=== PATIENT | male | born 1965 | race Caucasian/White ===

== ENCOUNTER 2016-11-12 02:02 | Inpatient (IN) | payer OTHER ==
[~2016-11-12] VITALS: Ht 177.8 cm; Wt 83.3 kg
[~2016-11-12 02:02] MED LIST: CIPR-9 PO; GABA600T PO; GLUCTES27 TOP; HYDR-3535 PO; HYDR25TA5 PO; INSU-170; LEVEMIR SQ; LISI10TA3 PO; METH40TA PO; MISC-226; NEUR400C PO; NOVOLOGP2 SQ; PRIL40CA PO
[2016-11-12 02:05] VITALS: BP 121/71; PULSE 77; RESP 20; TEMP 98.4; O2SAT 97
[2016-11-12] MEDS ORDERED: PIPERACIL-TAZO 4.5 GM PREMIX 100 ML IV STA (04:05)
[2016-11-12] MEDS ORDERED: VANCOMYCIN INJ 1,000 MG in SODIUM CHLOR 0.9% 250 ML INJ 250 ML IV STA (04:05)
[2016-11-12] MEDS ORDERED: SODIUM CHLOR 0.9% 1000 ML INJ 1,000 ML IV ONE (04:05)
[2016-11-12] MEDS ORDERED: HYDROmorphone HCL PF 1 MG/ML VIAL IV ONE (04:15)
[2016-11-12] MEDS ORDERED: ONDANSETRON HCL 4 MG/2 ML VIAL IV ONE (04:15)
[2016-11-12 04:16] LABS: AUTOMATED NEUTROPHIL # 7.4 TH/MM3 (1.8-7.7); BASOPHIL # 0.1 TH/MM3 (0-0.2); BASOPHIL % 0.8 % (0.0-2.0); EOSINOPHIL # 0.2 TH/MM3 (0-0.4); EOSINOPHIL % 1.4 % (0.0-4.0); HEMATOCRIT 36.9 % (39.0-51.0); HEMO FLAGS DIFF FINAL; MEAN CELL VOLUME 86.1 FL (80.0-100.0); MEAN CORPUSCULAR HEMOGLOBIN 29.5 PG (27.0-34.0); MEAN CORPUSCULAR HGB CONC 34.3 % (32.0-36.0); MONO % 9.9 % (0.0-8.0); NEUT % 68.9 % (16.0-70.0); PLATELET COUNT 130 TH/MM3 (150-450); RED BLOOD COUNT 4.29 MIL/MM3 (4.50-5.90); RED CELL DISTRIBUTION WIDTH 13.5 % (11.6-17.2); WHITE BLOOD COUNT 10.7 TH/MM3 (4.0-11.0)
--- NOTE | 2016-11-12 04:19 | PD ---
HPI Chief Complaint: Skin Problem Time Seen by Provider: 04:05 Travel History International Travel<30 days: No Contact w/Intl Traveler<30days: No Traveled to known affect area: No History of Present Illness HPI 51-year-old male with history of diabetes, A. fib, status post previous foot infection status post second toe amputation 2 months ago, has not been able to follow-up with podiatry secondary to insurance issues, here today because of worsening of right foot ulcer, pain, for the past 2-3 days. He denies any fevers or any other issues. Pain is currently an 8 out of 10. Modifying Factors: None Associated Signs & Symptoms: Worsening diabetic right foot ulcer Risk Factors: Previous foot ulcer, diabetic PFSH Past Medical History Arthritis: Yes Autoimmune Disease: No Anxiety: No Depression: No Heart Rhythm Problems: No Cancer: Yes (Skin cancer on nose ) Cardiovascular Problems: Yes (htn) Chemotherapy: No Chest Pain: No Congestive Heart Failure: No Cerebrovascular Accident: No Diabetes: Yes Patient Takes Glucophage: No Diminished Hearing: No Endocrine: Yes Gastrointestinal Disorders: No GERD: Yes Genitourinary: No Headaches: No Hepatitis: Yes (C) Hiatal Hernia: No Hypertension: Yes Immune Disorder: No Implanted Vascular Access Dvce: No Kidney Stones: Yes Musculoskeletal: Yes (CHRONIC BACK PAIN/DDD/HERNIATED DISC) Neurologic: No Psychiatric: No Reproductive: No Respiratory: No Immunizations Current: Yes Migraines: No Radiation Therapy: No Renal Failure: No Seizures: No Sickle Cell Disease: No Thyroid Disease: No Ulcer: No Past Surgical History Abdominal Surgery: No AICD: No Appendectomy: Yes Arteriovenous Shunt: No Cardiac Surgery: No Ear Surgery: No Endocrine Surgery: No Eye Surgery: No Genitourinary Surgery: No Gynecologic Surgery: No Insulin Pump: No Joint Replacement: No Neurologic Surgery: No Oral Surgery: No Pacemaker: No Thoracic Surgery: No Other Surgery: Yes (NOSE, SKIN GRAFT) Social History Alcohol Use: No Tobacco Use: Yes (2 CIGS PER DAY) Substance Use: No Allergies-Medications (Allergen,Severity, Reaction): Coded Allergies: Contrast Media (Verified Allergy, Severe, 11/12/16) Reported Meds & Prescriptions Reported Meds & Active Scripts Active Cipro (Ciprofloxacin HCl) 500 Mg Tab 500 Mg PO BID B-D Insulin Syringe Ultra 31G X 5/16" 1 ml 1 Mis Mis 1 Ea .ROUTE DIRECTED Prilosec (Omeprazole) 40 Mg Cap 40 Mg PO DAILY Hal Contour Next Blood (Glucose Blood) 1 Pretty Pretty 1 Strip TOP 5 TIMES A DAY Lisinopril 10 Mg Tab 10 Mg PO DAILY Neurontin (Gabapentin) 400 Mg Cap 1,200 Mg PO TID Hydrochlorothiazide 25 Mg Tab 25 Mg PO DAILY Novolog Inj (Insulin Aspart) 1,000 Unit/10 Ml Vial 14 Units SQ TIDAC Levemir Inj (Insulin Detemir) 1,000 unit/ 10 ML Vial 70 Units SQ HS Levemir Inj (Insulin Detemir) 1,000 unit/ 10 ML Vial 65 Units SQ DAILY NEB Lortab (Hydrocodone-Acetaminophen) 10-325 Mg Tab 1 Tab PO Q8HR PRN Quick-Fit Crutches (Device) 1 Mis Mis 1 Ea .ROUTE DIRECTED Reported Methadone (Methadone HCl) 40 Mg Tab 220 Mg PO DAILY Lisinopril 10 Mg Tab 10 Mg PO DAILY Hydrochlorothiazide 25 Mg Tab 25 Mg PO DAILY Gabapentin 600 Mg Tab 1,200 Mg PO TID Review of Systems Except as stated in HPI: all other systems reviewed are Neg Physical Exam Narrative GENERAL: Well-nourished, well-developed middle age white male patient in no acute distress. Awake and oriented 3. SKIN: Warm and dry. HEAD: Normocephalic. EYES: No scleral icterus. No injection or drainage. NECK: Supple, trachea midline. CARDIOVASCULAR: Regular rate and rhythm without murmurs, gallops, or rubs. RESPIRATORY: Breath sounds equal bilaterally. No accessory muscle use. GASTROINTESTINAL: Abdomen soft, non-tender, nondistended. MUSCULOSKELETAL: No cyanosis, or edema. BACK: Nontender without obvious deformity. No CVA tenderness. EXTREMITIES: No clubbing, cyanosis, or edema. No joint tenderness, effusion, or edema noted. Right foot with large lateral shelly with surrounding ecchymosis and tenderness and the bottom of the right foot with a 2 cm ulcer with surrounding ecchymosis and erythema. Tender to palpation. Data Data Last Documented VS Vital Signs Date Time Temp Pulse Resp B/P Pulse Ox O2 Delivery O2 Flow Rate FiO2 11/12/16 02:05 98.4 77 20 121/71 97 Room Air Orders Complete Blood Count With Diff (11/12/16 04:05) Comprehensive Metabolic Panel (11/12/16 04:05) Prothrombin Time / Inr (Pt) (11/12/16 04:05) Act Partial Throm Time (Ptt) (11/12/16 04:05) Lactic Acid Sepsis Protocol (11/12/16 04:05) Blood Culture (11/12/16 04:05) Blood Glucose (11/12/16 04:05) Ecg Monitoring (11/12/16 04:05) Iv Access Insert/Monitor (11/12/16 04:05) Oximetry (11/12/16 04:05) Oxygen Administration (11/12/16 04:05) Hydromorphone Pf Inj (Dilaudid Pf Inj) (11/12/16 04:15) Ondansetron Inj (Zofran Inj) (11/12/16 04:15) Piperacil-Tazo 4.5 Gm Premix (Zosyn 4.5 (11/12/16 04:05) Vancomycin Inj (Vancomycin Inj) (11/12/16 04:05) Sodium Chlor 0.9% 1000 Ml Inj (Ns 1000 M (11/12/16 04:05) Foot, Complete ([id number]) (11/12/16 04:05) Admit Order (Ed Use Only) (11/12/16 05:04) Labs Laboratory Tests Test 11/12/16 04:00 White Blood Count 10.7 TH/MM3 Red Blood Count 4.29 MIL/MM3 Hemoglobin 12.6 GM/DL Hematocrit 36.9 % Mean Corpuscular Volume 86.1 FL Mean Corpuscular Hemoglobin 29.5 PG Mean Corpuscular Hemoglobin 34.3 % Concent Red Cell Distribution Width 13.5 % Platelet Count 130 TH/MM3 Mean Platelet Volume 9.4 FL Neutrophils (%) (Auto) 68.9 % Lymphocytes (%) (Auto) 19.0 % Monocytes (%) (Auto) 9.9 % Eosinophils (%) (Auto) 1.4 % Basophils (%) (Auto) 0.8 % Neutrophils # (Auto) 7.4 TH/MM3 Lymphocytes # (Auto) 2.0 TH/MM3 Monocytes # (Auto) 1.1 TH/MM3 Eosinophils # (Auto) 0.2 TH/MM3 Basophils # (Auto) 0.1 TH/MM3 CBC Comment DIFF FINAL Differential Comment Prothrombin Time 11.0 SEC Prothromb Time International 1.0 RATIO Ratio Activated Partial 29.4 SEC Thromboplast Time Sodium Level 131 MEQ/L Potassium Level 4.1 MEQ/L Chloride Level 93 MEQ/L Carbon Dioxide Level 29.0 MEQ/L Anion Gap 9 MEQ/L Blood Urea Nitrogen 23 MG/DL Creatinine 1.06 MG/DL Estimat Glomerular Filtration 74 ML/MIN Rate Random Glucose 373 MG/DL Lactic Acid Level 1.3 mmol/L Calcium Level 8.5 MG/DL Total Bilirubin 0.4 MG/DL Aspartate Amino Transf 21 U/L (AST/SGOT) Alanine Aminotransferase 22 U/L (ALT/SGPT) Alkaline Phosphatase 145 U/L Total Protein 7.3 GM/DL Albumin 2.6 GM/DL MDM Medical Decision Making Medical Screen Exam Complete: Yes Emergency Medical Condition: Yes Medical Record Reviewed: Yes Interpretation(s) Laboratory Tests Test 11/12/16 04:00 Red Blood Count 4.29 MIL/MM3 (4.50-5.90) Hemoglobin 12.6 GM/DL (13.0-17.0) Hematocrit 36.9 % (39.0-51.0) Platelet Count 130 TH/MM3 (150-450) Monocytes (%) (Auto) 9.9 % (0.0-8.0) Monocytes # (Auto) 1.1 TH/MM3 (0-0.9) Sodium Level 131 MEQ/L (136-145) Chloride Level 93 MEQ/L (98-107) Blood Urea Nitrogen 23 MG/DL (7-18) Estimat Glomerular Filtration 74 ML/MIN (>89) Rate Random Glucose 373 MG/DL (74-106) Alkaline Phosphatase 145 U/L (45-117) Albumin 2.6 GM/DL (3.4-5.0) Last 24 hours Impressions Foot X-Ray 11/12/16 0405 Signed Impressions: Service Date/Time: Saturday, November 12, 2016 04:06 - CONCLUSION: 1. Air in the soft tissues along the lateral plantar aspect of the foot suggesting a regional cellulitis. 2. In addition, there appears to be cortical disruption along the fifth metatarsal head, concerning for regional osteomyelitis. 3. Chronic fracture dislocation of the Lisfranc joint with ongoing collapse of the same characteristic of a Charcot joint. Eleuterio Carbajal MD Differential Diagnosis Diabetic foot ulcer versus osteomyelitis versus necrotizing fasciitis versus cellulitis sepsis Narrative Course X-ray indicative of osteomyelitis. I suspect that this is a infected diabetic foot ulcer. IV is here eyes were initiated after cultures are drawn. Case is discussed with Dr. Tolentino for admission. Diagnosis Primary Impression: Diabetic foot infection Additional Impression: Acute osteomyelitis of metatarsal bone of right foot Admitting Information Admitting Physician Requests: it Zara Pratt MD Nov 12, 2016 04:19
[2016-11-12 04:24] LABS: APTT (PATIENT) 29.4 SEC (24.3-30.1)
[2016-11-12 04:31] LABS: ALT (GPT) 22 U/L (12-78); ANION GAP 9 MEQ/L (5-15); AST (GOT) 21 U/L (15-37); BLOOD UREA NITROGEN 23 MG/DL (7-18); CHLORIDE 93 MEQ/L (98-107); GLOMERULAR FILTRATION RATE 74 ML/MIN (>89); POTASSIUM 4.1 MEQ/L (3.5-5.1); SODIUM (NA) 131 MEQ/L (136-145)
[2016-11-12 04:33] LABS: ALKALINE PHOSPHATASE 145 U/L (45-117); TOTAL BILIRUBIN ADULT 0.4 MG/DL (0.2-1.0)
--- NOTE | 2016-11-12 04:44 | RADRPT ---
EXAM DATE/TIME: 11/12/2016 04:06 [facility] COMPARISON: FOOT RIGHT COMPLETE ([id number]), January 31, 2016, 16:41. INDICATIONS : Right foot ulcers, swelling, and drainage. MEDICAL HISTORY : Diabetes mellitus type II. SURGICAL HISTORY : Partial amputations, right foot. ENCOUNTER: Initial ACUITY: 1 day PAIN SCORE: 5/10 LOCATION: Right foot. FINDINGS: Three view examination of the right foot demonstrates a chronic fracture dislocation of the Lisfranc joint with ongoing collapse is seen. There is a transmetatarsal amputation of the second ray. Air is seen in the plantar tissues along the lateral aspect of the foot and the suggestion of some bony eros ion on the plantar aspect of the fifth metatarsal head. CONCLUSION: 1. Air in the soft tissues along the lateral plantar aspect of the foot suggesting a regional celluli tis. 2. In addition, there appears to be cortical disruption along the fifth metatarsal head, concerning f or regional osteomyelitis. 3. Chronic fracture dislocation of the Lisfranc joint with ongoing collapse of the same characteristi c of a Charcot joint. Eleuterio Carbajal MD on November 12, 2016 at 4:31 Board Certified Radiologist. This report was verified electronically.
[2016-11-12] MEDS ORDERED: GLUCAGON 1 MG/ML VIAL OTHER PRN (05:15)
[2016-11-12] MEDS ORDERED: DEXTROSE 50% IN WATER 50 ML VIAL(D50) IV PUSH PRN (05:15)
[2016-11-12] MEDS ORDERED: NALOXONE HCL 0.4 MG/ML AMP IV PRN (05:15)
[2016-11-12] MEDS ORDERED: Vancomycin Consult Pharmacy 1 EA OTHER SCH (05:15)
[2016-11-12] MEDS ORDERED: INSULIN ASPART SUPPLEMENTAL SCALE SQ SCH ×2 (07:00→21:00)
[2016-11-12] MEDS ORDERED: ACETAMINOPHEN/HYDROcodone 325 MG/10 MG TAB PO PRN (07:15)
[2016-11-12] MEDS ORDERED: SENNOSIDES 8.6 MG TAB PO PRN (07:15)
[2016-11-12] MEDS ORDERED: BISACODYL 10 MG SUPP PR PRN (07:15)
[2016-11-12] MEDS ORDERED: ACETAMINOPHEN 325 MG TAB PO PRN ×2 (07:15)
[2016-11-12] MEDS ORDERED: ONDANSETRON HCL 4 MG/2 ML VIAL IVP PRN (07:15)
[2016-11-12] MEDS: DOCUSATE SODIUM 100 MG CAP PO SCH ×2 (07:15→18:08)
[2016-11-12] MEDS ORDERED: ACETAMINOPHEN/HYDROcodone 325 MG/5 MG TAB PO PRN (07:15)
[2016-11-12] MEDS ORDERED: MAGNESIUM HYDROXIDE SUSP 30 ML CUP PO PRN (07:15)
[2016-11-12 07:23] VITALS: BP 109/61; PULSE 64; RESP 16; O2SAT 95
[2016-11-12] MEDS ORDERED: BUPIVACAINE LIPOSOME PF 1.3% 20 ML VIAL ONE (08:34)
[2016-11-12] MEDS: PIPERACIL-TAZO 4.5 GM PREMIX 100 ML IV SCH ×3 (09:23→21:33)
[2016-11-12] MEDS: SODIUM CHLORIDE 0.9% FLUSH 5 ML FLUSH FLUSH SCH ×2 (09:24→21:00)
[2016-11-12] MEDS: ENOXAPARIN SODIUM 40 MG/0.4 ML SYRINGE SQ SCH (09:24)
[2016-11-12] MEDS ORDERED: LANTUS2P SQ ×2 (09:37→09:38)
[2016-11-12] MEDS ORDERED: OXYC-396 PO (09:40)
[2016-11-12] MEDS ORDERED: NOVOLOGP2 SQ (09:42)
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
[2016-11-12 10:58] VITALS: BP 120/72; PULSE 56; RESP 18; TEMP 97.5; O2SAT 97
[2016-11-12] MEDS: INSULIN ASPART SUPPLEMENTAL SCALE SQ SCH ×2 (11:00→16:57)
[2016-11-12] MEDS ORDERED: GADODIAMIDE PF 287 MG/ML 20 ML VIAL (for RAD MRI) IV ONE (11:59)
[2016-11-12] MEDS: VANCOMYCIN INJ 1,750 MG in SODIUM CHLORID 0.9% 500 ML INJ 500 ML IV SCH ×2 (12:24→23:16)
[2016-11-12] MEDS: METHADONE HCL 10 MG TAB PO SCH (12:24)
[2016-11-12 13:18] LABS: HEMOGLOBIN A1a 1.1 %; HEMOGLOBIN Ao 75.6 %; HEMOGLOBIN F 1.8 %; HEMOGLOBIN LA1C 3.4 %
--- NOTE | 2016-11-12 13:35 | RADRPT ---
EXAM DATE/TIME: 11/12/2016 11:28 [facility] COMPARISON: FOOT RIGHT COMPLETE ([id number]), November 12, 2016, 4:06. INDICATIONS : Abscess. Wound bottom of right foot/mid foot. CONTRAST: 16 cc Omniscan (gadodiamide) IV MEDICAL HISTORY : Diabetes mellitus type 2. Hypertension. Hepatitis C. SURGICAL HISTORY : Amputation 2nd metatarsal rt foot. ENCOUNTER: Initial ACUITY: 4-6 days PAIN SCORE: 6/10 LOCATION: Right foot TECHNIQUE: Multiplanar, multisequence MRI examination was performed without contrast and after the intravenous a dministration of gadolinium. FINDINGS: BONE/CARTILAGE: There is some edema within the fifth metatarsal with air some periosteal thickening and enhancement c onsistent with osteomyelitis. There is also similar changes noted within the cuboid bone. There is so me edema within the anterior calcaneus. There is a horizontal nondisplaced fracture through the calca neus anteriorly. There is a Charcot neuropathy of the midfoot and Lisfranc region with dislocation of the tarsal/metatarsals. There is some edema within the tarsals and metatarsals likely reactive from arthritic changes. TENDONS: All of the visualized tendons are intact. POST-CONTRAST: There is enhancement of the soft tissues laterally and along the periosteum of the fifth metatarsal a nd adjacent soft tissues. CONCLUSION: 1. Subcutaneous emphysema laterally with osteomyelitis of the fifth metatarsal. 2. Osteomyelitis of the cuboid. 3. There is some edema within the calcaneus where there appears to be a nondisplaced fracture. 4. Charcot neuropathy of the midfoot Keyur Goldman MD on November 12, 2016 at 13:14 Board Certified Radiologist. This report was verified electronically.
[2016-11-12 16:15] VITALS: BP 106/64; PULSE 55; RESP 18; TEMP 98; O2SAT 98
[2016-11-12] MEDS ORDERED: OMEP40CA2 PO (16:30)
--- NOTE | 2016-11-12 18:35 | PD.CONS ---
History of Present Illness Service Podiatry Consult Requested By ED Reason for Consult R foot gas gangrene Primary Care Physician Courtney Terry MD Diagnoses: History of Present Illness 51-year-old male with history of DM with charcot and previous foot amputation due to infections has had increasing necrosis, drainage, and foul odor from the R foot. He has had this going on for a few months and it worsened over the past 3 days. 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 Active Ordered Medications Current Medications Medications (Trade) Dose Ordered Sig/Ashish Route Start Time Stop Time Status Last Admin (NS Flush) 2 ml UNSCH PRN FLUSH 11/12/16 05:15 (NS Flush) 2 ml BID FLUSH 11/12/16 09:00 11/12/16 09:24 (Lovenox Inj) 40 mg Q24H SQ 11/12/16 09:00 11/12/16 09:24 Naloxone HCl 0.4 mg 0.4 mg UNSCH PRN IV 11/12/16 05:15 Pharmacy Profile Note 0 ml @ 0 mls/hr UNSCH OTHER 11/12/16 05:15 (Zosyn 4.5 Gm Premix) 100 ml @ 200 mls/hr Q6H IV 11/12/16 10:00 11/12/16 16:58 (D50w (Vial) Inj) 25 ml UNSCH PRN IV PUSH 11/12/16 05:15 (Glucagon Inj) 1 mg UNSCH PRN OTHER 11/12/16 05:15 (Tylenol) 650 mg Q4H PRN PO 11/12/16 07:15 (Zofran Inj) 4 mg Q6H PRN IVP 11/12/16 07:15 (Dulcolax Supp) 10 mg DAILY PRN CO 11/12/16 07:15 (Colace) 100 mg Q12H PO 11/12/16 07:15 (Milk Of Magnesia Liq) 30 ml Q12H PRN PO 11/12/16 07:15 (Senokot) 17.2 mg Q12H PRN PO 11/12/16 07:15 (Tylenol) 650 mg Q6H PRN PO 11/12/16 07:15 Hydromorphone HCl 1 mg 1 mg Q3H PRN IV 11/12/16 07:15 (Vancomycin Inj/ NS 500 ml Inj) 517.5 ml @ 250 mls/hr Q12H IV 11/12/16 11:00 11/12/16 12:24 Miscellaneous Information SPECIFIC LAB TO BE DRAWN:VANCOMYCIN TROUGH DATE TO... ONCE ONCE XX 11/14/16 10:45 11/14/16 10:46 (Dolophine) 220 mg DAILY PO 11/12/16 10:45 11/12/16 12:24 (Roxicodone) 20 mg Q6H PRN PO 11/12/16 10:45 (Lantus Inj) 64 units HS SQ 11/12/16 21:00 UNV (Neurontin) 1,200 mg TID PO 11/13/16 09:00 UNV (Prinivil) 10 mg DAILY PO 11/13/16 09:00 UNV (Protonix) 40 mg DAILY PO 11/13/16 09:00 UNV Family History Mother with CHF Denies any significant family history of diabetes Social History Smokes tobacco, 2 cigarettes daily Denies alcohol or illicit drug use Physical Exam Vital Signs Vital Signs Date Time Temp Pulse Resp B/P Pulse Ox O2 Delivery O2 Flow Rate FiO2 11/12/16 16:15 98.0 55 18 106/64 98 11/12/16 10:58 97.5 56 18 120/72 97 11/12/16 07:23 64 16 109/61 95 Room Air 11/12/16 07:22 62 18 11/12/16 02:05 98.4 77 20 121/71 97 Room Air Physical Exam R foot with necrotic wound to lateral foot probes to bone 12cm x 5cm. previous 5th toe amputation. Purulent drainage and significant foul odor present. Plantar ulceration with necrotic tissue to plantar rearfoot, approximately 5cm diameter erythema and edema to R foot. Laboratory Laboratory Tests Test 11/12/16 04:00 White Blood Count 10.7 Red Blood Count 4.29 Hemoglobin 12.6 Hematocrit 36.9 Mean Corpuscular Volume 86.1 Mean Corpuscular Hemoglobin 29.5 Mean Corpuscular Hemoglobin 34.3 Concent Red Cell Distribution Width 13.5 Platelet Count 130 Mean Platelet Volume 9.4 Neutrophils (%) (Auto) 68.9 Lymphocytes (%) (Auto) 19.0 Monocytes (%) (Auto) 9.9 Eosinophils (%) (Auto) 1.4 Basophils (%) (Auto) 0.8 Neutrophils # (Auto) 7.4 Lymphocytes # (Auto) 2.0 Monocytes # (Auto) 1.1 Eosinophils # (Auto) 0.2 Basophils # (Auto) 0.1 CBC Comment DIFF FINAL Differential Comment Prothrombin Time 11.0 Prothromb Time International 1.0 Ratio Activated Partial 29.4 Thromboplast Time Sodium Level 131 Potassium Level 4.1 Chloride Level 93 Carbon Dioxide Level 29.0 Anion Gap 9 Blood Urea Nitrogen 23 Creatinine 1.06 Estimat Glomerular Filtration 74 Rate Random Glucose 373 Hemoglobin A1c 12.0 Lactic Acid Level 1.3 Calcium Level 8.5 Total Bilirubin 0.4 Aspartate Amino Transf 21 (AST/SGOT) Alanine Aminotransferase 22 (ALT/SGPT) Alkaline Phosphatase 145 Total Protein 7.3 Albumin 2.6 Date/Time Procedure Status Source Growth 11/12/16 04:45 Aerobic Blood Culture Received Blood Peripheral Pending 11/12/16 04:45 Anaerobic Blood Culture Received Blood Peripheral Pending Result Diagram: 11/12/16 0400 11/12/16 0400 Imaging Last Impressions Foot X-Ray 11/12/16 0405 Signed Impressions: Service Date/Time: Saturday, November 12, 2016 04:06 - CONCLUSION: 1. Air in the soft tissues along the lateral plantar aspect of the foot suggesting a regional cellulitis. 2. In addition, there appears to be cortical disruption along the fifth metatarsal head, concerning for regional osteomyelitis. 3. Chronic fracture dislocation of the Lisfranc joint with ongoing collapse of the same characteristic of a Charcot joint. Eleuterio Carbajal MD Foot MRI 11/12/16 0000 Signed Impressions: Service Date/Time: Saturday, November 12, 2016 11:28 - CONCLUSION: 1. Subcutaneous emphysema laterally with osteomyelitis of the fifth metatarsal. 2. Osteomyelitis of the cuboid. 3. There is some edema within the calcaneus where there appears to be a nondisplaced fracture. 4. Charcot neuropathy of the midfoot Keyur Goldman MD Assessment and Plan Assessment and Plan Gangrene R foot Discussed that in order to salvage limb, I strongly recommend BKA Discussed he will have to be compliant with postoperative care or he will lose more of his leg. Consult Dr Grant to discuss further workup with patient. Manjit Damon DPM Nov 12, 2016 18:35
[2016-11-12 19:40] VITALS: BP 115/65; PULSE 63; RESP 18; TEMP 97.9; O2SAT 97
--- NOTE | 2016-11-12 21:29 | PD.CAR.PN ---
CVT Progress Note Subjective/Hospital Course: Patient seen Full consult dictated We will proceed with a right below-knee amputation tomorrow Thanks J Objective: Vital Signs Date Time Temp Pulse Resp B/P Pulse Ox O2 Delivery O2 Flow Rate FiO2 11/12/16 19:40 97.9 63 18 115/65 97 11/12/16 16:15 98.0 55 18 106/64 98 11/12/16 10:58 97.5 56 18 120/72 97 11/12/16 07:23 64 16 109/61 95 Room Air 11/12/16 07:22 62 18 11/12/16 02:05 98.4 77 20 121/71 97 Room Air Result Diagram: 11/12/160 11/12/160 Velasquez Lizama MD Nov 12, 2016 21:29
[2016-11-12] MEDS: INSULIN DETEMIR 100 UNITS/ML VIAL SQ SCH (21:32)
[2016-11-12] MEDS: HYDROmorphone HCL PF 1 MG/ML VIAL IV PRN (21:32)
[2016-11-12] MEDS ORDERED: MORPHINE SULFATE 8 MG/ML INJ IV PUSH PRN (22:00)
--- NOTE | 2016-11-12 23:13 | MB ---
cc: BING GERONIMO MD DATE OF CONSULTATION: 11/12/2016 REASON FOR CONSULTATION: Gangrene of the right foot. Peripheral vascular disease. HISTORY OF PRESENT DISEASE: The patient is a 51 year-old male with diabetes mellitus, and Charcot foot, previous Lisfranc's amputation by Dr. Reaves. He was doing fine for a bit and now developed gangrene of the right lateral foot and the wound, and hence the consultation. This whole thing developed over a period of three days apparently. PAST MEDICAL HISTORY: 1. Atrial fibrillation 2. Hypertension 3. Hepatitis C 4. Diabetes mellitus. PAST SURGICAL HISTORY: Appendectomy Right second toe amputation. Lisfranc's amputation. MEDICATIONS: Can be found in the record. SOCIAL HISTORY: The patient smokes about half-pack per day and does not drink. PHYSICAL EXAMINATION: Reveals a pleasant 51 year-old gentleman in no acute distress. HEENT: Normocephalic. No trauma to the head. Pupils equal and reactive. Extraocular movements intact. NECK: Bilateral carotid pulses. No bruits. CHEST: Bilateral breath sounds. HEART: Regular rhythm. The patient was apparently in A-fib at some point. ABDOMEN: Soft. Active bowel sounds. EXTREMITIES: Patient has palpable femoral pulses and dopplerable popliteal pulses, left dopplerable dorsalis pedis, posterior tibial. No distal pulses on the right, yet there is a posterior tibial very weak little higher up on the right. Right lateral foot is gangrenous. This is wet gangrene with foul-smelling necrosis and some crepitus in the tissue. No spread upwards. IMPRESSION: The patient is a 51 year-old male with gangrene of the right foot. The only way out of this is right below-knee amputation. This should be performed on an urgent basis. The patient just ate dinner. Will go ahead with it tomorrow morning. After that, while the patient is in a healing phase, we will evaluate him with CTA with runoff and a few other studies to get a better idea about his circulatory status. At this point below-knee amputation is appropriate. Thank you for the referral. Critical care time: 45 minutes. Sloabi BARRIGA /9:28 PM /11:05 PM [facility]
[2016-11-12 23:18] VITALS: BP 129/74; PULSE 59; RESP 18; TEMP 98; O2SAT 96
[2016-11-13 02:36] LABS: AUTOMATED NEUTROPHIL # 3.8 TH/MM3 (1.8-7.7); BASOPHIL % 0.6 % (0.0-2.0); EOSINOPHIL # 0.2 TH/MM3 (0-0.4); HEMATOCRIT 37.1 % (39.0-51.0); HEMO FLAGS DIFF FINAL; LYMPH % 20.5 % (9.0-44.0); LYMPHOCYTE # 1.2 TH/MM3 (1.0-4.8); MEAN CELL VOLUME 85.2 FL (80.0-100.0); NEUT % 64.9 % (16.0-70.0); PLATELET COUNT 129 TH/MM3 (150-450); RED BLOOD COUNT 4.35 MIL/MM3 (4.50-5.90); RED CELL DISTRIBUTION WIDTH 13.8 % (11.6-17.2); WHITE BLOOD COUNT 5.9 TH/MM3 (4.0-11.0)
[2016-11-13 03:05] LABS: BICARBONATE 31.4 MEQ/L (21.0-32.0)
[2016-11-13] MEDS: PIPERACIL-TAZO 4.5 GM PREMIX 100 ML IV SCH ×4 (03:43→22:22)
[2016-11-13 05:54] VITALS: BP 125/84; PULSE 58; RESP 18; TEMP 97.7; O2SAT 95
[2016-11-13] MEDS: DOCUSATE SODIUM 100 MG CAP PO SCH (07:15)
[2016-11-13 07:52] VITALS: BP 167/97; PULSE 55; RESP 20; TEMP 98.4; O2SAT 97
--- NOTE | 2016-11-13 08:29 | HHI.PR ---
Subjective Remarks Follow up for extensive right foot osteomyelitis. The patient will be going for right BKA today. He denies fevers or chills. Pain fairly well controlled with pain medications. Discussed patient's HgbA1c 12.0, patient reports compliance with his insulin at home. Objective Vitals Vital Signs Date Time Temp Pulse Resp B/P Pulse Ox O2 Delivery O2 Flow Rate FiO2 11/13/16 07:52 98.4 55 20 167/97 97 11/13/16 05:54 97.7 58 18 125/84 95 11/12/16 23:18 98.0 59 18 129/74 96 11/12/16 22:18 16 11/12/16 21:30 14 11/12/16 19:40 97.9 63 18 115/65 97 11/12/16 16:15 98.0 55 18 106/64 98 11/12/16 10:58 97.5 56 18 120/72 97 Result Diagram: 11/13/16 0225 11/13/16 0225 Imaging Last Impressions Foot X-Ray 11/12/16 0405 Signed Impressions: Service Date/Time: Saturday, November 12, 2016 04:06 - CONCLUSION: 1. Air in the soft tissues along the lateral plantar aspect of the foot suggesting a regional cellulitis. 2. In addition, there appears to be cortical disruption along the fifth metatarsal head, concerning for regional osteomyelitis. 3. Chronic fracture dislocation of the Lisfranc joint with ongoing collapse of the same characteristic of a Charcot joint. Eleuterio Carbajal MD Foot MRI 11/12/16 0000 Signed Impressions: Service Date/Time: Saturday, November 12, 2016 11:28 - CONCLUSION: 1. Subcutaneous emphysema laterally with osteomyelitis of the fifth metatarsal. 2. Osteomyelitis of the cuboid. 3. There is some edema within the calcaneus where there appears to be a nondisplaced fracture. 4. Charcot neuropathy of the midfoot Keyur Goldman MD Objective Remarks GENERAL: Well-nourished, well-developed middle aged male patient in NAD. SKIN: Warm and dry. Right plantar and lateral foot with significant large foul- smelling deep necrotic ulceration and purulent discharge. HEENT: Normocephalic. Atraumatic. Pupils equal and round. No scleral icterus. No injection or drainage. Mucous membranes pink and moist. NECK: Supple. Trachea midline. CARDIOVASCULAR: Regular rate and rhythm. S1, S2 noted. No murmur appreciated. RESPIRATORY: No accessory muscle use. Clear to auscultation. Breath sounds equal bilaterally. GASTROINTESTINAL: Abdomen soft, non-tender, nondistended. Normoactive bowel sounds x4. MUSCULOSKELETAL: No obvious deformities. Trace b/l lower extremity pitting edema. 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 NEUROLOGICAL: Awake and alert. No obvious cranial nerve deficits. Motor grossly within normal limits. Normal speech. PSYCHIATRIC: Appropriate mood and affect; insight and judgment normal. Medications and IVs Current Medications Medications (Trade) Dose Ordered Sig/Ashish Route Start Time Stop Time Status Last Admin (NS Flush) 2 ml UNSCH PRN FLUSH 11/12/16 05:15 (NS Flush) 2 ml BID FLUSH 11/12/16 09:00 11/13/16 08:42 (Lovenox Inj) 40 mg Q24H SQ 11/12/16 09:00 11/12/16 09:24 Naloxone HCl 0.4 mg 0.4 mg UNSCH PRN IV 11/12/16 05:15 Pharmacy Profile Note 0 ml @ 0 mls/hr UNSCH OTHER 11/12/16 05:15 (Zosyn 4.5 Gm Premix) 100 ml @ 200 mls/hr Q6H IV 11/12/16 10:00 11/13/16 08:42 (D50w (Vial) Inj) 25 ml UNSCH PRN IV PUSH 11/12/16 05:15 (Glucagon Inj) 1 mg UNSCH PRN OTHER 11/12/16 05:15 (Tylenol) 650 mg Q4H PRN PO 11/12/16 07:15 (Zofran Inj) 4 mg Q6H PRN IVP 11/12/16 07:15 (Dulcolax Supp) 10 mg DAILY PRN SC 11/12/16 07:15 (Colace) 100 mg Q12H PO 11/12/16 07:15 (Milk Of Magnesia Liq) 30 ml Q12H PRN PO 11/12/16 07:15 (Senokot) 17.2 mg Q12H PRN PO 11/12/16 07:15 (Tylenol) 650 mg Q6H PRN PO 11/12/16 07:15 Hydromorphone HCl 1 mg 1 mg Q3H PRN IV 11/12/16 07:15 11/12/16 21:32 (Vancomycin Inj/ NS 500 ml Inj) 517.5 ml @ 250 mls/hr Q12H IV 11/12/16 11:00 11/12/16 23:16 Miscellaneous Information SPECIFIC LAB TO BE DRAWN:VANCOMYCIN TROUGH DATE TO... ONCE ONCE XX 11/14/16 10:45 11/14/16 10:46 (Dolophine) 220 mg DAILY PO 11/12/16 10:45 11/13/16 08:41 (Roxicodone) 20 mg Q6H PRN PO 11/12/16 10:45 11/13/16 01:46 (Levemir Inj) 64 units HS SQ 11/12/16 21:00 11/12/16 21:32 (Neurontin) 1,200 mg TID PO 11/13/16 09:00 11/13/16 08:41 (Prinivil) 10 mg DAILY PO 11/13/16 09:00 11/13/16 08:41 (Protonix) 40 mg DAILY PO 11/13/16 09:00 (Morphine Inj) 5 mg Q4H PRN IV PUSH 11/12/16 22:00 Urinary Catheter: No Vascular Central Line Catheter: No A/P Problem List: (1) Acute osteomyelitis of metatarsal bone of right foot ICD Code: M86.171 Status: Acute (2) Diabetes ICD Code: E11.9 Status: Chronic (3) Diabetic neuropathy ICD Code: E11.40 Status: Chronic (4) Methadone dependence ICD Code: F11.20 Status: Chronic Assessment and Plan 51-year-old male with history of diabetes, atrial fibrillation, chronic right foot ulcers, chronic pain on methadone/oxycodone, hepatitis C, presents with a three-day history of intractable pain at right foot ulceration. Osteomyelitis/Cellulitis/Gangrene of Right Foot: Images reviewed --Right foot x- ray shows air in soft tissues along the lateral plantar aspect of the foot suggesting regional cellulitis; in addition, appears to be cortical disruption along the fifth metatarsal head, concerning for regional osteomyelitis; chronic fracture dislocation of the Lisfranc joint with ongoing collapse characteristic of Charcot joint. Right Foot MRI shows subcutaneous emphysema laterally with osteomyelitis of the fifth metatarsal; osteomyelitis of the cuboid; some edema within the calcaneus where there appears to be nondisplaced fracture; Charcot neuropathy of the midfoot. -Afebrile, no leukocytosis -Continue on IV Vanco and Zosyn -Elevate the right leg -blood cultures collected, pending -pain control with oxycodone 20mg po q6h prn and IV dilaudid prn breakthrough pain -Consult podiatry, recommended BKA -Consulted surgery, Dr. Lizama planning for Right BKA today 11/13 Diabetes: chronic, Monitor Accu-cheks and cover with medium dose SSI. HgbA1c 12.0. Continue patient's Levemir 64 u bid, only give half of dosing today since NPO prior to OR. Chronic Back Pain: from accident 20years ago. He goes to the [facility] for his methadone 220 mg daily (confirmed by RN), and sees pain management to receive his oxycodone 20 mg q6h prn. Continue medications. All other medical conditions stable, continue home medications as appropriate. DVT Prophylaxis: teds/SCDs to the left leg, hold chemical prophylaxis for now with upcoming procedure Written by Myrna Sanford, acting as scribe for Dr. Mehta on 11/13/16 at 08:29. All or portions of this note were transcribed by scribe []. I, Dr. Kiel Mehta personally performed the history, physical exam, and medical decision making; and confirmed the accuracy of the information in the transcribed note. Authenticated by Dr. Kiel Mehta on 11/13/16 at 17:21. Myrna Sanford PA-C Nov 13, 2016 08:29 Kiel Mehta MD Nov 13, 2016 17:22
[2016-11-13] MEDS: INSULIN DETEMIR 100 UNITS/ML VIAL SQ SCH ×2 (08:39→22:22)
[2016-11-13] MEDS: LISINOPRIL 10 MG TAB PO SCH (08:41)
[2016-11-13] MEDS: GABAPENTIN 400 MG CAP PO SCH ×3 (08:41→18:30)
[2016-11-13] MEDS: METHADONE HCL 10 MG TAB PO SCH (08:41)
[2016-11-13] MEDS: SODIUM CHLORIDE 0.9% FLUSH 5 ML FLUSH FLUSH SCH ×2 (08:42→22:22)
[2016-11-13] MEDS: ENOXAPARIN SODIUM 40 MG/0.4 ML SYRINGE SQ SCH (08:49)
[2016-11-13] MEDS: PANTOPRAZOLE SOD 40 MG DELAYED RELEASE TAB PO SCH (08:49)
[2016-11-13] MEDS: INSULIN ASPART SUPPLEMENTAL SCALE SQ SCH ×3 (11:00→22:49)
[2016-11-13] MEDS: VANCOMYCIN INJ 1,750 MG in SODIUM CHLORID 0.9% 500 ML INJ 500 ML IV SCH (11:16)
[2016-11-13 11:37] VITALS: BP 107/66; PULSE 50; RESP 20; TEMP 97; O2SAT 95
[2016-11-13] MEDS ORDERED: DEXT 5%-NACL 0.45% 500 ML INJ 500 ML IV ONE (12:00)
[2016-11-13] MEDS ORDERED: PROPOFOL 200 MG/20 ML AMP IV ONE (12:00)
[2016-11-13] MEDS ORDERED: BUPIVACAINE LIPOSOME PF 1.3% 20 ML VIAL ONE (12:36)
[2016-11-13] MEDS ORDERED: BUPIVACAINE HCL PF 0.25% 30 ML VIAL NB ONE (12:36)
[2016-11-13] MEDS ORDERED: MIDAZOLAM HCL 5 MG/5 ML VIAL ONE (13:40)
[2016-11-13] MEDS ORDERED: DEXTROSE 50% IN WATER 50 ML SYRINGE ONE (13:50)
[2016-11-13] MEDS ORDERED: DO NOT ADM ANY ANTICOAGULANT DRUGS XX PRN (15:50)
[2016-11-13] MEDS: HYDROmorphone HCL PF 1 MG/ML VIAL IV PRN ×2 (15:51→22:23)
[2016-11-13] MEDS ORDERED: fentaNYL CITRATE 250 MCG/5 ML AMP ONE (15:52)
[2016-11-13] MEDS ORDERED: HYDROmorphone HCL PF 2 MG/ML VIAL ONE ×2 (15:57→18:06)
[2016-11-13] MEDS ORDERED: HYDROmorphone HCL PF 2 MG/ML VIAL IV ONE (19:00)
[2016-11-13 20:00] VITALS: BP 139/88; PULSE 61; RESP 20; TEMP 98.4; O2SAT 97
[2016-11-14] VITALS: BP 142/84; PULSE 69; RESP 20; TEMP 98; O2SAT 96
[2016-11-14] MEDS: VANCOMYCIN INJ 1,750 MG in SODIUM CHLORID 0.9% 500 ML INJ 500 ML IV SCH ×2 (00:36→11:44)
[2016-11-14] MEDS: HYDROmorphone HCL PF 1 MG/ML VIAL IV PRN ×3 (04:02→09:39)
[2016-11-14] MEDS: PIPERACIL-TAZO 4.5 GM PREMIX 100 ML IV SCH ×4 (04:08→20:40)
[2016-11-14] MEDS: INSULIN ASPART SUPPLEMENTAL SCALE SQ SCH ×4 (06:37→20:43)
[2016-11-14] MEDS: INSULIN DETEMIR 100 UNITS/ML VIAL SQ SCH ×2 (06:46→20:43)
[2016-11-14] MEDS: DOCUSATE SODIUM 100 MG CAP PO SCH ×2 (07:15→18:39)
[2016-11-14] MEDS: METHADONE HCL 10 MG TAB PO SCH (08:48)
[2016-11-14] MEDS: LISINOPRIL 10 MG TAB PO SCH (08:49)
[2016-11-14] MEDS: PANTOPRAZOLE SOD 40 MG DELAYED RELEASE TAB PO SCH (08:49)
[2016-11-14] MEDS: GABAPENTIN 400 MG CAP PO SCH ×3 (08:49→16:52)
[2016-11-14] MEDS: ENOXAPARIN SODIUM 40 MG/0.4 ML SYRINGE SQ SCH (08:52)
[2016-11-14 08:54] VITALS: BP 174/95; PULSE 64; RESP 18; TEMP 97.3; O2SAT 99
[2016-11-14] MEDS: SODIUM CHLORIDE 0.9% FLUSH 5 ML FLUSH FLUSH SCH ×2 (08:56→20:44)
[2016-11-14] MEDS ORDERED: PHARMACY ORDERED LAB XX ONE (10:45)
--- NOTE | 2016-11-14 10:51 | EKG ---
Date Performed: 11/13/2016 Time Performed: 14:01:02 PTAGE: 51 years EKG: SINUS BRADYCARDIA POSSIBLE INFERIOR MYOCARDIAL INFARCTION , PROBABLY OLD BORDERLINE ECG PREVIOUS TRACING : 06/28/2016 13.07 Compared to prior tracing no significant change DOCTOR: Aguila Curtis Interpretating Date/Time 11/14/2016 10:50:29
--- NOTE | 2016-11-14 11:05 | HHI.PR ---
Subjective Remarks Follow-up BKA. Complains of phantom pain. BP elevated likely secondary to pain. Also hyperglycemic. Seen with . Discussed with RN Objective Vitals Vital Signs Date Time Temp Pulse Resp B/P Pulse Ox O2 Delivery O2 Flow Rate FiO2 11/14/16 08:54 97.3 64 18 174/95 99 11/14/16 00:00 98.0 69 20 142/84 96 11/13/16 20:00 98.4 61 20 139/88 97 11/13/16 19:10 98.1 55 14 135/71 100 Room Air 11/13/16 18:30 68 14 140/85 100 Room Air 11/13/16 17:30 59 13 131/78 100 Room Air 11/13/16 17:00 14 11/13/16 17:00 14 11/13/16 16:30 98.0 57 14 135/75 100 Nasal Cannula 3 11/13/16 16:15 55 15 151/76 100 Nasal Cannula 3 11/13/16 16:00 64 14 141/77 100 Nasal Cannula 3 11/13/16 15:45 58 16 145/91 100 Nasal Cannula 3 11/13/16 15:32 97.8 54 17 115/68 100 Nasal Cannula 3 11/13/16 11:37 97.0 50 20 107/66 95 I/O 11/13/16 11/13/16 11/13/16 11/14/16 11/14/16 11/14/16 07:00 15:00 23:00 07:00 15:00 23:00 Intake Total 2490 ml Output Total 850 ml Balance 1640 ml Intake Oral 840 ml IV Total 100 ml Other 1550 ml Output Urine Total 600 ml Estimated Blood Loss 250 ml # Bowel Movements 0 Result Diagram: 11/13/1622411/13/165 Imaging Last Impressions Foot X-Ray 11/12/165 Signed Impressions: Service Date/Time: Saturday, November 12, 2016 04:06 - CONCLUSION: 1. Air in the soft tissues along the lateral plantar aspect of the foot suggesting a regional cellulitis. 2. In addition, there appears to be cortical disruption along the fifth metatarsal head, concerning for regional osteomyelitis. 3. Chronic fracture dislocation of the Lisfranc joint with ongoing collapse of the same characteristic of a Charcot joint. Eleuterio Carbajal MD Foot MRI 11/12/16 0000 Signed Impressions: Service Date/Time: Saturday, November 12, 2016 11:28 - CONCLUSION: 1. Subcutaneous emphysema laterally with osteomyelitis of the fifth metatarsal. 2. Osteomyelitis of the cuboid. 3. There is some edema within the calcaneus where there appears to be a nondisplaced fracture. 4. Charcot neuropathy of the midfoot Keyur Goldman MD Objective Remarks GENERAL: Well-nourished, well-developed middle aged male patient in NAD. SKIN: Warm and dry. Right BKA with dry dressing HEENT: Normocephalic. Atraumatic. Pupils equal and round. No scleral icterus. No injection or drainage. Mucous membranes pink and moist. NECK: Supple. Trachea midline. CARDIOVASCULAR: Regular rate and rhythm. S1, S2 noted. No murmur appreciated. RESPIRATORY: No accessory muscle use. Clear to auscultation. Breath sounds equal bilaterally. GASTROINTESTINAL: Abdomen soft, non-tender, nondistended. Normoactive bowel sounds x4. MUSCULOSKELETAL: No obvious deformities. Trace lower extremity pitting edema. NEUROLOGICAL: Awake and alert. No obvious cranial nerve deficits. Motor grossly within normal limits. Normal speech. PSYCHIATRIC: Appropriate mood and affect; insight and judgment normal. Procedures BKA A/P Problem List: (1) Acute osteomyelitis of metatarsal bone of right foot ICD Code: M86.171 Status: Acute (2) Diabetes ICD Code: E11.9 Status: Chronic (3) Diabetic neuropathy ICD Code: E11.40 Status: Chronic (4) Methadone dependence ICD Code: F11.20 Status: Chronic Assessment and Plan 51-year-old male with history of diabetes, atrial fibrillation, chronic right foot ulcers, chronic pain on methadone/oxycodone, hepatitis C, presents with a three-day history of intractable pain at right foot ulceration. Osteomyelitis/Cellulitis/Gangrene of Right Foot: Images reviewed --Right foot x- ray shows air in soft tissues along the lateral plantar aspect of the foot suggesting regional cellulitis; in addition, appears to be cortical disruption along the fifth metatarsal head, concerning for regional osteomyelitis; chronic fracture dislocation of the Lisfranc joint with ongoing collapse characteristic of Charcot joint. Right Foot MRI shows subcutaneous emphysema laterally with osteomyelitis of the fifth metatarsal; osteomyelitis of the cuboid; some edema within the calcaneus where there appears to be nondisplaced fracture; Charcot neuropathy of the midfoot. -Afebrile, no leukocytosis -Continue on IV Vanco and Zosyn -Elevate the right leg -blood cultures collected, pending negative to date -Adjust pain control with oxycodone 25mg po q6h prn and 2 mg IV dilaudid prn breakthrough pain. Counseled regarding narcotics -s/p BKA, postoperative care per Dr. Lizama Diabetes: Uncontrolled Monitor Accu-cheks and cover with medium dose SSI. HgbA1c 12.0. Continue patient's Levemir increase to 70 units at bedtime and continue 64 units in the morning, restart preprandial NovoLog 14 units 3 times a day. Continue Neurontin for neuropathy and phantom pain Chronic Back Pain: from accident 20years ago. He goes to the [facility] for his methadone 220 mg daily (confirmed by RN), and sees pain management to receive his oxycodone 20 mg q6h prn. Continue medications. All other medical conditions stable, continue home medications as appropriate. DVT Prophylaxis: teds/SCDs to the left leg, start chemical prophylaxis if okay with surgery Discharge Planning Discharge Friday per Kiel Mehta MD Nov 14, 2016 11:05
[2016-11-14] MEDS: INSULIN ASPART 1,000 UNITS/10 ML VIAL SQ SCH ×2 (11:45→16:57)
--- NOTE | 2016-11-14 11:56 | PD.CAR.PN ---
CVT Progress Note Subjective/Hospital Course: Patient seen Full consult dictated We will proceed with a right below-knee amputation tomorrow Thanks J 11/14/16 Status post R BKA, Dressing dry intact. patient doing well. Pain control difficult due to patient's addiction to narcotics. Will keep dressing on till Friday Able DC patient Friday Objective: Vital Signs Date Time Temp Pulse Resp B/P Pulse Ox O2 Delivery O2 Flow Rate FiO2 11/14/16 08:54 97.3 64 18 174/95 99 11/14/16 00:00 98.0 69 20 142/84 96 11/13/16 20:00 98.4 61 20 139/88 97 11/13/16 19:10 98.1 55 14 135/71 100 Room Air 11/13/16 18:30 68 14 140/85 100 Room Air 11/13/16 17:30 59 13 131/78 100 Room Air 11/13/16 17:00 14 11/13/16 17:00 14 11/13/16 16:30 98.0 57 14 135/75 100 Nasal Cannula 3 11/13/16 16:15 55 15 151/76 100 Nasal Cannula 3 11/13/16 16:00 64 14 141/77 100 Nasal Cannula 3 11/13/16 15:45 58 16 145/91 100 Nasal Cannula 3 11/13/16 15:32 97.8 54 17 115/68 100 Nasal Cannula 3 Labs: Laboratory Tests Test 11/14/16 10:45 Vancomycin Level Trough 25.7 MCG/ML (5.0-10.0) Result Diagram: 11/13/1622411/13/165 Velasquez Lizama MD Nov 14, 2016 11:56
[2016-11-14 12:41] VITALS: BP 171/96; PULSE 64; RESP 20; TEMP 98.3; O2SAT 96
[2016-11-14] MEDS ORDERED: METF500 PO (14:24)
--- NOTE | 2016-11-14 14:25 | HHI.DCPOC ---
Discharge Care Plan Diagnosis: (1) Acute osteomyelitis of metatarsal bone of right foot Your Health Problems Are: Difficulty with ADL Exercise Tolerance Goals to Promote Your Health * To prevent worsening of your condition and complications * To maintain your health at the optimal level Directions to Meet Your Goals Take your medications as prescribed Follow your dietary instruction Follow activity as directed Keep your appointments as scheduled Take your immunizations and boosters as scheduled If your symptoms worsen call your PCP, if no PCP go to Urgent Care Center or Emergency Room Smoking is Dangerous to Your Health. Avoid second hand smoke Call the 24-hour hour crisis hotline for domestic abuse at Kiel Mehta MD Nov 14, 2016 14:25
[2016-11-14 15:57] VITALS: BP 179/90; PULSE 64; RESP 20; TEMP 98.7; O2SAT 94
[2016-11-14] MEDS: HYDROmorphone HCL PF 2 MG/ML VIAL IV PRN ×3 (16:45→23:54)
[2016-11-14] MEDS: metFORMIN HCL 500 MG TAB PO SCH (16:58)
[2016-11-14 20:00] VITALS: BP 140/84; PULSE 70; RESP 20; TEMP 99.4; O2SAT 97
[2016-11-15] VITALS: BP 126/80; PULSE 68; RESP 18; TEMP 98.8; O2SAT 96
[2016-11-15] MEDS: HYDROmorphone HCL PF 2 MG/ML VIAL IV PRN ×6 (03:05→23:47)
[2016-11-15 04:36] VITALS: BP 130/76; PULSE 62; RESP 20; TEMP 98.4; O2SAT 97
[2016-11-15] MEDS: PIPERACIL-TAZO 4.5 GM PREMIX 100 ML IV SCH ×4 (04:41→22:30)
[2016-11-15] MEDS: INSULIN DETEMIR 100 UNITS/ML VIAL SQ SCH ×2 (04:42→20:26)
[2016-11-15] MEDS: INSULIN ASPART SUPPLEMENTAL SCALE SQ SCH ×4 (04:52→22:40)
[2016-11-15 05:46] LABS: HEMATOCRIT 33.8 % (39.0-51.0); MEAN CELL VOLUME 83.4 FL (80.0-100.0); MEAN CORPUSCULAR HGB CONC 34.8 % (32.0-36.0); PLATELET COUNT 156 TH/MM3 (150-450); RED BLOOD COUNT 4.05 MIL/MM3 (4.50-5.90); RED CELL DISTRIBUTION WIDTH 13.4 % (11.6-17.2); REVIEW FLAG FINAL; WHITE BLOOD COUNT 13.3 TH/MM3 (4.0-11.0)
[2016-11-15] MEDS ORDERED: VANCOMYCIN INJ 1,250 MG in SODIUM CHLOR 0.9% 250 ML INJ 250 ML IV SCH (06:00)
[2016-11-15] MEDS ORDERED: DOCUSATE SODIUM 50 MG/SENNA 8.6 MG TAB PO PRN (06:00)
[2016-11-15] MEDS: DOCUSATE SODIUM 100 MG CAP PO SCH ×2 (06:12→18:04)
[2016-11-15 08:00] VITALS: BP 191/100; PULSE 74; RESP 17; TEMP 96.8; O2SAT 98
[2016-11-15] MEDS: INSULIN ASPART 1,000 UNITS/10 ML VIAL SQ SCH ×3 (08:00→17:00)
[2016-11-15] MEDS: GABAPENTIN 400 MG CAP PO SCH ×3 (08:47→17:05)
[2016-11-15] MEDS: metFORMIN HCL 500 MG TAB PO SCH (08:47)
[2016-11-15] MEDS: LISINOPRIL 10 MG TAB PO SCH (08:47)
[2016-11-15] MEDS: SODIUM CHLORIDE 0.9% FLUSH 5 ML FLUSH FLUSH SCH ×2 (08:49→20:25)
[2016-11-15] MEDS: METHADONE HCL 10 MG TAB PO SCH (08:49)
[2016-11-15] MEDS: ENOXAPARIN SODIUM 40 MG/0.4 ML SYRINGE SQ SCH (08:53)
[2016-11-15] MEDS: POLYETHYLENE GLYCOL 17 GM PKG PO SCH (09:00)
[2016-11-15] MEDS: SENNOSIDES 8.6 MG TAB PO SCH (09:00)
[2016-11-15] MEDS: PANTOPRAZOLE SOD 40 MG DELAYED RELEASE TAB PO SCH (09:22)
[2016-11-15 12:00] VITALS: BP 188/101; PULSE 68; RESP 18; TEMP 97.9; O2SAT 99
--- NOTE | 2016-11-15 14:42 | HHI.PR ---
Subjective Remarks Follow-up for BKA and penis pain. The patient is complaining of painful, tight foreskin 3 days. He states that he had this before about 2 years ago and received some cream from his PCP which helped. He states he's been having whitish discharge from underneath his foreskin. He was hoping he can go to a nursing facility after his discharge. Objective Vitals Vital Signs Date Time Temp Pulse Resp B/P Pulse Ox O2 Delivery O2 Flow Rate FiO2 11/15/16 12:00 97.9 68 18 188/101 99 11/15/16 09:22 16 11/15/16 08:00 96.8 74 17 191/100 98 11/15/16 04:36 98.4 62 20 130/76 97 11/15/16 03:35 18 11/15/16 00:00 98.8 68 18 126/80 96 11/14/16 23:29 16 11/14/16 20:00 99.4 70 20 140/84 97 11/14/16 15:57 98.7 64 20 179/90 94 I/O 11/14/16 11/14/16 11/14/16 11/15/16 11/15/16 11/15/16 06:59 14:59 22:59 06:59 14:59 22:59 Intake Total 1600 ml 480 ml 1600 ml Output Total 2575 ml 600 ml 1050 ml Balance -975 ml -120 ml 550 ml Intake Oral 1600 ml 480 ml 900 ml IV Total 700 ml Output Urine Total 2575 ml 600 ml 1050 ml # Bowel Movements 0 0 1 Result Diagram: 11/15/16 0351 11/15/16 0351 Imaging Last Impressions Foot X-Ray 11/12/16 0405 Signed Impressions: Service Date/Time: Saturday, November 12, 2016 04:06 - CONCLUSION: 1. Air in the soft tissues along the lateral plantar aspect of the foot suggesting a regional cellulitis. 2. In addition, there appears to be cortical disruption along the fifth metatarsal head, concerning for regional osteomyelitis. 3. Chronic fracture dislocation of the Lisfranc joint with ongoing collapse of the same characteristic of a Charcot joint. Eleuterio Carbajal MD Foot MRI 11/12/16 0000 Signed Impressions: Service Date/Time: Saturday, November 12, 2016 11:28 - CONCLUSION: 1. Subcutaneous emphysema laterally with osteomyelitis of the fifth metatarsal. 2. Osteomyelitis of the cuboid. 3. There is some edema within the calcaneus where there appears to be a nondisplaced fracture. 4. Charcot neuropathy of the midfoot Keyur Goldman MD Objective Remarks GENERAL: Well-developed well-nourished. In no acute distress. SKIN: Warm and dry. Nose, RLE as below. HEENT: Normocephalic. Pupils equal and round. Mucous membranes pink and moist. Nose with previous SCC resection. CARDIOVASCULAR: Regular rate and rhythm. No murmur appreciated. RESPIRATORY: No accessory muscle use. Clear to auscultation. Breath sounds equal bilaterally. GASTROINTESTINAL: Abdomen soft, non-tender, nondistended. Bowel sounds x4. : Balanitis with difficult to retract foreskin MUSCULOSKELETAL: Right BKA with dressing CDI. No clubbing or cyanosis. No edema. NEUROLOGICAL: Awake and alert. No focal neurological deficits. Moves upper and lower extremities spontaneously. Normal speech. PSYCHIATRIC: Appropriate mood and affect; insight and judgment normal. Procedures Right lower extremity BKA 11/13 A/P Problem List: (1) Acute osteomyelitis of metatarsal bone of right foot ICD Code: M86.171 Status: Acute (2) Diabetes ICD Code: E11.9 Status: Chronic (3) Diabetic neuropathy ICD Code: E11.40 Status: Chronic (4) Methadone dependence ICD Code: F11.20 Status: Chronic Assessment and Plan 51-year-old male with history of diabetes, atrial fibrillation, chronic right foot ulcers, chronic pain on methadone/oxycodone, hepatitis C, presents with a three-day history of intractable pain at right foot ulceration. Osteomyelitis/Cellulitis/Gangrene of Right Foot: Images reviewed --Right foot x- ray shows air in soft tissues along the lateral plantar aspect of the foot suggesting regional cellulitis; in addition, appears to be cortical disruption along the fifth metatarsal head, concerning for regional osteomyelitis; chronic fracture dislocation of the Lisfranc joint with ongoing collapse characteristic of Charcot joint. Right Foot MRI shows subcutaneous emphysema laterally with osteomyelitis of the fifth metatarsal; osteomyelitis of the cuboid; some edema within the calcaneus where there appears to be nondisplaced fracture; Charcot neuropathy of the midfoot. -Afebrile, no leukocytosis -Continue on IV Vanco and Zosyn -Elevate the right leg -blood cultures collected, pending negative to date -Pain control with oxycodone 25mg po q6h prn and 2 mg IV dilaudid prn breakthrough pain. Counseled regarding narcotics -s/p BKA, postoperative care per Dr. Lizama -PT darleen Diabetes: Uncontrolled, labile, but better controlled. Monitor Accu-cheks and cover with medium dose SSI. HgbA1c 12.0. Increased patient's Levemir to 70 units at bedtime and continue 64 units in the morning, restarted preprandial NovoLog 14 units 3 times a day. Metformin. Continue Neurontin for neuropathy and phantom pain Chronic Back Pain: from accident 20years ago. He goes to the [facility] for his methadone 220 mg daily (confirmed by RN), and sees pain management to receive his oxycodone 20 mg q6h prn. Continue medications. Balanitis: Clotrimazole cream twice daily ULICES. Nonoliguric. Start IVF. Check CK, UA and avoid nephrotoxins hold lisinopril and dc MOM. Rpt BMP in am All other medical conditions stable, continue home medications as appropriate. DVT Prophylaxis: teds/SCDs to the left leg, Lovenox Written by Gray Ogden, acting as scribe for Dr. Mehta on 11/15/16 at 14:42. All or portions of this note were transcribed by scribe []. I, Dr. Kiel Mehta personally performed the history, physical exam, and medical decision making; and confirmed the accuracy of the information in the transcribed note. Authenticated by Dr. Kiel Mehta on 11/15/16 at 15:59. Discharge Planning Follow-up functional status with physical therapy. Gray Ogden Nov 15, 2016 14:42 Kiel Mehta MD Nov 15, 2016 15:59
[2016-11-15 16:00] VITALS: BP 129/82; PULSE 70; RESP 17; TEMP 99.8; O2SAT 96
[2016-11-15] MEDS ORDERED: cloNIDine HCL 0.1 MG TAB PO PRN (16:00)
[2016-11-15] MEDS: SODIUM CHLORIDE 0.9% FLUSH 5 ML FLUSH FLUSH PRN (16:27)
[2016-11-15] MEDS: CLOTRIMAZOLE 1% CREAM 15 GM TOPICAL SCH ×2 (17:03→20:26)
[2016-11-15 17:06] LABS: CKMB 2.7 NG/ML (0.5-3.6)
[2016-11-15] MEDS: SODIUM CHLOR 0.9% 1000 ML INJ 1,000 ML IV SCH (17:45)
--- NOTE | 2016-11-15 18:04 | PD.CAR.PN ---
CVT Progress Note Subjective/Hospital Course: Patient seen Full consult dictated We will proceed with a right below-knee amputation tomorrow Thanks J 11/14/16 Status post R BKA, Dressing dry intact. patient doing well. Pain control difficult due to patient's addiction to narcotics. Will keep dressing on till Friday Able DC patient Friday11/15/16 Status post BK amputation Incisions clean and dry dressing is intact and pain is finally under control We'll remove dressing tomorrow and after that patient can be discharged to a detention Objective: Vital Signs Date Time Temp Pulse Resp B/P Pulse Ox O2 Delivery O2 Flow Rate FiO2 11/15/16 16:00 99.8 70 17 129/82 96 11/15/16 12:00 97.9 68 18 188/101 99 11/15/16 09:22 16 11/15/16 08:00 96.8 74 17 191/100 98 11/15/16 04:36 98.4 62 20 130/76 97 11/15/16 03:35 18 11/15/16 00:00 98.8 68 18 126/80 96 11/14/16 23:29 16 11/14/16 20:00 99.4 70 20 140/84 97 Result Diagram: 11/15/16 0351 11/15/16 0351 Velasquez Lizama MD Nov 15, 2016 18:04
[2016-11-15 19:17] LABS: BLOOD, URINE NEG (NEG); COMMENT (UR) CULT NOT INDICATED; CULTURE IF INDICATED CULT NOT INDICATED; GLUCOSE,URINE 150 mg/dL (NEG); KETONE, URINE NEG (NEG); NITRITE,URINE NEG (NEG); PH, URINE 5.5 (5.0-8.5); URINE COLOR LIGHT-YELLOW (YELLW/STRAW)
[2016-11-15 20:00] VITALS: BP 113/70; PULSE 74; RESP 17; TEMP 97.8; O2SAT 98
[2016-11-16] VITALS: BP 117/80; PULSE 69; RESP 17; TEMP 98; O2SAT 98
[2016-11-16] MEDS: HYDROmorphone HCL PF 2 MG/ML VIAL IV PRN ×7 (02:49→23:20)
[2016-11-16] MEDS: PIPERACIL-TAZO 4.5 GM PREMIX 100 ML IV SCH ×2 (02:51→08:44)
[2016-11-16] MEDS: SODIUM CHLOR 0.9% 1000 ML INJ 1,000 ML IV SCH ×3 (02:51→23:21)
[2016-11-16] MEDS: INSULIN DETEMIR 100 UNITS/ML VIAL SQ SCH ×2 (04:58→20:19)
[2016-11-16] MEDS: INSULIN ASPART SUPPLEMENTAL SCALE SQ SCH ×4 (04:59→20:19)
[2016-11-16 05:02] LABS: AUTOMATED NEUTROPHIL # 6.7 TH/MM3 (1.8-7.7); BASOPHIL # 0.1 TH/MM3 (0-0.2); BASOPHIL % 0.7 % (0.0-2.0); EOSINOPHIL # 0.2 TH/MM3 (0-0.4); EOSINOPHIL % 1.8 % (0.0-4.0); HEMATOCRIT 33.4 % (39.0-51.0); HEMO FLAGS DIFF FINAL; LYMPH % 18.4 % (9.0-44.0); LYMPHOCYTE # 1.8 TH/MM3 (1.0-4.8); MEAN CELL VOLUME 85.5 FL (80.0-100.0); MEAN CORPUSCULAR HEMOGLOBIN 28.6 PG (27.0-34.0); MEAN CORPUSCULAR HGB CONC 33.4 % (32.0-36.0); MONO % 10.8 % (0.0-8.0); NEUT % 68.3 % (16.0-70.0); PLATELET COUNT 141 TH/MM3 (150-450); RED CELL DISTRIBUTION WIDTH 13.5 % (11.6-17.2); WHITE BLOOD COUNT 9.7 TH/MM3 (4.0-11.0)
[2016-11-16] MEDS ORDERED: VANCOMYCIN 1,500 MG/NS 500 ML IV SCH ×2 (06:00)
[2016-11-16 06:05] LABS: BICARBONATE 28.1 MEQ/L (21.0-32.0); MAGNESIUM 2.1 MG/DL (1.5-2.5)
[2016-11-16] MEDS: DOCUSATE SODIUM 100 MG CAP PO SCH ×2 (07:15→17:11)
[2016-11-16 08:00] VITALS: BP 166/93; PULSE 70; RESP 19; TEMP 96.6; O2SAT 96
[2016-11-16] MEDS: INSULIN ASPART 1,000 UNITS/10 ML VIAL SQ SCH ×3 (08:00→17:00)
[2016-11-16] MEDS: ENOXAPARIN SODIUM 40 MG/0.4 ML SYRINGE SQ SCH (08:43)
[2016-11-16] MEDS: METHADONE HCL 10 MG TAB PO SCH (08:43)
[2016-11-16] MEDS: PANTOPRAZOLE SOD 40 MG DELAYED RELEASE TAB PO SCH (08:43)
[2016-11-16] MEDS: GABAPENTIN 400 MG CAP PO SCH (08:43)
[2016-11-16] MEDS: POLYETHYLENE GLYCOL 17 GM PKG PO SCH (08:44)
[2016-11-16] MEDS: SODIUM CHLORIDE 0.9% FLUSH 5 ML FLUSH FLUSH SCH ×2 (08:44→20:06)
[2016-11-16] MEDS: SENNOSIDES 8.6 MG TAB PO SCH (08:44)
[2016-11-16] MEDS: CLOTRIMAZOLE 1% CREAM 15 GM TOPICAL SCH ×2 (08:50→20:07)
--- NOTE | 2016-11-16 11:56 | HHI.PR ---
Subjective Remarks Follow up for BKA and ULICES. The patient has some weakness and pain today. He reports she's been having okay urine output, but has been having difficulty initiating stream. He still has some pain where he tries retract his foreskin, but is improved. Discussed with RN, will do bladder scan. Objective Vitals Vital Signs Date Time Temp Pulse Resp B/P Pulse Ox O2 Delivery O2 Flow Rate FiO2 11/16/16 10:50 17 11/16/16 10:50 17 11/16/16 08:00 96.6 70 19 166/93 96 11/16/16 00:19 18 11/16/16 00:00 98.0 69 17 117/80 98 11/15/16 20:55 18 11/15/16 20:00 97.8 74 17 113/70 98 11/15/16 16:00 99.8 70 17 129/82 96 11/15/16 12:00 97.9 68 18 188/101 99 I/O 11/15/16 11/15/16 11/15/16 11/16/16 11/16/16 11/16/16 07:00 15:00 23:00 07:00 15:00 23:00 Intake Total 480 ml 1600 ml 1524 ml 720 ml Output Total 600 ml 1050 ml 1500 ml 1150 ml Balance -120 ml 550 ml 24 ml -430 ml Intake Oral 480 ml 900 ml 720 ml 720 ml IV Total 700 ml 804 ml Output Urine Total 600 ml 1050 ml 1500 ml 1150 ml # Bowel Movements 0 1 Result Diagram: 11/16/16 0351 11/16/16 0351 Imaging Last Impressions Foot X-Ray 11/12/16 0405 Signed Impressions: Service Date/Time: Saturday, November 12, 2016 04:06 - CONCLUSION: 1. Air in the soft tissues along the lateral plantar aspect of the foot suggesting a regional cellulitis. 2. In addition, there appears to be cortical disruption along the fifth metatarsal head, concerning for regional osteomyelitis. 3. Chronic fracture dislocation of the Lisfranc joint with ongoing collapse of the same characteristic of a Charcot joint. Eleuterio Carbajal MD Foot MRI 11/12/16 0000 Signed Impressions: Service Date/Time: Saturday, November 12, 2016 11:28 - CONCLUSION: 1. Subcutaneous emphysema laterally with osteomyelitis of the fifth metatarsal. 2. Osteomyelitis of the cuboid. 3. There is some edema within the calcaneus where there appears to be a nondisplaced fracture. 4. Charcot neuropathy of the midfoot Keyur Goldman MD Objective Remarks GENERAL: Well-developed well-nourished. In no acute distress. SKIN: Warm and dry. Nose, RLE as below. HEENT: Normocephalic. Pupils equal and round. Mucous membranes pink and moist. Nose with previous SCC resection. CARDIOVASCULAR: Regular rate and rhythm. No murmur appreciated. RESPIRATORY: No accessory muscle use. Clear to auscultation. Breath sounds equal bilaterally. GASTROINTESTINAL: Abdomen soft, non-tender, nondistended. Bowel sounds x4. MUSCULOSKELETAL: Right BKA with dressing CDI. No clubbing or cyanosis. No edema. NEUROLOGICAL: Awake and alert. No focal neurological deficits. Moves upper and lower extremities spontaneously. Normal speech. PSYCHIATRIC: Appropriate mood and affect; insight and judgment normal. Procedures Right lower extremity BKA 11/13 A/P Problem List: (1) Acute osteomyelitis of metatarsal bone of right foot ICD Code: M86.171 Status: Acute (2) Diabetes ICD Code: E11.9 Status: Chronic (3) Diabetic neuropathy ICD Code: E11.40 Status: Chronic (4) Methadone dependence ICD Code: F11.20 Status: Chronic Assessment and Plan 51-year-old male with history of diabetes, atrial fibrillation, chronic right foot ulcers, chronic pain on methadone/oxycodone, hepatitis C, presents with a three-day history of intractable pain at right foot ulceration. Osteomyelitis/Cellulitis/Gangrene of Right Foot: Images reviewed --Right foot x- ray shows air in soft tissues along the lateral plantar aspect of the foot suggesting regional cellulitis; in addition, appears to be cortical disruption along the fifth metatarsal head, concerning for regional osteomyelitis; chronic fracture dislocation of the Lisfranc joint with ongoing collapse characteristic of Charcot joint. Right Foot MRI shows subcutaneous emphysema laterally with osteomyelitis of the fifth metatarsal; osteomyelitis of the cuboid; some edema within the calcaneus where there appears to be nondisplaced fracture; Charcot neuropathy of the midfoot. -Afebrile, no leukocytosis -Change IV antibiotics to oral Keflex -Elevate the right leg -blood cultures collected, pending, negative to date -Pain control with oxycodone 25mg po q6h prn and 2 mg IV dilaudid prn breakthrough pain. Counseling regarding narcotics -s/p BKA, postoperative care per Dr. Lizama -PT darleen, recommended SNF, case management consulted Diabetes: Uncontrolled, labile, noncompliant? Monitor Accu-cheks and cover with medium dose SSI. HgbA1c 12.0. Increased patient's Levemir to 70 units at bedtime and continue 64 units in the morning, restarted preprandial NovoLog 14 units 3 times a day. Metformin. Continue Neurontin for neuropathy and phantom pain Chronic Back Pain: from accident 20years ago. He goes to the [facility] for his methadone 220 mg daily (confirmed by RN), and sees pain management to receive his oxycodone 20 mg q6h prn. Continue medications. Balanitis: UA unremarkable. Clotrimazole cream twice daily. Acute kidney injury: Unclear etiology. IVF. Hold vancomycin. Check bladder scan for residual. Follow-up BMP. All other medical conditions stable, continue home medications as appropriate. DVT Prophylaxis: teds/SCDs to the left leg, Lovenox Written by Gray Ogden, acting as scribe for Dr. Mehta on 11/16/16 at 11:55. All or portions of this note were transcribed by scribe []. I, Dr. Kiel Mehta personally performed the history, physical exam, and medical decision making; and confirmed the accuracy of the information in the transcribed note. Authenticated by Dr. Kiel Mehta on 11/16/16 at 14:09. Gray Ogden Nov 16, 2016 11:56 Kiel Mehta MD Nov 16, 2016 14:09
[2016-11-16 12:00] VITALS: BP 158/85; PULSE 87; RESP 12; TEMP 98.4; O2SAT 98
[2016-11-16] MEDS ORDERED: CEPHALEXIN MONOHYDRATE 500 MG CAP PO SCH (14:00)
[2016-11-16 16:00] VITALS: BP 180/99; PULSE 73; RESP 15; TEMP 96.4; O2SAT 99
--- NOTE | 2016-11-16 18:20 | PD.CAR.PN ---
CVT Progress Note Subjective/Hospital Course: Patient seen Full consult dictated We will proceed with a right below-knee amputation tomorrow Thanks J 11/14/16 Status post R BKA, Dressing dry intact. patient doing well. Pain control difficult due to patient's addiction to narcotics. Will keep dressing on till Friday Able DC patient Friday11/15/16 Status post BK amputation Incisions clean and dry dressing is intact and pain is finally under control We'll remove dressing tomorrow and after that patient can be discharged to a intermediate 11/16/16 Stump appears to be clean without drainage but that does appear somewhat red on the lateral aspect and anteriorly We'll place patient on antibiotics because these have been for some reason stopped after the surgery It should be noted the patient a gangrene of the foot so antibiotic should be continued for at least a week thereafter Objective: Vital Signs Date Time Temp Pulse Resp B/P Pulse Ox O2 Delivery O2 Flow Rate FiO2 11/16/16 18:07 20 11/16/16 16:00 96.4 73 15 180/99 99 11/16/16 12:00 98.4 87 12 158/85 98 11/16/16 10:50 17 11/16/16 10:50 17 11/16/16 08:00 96.6 70 19 166/93 96 11/16/16 00:19 18 11/16/16 00:00 98.0 69 17 117/80 98 11/15/16 20:00 97.8 74 17 113/70 98 Result Diagram: 11/16/16 0351 11/16/16 0351 Velasquez Lizama MD Nov 16, 2016 18:20
[2016-11-16] MEDS ORDERED: Vancomycin Consult Pharmacy 1 EA OTHER SCH (18:30)
[2016-11-16] MEDS ORDERED: VANCOMYCIN INJ 1,500 MG in SODIUM CHLORID 0.9% 500 ML INJ 500 ML IV SCH (18:30)
--- NOTE | 2016-11-16 19:02 | MP ---
cc: BING GERONIMO MD DATE OF SURGERY 11/13/16 PREOPERATIVE DIAGNOSIS Gangrene of the right leg. POSTOPERATIVE DIAGNOSIS Gangrene of the right leg. PROCEDURE Right below-knee amputation. SURGEON Dr. Greg Geronimo ANESTHESIA General. BLOOD LOSS 200 mL. PROCEDURE IN DETAIL The patient prepped and draped usual fashion and incision is marked by a string indentation over the skin. Anterior incision is now made, extended inferiorly and laterally to the posterior flap, deepened down with cautery through the lateral group of musculature. Anterior tibial artery and veins are clamped, divided and ligated with zero Vicryl stick ties [id number]. Fibula is now exposed and then the periosteal elevator periosteum was elevated to about 2 inches above the level of the incision from the tibia and fibula. Both bones are now transected with oscillating saw and then posterior flap created with amputation knife and specimen removed. Hemostat clamps quickly applied and then meticulous hemostasis assured with 0 Vicryl and 2-0 Vicryl [id number] stick ties. Area irrigated with copious amounts of saline. The tibia is now angled by removing the sharp anterior angular segment and then rasped down with a rasp. Wound is now washed with copious amounts of saline then posterior flap is turned anteriorly and incision closed deep fascia to deep fascia, superficial fascia to superficial fascia. Skin is closed with interrupted 3-0 Prolene. Dressing applied. The patient tolerated the procedure well. Bing WALLACE/ /5:32 PM /6:55 PM
[2016-11-16 20:00] VITALS: BP 141/83; PULSE 72; RESP 18; TEMP 100.4; O2SAT 97
[2016-11-16] MEDS: LEVOFLOXACIN 500 MG PREMIX INJ 100 ML IV SCH (20:05)
[2016-11-16] MEDS: GABAPENTIN 100 MG CAP PO SCH (20:05)
[2016-11-16] MEDS: GABAPENTIN 300 MG CAP PO SCH (20:05)
[2016-11-16] MEDS: PIPERACIL-TAZO 3.375 GM PREMIX 50 ML IV SCH (21:52)
[2016-11-16 23:40] VITALS: BP 172/92; PULSE 75; RESP 19; TEMP 99.1; O2SAT 98
[2016-11-17] MEDS: PIPERACIL-TAZO 3.375 GM PREMIX 50 ML IV SCH ×5 (03:48→20:34)
[2016-11-17] MEDS: HYDROmorphone HCL PF 2 MG/ML VIAL IV PRN ×7 (03:48→23:38)
[2016-11-17] MEDS: INSULIN ASPART SUPPLEMENTAL SCALE SQ SCH ×4 (06:12→20:32)
[2016-11-17] MEDS: INSULIN DETEMIR 100 UNITS/ML VIAL SQ SCH ×2 (06:12→20:32)
[2016-11-17] MEDS: DOCUSATE SODIUM 100 MG CAP PO SCH ×2 (06:15→18:06)
[2016-11-17 06:16] LABS: BICARBONATE 27.2 MEQ/L (21.0-32.0)
[2016-11-17 06:26] LABS: POTASSIUM 4.7 MEQ/L (3.5-5.1)
[2016-11-17 08:00] VITALS: BP 154/88; PULSE 72; RESP 18; TEMP 97; O2SAT 97
[2016-11-17] MEDS: INSULIN ASPART 1,000 UNITS/10 ML VIAL SQ SCH ×3 (08:00→16:12)
[2016-11-17] MEDS: METHADONE HCL 10 MG TAB PO SCH (08:06)
[2016-11-17] MEDS: PANTOPRAZOLE SOD 40 MG DELAYED RELEASE TAB PO SCH (08:07)
[2016-11-17] MEDS: POLYETHYLENE GLYCOL 17 GM PKG PO SCH (08:07)
[2016-11-17] MEDS: GABAPENTIN 100 MG CAP PO SCH ×2 (08:07→20:16)
[2016-11-17] MEDS: GABAPENTIN 300 MG CAP PO SCH ×2 (08:07→20:16)
[2016-11-17] MEDS: SODIUM CHLORIDE 0.9% FLUSH 5 ML FLUSH FLUSH SCH ×2 (08:07→20:16)
[2016-11-17] MEDS: SENNOSIDES 8.6 MG TAB PO SCH (08:08)
[2016-11-17] MEDS: CLOTRIMAZOLE 1% CREAM 15 GM TOPICAL SCH ×2 (08:08→20:34)
[2016-11-17] MEDS: ENOXAPARIN SODIUM 40 MG/0.4 ML SYRINGE SQ SCH (08:08)
--- NOTE | 2016-11-17 10:30 | HHI.PR ---
Subjective Remarks Follow up for BKA with stump infection, ULICES, chronic pain. The patient reports continued R BKA pain today. He also reports erythema surrounding the stump with bright red streaks up the thigh, slightly improved after adjustment of antibiotics. No fevers/chills. Blood glucose 77 last night, RN held Levemir, however discussed with daytime RN to not skip Levemir dosing. The patient has no other medical complaints at this time. Objective Vitals Vital Signs Date Time Temp Pulse Resp B/P Pulse Ox O2 Delivery O2 Flow Rate FiO2 11/17/16 08:00 97.0 72 18 154/88 97 11/16/16 23:40 99.1 75 19 172/92 98 11/16/16 20:00 100.4 72 18 141/83 97 11/16/16 18:07 20 11/16/16 16:00 96.4 73 15 180/99 99 11/16/16 12:00 98.4 87 12 158/85 98 11/16/16 10:50 17 11/16/16 10:50 17 I/O 11/16/16 11/16/16 11/16/16 11/17/16 11/17/16 11/17/16 07:00 15:00 23:00 07:00 15:00 23:00 Intake Total 720 ml 2058 ml 724 ml 766 ml Output Total 1150 ml 1675 ml 2000 ml 2000 ml Balance -430 ml 383 ml -1276 ml -1234 ml Intake Oral 720 ml 720 ml 240 ml 240 ml IV Total 1338 ml 484 ml 526 ml Output Urine Total 1150 ml 1675 ml 2000 ml 2000 ml Bladder Scan Volume Amount 210 ml # Bowel Movements 2 1 0 Result Diagram: 11/16/16 0351 11/17/16 0526 Imaging Last Impressions Foot X-Ray 11/12/16 0405 Signed Impressions: Service Date/Time: Saturday, November 12, 2016 04:06 - CONCLUSION: 1. Air in the soft tissues along the lateral plantar aspect of the foot suggesting a regional cellulitis. 2. In addition, there appears to be cortical disruption along the fifth metatarsal head, concerning for regional osteomyelitis. 3. Chronic fracture dislocation of the Lisfranc joint with ongoing collapse of the same characteristic of a Charcot joint. Eleuterio Carbajal MD Foot MRI 11/12/16 0000 Signed Impressions: Service Date/Time: Saturday, November 12, 2016 11:28 - CONCLUSION: 1. Subcutaneous emphysema laterally with osteomyelitis of the fifth metatarsal. 2. Osteomyelitis of the cuboid. 3. There is some edema within the calcaneus where there appears to be a nondisplaced fracture. 4. Charcot neuropathy of the midfoot Keyur Goldman MD Objective Remarks GENERAL: Well-nourished, well-developed middle aged male patient in NAD. SKIN: Warm and dry. 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 HEENT: Normocephalic. Atraumatic. Pupils equal and round. No scleral icterus. No injection or drainage. Mucous membranes pink and moist. NECK: Supple. Trachea midline. CARDIOVASCULAR: Regular rate and rhythm. S1, S2 noted. No murmur appreciated. RESPIRATORY: No accessory muscle use. Clear to auscultation. Breath sounds equal bilaterally. GASTROINTESTINAL: Abdomen soft, non-tender, nondistended. Normoactive bowel sounds x4. MUSCULOSKELETAL: Right BKA with dressing, CDI. NEUROLOGICAL: Awake and alert. No obvious cranial nerve deficits. Motor grossly within normal limits. Normal speech. PSYCHIATRIC: Appropriate mood and affect; insight and judgment normal. Procedures Right lower extremity BKA 11/13 Medications and IVs Current Medications Medications (Trade) Dose Ordered Sig/Ashish Route Start Time Stop Time Status Last Admin (NS Flush) 2 ml UNSCH PRN FLUSH 11/12/16 05:15 11/15/16 16:27 (NS Flush) 2 ml BID FLUSH 11/12/16 09:00 11/16/16 20:06 (Lovenox Inj) 40 mg Q24H SQ 11/12/16 09:00 11/17/16 08:08 (Narcan Inj) 0.4 mg UNSCH PRN IV 11/12/16 05:15 (D50w (Vial) Inj) 25 ml UNSCH PRN IV PUSH 11/12/16 05:15 (Glucagon Inj) 1 mg UNSCH PRN OTHER 11/12/16 05:15 (Tylenol) 650 mg Q4H PRN PO 11/12/16 07:15 11/15/16 22:30 (Zofran Inj) 4 mg Q6H PRN IVP 11/12/16 07:15 (Dulcolax Supp) 10 mg DAILY PRN [place] 11/12/16 07:15 (Colace) 100 mg Q12H PO 11/12/16 07:15 (Senokot) 17.2 mg Q12H PRN PO 11/12/16 07:15 (Dolophine) 220 mg DAILY PO 11/12/16 10:45 11/17/16 08:06 (Protonix) 40 mg DAILY PO 11/13/16 09:00 11/17/16 08:07 (NovoLOG INJ) 14 units TIDAC SQ 11/14/16 12:00 11/17/16 08:00 (Levemir Inj) 70 units HS SQ 11/14/16 21:00 11/15/16 20:26 (Dilaudid Pf Inj) 2 mg Q3H PRN IV 11/14/16 13:15 11/17/16 10:00 (Roxicodone) 25 mg Q6H PRN PO 11/14/16 16:45 11/17/16 05:01 (Glucophage) 500 mg BIDPC PO 11/14/16 18:00 Hold 11/15/16 08:47 Miscellaneous Information SPECIFIC LAB TO BE DRAWN:VANCOMYCIN TROUGH DATE TO... ONCE ONCE XX 11/18/16 05:45 11/18/16 05:46 (Oksana-Colace) 2 tab BID PRN PO 11/15/16 06:00 (Miralax) 17 gm DAILY PO 11/15/16 09:00 (Senokot) 8.6 mg DAILY PO 11/15/16 09:00 Clotrimazole 1 applic 1 applic Q12HR TOPICAL 11/15/16 15:00 11/17/16 08:08 (NS 1000 ml Inj) 1,000 ml @ 84 mls/hr [id number] IV 11/15/16 16:00 11/16/16 23:21 (Catapres) 0.1 mg Q6H PRN PO 11/15/16 16:00 (Neurontin) 600 mg BID PO 11/16/16 21:00 11/17/16 08:07 Gabapentin 100 mg 100 mg BID PO 11/16/16 21:00 11/17/16 08:07 Piperacillin Sod/ Tazobactam Sod 50 ml @ 100 mls/hr Q6H IV 11/16/16 20:00 11/17/16 08:07 (Levaquin 500 Mg Premix Inj) 100 ml @ 100 mls/hr Q24H IV 11/16/16 21:00 11/16/16 20:05 A/P Problem List: (1) Acute osteomyelitis of metatarsal bone of right foot ICD Code: M86.171 Status: Acute (2) Diabetes ICD Code: E11.9 Status: Chronic (3) Diabetic neuropathy ICD Code: E11.40 Status: Chronic (4) Methadone dependence ICD Code: F11.20 Status: Chronic Assessment and Plan 51-year-old male with history of diabetes, atrial fibrillation, chronic right foot ulcers, chronic pain on methadone/oxycodone, hepatitis C, presents with a three-day history of intractable pain at right foot ulceration. Osteomyelitis/Cellulitis/Gangrene of Right Foot: Images reviewed --Right foot x- ray shows air in soft tissues along the lateral plantar aspect of the foot suggesting regional cellulitis; in addition, appears to be cortical disruption along the fifth metatarsal head, concerning for regional osteomyelitis; chronic fracture dislocation of the Lisfranc joint with ongoing collapse characteristic of Charcot joint. Right Foot MRI shows subcutaneous emphysema laterally with osteomyelitis of the fifth metatarsal; osteomyelitis of the cuboid; some edema within the calcaneus where there appears to be nondisplaced fracture; Charcot neuropathy of the midfoot. -Afebrile, no leukocytosis -Changed antibiotics from Keflex to IV Zosyn and Levaquin with concern for stump infection -Elevate the extremity -blood cultures with NGTD -Pain control with oxycodone 25mg po q6h prn and 2 mg IV dilaudid prn breakthrough pain. Counseled regarding narcotics -s/p BKA on 11/13, postoperative care per Dr. Lizama -PT darleen, recommended SNF, case management consulted Diabetes: Uncontrolled, labile, noncompliant? Monitor Accu-cheks and cover with medium dose SSI. HgbA1c 12.0. Increased patient's Levemir to 70 units at bedtime and continue 64 units in the morning, restarted preprandial NovoLog 14 units 3 times a day. Metformin. Continue Neurontin for neuropathy and phantom pain. Discussed with RN, do not skip Levemir dosing. Chronic Back Pain: from accident 20years ago. He goes to the [facility] for his methadone 220 mg daily (confirmed by RN), and sees pain management to receive his oxycodone 20 mg q6h prn. Continue medications. Balanitis: UA unremarkable. Clotrimazole cream twice daily. Acute kidney injury: Unclear etiology. IVF. Held vancomycin. Checked bladder scan for residual, only with 210cc. BMP with minimal improvement today, Cr 1.6. Check renal U/S. All other medical conditions stable, continue home medications as appropriate. DVT Prophylaxis: teds/SCDs to the left leg, Lovenox Written by Myrna Sanford, acting as scribe for Dr. Mehta on 11/17/16 at 10: 06. All or portions of this note were transcribed by scribe []. I, Dr. Kiel Mehta personally performed the history, physical exam, and medical decision making; and confirmed the accuracy of the information in the transcribed note. Authenticated by Dr. Kiel Mehta on 11/17/16 at 16:17. Discharge Planning Case management to assist with discharge planning, likely needs SNF. Myrna Sanford PA-C Nov 17, 2016 10:30 Kiel Mehta MD Nov 17, 2016 16:17
[2016-11-17 12:00] VITALS: BP 118/74; PULSE 66; RESP 17; TEMP 98.1; O2SAT 99
--- NOTE | 2016-11-17 14:48 | PD.CAR.PN ---
CVT Progress Note Subjective/Hospital Course: Patient seen Full consult dictated We will proceed with a right below-knee amputation tomorrow Thanks J 11/14/16 Status post R BKA, Dressing dry intact. patient doing well. Pain control difficult due to patient's addiction to narcotics. Will keep dressing on till Friday Able DC patient Friday11/15/16 Status post BK amputation Incisions clean and dry dressing is intact and pain is finally under control We'll remove dressing tomorrow and after that patient can be discharged to a prison 11/16/16 Stump appears to be clean without drainage but that does appear somewhat red on the lateral aspect and anteriorly We'll place patient on antibiotics because these have been for some reason stopped after the surgery It should be noted the patient a gangrene of the foot so antibiotic should be continued for at least a week thereafter 11/17/16 Stump looks a little better today swelling is decreased and so is the redness The streaking up the thigh has also disappeared Patient should stand antibiotics as the above-noted Doing well at this time Objective: Vital Signs Date Time Temp Pulse Resp B/P Pulse Ox O2 Delivery O2 Flow Rate FiO2 11/17/16 12:00 98.1 66 17 118/74 99 11/17/16 08:00 97.0 72 18 154/88 97 11/16/16 23:40 99.1 75 19 172/92 98 11/16/16 20:00 100.4 72 18 141/83 97 11/16/16 18:07 20 11/16/16 16:00 96.4 73 15 180/99 99 Labs: Laboratory Tests Test 11/17/16 05:26 Sodium Level 134 MEQ/L (136-145) Potassium Level 4.7 MEQ/L (3.5-5.1) Chloride Level 95 MEQ/L (98-107) Carbon Dioxide Level 27.2 MEQ/L (21.0-32.0) Anion Gap 12 MEQ/L (5-15) Blood Urea Nitrogen 19 MG/DL (7-18) Creatinine 1.60 MG/DL (0.60-1.30) Estimat Glomerular Filtration 46 ML/MIN (>89) Rate Random Glucose 334 MG/DL (74-106) Calcium Level 8.0 MG/DL (8.5-10.1) Result Diagram: 11/16/16 0351 11/17/16 0526 Velasquez Lizama MD Nov 17, 2016 14:48
--- NOTE | 2016-11-17 14:52 | RADRPT ---
EXAM DATE/TIME: 11/17/2016 13:33 [place] COMPARISON: No previous studies available for comparison. INDICATIONS : Increased BUN/Creatinine. MEDICAL HISTORY : Hypercholesterolemia. Gastroesophageal reflux disease. Hypertension. PVD. Hepatitis C. Arthritis. Tori betes. Liver disease. SURGICAL HISTORY : Appendectomy. Skin cancer removal. ENCOUNTER: Initial ACUITY: 1 day PAIN SCORE: 2/10 LOCATION: Bilateral flank MEASUREMENTS: RIGHT KIDNEY: 11.5 x 5.8 x 7.2 cm LEFT KIDNEY: 13.4 x 5.9 x 7.5 cm FINDINGS: RIGHT KIDNEY: Renal cortex is normal in thickness and echotexture. No hydronephrosis, stone, or mass. LEFT KIDNEY: Renal cortex is normal in thickness and echotexture. No hydronephrosis, stone, or mass. BLADDER: Within normal limits given the degree of distension. CONCLUSION: Normal examination. Kvng Lott MD on November 17, 2016 at 14:50 Board Certified Radiologist. This report was verified electronically.
[2016-11-17 16:00] VITALS: BP 123/73; PULSE 66; RESP 16; TEMP 98.3; O2SAT 99
[2016-11-17] MEDS: SODIUM CHLOR 0.9% 1000 ML INJ 1,000 ML IV SCH (16:08)
[2016-11-17 20:00] VITALS: BP 141/84; PULSE 72; RESP 20; TEMP 97.2; O2SAT 97
[2016-11-17] MEDS: LEVOFLOXACIN 500 MG PREMIX INJ 100 ML IV SCH ×2 (20:16→20:34)
[2016-11-18] VITALS: PULSE 64; RESP 20; TEMP 97.7; TEMP 97.9; O2SAT 99
[2016-11-18 00:42] VITALS: BP 161/82; PULSE 65; RESP 18; O2SAT 99
[2016-11-18] MEDS: PIPERACIL-TAZO 3.375 GM PREMIX 50 ML IV SCH ×4 (02:35→21:34)
[2016-11-18] MEDS: HYDROmorphone HCL PF 2 MG/ML VIAL IV PRN ×5 (02:36→21:33)
[2016-11-18] MEDS: SODIUM CHLOR 0.9% 1000 ML INJ 1,000 ML IV SCH ×2 (02:38→15:30)
[2016-11-18] MEDS: INSULIN ASPART SUPPLEMENTAL SCALE SQ SCH ×4 (05:02→21:00)
[2016-11-18] MEDS: INSULIN DETEMIR 100 UNITS/ML VIAL SQ SCH (05:02)
[2016-11-18] MEDS: DOCUSATE SODIUM 100 MG CAP PO SCH ×2 (05:02→12:37)
[2016-11-18 05:37] LABS: BICARBONATE 28.6 MEQ/L (21.0-32.0); MAGNESIUM 1.8 MG/DL (1.5-2.5); POTASSIUM 4.2 MEQ/L (3.5-5.1)
[2016-11-18] MEDS ORDERED: PHARMACY ORDERED LAB XX ONE (05:45)
[2016-11-18 08:00] VITALS: BP 160/94; PULSE 64; RESP 17; TEMP 98.2; O2SAT 97
[2016-11-18] MEDS: PANTOPRAZOLE SOD 40 MG DELAYED RELEASE TAB PO SCH (08:22)
[2016-11-18] MEDS: GABAPENTIN 100 MG CAP PO SCH ×2 (08:22→21:39)
[2016-11-18] MEDS: GABAPENTIN 300 MG CAP PO SCH ×2 (08:22→21:39)
[2016-11-18] MEDS: METHADONE HCL 10 MG TAB PO SCH (08:23)
[2016-11-18] MEDS: POLYETHYLENE GLYCOL 17 GM PKG PO SCH (08:24)
[2016-11-18] MEDS: SENNOSIDES 8.6 MG TAB PO SCH (08:24)
[2016-11-18] MEDS: ENOXAPARIN SODIUM 40 MG/0.4 ML SYRINGE SQ SCH (08:26)
[2016-11-18] MEDS: INSULIN ASPART 1,000 UNITS/10 ML VIAL SQ SCH ×3 (08:26→16:47)
[2016-11-18] MEDS: CLOTRIMAZOLE 1% CREAM 15 GM TOPICAL SCH ×2 (08:27→21:00)
[2016-11-18] MEDS: SODIUM CHLORIDE 0.9% FLUSH 5 ML FLUSH FLUSH SCH ×2 (08:31→21:00)
[2016-11-18] MEDS ORDERED: cloNIDine HCL 0.1 MG TAB PO PRN (10:45)
[2016-11-18] MEDS: amLODIPine BESYLATE 5 MG TAB PO SCH (11:04)
[2016-11-18 12:00] VITALS: BP 139/91; PULSE 68; RESP 16; TEMP 98.7; O2SAT 99
[2016-11-18 16:00] VITALS: BP 136/85; PULSE 66; RESP 17; TEMP 98.2; O2SAT 99
--- NOTE | 2016-11-18 16:08 | HHI.PR ---
Subjective Remarks Follow up for R foot osteomyelitis, now s/p R BKA. The patient reports continued pain at R BKA site. He is still concerned about some mild streaking up the right medial thigh. Denies fevers/chills. Blood sugars still not optimally controlled, discussed adjustments of insulin dosing with the patient. Objective Vitals Vital Signs Date Time Temp Pulse Resp B/P Pulse Ox O2 Delivery O2 Flow Rate FiO2 11/18/16 12:00 98.7 68 16 139/91 99 11/18/16 08:00 98.2 64 17 160/94 97 11/18/16 00:42 65 18 161/82 99 11/18/16 00:00 97.9 64 20 99 11/18/16 00:00 97.7 64 20 99 11/17/16 20:00 97.2 72 20 141/84 97 I/O 11/17/16 11/17/16 11/17/16 11/18/16 11/18/16 11/18/16 07:00 15:00 23:00 07:00 15:00 23:00 Intake Total 766 ml 1440 ml 863 ml 764 ml 1420 ml Output Total 2000 ml 1600 ml 1725 ml 750 ml Balance -1234 ml 1440 ml -737 ml -961 ml 670 ml Intake Oral 240 ml 1440 ml 360 ml 240 ml 1420 ml IV Total 526 ml 503 ml 524 ml Output Urine Total 2000 ml 1600 ml 1725 ml 750 ml # Voids 3 2 # Bowel Movements 0 3 0 0 2 Result Diagram: 11/16/16 0351 11/18/16 0424 Imaging Last Impressions Foot X-Ray 11/12/16 0405 Signed Impressions: Service Date/Time: Saturday, November 12, 2016 04:06 - CONCLUSION: 1. Air in the soft tissues along the lateral plantar aspect of the foot suggesting a regional cellulitis. 2. In addition, there appears to be cortical disruption along the fifth metatarsal head, concerning for regional osteomyelitis. 3. Chronic fracture dislocation of the Lisfranc joint with ongoing collapse of the same characteristic of a Charcot joint. Eleuterio Carbajal MD Foot MRI 11/12/16 0000 Signed Impressions: Service Date/Time: Saturday, November 12, 2016 11:28 - CONCLUSION: 1. Subcutaneous emphysema laterally with osteomyelitis of the fifth metatarsal. 2. Osteomyelitis of the cuboid. 3. There is some edema within the calcaneus where there appears to be a nondisplaced fracture. 4. Charcot neuropathy of the midfoot Keyur Goldman MD Objective Remarks GENERAL: Well-nourished, well-developed middle aged male patient in [facility]. SKIN: Warm and dry. 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 HEENT: Normocephalic. Atraumatic. Pupils equal and round. No scleral icterus. No injection or drainage. Mucous membranes pink and moist. NECK: Supple. Trachea midline. CARDIOVASCULAR: Regular rate and rhythm. S1, S2 noted. No murmur appreciated. RESPIRATORY: No accessory muscle use. Clear to auscultation. Breath sounds equal bilaterally. GASTROINTESTINAL: Abdomen soft, non-tender, nondistended. Normoactive bowel sounds x4. MUSCULOSKELETAL: Right BKA with dressing, CDI. Mild streak of erythema that extends from the R BKA up the medial thigh, mildly tender, however no warmth/ edema. NEUROLOGICAL: Awake and alert. No obvious cranial nerve deficits. Motor grossly within normal limits. Normal speech. PSYCHIATRIC: Appropriate mood and affect; insight and judgment normal. Procedures Right lower extremity BKA 11/13 Medications and IVs Current Medications Medications (Trade) Dose Ordered Sig/Ashish Route Start Time Stop Time Status Last Admin (NS Flush) 2 ml UNSCH PRN FLUSH 11/12/16 05:15 11/15/16 16:27 (NS Flush) 2 ml BID FLUSH 11/12/16 09:00 11/16/16 20:06 (Lovenox Inj) 40 mg Q24H SQ 11/12/16 09:00 11/18/16 08:26 (Narcan Inj) 0.4 mg UNSCH PRN IV 11/12/16 05:15 (D50w (Vial) Inj) 25 ml UNSCH PRN IV PUSH 11/12/16 05:15 (Glucagon Inj) 1 mg UNSCH PRN OTHER 11/12/16 05:15 (Tylenol) 650 mg Q4H PRN PO 11/12/16 07:15 11/15/16 22:30 (Zofran Inj) 4 mg Q6H PRN IVP 11/12/16 07:15 (Dulcolax Supp) 10 mg DAILY PRN MO 11/12/16 07:15 (Colace) 100 mg Q12H PO 11/12/16 07:15 (Senokot) 17.2 mg Q12H PRN PO 11/12/16 07:15 (Dolophine) 220 mg DAILY PO 11/12/16 10:45 11/18/16 08:23 (Protonix) 40 mg DAILY PO 11/13/16 09:00 11/18/16 08:22 (Dilaudid Pf Inj) 2 mg Q3H PRN IV 11/14/16 13:15 11/18/16 14:49 (Roxicodone) 25 mg Q6H PRN PO 11/14/16 16:45 11/18/16 13:37 (Glucophage) 500 mg BIDPC PO 11/14/16 18:00 Hold 11/15/16 08:47 (Oksana-Colace) 2 tab BID PRN PO 11/15/16 06:00 (Miralax) 17 gm DAILY PO 11/15/16 09:00 (Senokot) 8.6 mg DAILY PO 11/15/16 09:00 Clotrimazole 1 applic 1 applic Q12HR TOPICAL 11/15/16 15:00 11/18/16 08:27 (NS 1000 ml Inj) 1,000 ml @ 84 mls/hr [id number] IV 11/15/16 16:00 11/18/16 02:38 (Catapres) 0.1 mg Q6H PRN PO 11/15/16 16:00 (Neurontin) 600 mg BID PO 11/16/16 21:00 11/18/16 08:22 Gabapentin 100 mg 100 mg BID PO 11/16/16 21:00 11/18/16 08:22 Piperacillin Sod/ Tazobactam Sod 50 ml @ 100 mls/hr Q6H IV 11/16/16 20:00 11/18/16 13:36 (Levaquin 500 Mg Premix Inj) 100 ml @ 100 mls/hr Q24H IV 11/16/16 21:00 11/17/16 20:34 (NovoLOG INJ) 16 units TIDAC SQ 11/18/16 12:00 11/18/16 11:48 (Levemir Inj) 76 units HS SQ 11/18/16 21:00 (Catapres) 0.1 mg Q6H PRN PO 11/18/16 10:45 (Norvasc) 5 mg DAILY PO 11/18/16 10:45 11/18/16 11:04 A/P Problem List: (1) Acute osteomyelitis of metatarsal bone of right foot ICD Code: M86.171 Status: Acute (2) Diabetes ICD Code: E11.9 Status: Chronic (3) Diabetic neuropathy ICD Code: E11.40 Status: Chronic (4) Methadone dependence ICD Code: F11.20 Status: Chronic Assessment and Plan 51-year-old male with history of diabetes, atrial fibrillation, chronic right foot ulcers, chronic pain on methadone/oxycodone, hepatitis C, presents with a three-day history of intractable pain at right foot ulceration. Osteomyelitis/Cellulitis/Gangrene of Right Foot: Images reviewed --Right foot x- ray shows air in soft tissues along the lateral plantar aspect of the foot suggesting regional cellulitis; in addition, appears to be cortical disruption along the fifth metatarsal head, concerning for regional osteomyelitis; chronic fracture dislocation of the Lisfranc joint with ongoing collapse characteristic of Charcot joint. Right Foot MRI shows subcutaneous emphysema laterally with osteomyelitis of the fifth metatarsal; osteomyelitis of the cuboid; some edema within the calcaneus where there appears to be nondisplaced fracture; Charcot neuropathy of the midfoot. -Afebrile, no leukocytosis -Changed antibiotics from Keflex to IV Zosyn and Levaquin with concern for stump infection -Elevate the extremity -blood cultures with NGTD -Pain control with oxycodone 25mg po q6h prn and 2 mg IV dilaudid prn breakthrough pain. Counseled regarding narcotics -s/p BKA on 11/13, postoperative care per Dr. Lizama -PT darleen, recommended SNF, case management consulted Diabetes: Uncontrolled, labile, noncompliant? Monitor Accu-cheks and cover with medium dose SSI. HgbA1c 12.0. 11/18 Increased patient's Levemir to 76 units at bedtime and 66 units in the morning, and increased preprandial NovoLog to 16 u tidac. Continue Neurontin for neuropathy and phantom pain. Chronic Back Pain: from accident 20years ago. He goes to the [facility] for his methadone 220 mg daily (confirmed by RN), and sees pain management to receive his oxycodone 20 mg q6h prn. Continue medications. Balanitis: UA unremarkable. Clotrimazole cream twice daily. Acute kidney injury: Unclear etiology. IVF. Held vancomycin. Checked bladder scan for residual, only with 210cc. 11/17 Renal U/S unremarkable. Renal function slowly improving, Cr 1.5 today. Continue to monitor BMP. All other medical conditions stable, continue home medications as appropriate. DVT Prophylaxis: teds/SCDs to the left leg, Lovenox Written by Myrna Sanford, acting as scribe for Dr. Mehta on 11/18/16 at 14: 55. All or portions of this note were transcribed by scribe []. I, Dr. Kiel Mehta personally performed the history, physical exam, and medical decision making; and confirmed the accuracy of the information in the transcribed note. Authenticated by Dr. Kiel Mehta on 11/18/16 at 16:56. Discharge Planning Case management to assist with discharge planning, needs SNF, however discussed with case management, will be difficulty placement. No ramya beds available at [facility]. Myrna Sanford PA-C Nov 18, 2016 16:07 Kiel Mehta MD Nov 18, 2016 16:56
[2016-11-18 20:00] VITALS: BP 127/79; PULSE 68; RESP 18; TEMP 97.9; O2SAT 98
[2016-11-18] MEDS ORDERED: INSULIN DETEMIR 100 UNITS/ML VIAL SQ SCH (21:00)
[2016-11-18] MEDS: LEVOFLOXACIN 500 MG PREMIX INJ 100 ML IV SCH (21:35)
[2016-11-19] VITALS (7 sets, daily range): BP systolic 135–173; BP diastolic 79–95; PULSE 65–99; RESP 14–20; TEMP 96.8–100.9; O2SAT 95–99
[2016-11-19] MEDS: PIPERACIL-TAZO 3.375 GM PREMIX 50 ML IV SCH ×4 (01:41→20:40)
[2016-11-19] MEDS: HYDROmorphone HCL PF 2 MG/ML VIAL IV PRN ×6 (03:09→20:48)
[2016-11-19] MEDS: SODIUM CHLOR 0.9% 1000 ML INJ 1,000 ML IV SCH ×2 (03:11→12:52)
[2016-11-19] MEDS: INSULIN ASPART SUPPLEMENTAL SCALE SQ SCH ×4 (06:05→20:42)
[2016-11-19] MEDS: INSULIN DETEMIR 100 UNITS/ML VIAL SQ SCH ×2 (06:05→20:41)
[2016-11-19 06:08] LABS: BICARBONATE 27.6 MEQ/L (21.0-32.0); MAGNESIUM 1.8 MG/DL (1.5-2.5); POTASSIUM 4.3 MEQ/L (3.5-5.1)
[2016-11-19] MEDS: SENNOSIDES 8.6 MG TAB PO SCH (07:10)
[2016-11-19] MEDS: POLYETHYLENE GLYCOL 17 GM PKG PO SCH (07:10)
[2016-11-19] MEDS: DOCUSATE SODIUM 100 MG CAP PO SCH ×2 (07:10→10:41)
[2016-11-19] MEDS: METHADONE HCL 10 MG TAB PO SCH (08:17)
[2016-11-19] MEDS: amLODIPine BESYLATE 5 MG TAB PO SCH (08:18)
[2016-11-19] MEDS: GABAPENTIN 300 MG CAP PO SCH ×2 (08:18→20:41)
[2016-11-19] MEDS: GABAPENTIN 100 MG CAP PO SCH ×2 (08:18→20:41)
[2016-11-19] MEDS: PANTOPRAZOLE SOD 40 MG DELAYED RELEASE TAB PO SCH (08:18)
[2016-11-19] MEDS: ENOXAPARIN SODIUM 40 MG/0.4 ML SYRINGE SQ SCH (08:18)
[2016-11-19] MEDS: CLOTRIMAZOLE 1% CREAM 15 GM TOPICAL SCH ×2 (08:24→20:51)
[2016-11-19] MEDS: INSULIN ASPART 1,000 UNITS/10 ML VIAL SQ SCH ×3 (08:25→17:09)
[2016-11-19] MEDS: SODIUM CHLORIDE 0.9% FLUSH 5 ML FLUSH FLUSH SCH ×2 (08:25→20:50)
--- NOTE | 2016-11-19 11:39 | HHI.PR ---
Subjective Remarks Follow-up for right lower extremity infection and diabetes mellitus. The patient has no specific complaints today. He wants to continue PT after hospitalization. He wants to talk to case management. Afternoon blood sugar lower yesterday afternoon, discussed with RN. Objective Vitals Vital Signs Date Time Temp Pulse Resp B/P Pulse Ox O2 Delivery O2 Flow Rate FiO2 11/19/16 08:25 97.7 69 14 173/87 97 11/19/16 04:00 97.8 65 18 135/90 96 11/19/16 03:58 18 11/19/16 00:00 98.9 65 18 169/92 97 11/18/16 21:39 18 11/18/16 20:00 97.9 68 18 127/79 98 11/18/16 16:00 98.2 66 17 136/85 99 11/18/16 12:00 98.7 68 16 139/91 99 I/O 11/18/16 11/18/16 11/18/16 11/19/16 11/19/16 11/19/16 07:00 15:00 23:00 07:00 15:00 23:00 Intake Total 764 ml 1420 ml 480 ml 807 ml Output Total 1725 ml 750 ml 1000 ml 1500 ml Balance -961 ml 670 ml -520 ml -693 ml Intake Oral 240 ml 1420 ml 480 ml 480 ml IV Total 524 ml 0 ml 327 ml Output Urine Total 1725 ml 750 ml 1000 ml 1500 ml # Voids 2 2 # Bowel Movements 0 2 0 3 Result Diagram: 11/16/16 0351 11/19/16 0521 Objective Remarks GENERAL: Well-developed well-nourished. In no acute distress. SKIN: Warm and dry. Nose, RLE as below. HEENT: Normocephalic. Pupils equal and round. Mucous membranes pink and moist. Nose with previous SCC resection. CARDIOVASCULAR: Regular rate and rhythm. No murmur appreciated. RESPIRATORY: No accessory muscle use. Clear to auscultation. Breath sounds equal bilaterally. GASTROINTESTINAL: Abdomen soft, non-tender, nondistended. Bowel sounds x4. MUSCULOSKELETAL: Right BKA with dressing CDI. No clubbing or cyanosis. No edema. NEUROLOGICAL: Awake and alert. No focal neurological deficits. Moves upper and lower extremities spontaneously. Normal speech. PSYCHIATRIC: Appropriate mood and affect; insight and judgment normal. Procedures Right lower extremity BKA 11/13 A/P Problem List: (1) Acute osteomyelitis of metatarsal bone of right foot ICD Code: M86.171 Status: Acute (2) Diabetes ICD Code: E11.9 Status: Chronic (3) Diabetic neuropathy ICD Code: E11.40 Status: Chronic (4) Methadone dependence ICD Code: F11.20 Status: Chronic Assessment and Plan 51-year-old male with history of diabetes, atrial fibrillation, chronic right foot ulcers, chronic pain on methadone/oxycodone, hepatitis C, presents with a three-day history of intractable pain at right foot ulceration. Osteomyelitis/Cellulitis/Gangrene of Right Foot: Images reviewed --Right foot x- ray shows air in soft tissues along the lateral plantar aspect of the foot suggesting regional cellulitis; in addition, appears to be cortical disruption along the fifth metatarsal head, concerning for regional osteomyelitis; chronic fracture dislocation of the Lisfranc joint with ongoing collapse characteristic of Charcot joint. Right Foot MRI shows subcutaneous emphysema laterally with osteomyelitis of the fifth metatarsal; osteomyelitis of the cuboid; some edema within the calcaneus where there appears to be nondisplaced fracture; Charcot neuropathy of the midfoot. -Afebrile, no further leukocytosis -Elevate the right leg -blood cultures with no growth 5 days -Pain control with oxycodone 25mg po q6h prn and 2 mg IV dilaudid prn breakthrough pain. Counseling regarding narcotics -s/p BKA, postoperative care per Dr. Lizama -PT [facility], recommended SNF, case management consulted -Concern for stump infection, on IV Zosyn and Levaquin. Diabetes: Uncontrolled, labile, noncompliant? Monitor Accu-cheks and cover with medium dose SSI. HgbA1c 12.0. Increase patient's at bedtime Levemir to 78 units at bedtime. Previously increase Levemir to 66 units in the morning. Increased preprandial NovoLog to 16 units. Continue Neurontin for neuropathy and phantom pain. Chronic Back Pain: from accident 20years ago. He goes to the [facility] for his methadone 220 mg daily (confirmed by RN), and sees pain management to receive his oxycodone 20 mg q6h prn. Continue medications. Balanitis: UA unremarkable. Clotrimazole cream twice daily. Acute kidney injury: Unclear etiology. IVF. Held vancomycin. Checked bladder scan for residual, only with 210cc. 11/17 Renal U/S unremarkable. Renal function continues to slowly improve. Continue to monitor BMP. Hypertension: BP labile. Started on amlodipine. Clonidine as needed. All other medical conditions stable, continue home medications as appropriate. DVT Prophylaxis: teds/SCDs to the left leg, Lovenox Written by Gray Ogden, acting as scribe for Dr. Mehta on 11/19/16 at 11:37. Discharge Planning PT recommends rehabilitation, no payor source, case management consulted Gray Ogden Nov 19, 2016 11:39
[2016-11-19] MEDS: LEVOFLOXACIN 500 MG PREMIX INJ 100 ML IV SCH (20:41)
--- NOTE | 2016-11-19 21:24 | PD.CAR.PN ---
CVT Progress Note Subjective/Hospital Course: Patient seen Full consult dictated We will proceed with a right below-knee amputation tomorrow Thanks J 11/14/16 Status post R BKA, Dressing dry intact. patient doing well. Pain control difficult due to patient's addiction to narcotics. Will keep dressing on till Friday Able DC patient Friday11/15/16 Status post BK amputation Incisions clean and dry dressing is intact and pain is finally under control We'll remove dressing tomorrow and after that patient can be discharged to a skilled nursing 11/16/16 Stump appears to be clean without drainage but that does appear somewhat red on the lateral aspect and anteriorly We'll place patient on antibiotics because these have been for some reason stopped after the surgery It should be noted the patient a gangrene of the foot so antibiotic should be continued for at least a week thereafter 11/17/16 Stump looks a little better today swelling is decreased and so is the redness The streaking up the thigh has also disappeared Patient should stand antibiotics as the above-noted Doing well at this time 11/19/16 Stump looks much nicer and its dry with some redness in the lateral aspect of the stump One stitch has been removed but there is no drainage No infection noted just sort of inflamed skin which is receding In next few days patient will be able to be discharged Objective: Vital Signs Date Time Temp Pulse Resp B/P Pulse Ox O2 Delivery O2 Flow Rate FiO2 11/19/16 20:00 97.1 65 20 135/79 99 11/19/16 18:27 100.9 99 143/83 97 11/19/16 16:09 96.8 65 18 169/95 95 11/19/16 12:06 96.9 66 18 140/89 99 11/19/16 08:25 97.7 69 14 173/87 97 11/19/16 04:00 97.8 65 18 135/90 96 11/19/16 03:58 18 11/19/16 00:00 98.9 65 18 169/92 97 11/18/16 21:39 18 Result Diagram: 11/16/16 0351 11/19/16 0521 Velasquez Lizama MD Nov 19, 2016 21:24
[2016-11-20] VITALS: BP 166/91; PULSE 70; RESP 20; TEMP 98.1; O2SAT 98
[2016-11-20] MEDS: PIPERACIL-TAZO 3.375 GM PREMIX 50 ML IV SCH ×4 (02:00→19:46)
[2016-11-20] MEDS: HYDROmorphone HCL PF 2 MG/ML VIAL IM/IV PRN ×7 (02:56→22:39)
[2016-11-20] MEDS: SODIUM CHLOR 0.9% 1000 ML INJ 1,000 ML IV SCH (03:15)
[2016-11-20] MEDS ORDERED: HYDROmorphone HCL PF 2 MG/ML VIAL IM/IV PRN (04:15)
[2016-11-20 05:02] LABS: AUTOMATED NEUTROPHIL # 4.7 TH/MM3 (1.8-7.7); BASOPHIL # 0.1 TH/MM3 (0-0.2); BASOPHIL % 0.8 % (0.0-2.0); EOSINOPHIL # 0.1 TH/MM3 (0-0.4); EOSINOPHIL % 1.7 % (0.0-4.0); HEMATOCRIT 29.2 % (39.0-51.0); LYMPH % 21.4 % (9.0-44.0); LYMPHOCYTE # 1.5 TH/MM3 (1.0-4.8); MEAN CELL VOLUME 84.4 FL (80.0-100.0); MEAN CORPUSCULAR HEMOGLOBIN 29.3 PG (27.0-34.0); MEAN CORPUSCULAR HGB CONC 34.7 % (32.0-36.0); MONO % 9.4 % (0.0-8.0); NEUT % 66.7 % (16.0-70.0); PLATELET COUNT 172 TH/MM3 (150-450); RED BLOOD COUNT 3.46 MIL/MM3 (4.50-5.90); RED CELL DISTRIBUTION WIDTH 13.5 % (11.6-17.2)
[2016-11-20 05:08] LABS: HEMO FLAGS AUTO DIFF
[2016-11-20 05:30] LABS: BICARBONATE 27.8 MEQ/L (21.0-32.0); MAGNESIUM 1.9 MG/DL (1.5-2.5); POTASSIUM 3.8 MEQ/L (3.5-5.1)
[2016-11-20] MEDS: INSULIN DETEMIR 100 UNITS/ML VIAL SQ SCH ×2 (06:25→19:47)
[2016-11-20] MEDS: INSULIN ASPART SUPPLEMENTAL SCALE SQ SCH ×4 (06:25→21:32)
[2016-11-20] MEDS: DOCUSATE SODIUM 100 MG CAP PO SCH ×2 (07:15→16:13)
[2016-11-20 07:30] LABS: BANDS 21 % (0-6); METAMYELOCYTES 1 % (0-1); MYELOCYTES 1 % (0-0); NEUTROPHIL # MANUAL DIFF 5.2 TH/MM3 (1.8-7.7); PLATELET ESTIMATE SMEAR NORMAL (NORMAL); PLATELET MORPHOLOGY NORMAL (NORMAL); POLYS (SEG NEUTROPHILS) 51 % (16-70); SCAN/DIFF FINAL DIFF MANUAL; WBC DIFF SAMPLE 100
[2016-11-20 07:32] LABS: TOXIC GRANULATION 1+ (NORMAL)
[2016-11-20 08:00] VITALS: BP 173/80; PULSE 66; RESP 18; TEMP 97.6; O2SAT 99
[2016-11-20] MEDS: INSULIN ASPART 1,000 UNITS/10 ML VIAL SQ SCH ×3 (08:00→16:13)
[2016-11-20] MEDS: POLYETHYLENE GLYCOL 17 GM PKG PO SCH (09:00)
[2016-11-20] MEDS: SENNOSIDES 8.6 MG TAB PO SCH (09:00)
[2016-11-20] MEDS: SODIUM CHLORIDE 0.9% FLUSH 5 ML FLUSH FLUSH SCH ×2 (09:00→19:46)
[2016-11-20] MEDS: METHADONE HCL 10 MG TAB PO SCH (09:01)
[2016-11-20] MEDS: GABAPENTIN 100 MG CAP PO SCH ×2 (09:04→19:47)
[2016-11-20] MEDS: PANTOPRAZOLE SOD 40 MG DELAYED RELEASE TAB PO SCH (09:04)
[2016-11-20] MEDS: amLODIPine BESYLATE 5 MG TAB PO SCH (09:04)
[2016-11-20] MEDS: GABAPENTIN 300 MG CAP PO SCH ×2 (09:04→19:47)
[2016-11-20] MEDS: CLOTRIMAZOLE 1% CREAM 15 GM TOPICAL SCH ×2 (09:05→19:48)
[2016-11-20] MEDS: ENOXAPARIN SODIUM 40 MG/0.4 ML SYRINGE SQ SCH (09:05)
[2016-11-20 12:00] VITALS: BP 137/78; PULSE 74; RESP 19; TEMP 97.4; O2SAT 99
--- NOTE | 2016-11-20 14:34 | HHI.PR ---
Subjective Remarks Follow-up BKA. Complaining with surgical pain requesting increase IV pain medicine which I declined. Patient has no payor source for rehabilitation. PT recommends rehabilitation. Discussed with RN Objective Vitals Vital Signs Date Time Temp Pulse Resp B/P Pulse Ox O2 Delivery O2 Flow Rate FiO2 11/20/16 12:00 97.4 74 19 137/78 99 11/20/16 10:41 20 11/20/16 10:01 20 11/20/16 08:00 97.6 66 18 173/80 99 11/20/16 06:24 18 11/20/16 00:00 98.1 70 20 166/91 98 11/19/16 22:38 18 11/19/16 20:00 97.1 65 20 135/79 99 11/19/16 18:27 100.9 99 143/83 97 11/19/16 16:09 96.8 65 18 169/95 95 I/O 11/19/16 11/19/16 11/19/16 11/20/16 11/20/16 11/20/16 07:00 15:00 23:00 07:00 15:00 23:00 Intake Total 807 ml 1585 ml 886 ml 480 ml 120 ml Output Total 1500 ml 800 ml 800 ml 1100 ml Balance -693 ml 785 ml 86 ml -620 ml 120 ml Intake Oral 480 ml 960 ml 480 ml 480 ml 120 ml IV Total 327 ml 625 ml 406 ml 0 ml Output Urine Total 1500 ml 800 ml 800 ml 1100 ml # Voids 2 # Bowel Movements 3 3 0 0 Result Diagram: 11/20/16 0400 11/20/160 Objective Remarks GENERAL: Well-nourished, well-developed middle aged male patient in [facility]. SKIN: Warm and dry. Right BKA with dry dressing HEENT: Normocephalic. Atraumatic. Pupils equal and round. No scleral icterus. No injection or drainage. Mucous membranes pink and moist. NECK: Supple. Trachea midline. CARDIOVASCULAR: Regular rate and rhythm. S1, S2 noted. No murmur appreciated. RESPIRATORY: No accessory muscle use. Clear to auscultation. Breath sounds equal bilaterally. GASTROINTESTINAL: Abdomen soft, non-tender, nondistended. Normoactive bowel sounds x4. MUSCULOSKELETAL: No obvious deformities. Trace lower extremity pitting edema. NEUROLOGICAL: Awake and alert. No obvious cranial nerve deficits. Motor grossly within normal limits. Normal speech. Nonfocal PSYCHIATRIC: Appropriate mood and affect; insight and judgment normal. Procedures Right lower extremity BKA 11/13 A/P Problem List: (1) Acute osteomyelitis of metatarsal bone of right foot ICD Code: M86.171 Status: Acute (2) Diabetes ICD Code: E11.9 Status: Chronic (3) Diabetic neuropathy ICD Code: E11.40 Status: Chronic (4) Methadone dependence ICD Code: F11.20 Status: Chronic Assessment and Plan 51-year-old male with history of diabetes, atrial fibrillation, chronic right foot ulcers, chronic pain on methadone/oxycodone, hepatitis C, presents with a three-day history of intractable pain at right foot ulceration. Osteomyelitis/Cellulitis/Gangrene of Right Foot: Images reviewed --Right foot x- ray shows air in soft tissues along the lateral plantar aspect of the foot suggesting regional cellulitis; in addition, appears to be cortical disruption along the fifth metatarsal head, concerning for regional osteomyelitis; chronic fracture dislocation of the Lisfranc joint with ongoing collapse characteristic of Charcot joint. Right Foot MRI shows subcutaneous emphysema laterally with osteomyelitis of the fifth metatarsal; osteomyelitis of the cuboid; some edema within the calcaneus where there appears to be nondisplaced fracture; Charcot neuropathy of the midfoot. -Afebrile, no leukocytosis -Changed antibiotics from Keflex to IV Zosyn and Levaquin with concern for stump infection -Elevate the extremity -blood cultures with NGTD -Pain control with oxycodone 25mg po q6h prn and 2 mg IV dilaudid prn breakthrough pain. Counseled regarding narcotics. We'll wean IV Dilaudid -s/p BKA on 11/13, postoperative care per Dr. Lizama -PT [facility], recommended SNF, case management consulted. No they are source for rehabilitation -Improving consider switching to by mouth antibiotics Diabetes: Uncontrolled, labile, noncompliant? Monitor Accu-cheks and cover with medium dose SSI. HgbA1c 12.0. 11/18 Increased patient's Levemir to 76 units at bedtime and 66 units in the morning, and increased preprandial NovoLog to 16 u tidac with improvement in blood glucose control. Continue Neurontin for neuropathy and phantom pain. Chronic Back Pain: from accident 20years ago. He goes to the [facility] for his methadone 220 mg daily (confirmed by RN), and sees pain management to receive his oxycodone 20 mg q6h prn. Continue medications. Balanitis: UA unremarkable. Clotrimazole cream twice daily. Improving Acute kidney injury: Improving discontinue IVF. Held vancomycin. Checked bladder scan for residual, only with 210cc. 11/17 Renal U/S unremarkable. Continue to monitor BMP. All other medical conditions stable, continue home medications as appropriate. DVT Prophylaxis: teds/SCDs to the left leg, Lovenox Discharge Planning Discharge per surgery Kiel Mehta MD Nov 20, 2016 14:[address] Kiel Mehta on 11/18/16 at 16:56. Discharge Planning Discharge Friday per Kiel Mehta MD Nov 20, 2016 14:34
[2016-11-20 16:00] VITALS: BP 154/88; PULSE 72; RESP 16; TEMP 98.4; O2SAT 99
[2016-11-20] MEDS: LEVOFLOXACIN 500 MG PREMIX INJ 100 ML IV SCH (19:46)
[2016-11-20 20:00] VITALS: BP 130/82; PULSE 68; RESP 20; TEMP 98.4; O2SAT 98
[2016-11-20] MEDS: SODIUM CHLORIDE 0.9% FLUSH 5 ML FLUSH FLUSH PRN ×2 (20:08→22:39)
[2016-11-21] VITALS: BP 133/84; PULSE 71; RESP 20; TEMP 98.2; O2SAT 98
[2016-11-21] MEDS: HYDROmorphone HCL PF 2 MG/ML VIAL IM/IV PRN ×3 (01:56→09:23)
[2016-11-21] MEDS: PIPERACIL-TAZO 3.375 GM PREMIX 50 ML IV SCH ×2 (01:56→08:31)
[2016-11-21] MEDS: SODIUM CHLORIDE 0.9% FLUSH 5 ML FLUSH FLUSH PRN ×2 (01:57→04:48)
[2016-11-21] MEDS: INSULIN ASPART SUPPLEMENTAL SCALE SQ SCH ×4 (04:56→21:00)
[2016-11-21] MEDS: INSULIN DETEMIR 100 UNITS/ML VIAL SQ SCH ×2 (06:08→21:20)
[2016-11-21] MEDS: DOCUSATE SODIUM 100 MG CAP PO SCH ×2 (06:09→16:06)
[2016-11-21 08:00] VITALS: BP 152/96; PULSE 66; RESP 18; TEMP 97.7; O2SAT 98
[2016-11-21] MEDS: INSULIN ASPART 1,000 UNITS/10 ML VIAL SQ SCH ×3 (08:00→16:05)
[2016-11-21] MEDS: METHADONE HCL 10 MG TAB PO SCH (08:28)
[2016-11-21] MEDS: SODIUM CHLORIDE 0.9% FLUSH 5 ML FLUSH FLUSH SCH ×2 (08:31→21:19)
[2016-11-21] MEDS: ENOXAPARIN SODIUM 40 MG/0.4 ML SYRINGE SQ SCH (08:33)
[2016-11-21] MEDS: PANTOPRAZOLE SOD 40 MG DELAYED RELEASE TAB PO SCH (08:34)
[2016-11-21] MEDS: GABAPENTIN 300 MG CAP PO SCH ×2 (08:34→21:19)
[2016-11-21] MEDS: amLODIPine BESYLATE 5 MG TAB PO SCH (08:34)
[2016-11-21] MEDS: GABAPENTIN 100 MG CAP PO SCH ×2 (08:34→21:19)
[2016-11-21] MEDS: POLYETHYLENE GLYCOL 17 GM PKG PO SCH (08:35)
[2016-11-21] MEDS: SENNOSIDES 8.6 MG TAB PO SCH (08:35)
[2016-11-21] MEDS: CLOTRIMAZOLE 1% CREAM 15 GM TOPICAL SCH ×2 (08:37→21:21)
[2016-11-21 12:00] VITALS: BP 143/85; PULSE 66; RESP 19; TEMP 97.8; O2SAT 97
--- NOTE | 2016-11-21 12:18 | PD.CAR.PN ---
CVT Progress Note Subjective/Hospital Course: Patient seen Full consult dictated We will proceed with a right below-knee amputation tomorrow Thanks J 11/14/16 Status post R BKA, Dressing dry intact. patient doing well. Pain control difficult due to patient's addiction to narcotics. Will keep dressing on till Friday Able DC patient Friday11/15/16 Status post BK amputation Incisions clean and dry dressing is intact and pain is finally under control We'll remove dressing tomorrow and after that patient can be discharged to a longterm 11/16/16 Stump appears to be clean without drainage but that does appear somewhat red on the lateral aspect and anteriorly We'll place patient on antibiotics because these have been for some reason stopped after the surgery It should be noted the patient a gangrene of the foot so antibiotic should be continued for at least a week thereafter 11/17/16 Stump looks a little better today swelling is decreased and so is the redness The streaking up the thigh has also disappeared Patient should stand antibiotics as the above-noted Doing well at this time 11/19/16 Stump looks much nicer and its dry with some redness in the lateral aspect of the stump One stitch has been removed but there is no drainage No infection noted just sort of inflamed skin which is receding In next few days patient will be able to be discharged 11/21/16 Stump clean dry Redress daily Can DC patient from my point any time FU with me 2 weeks Objective: Vital Signs Date Time Temp Pulse Resp B/P Pulse Ox O2 Delivery O2 Flow Rate FiO2 11/21/16 08:00 97.7 66 18 152/96 98 11/21/16 00:00 98.2 71 20 133/84 98 11/20/16 20:00 98.4 68 20 130/82 98 11/20/16 16:47 20 11/20/16 16:00 98.4 72 16 154/88 99 Result Diagram: 11/20/1639911/20/16399 Velasquez Lizama MD Nov 21, 2016 12:18
--- NOTE | 2016-11-21 12:53 | HHI.PR ---
Subjective Remarks Follow up for BKA. The patient states his pain is fairly well under control. No fevers/chills. Stump looks good, no drainage. Discussed decreasing to baseline pain medications, patient agreeable. He has no other medical complaints at this time. Objective Vitals Vital Signs Date Time Temp Pulse Resp B/P Pulse Ox O2 Delivery O2 Flow Rate FiO2 11/21/16 08:00 97.7 66 18 152/96 98 11/21/16 00:00 98.2 71 20 133/84 98 11/20/16 20:00 98.4 68 20 130/82 98 11/20/16 16:47 20 11/20/16 16:00 98.4 72 16 154/88 99 I/O 11/20/16 11/20/16 11/20/16 11/21/16 11/21/16 11/21/16 07:00 15:00 23:00 07:00 15:00 23:00 Intake Total 480 ml 1080 ml 480 ml 500 ml 120 ml Output Total 1100 ml 1000 ml 1400 ml Balance -620 ml 80 ml 480 ml -900 ml 120 ml Intake Oral 480 ml 1080 ml 480 ml 480 ml 120 ml IV Total 0 ml 20 ml Output Urine Total 1100 ml 1000 ml 1400 ml # Voids 3 # Bowel Movements 0 2 Result Diagram: 11/20/16 0400 11/20/16 0400 Imaging Last Impressions Renal Ultrasound 11/17/16 0000 Signed Impressions: Service Date/Time: Thursday, November 17, 2016 13:33 - CONCLUSION: Normal examination. Kvng Lott MD Foot X-Ray 11/12/16 0405 Signed Impressions: Service Date/Time: Saturday, November 12, 2016 04:06 - CONCLUSION: 1. Air in the soft tissues along the lateral plantar aspect of the foot suggesting a regional cellulitis. 2. In addition, there appears to be cortical disruption along the fifth metatarsal head, concerning for regional osteomyelitis. 3. Chronic fracture dislocation of the Lisfranc joint with ongoing collapse of the same characteristic of a Charcot joint. Eleuterio Carbajal MD Foot MRI 11/12/16 0000 Signed Impressions: Service Date/Time: Saturday, November 12, 2016 11:28 - CONCLUSION: 1. Subcutaneous emphysema laterally with osteomyelitis of the fifth metatarsal. 2. Osteomyelitis of the cuboid. 3. There is some edema within the calcaneus where there appears to be a nondisplaced fracture. 4. Charcot neuropathy of the midfoot Keyur Goldman MD Objective Remarks GENERAL: Well-nourished, well-developed middle aged male patient in [facility]. SKIN: Warm and dry. 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 HEENT: Normocephalic. Atraumatic. Pupils equal and round. No scleral icterus. No injection or drainage. Mucous membranes pink and moist. NECK: Supple. Trachea midline. CARDIOVASCULAR: Regular rate and rhythm. S1, S2 noted. No murmur appreciated. RESPIRATORY: No accessory muscle use. Clear to auscultation. Breath sounds equal bilaterally. GASTROINTESTINAL: Abdomen soft, non-tender, nondistended. Normoactive bowel sounds x4. MUSCULOSKELETAL: Right BKA site looks clean, no erythema/drainage. NEUROLOGICAL: Awake and alert. No obvious cranial nerve deficits. Motor grossly within normal limits. Normal speech. PSYCHIATRIC: Appropriate mood and affect; insight and judgment normal. Procedures Right lower extremity BKA 11/13 Medications and IVs Current Medications Medications (Trade) Dose Ordered Sig/Ashish Route Start Time Stop Time Status Last Admin (NS Flush) 2 ml UNSCH PRN FLUSH 11/12/16 05:15 11/21/16 04:48 (NS Flush) 2 ml BID FLUSH 11/12/16 09:00 11/21/16 08:31 (Lovenox Inj) 40 mg Q24H SQ 11/12/16 09:00 11/21/16 08:33 (Narcan Inj) 0.4 mg UNSCH PRN IV 11/12/16 05:15 (D50w (Vial) Inj) 25 ml UNSCH PRN IV PUSH 11/12/16 05:15 (Glucagon Inj) 1 mg UNSCH PRN OTHER 11/12/16 05:15 (Tylenol) 650 mg Q4H PRN PO 11/12/16 07:15 11/15/16 22:30 (Zofran Inj) 4 mg Q6H PRN IVP 11/12/16 07:15 (Dulcolax Supp) 10 mg DAILY PRN [place] 11/12/16 07:15 (Colace) 100 mg Q12H PO 11/12/16 07:15 (Senokot) 17.2 mg Q12H PRN PO 11/12/16 07:15 (Dolophine) 220 mg DAILY PO 11/12/16 10:45 11/21/16 08:28 (Protonix) 40 mg DAILY PO 11/13/16 09:00 11/21/16 08:34 (Roxicodone) 25 mg Q6H PRN PO 11/14/16 16:45 11/21/16 12:41 (Glucophage) 500 mg BIDPC PO 11/14/16 18:00 Hold 11/15/16 08:47 (Oksana-Colace) 2 tab BID PRN PO 11/15/16 06:00 (Miralax) 17 gm DAILY PO 11/15/16 09:00 (Senokot) 8.6 mg DAILY PO 11/15/16 09:00 (Lotrimin 1% Cream) 1 applic Q12HR TOPICAL 11/15/16 15:00 11/21/16 08:37 (Neurontin) 600 mg BID PO 11/16/16 21:00 11/21/16 08:34 Gabapentin 100 mg 100 mg BID PO 11/16/16 21:00 11/21/16 08:34 Piperacillin Sod/ Tazobactam Sod 50 ml @ 100 mls/hr Q6H IV 11/16/16 20:00 11/21/16 08:31 (Levaquin 500 Mg Premix Inj) 100 ml @ 100 mls/hr Q24H IV 11/16/16 21:00 11/20/16 19:46 (NovoLOG INJ) 16 units TIDAC SQ 11/18/16 12:00 11/21/16 11:28 (Catapres) 0.1 mg Q6H PRN PO 11/18/16 10:45 (Norvasc) 5 mg DAILY PO 11/18/16 10:45 11/21/16 08:34 (Levemir Inj) 78 units HS SQ 11/19/16 21:00 11/20/16 19:47 (Dilaudid Pf Inj) 2 mg Q3H PRN IM/IV 11/20/16 02:15 11/21/16 09:23 A/P Problem List: (1) Acute osteomyelitis of metatarsal bone of right foot ICD Code: M86.171 Status: Acute (2) Diabetes ICD Code: E11.9 Status: Chronic (3) Diabetic neuropathy ICD Code: E11.40 Status: Chronic (4) Methadone dependence ICD Code: F11.20 Status: Chronic Assessment and Plan 51-year-old male with history of diabetes, atrial fibrillation, chronic right foot ulcers, chronic pain on methadone/oxycodone, hepatitis C, presents with a three-day history of intractable pain at right foot ulceration. Osteomyelitis/Cellulitis/Gangrene of Right Foot: Images reviewed --Right foot x- ray shows air in soft tissues along the lateral plantar aspect of the foot suggesting regional cellulitis; in addition, appears to be cortical disruption along the fifth metatarsal head, concerning for regional osteomyelitis; chronic fracture dislocation of the Lisfranc joint with ongoing collapse characteristic of Charcot joint. Right Foot MRI shows subcutaneous emphysema laterally with osteomyelitis of the fifth metatarsal; osteomyelitis of the cuboid; some edema within the calcaneus where there appears to be nondisplaced fracture; Charcot neuropathy of the midfoot. -Afebrile, no leukocytosis -Changed antibiotics from Keflex to IV Zosyn and Levaquin with concern for stump infection -Elevate the extremity -blood cultures with NGTD -Pain control with oxycodone 25mg po q6h prn, discontinued IV Dilaudid prn on 11/21. Counseled regarding narcotics. -s/p BKA on 11/13, postoperative care per Dr. Lizama -PT darleen, recommended SNF, case management consulted. No payor source for rehabilitation -Improving, consider switching to by mouth antibiotics Diabetes: Uncontrolled, labile, noncompliant? Monitor Accu-cheks and cover with medium dose SSI. HgbA1c 12.0. Increased patient's Levemir to 78 units at bedtime and 64 units in the morning, and increased preprandial NovoLog to 16 u tidac with improvement in blood glucose control. Continue Neurontin for neuropathy and phantom pain. Chronic Back Pain: from accident 20years ago. He goes to the [facility] for his methadone 220 mg daily (confirmed by RN), and sees pain management to receive his oxycodone 20 mg q6h prn. Continue medications. Balanitis: UA unremarkable. Clotrimazole cream twice daily. Improved. Acute kidney injury: Cr 1.75. Given IVF. Held vancomycin. Checked bladder scan for residual, only with 210cc. 11/17 Renal U/S unremarkable. Continue to monitor BMP. Much improved, Cr 1.19. D/c IVF. All other medical conditions stable, continue home medications as appropriate. DVT Prophylaxis: teds/SCDs to the left leg, Lovenox Written by Myrna Sanford, acting as scribe for Dr. Mehta on 11/21/16 at 12: 20. All or portions of this note were transcribed by scribe []. I, Dr. Kiel Mehta personally performed the history, physical exam, and medical decision making; and confirmed the accuracy of the information in the transcribed note. Authenticated by Dr. Kiel Mehta on 11/21/16 at 13:45. Discharge Planning Case management to assist with discharge planning, needs SNF, however discussed with case management, will be difficult placement. No ramya beds available at [facility]. Will continue daily PT here and discharge when safe. Myrna aSnford PA-C Nov 21, 2016 12:53 Kiel Mehta MD Nov 21, 2016 13:45
[2016-11-21] MEDS ORDERED: AMLO5 PO (13:53)
[2016-11-21] MEDS ORDERED: NEUR300C PO (13:53)
[2016-11-21] MEDS ORDERED: SENN1TAB PO (13:53)
[2016-11-21] MEDS ORDERED: NOVOLOGP2 SQ (13:53)
[2016-11-21] MEDS ORDERED: LEVA500T PO (13:53)
[2016-11-21] MEDS ORDERED: LANTUS2P SQ (13:53)
[2016-11-21] MEDS ORDERED: GABA100C4 PO (13:53)
--- NOTE | 2016-11-21 13:57 | HHI.DS ---
cc: Velasquez Lizama MD; Courtney Terry MD Discharge Summary Admission Date Nov 12, 2016 at 7:52 am Discharge Date: Nov 21, 2016 Admitting Diagnosis diabetic foot/osteomyelitis (1) Acute osteomyelitis of metatarsal bone of right foot ICD Code: M86.171 Diagnosis: Principal (2) Status post below knee amputation of right lower extremity ICD Code: Z89.511 Diagnosis: Principal (3) Diabetes ICD Code: E11.9 Diagnosis: Secondary (4) Diabetic neuropathy ICD Code: E11.40 Diagnosis: Secondary (5) Methadone dependence ICD Code: F11.20 Diagnosis: Secondary Procedures Right lower extremity BKA 11/13 Brief History - From Admission 51-year-old male with history of diabetes, atrial fibrillation, chronic right foot ulcers, chronic pain on methadone/oxycodone, hepatitis C, presents with a three-day history of intractable pain at right foot ulceration. The patient reports he's been dealing with the right foot ulcer for 2 years now, however worse over the past 2 months, and now has had worsening pain over the past 3 days. The pain is 10/10, worse with any ambulation or pressure. He reports purulent yellow drainage from the wounds. Denies fevers or chills. Last time he was on antibiotics was 2months ago. He was following through the community clinic and podiatry, however has not been seen in a few months due to insurance reasons. Patient has no other medical complaints at this time. He goes to the [facility] for his methadone 220 mg daily (confirmed by RN), and sees pain management to receive his oxycodone 20 mg q6h prn. Since his arrival , right foot x-ray shows air in soft tissues along the lateral plantar aspect of the foot suggesting regional cellulitis; in addition, appears to be cortical disruption along the fifth metatarsal head, concerning for regional osteomyelitis; chronic fracture dislocation of the Lisfranc joint with ongoing collapse characteristic of Charcot joint. Podiatry has been consulted. He has been started on IV vancomycin/Zosyn. CBC/BMP: 11/20/16 0400 11/20/16 0400 Significant Findings Laboratory Tests Test 11/19/16 11/20/16 05:21 04:00 Creatinine 1.44 MG/DL (0.60-1.30) Estimat Glomerular Filtration 52 ML/MIN (>89) 66 ML/MIN (>89) Rate Random Glucose 244 MG/DL 113 MG/DL (74-106) (74-106) Calcium Level 7.9 MG/DL 8.3 MG/DL (8.5-10.1) (8.5-10.1) Red Blood Count 3.46 MIL/MM3 (4.50-5.90) Hemoglobin 10.1 GM/DL (13.0-17.0) Hematocrit 29.2 % (39.0-51.0) Monocytes (%) (Auto) 9.4 % (0.0-8.0) Band Neutrophils % 21 % (0-6) Myelocytes 1 % (0-0) Toxic Granulation 1+ (NORMAL) Imaging Last Impressions Renal Ultrasound 11/17/16 0000 Signed Impressions: Service Date/Time: Thursday, November 17, 2016 13:33 - CONCLUSION: Normal examination. Kvng Lott MD Foot X-Ray 11/12/16 0405 Signed Impressions: Service Date/Time: Saturday, November 12, 2016 04:06 - CONCLUSION: 1. Air in the soft tissues along the lateral plantar aspect of the foot suggesting a regional cellulitis. 2. In addition, there appears to be cortical disruption along the fifth metatarsal head, concerning for regional osteomyelitis. 3. Chronic fracture dislocation of the Lisfranc joint with ongoing collapse of the same characteristic of a Charcot joint. Eleuterio Carbajal MD Foot MRI 11/12/16 0000 Signed Impressions: Service Date/Time: Saturday, November 12, 2016 11:28 - CONCLUSION: 1. Subcutaneous emphysema laterally with osteomyelitis of the fifth metatarsal. 2. Osteomyelitis of the cuboid. 3. There is some edema within the calcaneus where there appears to be a nondisplaced fracture. 4. Charcot neuropathy of the midfoot Keyur Goldman MD PE at Discharge GENERAL: Well-nourished, well-developed middle aged male patient in [facility]. SKIN: Warm and dry. 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 HEENT: Normocephalic. Atraumatic. Pupils equal and round. No scleral icterus. No injection or drainage. Mucous membranes pink and moist. NECK: Supple. Trachea midline. CARDIOVASCULAR: Regular rate and rhythm. S1, S2 noted. No murmur appreciated. RESPIRATORY: No accessory muscle use. Clear to auscultation. Breath sounds equal bilaterally. GASTROINTESTINAL: Abdomen soft, non-tender, nondistended. Normoactive bowel sounds x4. MUSCULOSKELETAL: Right BKA site looks clean, no erythema/drainage. NEUROLOGICAL: Awake and alert. No obvious cranial nerve deficits. Motor grossly within normal limits. Normal speech. PSYCHIATRIC: Appropriate mood and affect; insight and judgment normal. Hospital Course 51-year-old male with history of diabetes, atrial fibrillation, chronic right foot ulcers, chronic pain on methadone/oxycodone, hepatitis C, presents with a three-day history of intractable pain at right foot ulceration. Osteomyelitis/Cellulitis/Gangrene of Right Foot: Images reviewed --Right foot x- ray shows air in soft tissues along the lateral plantar aspect of the foot suggesting regional cellulitis; in addition, appears to be cortical disruption along the fifth metatarsal head, concerning for regional osteomyelitis; chronic fracture dislocation of the Lisfranc joint with ongoing collapse characteristic of Charcot joint. Right Foot MRI shows subcutaneous emphysema laterally with osteomyelitis of the fifth metatarsal; osteomyelitis of the cuboid; some edema within the calcaneus where there appears to be nondisplaced fracture; Charcot neuropathy of the midfoot. -Afebrile, no leukocytosis -Changed antibiotics from Keflex to IV Zosyn and Levaquin with concern for stump infection -Elevate the extremity -blood cultures with NGTD -Pain control with oxycodone 25mg po q6h prn, discontinued IV Dilaudid prn on 11/21. Counseled regarding narcotics. -s/p BKA on 11/13, postoperative care per Dr. Lizama -PT eval, recommended SNF, case management consulted. No payor source for rehabilitation -Improving, consider switching to by mouth antibiotics -seen by Dr. Lizama today, changed to po Levaquin 500mg qd x5days, cleared for discharge. Diabetes: Uncontrolled, labile, noncompliant? Monitor Accu-cheks and cover with medium dose SSI. HgbA1c 12.0. Increased patient's Levemir to 78 units at bedtime and 64 units in the morning, and increased preprandial NovoLog to 16 u tidac with improvement in blood glucose control. Continue Neurontin for neuropathy and phantom pain. Chronic Back Pain: from accident 20years ago. He goes to the [facility] for his methadone 220 mg daily (confirmed by RN), and sees pain management to receive his oxycodone 20 mg q6h prn. Continued medications. Balanitis: UA unremarkable. Clotrimazole cream twice daily. Improved. Acute kidney injury: Cr 1.75. Given IVF. Held vancomycin. Checked bladder scan for residual, only with 210cc. 11/17 Renal U/S unremarkable. Continue to monitor BMP. Much improved, Cr 1.19. D/c IVF. All other medical conditions stable, continue home medications as appropriate. DVT Prophylaxis: teds/SCDs to the left leg, Lovenox Written by Myrna Sanofrd, acting as scribe for Dr. Mehta on 11/21/16 at 12: 20. All or portions of this note were transcribed by scribe []. I, Dr. Kiel Mehta personally performed the history, physical exam, and medical decision making; and confirmed the accuracy of the information in the transcribed note. Authenticated by Dr. Kiel Mehta on 11/21/16 at 14:40. Pt Condition on Discharge: Stable Discharge Disposition: Discharge Home Discharge Time: <= 30 minutes Discharge Instructions DIET: Follow Instructions for: Diabetic Diet Activities you can perform: Regular-No Restrictions Follow up Referrals: PCP Follow-up - 1 Week Surgical - 1 Week New Medications: Amlodipine (Norvasc) 5 Mg Tab 5 MG PO DAILY Blood Pressure Management #30 TAB Gabapentin (Neurontin) 300 Mg Cap 600 MG PO BID neuropathy #112 CAP Gabapentin (Gabapentin) 100 Mg Cap 100 MG PO BID neuropathy #60 CAP Levofloxacin (Levaquin) 500 Mg Tab 500 MG PO Q24H Infection #5 TAB Metformin (Glucophage) 500 Mg Tab 500 MG PO BIDPC Blood Sugar Management #60 TAB Sennosides-Docusate Sodium (Senna Plus 8.6-50 mg) 1 Tab Tab 2 TAB PO BID PRN CONSTIPATION #60 TAB Changed Medications: Insulin Aspart Inj (Novolog Inj) 1,000 Unit/10 Ml Vial 16 UNITS SQ TIDAC Blood Sugar Management #100 Ref 0 ML (Changed from: 14 UNITS; 5; Refills: 6) Insulin Glargine Inj (Lantus Inj) 1,000 Unit/10 Ml Vial 78 UNITS SQ HS Blood Sugar Management #100 Ref 0 ML (Changed from: 64 UNITS) Continued Medications: Insulin Glargine Inj (Lantus Inj) 1,000 Unit/10 Ml Vial 64 UNITS SQ AC BREAKFAST Blood Sugar Management Ref 0 VIAL Lisinopril (Lisinopril) 10 Mg Tab 10 MG PO DAILY #90 Ref 6 TAB Methadone (Methadone) 40 Mg Tab 220 MG PO DAILY Ref 0 TAB Omeprazole (Omeprazole) 40 Mg Cap 40 MG PO DAILY #30 Ref 0 CAP Oxycodone (Oxycodone) 20 Mg Tab 20 MG PO Q6H PRN PAIN Ref 0 TAB Discontinued Medications: Gabapentin (Neurontin) 400 Mg Cap 1200 MG PO TID #90 Ref 6 CAP Hydrochlorothiazide (Hydrochlorothiazide) 25 Mg Tab 25 MG PO DAILY #30 Ref 3 TAB Myrna Sanford PA-C Nov 21, 2016 13:57 Kiel Mehta MD Nov 21, 2016 14:41
[2016-11-21 16:00] VITALS: BP 141/74; PULSE 67; RESP 16; TEMP 97.8; O2SAT 100
[2016-11-21] MEDS: HYDROmorphone HCL PF 1 MG/ML VIAL IV PUSH PRN ×2 (16:11→22:32)
[2016-11-21 20:00] VITALS: BP 143/88; PULSE 67; RESP 20; TEMP 98.6; O2SAT 98
[2016-11-21] MEDS: LEVOFLOXACIN 500 MG TAB PO SCH (21:19)
[2016-11-22] VITALS: BP 142/91; PULSE 70; RESP 20; TEMP 98.7; O2SAT 99
[2016-11-22] MEDS: diphenhydrAMINE HCL 25 MG CAP PO PRN ×2 (04:27→23:23)
[2016-11-22] MEDS: HYDROmorphone HCL PF 1 MG/ML VIAL IV PUSH PRN ×4 (04:27→23:10)
[2016-11-22] MEDS: INSULIN DETEMIR 100 UNITS/ML VIAL SQ SCH ×2 (06:21→21:00)
[2016-11-22] MEDS: INSULIN ASPART SUPPLEMENTAL SCALE SQ SCH ×4 (06:23→21:00)
[2016-11-22] MEDS: DOCUSATE SODIUM 100 MG CAP PO SCH ×2 (06:24→19:15)
[2016-11-22 08:18] VITALS: BP 150/86; PULSE 64; RESP 20; TEMP 98; O2SAT 94
[2016-11-22] MEDS: METHADONE HCL 10 MG TAB PO SCH (08:59)
[2016-11-22] MEDS: SENNOSIDES 8.6 MG TAB PO SCH (09:00)
[2016-11-22] MEDS: CLOTRIMAZOLE 1% CREAM 15 GM TOPICAL SCH ×2 (09:00→21:29)
[2016-11-22] MEDS: POLYETHYLENE GLYCOL 17 GM PKG PO SCH (09:00)
[2016-11-22] MEDS: GABAPENTIN 300 MG CAP PO SCH ×2 (09:01→21:28)
[2016-11-22] MEDS: GABAPENTIN 100 MG CAP PO SCH ×2 (09:01→21:28)
[2016-11-22] MEDS: PANTOPRAZOLE SOD 40 MG DELAYED RELEASE TAB PO SCH (09:02)
[2016-11-22] MEDS: ENOXAPARIN SODIUM 40 MG/0.4 ML SYRINGE SQ SCH (09:02)
[2016-11-22] MEDS: amLODIPine BESYLATE 5 MG TAB PO SCH (09:02)
[2016-11-22] MEDS: SODIUM CHLORIDE 0.9% FLUSH 5 ML FLUSH FLUSH SCH ×2 (09:05→21:29)
[2016-11-22] MEDS: INSULIN ASPART 1,000 UNITS/10 ML VIAL SQ SCH ×3 (09:09→17:08)
[2016-11-22] MEDS: SODIUM CHLORIDE 0.9% FLUSH 5 ML FLUSH FLUSH PRN (11:22)
[2016-11-22 12:00] VITALS: BP 139/86; PULSE 65; RESP 16; TEMP 97.6; O2SAT 97
--- NOTE | 2016-11-22 12:14 | PD.CAR.PN ---
CVT Progress Note Subjective/Hospital Course: Patient seen Full consult dictated We will proceed with a right below-knee amputation tomorrow Thanks J 11/14/16 Status post R BKA, Dressing dry intact. patient doing well. Pain control difficult due to patient's addiction to narcotics. Will keep dressing on till Friday Able DC patient Friday11/15/16 Status post BK amputation Incisions clean and dry dressing is intact and pain is finally under control We'll remove dressing tomorrow and after that patient can be discharged to a fdc 11/16/16 Stump appears to be clean without drainage but that does appear somewhat red on the lateral aspect and anteriorly We'll place patient on antibiotics because these have been for some reason stopped after the surgery It should be noted the patient a gangrene of the foot so antibiotic should be continued for at least a week thereafter 11/17/16 Stump looks a little better today swelling is decreased and so is the redness The streaking up the thigh has also disappeared Patient should stand antibiotics as the above-noted Doing well at this time 11/19/16 Stump looks much nicer and its dry with some redness in the lateral aspect of the stump One stitch has been removed but there is no drainage No infection noted just sort of inflamed skin which is receding In next few days patient will be able to be discharged 11/21/16 Stump clean dry Redress daily Can DC patient from my point any time FU with me 2 weeks 11/22/16 Stump clean and dry Healing very nicely All the cultures are negative and patient can be discharged from my point Stitches will stay in for at least another 10 days and then be removed in my office Objective: Vital Signs Date Time Temp Pulse Resp B/P Pulse Ox O2 Delivery O2 Flow Rate FiO2 11/22/16 11:51 18 11/22/16 09:59 18 11/22/16 08:18 98.0 64 20 150/86 94 11/22/16 07:21 18 11/22/16 00:00 98.7 70 20 142/91 99 11/21/16 20:00 98.6 67 20 143/88 98 11/21/16 16:00 97.8 67 16 141/74 100 Result Diagram: 11/20/160 11/20/16399 Velasquez Lizama MD Nov 22, 2016 12:13
--- NOTE | 2016-11-22 13:35 | HHI.PR ---
Subjective Remarks Follow-up visit right BKA, DM 2, surgical pain management. Patient seen today. States his doing well aside from having pain. States he just received his pain medication, reports relief. Patient on methadone, Oxycodone, and IV Dilaudid for breakthrough pain. Denies SOB/ dyspnea. Denies chest pain, palpitations, headaches, dizziness. Denies fevers, chills, n/v/d. Objective Vitals Vital Signs Date Time Temp Pulse Resp B/P Pulse Ox O2 Delivery O2 Flow Rate FiO2 11/22/16 11:51 18 11/22/16 09:59 18 11/22/16 08:18 98.0 64 20 150/86 94 11/22/16 07:21 18 11/22/16 00:00 98.7 70 20 142/91 99 11/21/16 20:00 98.6 67 20 143/88 98 11/21/16 16:00 97.8 67 16 141/74 100 I/O 11/21/16 11/21/16 11/21/16 11/22/16 11/22/16 11/22/16 07:00 15:00 23:00 07:00 15:00 23:00 Intake Total 500 ml 1080 ml 720 ml 240 ml Output Total 1400 ml 600 ml 1200 ml 1000 ml Balance -900 ml 480 ml -480 ml -760 ml Intake Oral 480 ml 1080 ml 720 ml 240 ml IV Total 20 ml 0 ml Output Urine Total 1400 ml 600 ml 1200 ml 1000 ml # Bowel Movements 0 Result Diagram: 11/20/16 0400 11/20/16 0400 Objective Remarks GENERAL: This is a well-nourished, well-developed patient, in no apparent distress. SKIN: Warm and dry. Right BKA hermilo and sutures CDI, slight erythema and edema no drainage noted. HEENT: Normocephalic. Pupils equal round and reactive. Nose without bleeding. Airway patent. Nasal area skin deformity. NECK: Trachea midline. No JVD. Supple. CARDIOVASCULAR: Regular rate and rhythm without murmurs, gallops, or rubs. RESPIRATORY: Clear to auscultation. Breath sounds equal bilaterally. No wheezes , rales, or rhonchi. GASTROINTESTINAL: Abdomen soft, non-tender, nondistended. Bowel Sounds normoactive x4. MUSCULOSKELETAL: Extremities without clubbing, cyanosis, or edema. NEUROLOGICAL: Awake and alert. No focal neuro deficit. BECERRA. Normal speech. Procedures Right lower extremity BKA 11/13 A/P Problem List: (1) Acute osteomyelitis of metatarsal bone of right foot ICD Code: M86.171 Status: Acute (2) Status post below knee amputation of right lower extremity ICD Code: Z89.511 Status: Acute (3) Diabetes ICD Code: E11.9 Status: Chronic (4) Diabetic neuropathy ICD Code: E11.40 Status: Chronic (5) Methadone dependence ICD Code: F11.20 Status: Chronic Assessment and Plan 51-year-old male with history of diabetes, atrial fibrillation, chronic right foot ulcers, chronic pain on methadone/oxycodone, hepatitis C, presents with a three-day history of intractable pain at right foot ulceration. Osteomyelitis/Cellulitis/Gangrene of Right Foot: Images reviewed --Right foot x- ray shows air in soft tissues along the lateral plantar aspect of the foot suggesting regional cellulitis; in addition, appears to be cortical disruption along the fifth metatarsal head, concerning for regional osteomyelitis; chronic fracture dislocation of the Lisfranc joint with ongoing collapse characteristic of Charcot joint. Right Foot MRI shows subcutaneous emphysema laterally with osteomyelitis of the fifth metatarsal; osteomyelitis of the cuboid; some edema within the calcaneus where there appears to be nondisplaced fracture; Charcot neuropathy of the midfoot. - s/p BKA on 11/13, postoperative care per Dr. Lizama -Afebrile, no leukocytosis -Changed antibiotics from Keflex to IV Zosyn and Levaquin with concern for stump infection -Elevate the extremity -blood cultures with NGTD -Pain control with oxycodone 25mg po q6h prn and 1 mg IV dilaudid prn breakthrough pain. Counseled regarding narcotics. We'll wean IV Dilaudid -PT eval, recommended SNF, case management consulted. Patient to transfer to [place]. -On by mouth Levaquin stop date 11/26/16 Diabetes: Uncontrolled, labile, noncompliant? Monitor Accu-cheks and cover with medium dose SSI. HgbA1c 12.0. 11/18 Increased patient's Levemir to 76 units at bedtime and 66 units in the morning, and increased preprandial NovoLog to 16 u tidac with improvement in blood glucose control. Continue Neurontin for neuropathy and phantom pain. Continue encouragement for diet compliance. Chronic Back Pain: from accident 20years ago. He goes to the [facility] for his methadone 220 mg daily (confirmed by RN), and sees pain management to receive his oxycodone 20 mg q6h prn. Continue medications. Balanitis: UA unremarkable. Clotrimazole cream twice daily. Improving Acute kidney injury: Improving discontinue IVF. Held vancomycin. Checked bladder scan for residual, only with 210cc. 11/17 Renal U/S unremarkable. Continue to monitor BMP. DVT prop the head/SCDs to the left leg, Lovenox Full code Discussed with patient, nursing, and Dr. Mclaughlin Discharge Planning Case management assisting with discharge planning to transfer to [place]. Benny Martin Nov 22, 2016 1:34 pm
[2016-11-22 16:00] VITALS: BP 145/83; PULSE 81; RESP 20; TEMP 96.3; O2SAT 98
[2016-11-22 20:00] VITALS: BP 152/92; PULSE 72; RESP 20; TEMP 98.1; O2SAT 98
[2016-11-22] MEDS: LEVOFLOXACIN 500 MG TAB PO SCH (21:29)
[2016-11-23] VITALS: BP 149/96; PULSE 71; RESP 20; TEMP 98; O2SAT 98
[2016-11-23] MEDS: HYDROmorphone HCL PF 1 MG/ML VIAL IV PUSH PRN ×3 (05:51→19:53)
[2016-11-23] MEDS: DOCUSATE SODIUM 100 MG CAP PO SCH ×3 (07:15→19:53)
[2016-11-23 08:00] VITALS: BP 152/97; PULSE 76; RESP 20; TEMP 97.8; O2SAT 94
[2016-11-23] MEDS: INSULIN ASPART SUPPLEMENTAL SCALE SQ SCH ×4 (08:00→19:51)
[2016-11-23] MEDS: METHADONE HCL 10 MG TAB PO SCH (08:15)
[2016-11-23] MEDS: GABAPENTIN 300 MG CAP PO SCH ×2 (08:19→19:50)
[2016-11-23] MEDS: GABAPENTIN 100 MG CAP PO SCH ×2 (08:19→19:50)
[2016-11-23] MEDS: PANTOPRAZOLE SOD 40 MG DELAYED RELEASE TAB PO SCH (08:20)
[2016-11-23] MEDS: SENNOSIDES 8.6 MG TAB PO SCH (08:21)
[2016-11-23] MEDS: ENOXAPARIN SODIUM 40 MG/0.4 ML SYRINGE SQ SCH (08:22)
[2016-11-23] MEDS: POLYETHYLENE GLYCOL 17 GM PKG PO SCH (08:23)
[2016-11-23] MEDS: INSULIN DETEMIR 100 UNITS/ML VIAL SQ SCH ×2 (08:24→19:51)
[2016-11-23] MEDS: INSULIN ASPART 1,000 UNITS/10 ML VIAL SQ SCH ×3 (08:25→16:45)
[2016-11-23] MEDS: CLOTRIMAZOLE 1% CREAM 15 GM TOPICAL SCH ×2 (08:27→19:52)
[2016-11-23] MEDS: SODIUM CHLORIDE 0.9% FLUSH 5 ML FLUSH FLUSH SCH ×2 (08:28→19:50)
[2016-11-23] MEDS: amLODIPine BESYLATE 5 MG TAB PO SCH (08:33)
--- NOTE | 2016-11-23 11:11 | HHI.PR ---
Subjective Remarks Follow-up for BKA, uncontrolled diabetes. The patient continues to complain of pain at the stump site, unchanged. He's been working somewhat PT, but has not been able to get far. He would like to try to get around the unit in a wheelchair to keep his arms strong. He has been eating well. Normal BMs. Objective Vitals Vital Signs Date Time Temp Pulse Resp B/P Pulse Ox O2 Delivery O2 Flow Rate FiO2 11/23/16 08:00 97.8 76 20 152/97 94 11/23/16 00:00 98.0 71 20 149/96 98 11/22/16 20:00 98.1 72 20 152/92 98 11/22/16 17:45 18 11/22/16 16:00 96.3 81 20 145/83 98 11/22/16 13:08 18 11/22/16 12:00 97.6 65 16 139/86 97 I/O 11/22/16 11/22/16 11/22/16 11/23/16 11/23/16 11/23/16 07:00 15:00 23:00 07:00 15:00 23:00 Intake Total 240 ml 1200 ml 400 ml 720 ml Output Total 1000 ml 1100 ml 650 ml 475 ml Balance -760 ml 100 ml -250 ml 245 ml Intake Oral 240 ml 1200 ml 400 ml 720 ml IV Total 0 ml Output Urine Total 1000 ml 1100 ml 650 ml 475 ml # Bowel Movements 1 1 Result Diagram: 11/20/1639911/20/16399 Objective Remarks GENERAL: Well-developed well-nourished. In no acute distress. SKIN: Warm and dry. Nose, RLE as below. HEENT: Normocephalic. Pupils equal and round. Mucous membranes pink and moist. Nose with previous SCC resection. CARDIOVASCULAR: Regular rate and rhythm. No murmur appreciated. RESPIRATORY: No accessory muscle use. Clear to auscultation. Breath sounds equal bilaterally. GASTROINTESTINAL: Abdomen soft, non-tender, nondistended. Bowel sounds x4. MUSCULOSKELETAL: Right BKA with clean incision, hermilo and sutures in place. No clubbing or cyanosis. No edema. NEUROLOGICAL: Awake and alert. No focal neurological deficits. Moves upper and lower extremities spontaneously. Normal speech. PSYCHIATRIC: Appropriate mood and affect; insight and judgment normal. Procedures Right lower extremity BKA 11/13 A/P Problem List: (1) Acute osteomyelitis of metatarsal bone of right foot ICD Code: M86.171 Status: Acute (2) Status post below knee amputation of right lower extremity ICD Code: Z89.511 Status: Acute (3) Diabetes ICD Code: E11.9 Status: Chronic (4) Diabetic neuropathy ICD Code: E11.40 Status: Chronic (5) Methadone dependence ICD Code: F11.20 Status: Chronic Assessment and Plan 51-year-old male with history of diabetes, atrial fibrillation, chronic right foot ulcers, chronic pain on methadone/oxycodone, hepatitis C, presents with a three-day history of intractable pain at right foot ulceration. Osteomyelitis/Cellulitis/Gangrene of Right Foot: Images reviewed --Right foot x- ray shows air in soft tissues along the lateral plantar aspect of the foot suggesting regional cellulitis; in addition, appears to be cortical disruption along the fifth metatarsal head, concerning for regional osteomyelitis; chronic fracture dislocation of the Lisfranc joint with ongoing collapse characteristic of Charcot joint. Right Foot MRI shows subcutaneous emphysema laterally with osteomyelitis of the fifth metatarsal; osteomyelitis of the cuboid; some edema within the calcaneus where there appears to be nondisplaced fracture; Charcot neuropathy of the midfoot. -Afebrile, no further leukocytosis -Elevate the right leg -blood cultures with no growth 5 days -Pain control with oxycodone 25mg po q6h prn and 1 mg IV dilaudid prn breakthrough pain. Counseling regarding narcotics -s/p BKA, postoperative care per Dr. Lizama, cardiovascular surgery for DC -PT eval, recommended SNF, case management consulted, continue PT while admitted -Concern for stump infection, on by mouth Levaquin stop date 11/26/16 Diabetes: Uncontrolled, labile, noncompliant? Monitor Accu-cheks and cover with medium dose SSI. HgbA1c 12.0. Continue patient's Levemir 78 units at bedtime. Hypoglycemia yesterday afternoon 11/22, decreased Levemir to 62 units in the morning. Increased preprandial NovoLog to 16 units. Continue Neurontin for neuropathy and phantom pain. Continue to monitor and adjust regimen as needed. Chronic Back Pain: from accident 20years ago. He goes to the [facility] for his methadone 220 mg daily (confirmed by RN), and sees pain management to receive his oxycodone 20 mg q6h prn. Continue medications. Balanitis: UA unremarkable. Clotrimazole cream twice daily. Improving. Acute kidney injury: Unclear etiology. IVF. Held vancomycin. Checked bladder scan for residual, only with 210cc. 11/17 Renal U/S unremarkable. Renal function continues to slowly improve. Continue to monitor BMP. Hypertension: BP labile. Started on amlodipine. Clonidine as needed. All other medical conditions stable, continue home medications as appropriate. DVT Prophylaxis: teds/SCDs to the left leg, Lovenox Discharge Planning PT recommends rehabilitation, no payor source, case management consulted. Transfer to [place] when arranged. Gray Ogden Nov 23, 2016 11:11
[2016-11-23 12:36] VITALS: BP 131/66; PULSE 74; RESP 20; TEMP 98.5; O2SAT 97
[2016-11-23 16:23] VITALS: BP 135/79; PULSE 68; RESP 20; TEMP 98; O2SAT 98
[2016-11-23] MEDS: LEVOFLOXACIN 500 MG TAB PO SCH (19:51)
[2016-11-23 20:00] VITALS: BP 173/83; PULSE 97; RESP 22; TEMP 98.3; O2SAT 99
[2016-11-23] MEDS: diphenhydrAMINE HCL 25 MG CAP PO PRN (21:53)
[2016-11-24 00:01] VITALS: BP 166/94; PULSE 75; RESP 20; TEMP 98.2; O2SAT 97
[2016-11-24] MEDS: HYDROmorphone HCL PF 1 MG/ML VIAL IV PUSH PRN ×3 (01:53→21:17)
[2016-11-24] MEDS: INSULIN ASPART SUPPLEMENTAL SCALE SQ SCH ×4 (05:27→21:00)
[2016-11-24] MEDS: INSULIN DETEMIR 100 UNITS/ML VIAL SQ SCH ×2 (05:27→21:19)
[2016-11-24] MEDS: SENNOSIDES 8.6 MG TAB PO SCH (07:37)
[2016-11-24] MEDS: GABAPENTIN 100 MG CAP PO SCH ×2 (07:37→21:18)
[2016-11-24] MEDS: PANTOPRAZOLE SOD 40 MG DELAYED RELEASE TAB PO SCH (07:37)
[2016-11-24] MEDS: GABAPENTIN 300 MG CAP PO SCH ×2 (07:37→21:18)
[2016-11-24] MEDS: amLODIPine BESYLATE 5 MG TAB PO SCH (07:38)
[2016-11-24] MEDS: METHADONE HCL 10 MG TAB PO SCH (07:38)
[2016-11-24] MEDS: CLOTRIMAZOLE 1% CREAM 15 GM TOPICAL SCH ×2 (07:39→21:20)
[2016-11-24] MEDS: ENOXAPARIN SODIUM 40 MG/0.4 ML SYRINGE SQ SCH (07:39)
[2016-11-24] MEDS: SODIUM CHLORIDE 0.9% FLUSH 5 ML FLUSH FLUSH SCH ×2 (07:39→21:17)
[2016-11-24] MEDS: INSULIN ASPART 1,000 UNITS/10 ML VIAL SQ SCH ×3 (07:39→17:41)
[2016-11-24] MEDS: POLYETHYLENE GLYCOL 17 GM PKG PO SCH (07:40)
[2016-11-24] MEDS: DOCUSATE SODIUM 100 MG CAP PO SCH ×2 (07:40→21:18)
[2016-11-24 08:00] VITALS: BP 163/87; PULSE 73; RESP 16; TEMP 98.3; O2SAT 97
--- NOTE | 2016-11-24 09:09 | HHI.PR ---
Subjective Remarks Follow-up for DKA and uncontrolled diabetes. The patient states he did not sleep well last night. He states he's been a little anxious here in the hospital. He states he was taking Valium as needed for sleep at night. He states when his blood sugars are in the low 100s, he has relative hypoglycemia symptoms with jittering and shaking. Objective Vitals Vital Signs Date Time Temp Pulse Resp B/P Pulse Ox O2 Delivery O2 Flow Rate FiO2 11/24/16 00:01 98.2 75 20 166/94 97 11/23/16 20:00 98.3 97 22 173/83 99 11/23/16 16:23 98.0 68 20 135/79 98 11/23/16 12:36 98.5 74 20 131/66 97 I/O 11/23/16 11/23/16 11/23/16 11/24/16 11/24/16 11/24/16 07:00 15:00 23:00 07:00 15:00 23:00 Intake Total 720 ml 960 ml 600 ml Output Total 475 ml 425 ml 750 ml 1600 ml Balance 245 ml -425 ml 210 ml -1000 ml Intake Oral 720 ml 960 ml 600 ml Output Urine Total 475 ml 425 ml 750 ml 1600 ml # Voids 2 # Bowel Movements 1 0 0 Result Diagram: 11/20/160 11/20/160 Objective Remarks GENERAL: Well-developed well-nourished. In no acute distress. SKIN: Warm and dry. Nose, RLE as below. HEENT: Normocephalic. Pupils equal and round. Mucous membranes pink and moist. Nose with previous SCC resection. CARDIOVASCULAR: Regular rate and rhythm. No murmur appreciated. RESPIRATORY: No accessory muscle use. Clear to auscultation. Breath sounds equal bilaterally. GASTROINTESTINAL: Abdomen soft, non-tender, nondistended. Bowel sounds x4. MUSCULOSKELETAL: Right BKA with clean incision, no surrounding erythema, hermilo and sutures in place. No clubbing or cyanosis. No edema. NEUROLOGICAL: Awake and alert. No focal neurological deficits. Moves upper and lower extremities spontaneously. Normal speech. PSYCHIATRIC: Appropriate mood and affect; insight and judgment normal. Procedures Right lower extremity BKA 11/13 A/P Problem List: (1) Acute osteomyelitis of metatarsal bone of right foot ICD Code: M86.171 Status: Acute (2) Status post below knee amputation of right lower extremity ICD Code: Z89.511 Status: Acute (3) Diabetes ICD Code: E11.9 Status: Chronic (4) Diabetic neuropathy ICD Code: E11.40 Status: Chronic (5) Methadone dependence ICD Code: F11.20 Status: Chronic Assessment and Plan 51-year-old male with history of diabetes, atrial fibrillation, chronic right foot ulcers, chronic pain on methadone/oxycodone, hepatitis C, presents with a three-day history of intractable pain at right foot ulceration. Osteomyelitis/Cellulitis/Gangrene of Right Foot: Images reviewed --Right foot x- ray shows air in soft tissues along the lateral plantar aspect of the foot suggesting regional cellulitis; in addition, appears to be cortical disruption along the fifth metatarsal head, concerning for regional osteomyelitis; chronic fracture dislocation of the Lisfranc joint with ongoing collapse characteristic of Charcot joint. Right Foot MRI shows subcutaneous emphysema laterally with osteomyelitis of the fifth metatarsal; osteomyelitis of the cuboid; some edema within the calcaneus where there appears to be nondisplaced fracture; Charcot neuropathy of the midfoot. -Afebrile, no further leukocytosis -Elevate the right leg -blood cultures with no growth 5 days -Pain control with oxycodone 25mg po q6h prn and 1 mg IV dilaudid prn breakthrough pain. Counseling regarding narcotics -s/p BKA, postoperative care per Dr. Lizama, cardiovascular surgery for DC -PT eval, recommended SNF, case management consulted, continue PT while admitted -Concern for stump infection, on by mouth Levaquin stop date 11/26/16 Diabetes: Uncontrolled, labile, noncompliant? Monitor Accu-cheks and cover with SSI. HgbA1c 12.0. Continue Levemir 78 units at bedtime. Hypoglycemia yesterday afternoon 11/23, decreased Levemir to 62 units in the morning. Continue preprandial NovoLog to 16 units. Monitor blood sugars, may need to continue to drink increase a.m. dose and increase p.m. dose of Levemir. Continue Neurontin for neuropathy and phantom pain. Continue to monitor and adjust regimen as needed. Chronic Back Pain: from accident 20years ago. He goes to the [facility] for his methadone 220 mg daily (confirmed by RN), and sees pain management to receive his oxycodone 20 mg q6h prn. Continue medications. Balanitis: UA unremarkable. Clotrimazole cream twice daily for 14 days. Improving. Acute kidney injury: Unclear etiology. IVF. Held vancomycin. Checked bladder scan for residual, only with 210cc. 11/17 Renal U/S unremarkable. Renal function improved. Continue to monitor BMP. Hypertension: BP labile. Started on amlodipine. Clonidine as needed. Insomnia: Restoril as needed. All other medical conditions stable, continue home medications as appropriate. DVT Prophylaxis: teds/SCDs to the left leg, Lovenox Discharge Planning PT recommends rehabilitation, no payor source, case management consulted. Transfer to [place] when arranged. Gray Ogden Nov 24, 2016 09:09
[2016-11-24 12:00] VITALS: BP 142/84; PULSE 69; RESP 16; TEMP 98.4; O2SAT 98
[2016-11-24 16:00] VITALS: BP 171/98; PULSE 90; RESP 16; TEMP 98.2; O2SAT 98
[2016-11-24 20:00] VITALS: BP 169/98; PULSE 106; RESP 20; TEMP 98.2; O2SAT 99
[2016-11-24] MEDS: TEMAZEPAM 15 MG CAP PO PRN (21:17)
[2016-11-24] MEDS: LEVOFLOXACIN 500 MG TAB PO SCH (21:18)
[2016-11-25] MEDS: HYDROmorphone HCL PF 1 MG/ML VIAL IV PUSH PRN (03:45)
[2016-11-25] MEDS: diphenhydrAMINE HCL 25 MG CAP PO PRN (03:47)
[2016-11-25] MEDS: INSULIN ASPART SUPPLEMENTAL SCALE SQ SCH ×4 (05:19→20:28)
[2016-11-25] MEDS: INSULIN DETEMIR 100 UNITS/ML VIAL SQ SCH ×3 (05:20→21:00)
[2016-11-25] MEDS: PANTOPRAZOLE SOD 40 MG DELAYED RELEASE TAB PO SCH (07:52)
[2016-11-25] MEDS: METHADONE HCL 10 MG TAB PO SCH (07:53)
[2016-11-25] MEDS: GABAPENTIN 300 MG CAP PO SCH ×3 (07:54→18:08)
[2016-11-25] MEDS: ENOXAPARIN SODIUM 40 MG/0.4 ML SYRINGE SQ SCH (07:54)
[2016-11-25] MEDS: GABAPENTIN 100 MG CAP PO SCH (07:54)
[2016-11-25] MEDS: amLODIPine BESYLATE 5 MG TAB PO SCH (07:54)
[2016-11-25] MEDS: CLOTRIMAZOLE 1% CREAM 15 GM TOPICAL SCH ×2 (07:55→20:35)
[2016-11-25 08:00] VITALS: BP 173/101; PULSE 79; RESP 15; TEMP 98.1; O2SAT 99
[2016-11-25] MEDS: INSULIN ASPART 1,000 UNITS/10 ML VIAL SQ SCH ×3 (08:02→16:54)
[2016-11-25] MEDS: POLYETHYLENE GLYCOL 17 GM PKG PO SCH (08:04)
[2016-11-25] MEDS: SENNOSIDES 8.6 MG TAB PO SCH (08:04)
[2016-11-25] MEDS: SODIUM CHLORIDE 0.9% FLUSH 5 ML FLUSH FLUSH SCH ×2 (08:04→20:28)
--- NOTE | 2016-11-25 09:28 | HHI.PR ---
Subjective Remarks Follow-up for BKA, DM, neuropathy. SO at bedside. The patient states that he had an episode of shaking yesterday, and his blood sugar was found to be over 300 at that time. He denies any symptoms with blood sugars in the 80s last night. He reports compliance with diabetic diet. He complains of phantom right limb pain today. He reports she's had problems with scheduling with his narcotic pain medication, asking for oral Dilaudid for breakthrough instead of IV. Objective Vitals Vital Signs Date Time Temp Pulse Resp B/P Pulse Ox O2 Delivery O2 Flow Rate FiO2 11/25/16 08:00 98.1 79 15 173/101 99 11/24/16 20:00 98.2 106 20 169/98 99 11/24/16 16:00 98.2 90 16 171/98 98 11/24/16 12:00 98.4 69 16 142/84 98 I/O 11/24/16 11/24/16 11/24/16 11/25/16 11/25/16 11/25/16 07:00 15:00 23:00 07:00 15:00 23:00 Intake Total 600 ml 600 ml 480 ml 640 ml Output Total 1600 ml 450 ml 550 ml 650 ml Balance -1000 ml 150 ml -70 ml -10 ml Intake Oral 600 ml 600 ml 480 ml 640 ml Output Urine Total 1600 ml 450 ml 550 ml 650 ml # Voids 2 # Bowel Movements 0 2 0 0 Objective Remarks GENERAL: Well-developed well-nourished. In no acute distress. SKIN: Warm and dry. Nose, RLE as below. HEENT: Normocephalic. Pupils equal and round. Mucous membranes pink and moist. Nose with previous SCC resection. CARDIOVASCULAR: Regular rate and rhythm. No murmur appreciated. RESPIRATORY: No accessory muscle use. Clear to auscultation. Breath sounds equal bilaterally. GASTROINTESTINAL: Abdomen soft, non-tender, nondistended. Bowel sounds x4. MUSCULOSKELETAL: Right BKA with clean incision, mild right lateral surrounding erythema, no warmth or drainage, hermilo and sutures in place. No clubbing or cyanosis. No edema. NEUROLOGICAL: Awake and alert. No focal neurological deficits. Moves upper and lower extremities spontaneously. Normal speech. PSYCHIATRIC: Appropriate mood and affect; insight and judgment normal. Procedures Right lower extremity BKA 11/13 A/P Problem List: (1) Acute osteomyelitis of metatarsal bone of right foot ICD Code: M86.171 Status: Acute (2) Status post below knee amputation of right lower extremity ICD Code: Z89.511 Status: Acute (3) Diabetes ICD Code: E11.9 Status: Chronic (4) Diabetic neuropathy ICD Code: E11.40 Status: Chronic (5) Methadone dependence ICD Code: F11.20 Status: Chronic Assessment and Plan 51-year-old male with history of diabetes, atrial fibrillation, chronic right foot ulcers, chronic pain on methadone/oxycodone, hepatitis C, presents with a three-day history of intractable pain at right foot ulceration. Osteomyelitis/Cellulitis/Gangrene of Right Foot: Images reviewed --Right foot x- ray shows air in soft tissues along the lateral plantar aspect of the foot suggesting regional cellulitis; in addition, appears to be cortical disruption along the fifth metatarsal head, concerning for regional osteomyelitis; chronic fracture dislocation of the Lisfranc joint with ongoing collapse characteristic of Charcot joint. Right Foot MRI shows subcutaneous emphysema laterally with osteomyelitis of the fifth metatarsal; osteomyelitis of the cuboid; some edema within the calcaneus where there appears to be nondisplaced fracture; Charcot neuropathy of the midfoot. -Afebrile, no further leukocytosis -Elevate the right leg -blood cultures with no growth 5 days -Pain control with oxycodone 25mg po q6h prn and 2 mg oral dilaudid prn breakthrough pain. Counseling regarding narcotics -s/p BKA, postoperative care per Dr. Lizama, cardiovascular surgery for DC -PT eval, recommended SNF, case management consulted, continue PT while admitted -Concern for stump infection, improved, on by mouth Levaquin stop date Diabetes: Uncontrolled, labile. Monitor Accu-cheks and cover with SSI. HgbA1c 12.0. Continue Levemir 78 units at bedtime. Episode of hypoglycemia yesterday afternoon and hypoglycemia last night. Continue Levemir to 62 units in the morning. Decrease preprandial NovoLog to 15 units. Decrease at bedtime Levemir to 75 units. Increase Neurontin for neuropathy and phantom pain. Continue to monitor and adjust regimen as needed. Chronic Back Pain: from accident 20years ago. He goes to the [facility] for his methadone 220 mg daily (confirmed by RN), and sees pain management to receive his oxycodone 20 mg q6h prn. Continue medications. Balanitis: UA unremarkable. Clotrimazole cream twice daily for 14 days. Improving. Acute kidney injury: Unclear etiology. IVF. Held vancomycin. Checked bladder scan for residual, only with 210cc. 11/17 Renal U/S unremarkable. Renal function improved. Continue to monitor BMP. Hypertension: BP labile. Started on amlodipine. Clonidine as needed. Insomnia: Restoril as needed. All other medical conditions stable, continue home medications as appropriate. DVT Prophylaxis: teds/SCDs to the left leg, Lovenox Discharge Planning PT recommends rehabilitation, no payor source, case management consulted. Transfer to [place] when arranged. Gary Ogden Nov 25, 2016 09:27
[2016-11-25] MEDS: HYDROmorphone HCL 2 MG TAB PO PRN ×3 (10:22→21:47)
[2016-11-25 12:00] VITALS: BP 156/80; PULSE 80; RESP 16; TEMP 98.4; O2SAT 98
[2016-11-25 16:00] VITALS: BP 156/86; PULSE 74; RESP 16; TEMP 97.9; O2SAT 97
[2016-11-25 20:00] VITALS: BP 197/101; PULSE 98; RESP 20; TEMP 99.1; O2SAT 97
[2016-11-25] MEDS: DOCUSATE SODIUM 100 MG CAP PO SCH (20:27)
[2016-11-25] MEDS: LEVOFLOXACIN 500 MG TAB PO SCH (20:27)
[2016-11-25] MEDS: TEMAZEPAM 15 MG CAP PO PRN (21:47)
[2016-11-26] VITALS: BP 168/88; PULSE 96; RESP 20; TEMP 98.8; O2SAT 95
[2016-11-26] MEDS: HYDROmorphone HCL 2 MG TAB PO PRN ×5 (02:40→20:07)
[2016-11-26] MEDS: INSULIN ASPART SUPPLEMENTAL SCALE SQ SCH ×3 (06:18→20:08)
[2016-11-26] MEDS: DOCUSATE SODIUM 100 MG CAP PO SCH ×2 (06:19→19:15)
[2016-11-26] MEDS: INSULIN ASPART 1,000 UNITS/10 ML VIAL SQ SCH ×2 (07:55→17:03)
[2016-11-26] MEDS: METHADONE HCL 10 MG TAB PO SCH (07:59)
[2016-11-26] MEDS: PANTOPRAZOLE SOD 40 MG DELAYED RELEASE TAB PO SCH (07:59)
[2016-11-26 08:00] VITALS: BP 148/93; PULSE 82; RESP 17; TEMP 97.3; O2SAT 98
[2016-11-26] MEDS: GABAPENTIN 300 MG CAP PO SCH ×3 (08:00→17:03)
[2016-11-26] MEDS: ENOXAPARIN SODIUM 40 MG/0.4 ML SYRINGE SQ SCH (08:00)
[2016-11-26] MEDS: amLODIPine BESYLATE 5 MG TAB PO SCH (08:00)
[2016-11-26] MEDS: CLOTRIMAZOLE 1% CREAM 15 GM TOPICAL SCH ×2 (08:01→20:09)
[2016-11-26] MEDS: SODIUM CHLORIDE 0.9% FLUSH 5 ML FLUSH FLUSH SCH ×2 (08:01→20:08)
[2016-11-26] MEDS: POLYETHYLENE GLYCOL 17 GM PKG PO SCH (08:04)
[2016-11-26] MEDS: SENNOSIDES 8.6 MG TAB PO SCH (08:04)
--- NOTE | 2016-11-26 11:27 | HHI.PR ---
Subjective Remarks Follow up for BKA and diabetes. Patient seen in the hallways getting around well in a wheelchair. The patient states that he has 15 steps to get up into his house. He states he still having a tough time getting to the restroom here when having to use a walker. He is having using the wheelchair will help his upper extremity strength in the meantime. He says he doesn't have anywhere to stay that he could use a wheelchair to get into. Had some hypoglycemia yesterday with some tremors and decreased responsiveness that improved with juice. Objective Vitals Vital Signs Date Time Temp Pulse Resp B/P Pulse Ox O2 Delivery O2 Flow Rate FiO2 11/26/16 08:00 97.3 82 17 148/93 98 11/26/16 03:40 14 11/26/16 02:54 12 11/26/16 00:00 98.8 96 20 168/88 95 11/25/16 20:00 99.1 98 20 197/101 97 11/25/16 16:00 97.9 74 16 156/86 97 11/25/16 12:00 98.4 80 16 156/80 98 I/O 11/25/16 11/25/16 11/25/16 11/26/16 11/26/16 11/26/16 07:00 15:00 23:00 07:00 15:00 23:00 Intake Total 640 ml 600 ml 740 ml 660 ml Output Total 650 ml 975 ml 650 ml 800 ml Balance -10 ml -375 ml 90 ml -140 ml Intake Oral 640 ml 600 ml 740 ml 660 ml Output Urine Total 650 ml 975 ml 650 ml 800 ml # Voids 2 # Bowel Movements 0 2 0 0 Objective Remarks GENERAL: Well-developed well-nourished. In no acute distress. SKIN: Warm and dry. Nose, RLE as below. HEENT: Normocephalic. Pupils equal and round. Mucous membranes pink and moist. Nose with previous SCC resection. CARDIOVASCULAR: Regular rate and rhythm. No murmur appreciated. RESPIRATORY: No accessory muscle use. Clear to auscultation. Breath sounds equal bilaterally. GASTROINTESTINAL: Abdomen soft, non-tender, nondistended. Bowel sounds x4. MUSCULOSKELETAL: Right BKA with clean incision, improving mild right lateral surrounding erythema, no warmth or drainage, hermilo and sutures in place. No clubbing or cyanosis. No edema. NEUROLOGICAL: Awake and alert. No focal neurological deficits. Moves upper and lower extremities spontaneously. Normal speech. PSYCHIATRIC: Appropriate mood and affect; insight and judgment normal. Procedures Right lower extremity BKA 11/13 A/P Problem List: (1) Acute osteomyelitis of metatarsal bone of right foot ICD Code: M86.171 Status: Acute (2) Status post below knee amputation of right lower extremity ICD Code: Z89.511 Status: Acute (3) Diabetes ICD Code: E11.9 Status: Chronic (4) Diabetic neuropathy ICD Code: E11.40 Status: Chronic (5) Methadone dependence ICD Code: F11.20 Status: Chronic Assessment and Plan 51-year-old male with history of diabetes, atrial fibrillation, chronic right foot ulcers, chronic pain on methadone/oxycodone, hepatitis C, presents with a three-day history of intractable pain at right foot ulceration. Osteomyelitis/Cellulitis/Gangrene of Right Foot: Images reviewed --Right foot x- ray shows air in soft tissues along the lateral plantar aspect of the foot suggesting regional cellulitis; in addition, appears to be cortical disruption along the fifth metatarsal head, concerning for regional osteomyelitis; chronic fracture dislocation of the Lisfranc joint with ongoing collapse characteristic of Charcot joint. Right Foot MRI shows subcutaneous emphysema laterally with osteomyelitis of the fifth metatarsal; osteomyelitis of the cuboid; some edema within the calcaneus where there appears to be nondisplaced fracture; Charcot neuropathy of the midfoot. -Afebrile, no further leukocytosis -Elevate the right leg -blood cultures with no growth 5 days -Pain control with oxycodone 25mg po q6h prn and 2 mg oral dilaudid prn breakthrough pain. Counseling regarding narcotics -s/p BKA, postoperative care per Dr. Lizama, cardiovascular surgery for DC -PT eval, recommended SNF, case management consulted, continue PT while admitted -Concern for stump infection, improved, on by mouth Levaquin stop date Diabetes: Uncontrolled, labile. Monitor Accu-cheks and cover with SSI. HgbA1c 12.0. Continue Levemir 78 units at bedtime. Episode of hypoglycemia yesterday evening. Continue Levemir to 62 units in the morning and 75 units at night. Decrease preprandial NovoLog to 10 units. Decrease maximum sliding scale coverage. Increase Neurontin for neuropathy and phantom pain. Continue to monitor and adjust regimen as needed. Chronic Back Pain: from accident 20years ago. He goes to the [facility] for his methadone 220 mg daily (confirmed by RN), and sees pain management to receive his oxycodone 20 mg q6h prn. Continue medications. Balanitis: UA unremarkable. Clotrimazole cream twice daily for 14 days. Improving. Acute kidney injury: Unclear etiology. IVF. Held vancomycin. Checked bladder scan for residual, only with 210cc. 11/17 Renal U/S unremarkable. Renal function improved. Continue to monitor BMP. Hypertension: BP labile. Started on amlodipine. Clonidine as needed. Insomnia: Restoril as needed. All other medical conditions stable, continue home medications as appropriate. DVT Prophylaxis: teds/SCDs to the left leg, Lovenox Plan of care discussed with Dr. Mclaughlin. Discharge Planning PT recommends rehabilitation, no payor source, case management consulted. Mobilizes well with a wheelchair, but has no way to get into his house with 15 steps with a wheelchair. Transfer to [facility] when arranged. Gray Ogden Nov 26, 2016 11:26
[2016-11-26 12:00] VITALS: BP 153/93; PULSE 100; RESP 18; TEMP 96.6; O2SAT 96
[2016-11-26] MEDS ORDERED: INSULIN ASPART 1,000 UNITS/10 ML VIAL SQ SCH (12:00)
[2016-11-26] MEDS ORDERED: ENALAPRILAT 1.25 MG/ML VIAL IV PUSH PRN (13:15)
[2016-11-26 16:00] VITALS: BP 181/107; PULSE 96; RESP 17; TEMP 98.1; O2SAT 98
[2016-11-26 20:00] VITALS: BP 130/87; PULSE 79; RESP 20; TEMP 97.4; O2SAT 100
[2016-11-26] MEDS: INSULIN DETEMIR 100 UNITS/ML VIAL SQ SCH (20:07)
[2016-11-26] MEDS: TEMAZEPAM 15 MG CAP PO PRN (20:21)
[2016-11-27] VITALS: BP 127/73; PULSE 72; RESP 20; TEMP 96.3; O2SAT 97
[2016-11-27] MEDS: INSULIN ASPART SUPPLEMENTAL SCALE SQ SCH ×4 (05:20→20:06)
[2016-11-27] MEDS: INSULIN DETEMIR 100 UNITS/ML VIAL SQ SCH ×2 (05:20→20:08)
[2016-11-27] MEDS: DOCUSATE SODIUM 100 MG CAP PO SCH ×2 (05:20→19:15)
[2016-11-27] MEDS: HYDROmorphone HCL 2 MG TAB PO PRN ×3 (05:21→22:27)
[2016-11-27 08:00] VITALS: BP 154/91; PULSE 76; RESP 20; TEMP 98.6; O2SAT 95
[2016-11-27] MEDS: ENOXAPARIN SODIUM 40 MG/0.4 ML SYRINGE SQ SCH (08:31)
[2016-11-27] MEDS: METHADONE HCL 10 MG TAB PO SCH (08:32)
[2016-11-27] MEDS: PANTOPRAZOLE SOD 40 MG DELAYED RELEASE TAB PO SCH (08:32)
[2016-11-27] MEDS: SENNOSIDES 8.6 MG TAB PO SCH (08:32)
[2016-11-27] MEDS: CLOTRIMAZOLE 1% CREAM 15 GM TOPICAL SCH ×2 (08:33→21:00)
[2016-11-27] MEDS: amLODIPine BESYLATE 5 MG TAB PO SCH (08:33)
[2016-11-27] MEDS: GABAPENTIN 300 MG CAP PO SCH ×3 (08:33→17:11)
[2016-11-27] MEDS: SODIUM CHLORIDE 0.9% FLUSH 5 ML FLUSH FLUSH SCH ×2 (08:34→20:12)
[2016-11-27] MEDS: POLYETHYLENE GLYCOL 17 GM PKG PO SCH (08:34)
[2016-11-27] MEDS: INSULIN ASPART 1,000 UNITS/10 ML VIAL SQ SCH ×2 (08:34→11:22)
--- NOTE | 2016-11-27 09:51 | HHI.PR ---
Subjective Remarks No overnight events, no hypoglycemia but blood glucose in the 370s today, pain is controlled. Discussed with . Denies any chest pain, headache, nausea or vomiting Objective Vitals Vital Signs Date Time Temp Pulse Resp B/P Pulse Ox O2 Delivery O2 Flow Rate FiO2 11/27/16 08:00 98.6 76 20 154/91 95 11/27/16 00:00 96.3 72 20 127/73 97 11/26/16 20:00 97.4 79 20 130/87 100 11/26/16 16:43 18 11/26/16 16:00 98.1 96 17 181/107 98 11/26/16 15:07 18 11/26/16 12:00 96.6 100 18 153/93 96 I/O 11/26/16 11/26/16 11/26/16 11/27/16 11/27/16 11/27/16 07:00 15:00 23:00 07:00 15:00 23:00 Intake Total 660 ml 2160 ml 960 ml 240 ml 120 ml Output Total 800 ml 1150 ml 600 ml Balance -140 ml 2160 ml -190 ml -360 ml 120 ml Intake Oral 660 ml 2160 ml 960 ml 240 ml 120 ml Output Urine Total 800 ml 1150 ml 600 ml # Voids 5 # Bowel Movements 0 2 Objective Remarks GENERAL: Well-developed well-nourished. In no acute distress. SKIN: Warm and dry. Nose, RLE as below. HEENT: Pupils equal and round. Nose with previous SCC resection. CARDIOVASCULAR: Regular rate and rhythm. No murmur appreciated. RESPIRATORY: No accessory muscle use. Clear to auscultation. Breath sounds equal bilaterally. GASTROINTESTINAL: Abdomen soft, non-tender, nondistended. Bowel sounds x4. MUSCULOSKELETAL: Right BKA with clean incision, improving mild right lateral surrounding erythema, no warmth or drainage, hermilo and sutures in place. No clubbing or cyanosis. No edema. NEUROLOGICAL: Awake and alert. No focal neurological deficits. Moves upper and lower extremities spontaneously. Normal speech. Procedures Right lower extremity BKA 11/13 A/P Problem List: (1) Acute osteomyelitis of metatarsal bone of right foot ICD Code: M86.171 Status: Acute (2) Status post below knee amputation of right lower extremity ICD Code: Z89.511 Status: Acute (3) Diabetes ICD Code: E11.9 Status: Chronic (4) Diabetic neuropathy ICD Code: E11.40 Status: Chronic (5) Methadone dependence ICD Code: F11.20 Status: Chronic Assessment and Plan 51-year-old male with history of diabetes, atrial fibrillation, chronic right foot ulcers, chronic pain on methadone/oxycodone, hepatitis C, presents with a three-day history of intractable pain at right foot ulceration. Osteomyelitis/Cellulitis/Gangrene of Right Foot: Images reviewed --Right foot x- ray shows air in soft tissues along the lateral plantar aspect of the foot suggesting regional cellulitis; in addition, appears to be cortical disruption along the fifth metatarsal head, concerning for regional osteomyelitis; chronic fracture dislocation of the Lisfranc joint with ongoing collapse characteristic of Charcot joint. Right Foot MRI shows subcutaneous emphysema laterally with osteomyelitis of the fifth metatarsal; osteomyelitis of the cuboid; some edema within the calcaneus where there appears to be nondisplaced fracture; Charcot neuropathy of the midfoot. -Afebrile, no further leukocytosis -Elevate the right leg -blood cultures with no growth -Pain control with oxycodone 25mg po q6h prn and 2 mg oral dilaudid prn breakthrough pain. Counseling regarding narcotics -s/p BKA, postoperative care per Dr. Lizama -PT eval, recommended SNF, case management consulted, continue PT while admitted -Concern for stump infection, improved, finished Levaquin 11/26, monitor. Recheck CBC Diabetes: Uncontrolled, labile. Monitor Accu-cheks and cover with SSI. HgbA1c 12.0. Continue Levemir 78 units at bedtime. Had episodes of hypoglycemia, regular insulin decreased to 10 units 3 times a day, will continue this for now , increase Levemir to to 66 units in the morning and 80 units at night. Continue Neurontin for neuropathy and phantom pain. Continue to monitor and adjust regimen as needed. Medium dose sliding scale insulin. Chronic Back Pain: from accident 20years ago. He goes to the [facility] for his methadone 220 mg daily (confirmed by RN), and sees pain management to receive his oxycodone 20 mg q6h prn. Continue medications. Balanitis: UA unremarkable. Clotrimazole cream twice daily for 14 days. Improving. Acute kidney injury: Unclear etiology. IVF. Held vancomycin. Checked bladder scan for residual, only with 210cc. 11/17 Renal U/S unremarkable. Renal function improved. Continue to monitor BMP. Hypertension: BP labile. Continue Norvasc, restart fosinopril per home dose, Clonidine as needed. Insomnia: Restoril as needed. All other medical conditions stable, continue home medications as appropriate. DVT Prophylaxis: teds/SCDs to the left leg, Liz Grace MD Nov 27, 2016 09:50
[2016-11-27 12:00] VITALS: BP 149/80; PULSE 70; RESP 19; TEMP 97.8; O2SAT 97
[2016-11-27] MEDS ORDERED: DEXTROSE 50% IN WATER 50 ML VIAL(D50) IV PUSH PRN (13:15)
[2016-11-27] MEDS ORDERED: GLUCAGON 1 MG/ML VIAL OTHER PRN (13:15)
[2016-11-27] MEDS: LISINOPRIL 10 MG TAB PO SCH (14:00)
[2016-11-27 16:00] VITALS: BP 140/86; PULSE 71; RESP 19; TEMP 98.1; O2SAT 96
[2016-11-27 20:00] VITALS: BP 132/81; PULSE 73; RESP 20; TEMP 97; O2SAT 96
[2016-11-28] MEDS: DOCUSATE SODIUM 100 MG CAP PO SCH ×2 (05:53→17:51)
[2016-11-28] MEDS: INSULIN DETEMIR 100 UNITS/ML VIAL SQ SCH ×2 (05:57→20:36)
[2016-11-28] MEDS: INSULIN ASPART SUPPLEMENTAL SCALE SQ SCH ×2 (05:58→11:00)
[2016-11-28 08:00] VITALS: BP 144/82; PULSE 72; RESP 19; TEMP 97.4; O2SAT 98
[2016-11-28] MEDS: ENOXAPARIN SODIUM 40 MG/0.4 ML SYRINGE SQ SCH (08:17)
[2016-11-28] MEDS: SENNOSIDES 8.6 MG TAB PO SCH (08:18)
[2016-11-28] MEDS: METHADONE HCL 10 MG TAB PO SCH (08:18)
[2016-11-28] MEDS: GABAPENTIN 300 MG CAP PO SCH ×3 (08:18→16:29)
[2016-11-28] MEDS: PANTOPRAZOLE SOD 40 MG DELAYED RELEASE TAB PO SCH (08:19)
[2016-11-28] MEDS: LISINOPRIL 10 MG TAB PO SCH (08:19)
[2016-11-28] MEDS: POLYETHYLENE GLYCOL 17 GM PKG PO SCH (08:24)
[2016-11-28] MEDS: CLOTRIMAZOLE 1% CREAM 15 GM TOPICAL SCH ×2 (08:26→20:37)
[2016-11-28] MEDS: SODIUM CHLORIDE 0.9% FLUSH 5 ML FLUSH FLUSH SCH ×2 (08:26→20:36)
[2016-11-28] MEDS: amLODIPine BESYLATE 5 MG TAB PO SCH (08:29)
[2016-11-28 12:00] VITALS: BP 122/74; PULSE 65; RESP 14; TEMP 97.1; O2SAT 95
--- NOTE | 2016-11-28 13:01 | HHI.PR ---
Subjective Remarks BS nor controlled says is in 400s, says he is compliant with diet. No n/v/d/c. Pain is controled by meds. Objective Vitals Vital Signs Date Time Temp Pulse Resp B/P Pulse Ox O2 Delivery O2 Flow Rate FiO2 11/28/16 12:00 97.1 65 14 122/74 95 11/28/16 08:00 97.4 72 19 144/82 98 11/27/16 20:00 97.0 73 20 132/81 96 11/27/16 16:00 98.1 71 19 140/86 96 I/O 11/27/16 11/27/16 11/27/16 11/28/16 11/28/16 11/28/16 07:00 15:00 23:00 07:00 15:00 23:00 Intake Total 240 ml 1200 ml 640 ml 540 ml Output Total 600 ml 800 ml 750 ml Balance -360 ml 400 ml -110 ml 540 ml Intake Oral 240 ml 1200 ml 640 ml 540 ml Output Urine Total 600 ml 800 ml 750 ml # Bowel Movements 1 0 Imaging Last Impressions Renal Ultrasound 11/17/16 0000 Signed Impressions: Service Date/Time: Thursday, November 17, 2016 13:33 - CONCLUSION: Normal examination. Kvng Lott MD Foot X-Ray 11/12/16 0405 Signed Impressions: Service Date/Time: Saturday, November 12, 2016 04:06 - CONCLUSION: 1. Air in the soft tissues along the lateral plantar aspect of the foot suggesting a regional cellulitis. 2. In addition, there appears to be cortical disruption along the fifth metatarsal head, concerning for regional osteomyelitis. 3. Chronic fracture dislocation of the Lisfranc joint with ongoing collapse of the same characteristic of a Charcot joint. Eleuterio Carbajal MD Foot MRI 11/12/16 0000 Signed Impressions: Service Date/Time: Saturday, November 12, 2016 11:28 - CONCLUSION: 1. Subcutaneous emphysema laterally with osteomyelitis of the fifth metatarsal. 2. Osteomyelitis of the cuboid. 3. There is some edema within the calcaneus where there appears to be a nondisplaced fracture. 4. Charcot neuropathy of the midfoot Keyur Goldman MD Objective Remarks GENERAL: Well-developed well-nourished. In no acute distress. SKIN: Warm and dry. Nose, RLE as below. HEENT: Pupils equal and round. Nose with previous SCC resection. CARDIOVASCULAR: Regular rate and rhythm. No murmur appreciated. RESPIRATORY: No accessory muscle use. Clear to auscultation. Breath sounds equal bilaterally. GASTROINTESTINAL: Abdomen soft, non-tender, nondistended. Bowel sounds x4. MUSCULOSKELETAL: Right BKA with clean incision, improving mild right lateral surrounding erythema, no warmth or drainage, hermilo and sutures in place. No clubbing or cyanosis. No edema. NEUROLOGICAL: Awake and alert. No focal neurological deficits. Moves upper and lower extremities spontaneously. Normal speech. Procedures Right lower extremity BKA 11/13 A/P Problem List: (1) Acute osteomyelitis of metatarsal bone of right foot ICD Code: M86.171 Status: Acute (2) Status post below knee amputation of right lower extremity ICD Code: Z89.511 Status: Acute (3) Diabetes ICD Code: E11.9 Status: Chronic (4) Diabetic neuropathy ICD Code: E11.40 Status: Chronic (5) Methadone dependence ICD Code: F11.20 Status: Chronic Assessment and Plan 51-year-old male with history of diabetes, atrial fibrillation, chronic right foot ulcers, chronic pain on methadone/oxycodone, hepatitis C, presents with a three-day history of intractable pain at right foot ulceration. Osteomyelitis/Cellulitis/Gangrene of Right Foot: Images reviewed --Right foot x- ray shows air in soft tissues along the lateral plantar aspect of the foot suggesting regional cellulitis; in addition, appears to be cortical disruption along the fifth metatarsal head, concerning for regional osteomyelitis; chronic fracture dislocation of the Lisfranc joint with ongoing collapse characteristic of Charcot joint. Right Foot MRI shows subcutaneous emphysema laterally with osteomyelitis of the fifth metatarsal; osteomyelitis of the cuboid; some edema within the calcaneus where there appears to be nondisplaced fracture; Charcot neuropathy of the midfoot. -Afebrile, no further leukocytosis -Elevate the right leg -blood cultures with no growth -Pain control with oxycodone 25mg po q6h prn and 2 mg oral dilaudid prn breakthrough pain. Counseling regarding narcotics -s/p BKA, postoperative care per Dr. Lizama -PT eval, recommended SNF, case management consulted, continue PT while admitted -Concern for stump infection, improved, finished Levaquin 11/26, monitor. Recheck CBC Diabetes: Uncontrolled, labile. Monitor Accu-cheks and cover with SSI. HgbA1c 12.0. Continue Levemir 78 units at bedtime. Had episodes of hypoglycemia, regular insulin decreased to 10 units 3 times a day, will continue this for now , increase Levemir to to 66 units in the morning and 80 units at night. Continue Neurontin for neuropathy and phantom pain. Continue to monitor and adjust regimen as needed. Medium dose sliding scale insulin. Chronic Back Pain: from accident 20years ago. He goes to the [facility] for his methadone 220 mg daily (confirmed by RN), and sees pain management to receive his oxycodone 20 mg q6h prn. Continue medications. Balanitis: UA unremarkable. Clotrimazole cream twice daily for 14 days. Improving. Acute kidney injury: Unclear etiology. IVF. Held vancomycin. Checked bladder scan for residual, only with 210cc. 11/17 Renal U/S unremarkable. Renal function improved. Continue to monitor BMP. Hypertension: BP labile. Continue Norvasc, restart fosinopril per home dose, Clonidine as needed. Insomnia: Restoril as needed. All other medical conditions stable, continue home medications as appropriate. DVT Prophylaxis: teds/SCDs to the left leg, Lovenox Discussed with the patient, nurse Dc to SNF when arrangements done, HOWEVER THE PATIENT IS SELF PAY AND CAN'T BE dc TO snf. pt TO WORK WITH THE PATIENT UNTIL IMPROVEMENT. Patient will be transferred to [facility] for more PT. He did finished the course of abx. His BS is labile. Discussed with Dr Sanchez hospitalist at [facility] and accepts the patient to [facility]. Zofia Salcedo MD Nov 28, 2016 13:01
[2016-11-28] MEDS: HYDROmorphone HCL 2 MG TAB PO PRN ×2 (13:16→20:38)
[2016-11-28 16:00] VITALS: BP 122/74; PULSE 65; RESP 14; TEMP 97.1; O2SAT 95
[2016-11-28] MEDS: INSULIN NovoLIN REGULAR SUPPLEMENTAL SCALE SQ SCH ×2 (16:00→20:36)
[2016-11-29] MEDS: TEMAZEPAM 15 MG CAP PO PRN (00:26)
[2016-11-29] MEDS: INSULIN NovoLIN REGULAR SUPPLEMENTAL SCALE SQ SCH ×4 (06:42→20:10)
[2016-11-29] MEDS: INSULIN DETEMIR 100 UNITS/ML VIAL SQ SCH ×2 (06:49→20:07)
[2016-11-29] MEDS: DOCUSATE SODIUM 100 MG CAP PO SCH ×2 (07:15→19:15)
[2016-11-29 08:00] VITALS: BP 132/85; PULSE 69; RESP 18; TEMP 97.4; O2SAT 98
[2016-11-29] MEDS: ENOXAPARIN SODIUM 40 MG/0.4 ML SYRINGE SQ SCH (08:46)
[2016-11-29] MEDS: amLODIPine BESYLATE 5 MG TAB PO SCH (08:46)
[2016-11-29] MEDS: GABAPENTIN 300 MG CAP PO SCH ×3 (08:46→18:12)
[2016-11-29] MEDS: PANTOPRAZOLE SOD 40 MG DELAYED RELEASE TAB PO SCH (08:47)
[2016-11-29] MEDS: LISINOPRIL 10 MG TAB PO SCH (08:47)
[2016-11-29] MEDS: METHADONE HCL 10 MG TAB PO SCH (08:48)
[2016-11-29] MEDS: POLYETHYLENE GLYCOL 17 GM PKG PO SCH (08:48)
[2016-11-29] MEDS: SODIUM CHLORIDE 0.9% FLUSH 5 ML FLUSH FLUSH SCH ×2 (08:49→20:10)
[2016-11-29] MEDS: SENNOSIDES 8.6 MG TAB PO SCH (08:49)
--- NOTE | 2016-11-29 11:16 | PD.CAR.PN ---
CVT Progress Note Subjective/Hospital Course: Patient seen Full consult dictated We will proceed with a right below-knee amputation tomorrow Thanks J 11/14/16 Status post R BKA, Dressing dry intact. patient doing well. Pain control difficult due to patient's addiction to narcotics. Will keep dressing on till Friday Able DC patient Friday11/15/16 Status post BK amputation Incisions clean and dry dressing is intact and pain is finally under control We'll remove dressing tomorrow and after that patient can be discharged to a fpc 11/16/16 Stump appears to be clean without drainage but that does appear somewhat red on the lateral aspect and anteriorly We'll place patient on antibiotics because these have been for some reason stopped after the surgery It should be noted the patient a gangrene of the foot so antibiotic should be continued for at least a week thereafter 11/17/16 Stump looks a little better today swelling is decreased and so is the redness The streaking up the thigh has also disappeared Patient should stand antibiotics as the above-noted Doing well at this time 11/19/16 Stump looks much nicer and its dry with some redness in the lateral aspect of the stump One stitch has been removed but there is no drainage No infection noted just sort of inflamed skin which is receding In next few days patient will be able to be discharged 11/21/16 Stump clean dry Redress daily Can DC patient from my point any time FU with me 2 weeks 11/22/16 Stump clean and dry Healing very nicely All the cultures are negative and patient can be discharged from my point Stitches will stay in for at least another 10 days and then be removed in my office 11/29/16 Stump is clean and dry and stitches are not ready to come out yet Would leave the sutures in for another 5-6 days Patient is in the hospital for unrelated diabetic problems Nothing to add to care Objective: Vital Signs Date Time Temp Pulse Resp B/P Pulse Ox O2 Delivery O2 Flow Rate FiO2 11/29/16 09:48 18 11/29/16 08:00 97.4 69 18 132/85 98 11/29/16 00:27 13 11/28/16 21:38 16 11/28/16 16:00 97.1 65 14 122/74 95 11/28/16 12:00 97.1 65 14 122/74 95 Velasquez Lizama MD Nov 29, 2016 11:15
[2016-11-29] MEDS: HYDROmorphone HCL 2 MG TAB PO PRN ×2 (14:17→20:12)
--- NOTE | 2016-11-29 17:22 | HHI.PR ---
Subjective Remarks Follow-up for BKA following gangrene of right lower extremity and diabetes. Nurse called and stated patient's blood sugar is 51 and she has administered orange juice. The patient most feeling jittery and nervous blurred vision. He states hypoglycemic episodes do not happen often although the last was 3-4 days ago. He denies any fevers or chills. Denies any nausea, vomiting, or diarrhea. He has pain in the right lower extremity stump. Denies any purulent drainage, only a little blood. He asks for dose increase of Restoril as he is unable to sleep at night. Objective Vitals Vital Signs Date Time Temp Pulse Resp B/P Pulse Ox O2 Delivery O2 Flow Rate FiO2 11/29/16 15:17 18 11/29/16 13:09 18 11/29/16 09:48 18 11/29/16 08:00 97.4 69 18 132/85 98 I/O 11/28/16 11/28/16 11/28/16 11/29/16 11/29/16 11/29/16 07:00 15:00 23:00 07:00 15:00 23:00 Intake Total 1500 ml 480 ml 480 ml 550 ml Output Total 1200 ml 450 ml Balance 1500 ml -720 ml 480 ml 100 ml Intake Oral 1500 ml 480 ml 480 ml 550 ml Output Urine Total 1200 ml 450 ml # Voids 2 1 # Bowel Movements 0 0 0 Imaging Last Impressions Renal Ultrasound 11/17/16 0000 Signed Impressions: Service Date/Time: Thursday, November 17, 2016 13:33 - CONCLUSION: Normal examination. Kvng Lott MD Foot X-Ray 11/12/16 0405 Signed Impressions: Service Date/Time: Saturday, November 12, 2016 04:06 - CONCLUSION: 1. Air in the soft tissues along the lateral plantar aspect of the foot suggesting a regional cellulitis. 2. In addition, there appears to be cortical disruption along the fifth metatarsal head, concerning for regional osteomyelitis. 3. Chronic fracture dislocation of the Lisfranc joint with ongoing collapse of the same characteristic of a Charcot joint. Eleuterio Carbajal MD Foot MRI 11/12/16 0000 Signed Impressions: Service Date/Time: Saturday, November 12, 2016 11:28 - CONCLUSION: 1. Subcutaneous emphysema laterally with osteomyelitis of the fifth metatarsal. 2. Osteomyelitis of the cuboid. 3. There is some edema within the calcaneus where there appears to be a nondisplaced fracture. 4. Charcot neuropathy of the midfoot Keyur Goldman MD Objective Remarks GENERAL: Well-developed patient in no apparent distress. SKIN: [place] and sutures noted over right BKA site with no surrounding erythema. No active drainage. No dehiscence noted. The patient has large area of skin loss over the nose. CARDIOVASCULAR: Regular rate and rhythm. RESPIRATORY: No accessory muscle use. Clear to auscultation. Breath sounds equal bilaterally. GASTROINTESTINAL: Abdomen soft, non-tender, nondistended. MUSCULOSKELETAL: R BKA stump. NEUROLOGICAL: Awake and alert. Normal speech. PSYCHIATRIC: Appropriate mood and affect; insight and judgment normal. Procedures Right BKA 11/13/16 Urinary Catheter: No Vascular Central Line Catheter: No A/P Problem List: (1) Acute osteomyelitis of metatarsal bone of right foot ICD Code: M86.171 Status: Acute (2) Status post below knee amputation of right lower extremity ICD Code: Z89.511 Status: Acute (3) Diabetes ICD Code: E11.9 Status: Chronic (4) Diabetic neuropathy ICD Code: E11.40 Status: Chronic (5) Methadone dependence ICD Code: F11.20 Status: Chronic Assessment and Plan 51-year-old male with history of diabetes, atrial fibrillation, chronic right foot ulcers, chronic pain on methadone/oxycodone, hepatitis C, presented with intractable pain at right foot ulceration. Osteomyelitis/Cellulitis/Gangrene of Right Foot: Right foot x-ray as above indicating cellulitis and osteomyelitis. Right Foot MRI shows subcutaneous emphysema laterally with osteomyelitis of the fifth metatarsal; osteomyelitis of the cuboid; some edema within the calcaneus where there appears to be nondisplaced fracture; Charcot neuropathy of the midfoot. -Elevate the right leg -Blood cultures x 2 NGTD -Pain control with oxycodone 25mg po q6h prn and 2 mg oral dilaudid prn breakthrough pain. Counseling regarding narcotics -s/p BKA, postoperative care per Dr. Lizama. Patient states he last saw Dr. Grant 3-4 days ago although there is note from today stating to leave sutures in another 5-6 days. -PT eval, recommended SNF, case management consulted, continue PT while hospitalized -Stump infection improved, completed Levaquin 11/26, monitor. Afebrile. WBC normal. Diabetes: Uncontrolled, labile. Monitor Accu-cheks and cover with SSI. HgbA1c 12.0. Levemir was increased to 66 units yesterday morning and 80 units the night prior. He is on medium dose sliding scale insulin. Blood glucose level was 289 at ~1200 and decreased to 51 at 1650. Nurse administered orange juice and blood glucose level increased to 89 at 1715. Will change sliding scale insulin to low dose to avoid hypoglycemia. Continue Neurontin for neuropathy and phantom pain. Continue to monitor and adjust regimen as needed. Chronic Back Pain: from accident 20years ago. He goes to the [facility] for his methadone 220 mg daily (confirmed by RN), and sees pain management to receive his oxycodone 20 mg q6h prn. Continue medications. Balanitis: UA unremarkable. Clotrimazole cream twice daily for 14 days. Improving. Acute kidney injury: Resolved. Unclear etiology. 11/17 Renal U/S unremarkable. Renal function improved. Monitor BMP as needed. Hypertension: Continue Norvasc and Lisinopril; Clonidine as needed. Insomnia: Restoril as needed. Increase to 30 mg. All other medical conditions stable, continue home medications as appropriate. DVT Prophylaxis: Teds/SCDs to the left leg, Lovenox Written by Elba Marvin PA-C acting as scribe for Dr. Sanchez on 11/29/16 at ~1710. All or portions of this note were transcribed by scribe Elba Marvin PA-C. I , Dr. Javan Sanchez personally performed the history, physical exam, and medical decision making; and confirmed the accuracy of the information in the transcribed note. Authenticated by Dr. Javan Sanchez on 11/29/16 at 19:03. Discharge Planning 11/28: Per case sealer patient has no payor source for rehabilitation. He is to remain hospitalized until cleared by physical therapy to return home. Elba Marvin Nov 29, 2016 17:22 Javan Sanchez MD Nov 29, 2016 19:03
[2016-11-29 20:00] VITALS: BP 125/76; PULSE 76; RESP 16; TEMP 98.1; O2SAT 95
[2016-11-30] MEDS: TEMAZEPAM 15 MG CAP PO PRN ×2 (00:25→23:20)
[2016-11-30] MEDS: INSULIN NovoLIN REGULAR SUPPLEMENTAL SCALE SQ SCH ×5 (06:34→21:40)
[2016-11-30] MEDS: INSULIN DETEMIR 100 UNITS/ML VIAL SQ SCH ×2 (06:35→21:30)
[2016-11-30 07:15] VITALS: BP 135/87; PULSE 73; RESP 20; TEMP 98.5; O2SAT 98
[2016-11-30] MEDS: DOCUSATE SODIUM 100 MG CAP PO SCH ×2 (07:15→21:31)
[2016-11-30] MEDS: SENNOSIDES 8.6 MG TAB PO SCH (09:00)
[2016-11-30] MEDS: POLYETHYLENE GLYCOL 17 GM PKG PO SCH (09:00)
[2016-11-30] MEDS: PANTOPRAZOLE SOD 40 MG DELAYED RELEASE TAB PO SCH (09:44)
[2016-11-30] MEDS: GABAPENTIN 300 MG CAP PO SCH ×3 (09:44→17:10)
[2016-11-30] MEDS: ENOXAPARIN SODIUM 40 MG/0.4 ML SYRINGE SQ SCH (09:44)
[2016-11-30] MEDS: amLODIPine BESYLATE 5 MG TAB PO SCH (09:44)
[2016-11-30] MEDS: SODIUM CHLORIDE 0.9% FLUSH 5 ML FLUSH FLUSH SCH ×2 (09:44→21:31)
[2016-11-30] MEDS: LISINOPRIL 10 MG TAB PO SCH (09:45)
[2016-11-30] MEDS: METHADONE HCL 10 MG TAB PO SCH (09:46)
[2016-11-30] MEDS: HYDROmorphone HCL 2 MG TAB PO PRN ×3 (11:34→21:40)
--- NOTE | 2016-11-30 12:31 | HHI.PR ---
Subjective Remarks Follow-up status post BKA right lower extremity for gangrene and diabetes. Patient still has sutures and hermilo in the right stump. Patient seen by and myself. Patient asked if he could possibly do outpatient PT as physical therapist does not come on the weekend and he feels he does not need to be hospitalized. Objective Vitals Vital Signs Date Time Temp Pulse Resp B/P Pulse Ox O2 Delivery O2 Flow Rate FiO2 11/30/16 10:46 18 11/30/16 07:46 18 11/30/16 07:15 98.5 73 20 135/87 98 11/29/16 21:12 26 11/29/16 20:00 98.1 76 16 125/76 95 I/O 11/29/16 11/29/16 11/29/16 11/30/16 11/30/16 11/30/16 07:00 15:00 23:00 07:00 15:00 23:00 Intake Total 550 ml 960 ml 480 ml Output Total 450 ml 650 ml Balance 100 ml 960 ml -170 ml Intake Oral 550 ml 960 ml 480 ml Output Urine Total 450 ml 650 ml # Voids 2 # Bowel Movements 0 1 0 Objective Remarks GENERAL: Well-developed patient in no apparent distress. SKIN: [place] and sutures noted over right BKA site with no surrounding erythema. No active drainage. No dehiscence noted. Mild area of dried blood. The patient has large area of skin loss over the nose. CARDIOVASCULAR: Regular rate and rhythm. RESPIRATORY: No accessory muscle use. Clear to auscultation. Breath sounds equal bilaterally. GASTROINTESTINAL: Abdomen soft, non-tender, nondistended. MUSCULOSKELETAL: R BKA stump. NEUROLOGICAL: Awake and alert. Normal speech. PSYCHIATRIC: Appropriate mood and affect; insight and judgment normal. Procedures Right BKA 11/13/16 Urinary Catheter: No Vascular Central Line Catheter: No A/P Problem List: (1) Acute osteomyelitis of metatarsal bone of right foot ICD Code: M86.171 Status: Acute (2) Status post below knee amputation of right lower extremity ICD Code: Z89.511 Status: Acute (3) Diabetes ICD Code: E11.9 Status: Chronic (4) Diabetic neuropathy ICD Code: E11.40 Status: Chronic (5) Methadone dependence ICD Code: F11.20 Status: Chronic Assessment and Plan 51-year-old male with history of diabetes, atrial fibrillation, chronic right foot ulcers, chronic pain on methadone/oxycodone, hepatitis C, presented with intractable pain at right foot ulceration. Osteomyelitis/Cellulitis/Gangrene of Right Foot: Right foot x-ray as above indicating cellulitis and osteomyelitis. Right Foot MRI shows subcutaneous emphysema laterally with osteomyelitis of the fifth metatarsal; osteomyelitis of the cuboid; some edema within the calcaneus where there appears to be nondisplaced fracture; Charcot neuropathy of the midfoot. -Elevate the right leg -Blood cultures x 2 NGTD -Pain control with oxycodone 25mg po q6h prn and 2 mg oral dilaudid prn breakthrough pain. Counseling regarding narcotics -s/p BKA, postoperative care per Dr. Lizama. Per Dr. Grant's note on 11/29 leave the sutures in for another 5-6 days. -PT eval, recommended SNF, case management consulted, continue PT while hospitalized -Stump infection improved, completed Levaquin 11/26, monitor. Afebrile. WBC normal. Diabetes: Uncontrolled, labile. HgbA1c 12.0. -Monitor Accu-cheks and cover with SSI. -Levemir was increased to 66 units am and 80 units at night. -He was on medium dose sliding scale insulin but this was changed to low-dose after patient was hypoglycemic yesterday. -Nurse later called me today stating the patient had similar symptoms but blood glucose level was checked and was high at 345. She was instructed to administer sliding scale insulin. Patient will be changed to a individualized Novolin R scale today in between medium and high dose. Continue to monitor and adjust regimen as needed. -Continue Neurontin for neuropathy and phantom pain. Chronic Back Pain: from accident 20years ago. He goes to the [facility] for his methadone 220 mg daily (confirmed by RN), and sees pain management to receive his oxycodone 20 mg q6h prn. Continue medications. Balanitis: UA unremarkable. Clotrimazole cream twice daily for 14 days. Improving. Acute kidney injury: Resolved. Unclear etiology. 11/17 Renal U/S unremarkable. Renal function improved. Monitor BMP as needed. Hypertension: Continue Norvasc and Lisinopril; Clonidine as needed. Insomnia: Restoril 30 mg qhs. All other medical conditions stable, continue home medications as appropriate. DVT Prophylaxis: Teds/SCDs to the left leg, Lovenox Written by Elba Marvin PA-C acting as scribe for Dr. Sanchez on 11/30/16 at 1200. All or portions of this note were transcribed by scribe Elba Marvin PA-C. I , Dr. Javan Sanchez personally performed the history, physical exam, and medical decision making; and confirmed the accuracy of the information in the transcribed note. Authenticated by Dr. Javan Sanchez on 12/01/16 at 07:31. Discharge Planning 11/28: Per leather case finisher patient has no payor source for rehabilitation. He is to remain hospitalized until cleared by physical therapy to return home. Elba Marvin Nov 30, 2016 12:31 Javan Sanchez MD Dec 01, 2016 07:31
[2016-11-30 20:00] VITALS: BP 133/93; PULSE 71; RESP 20; TEMP 97.9; O2SAT 100
[2016-12-01] MEDS: HYDROmorphone HCL 2 MG TAB PO PRN ×2 (06:00→21:12)
[2016-12-01] MEDS: INSULIN NovoLIN REGULAR SUPPLEMENTAL SCALE SQ SCH ×4 (06:03→21:00)
[2016-12-01] MEDS: INSULIN DETEMIR 100 UNITS/ML VIAL SQ SCH ×2 (06:46→21:00)
[2016-12-01] MEDS: DOCUSATE SODIUM 100 MG CAP PO SCH ×2 (07:15→19:15)
[2016-12-01 08:00] VITALS: BP 141/86; PULSE 76; RESP 21; TEMP 97.9; O2SAT 99
[2016-12-01] MEDS: amLODIPine BESYLATE 5 MG TAB PO SCH (08:47)
[2016-12-01] MEDS: PANTOPRAZOLE SOD 40 MG DELAYED RELEASE TAB PO SCH (08:47)
[2016-12-01] MEDS: ENOXAPARIN SODIUM 40 MG/0.4 ML SYRINGE SQ SCH (08:47)
[2016-12-01] MEDS: GABAPENTIN 300 MG CAP PO SCH ×3 (08:47→18:03)
[2016-12-01] MEDS: SODIUM CHLORIDE 0.9% FLUSH 5 ML FLUSH FLUSH SCH ×2 (08:47→21:11)
[2016-12-01] MEDS: LISINOPRIL 10 MG TAB PO SCH (08:47)
[2016-12-01] MEDS: POLYETHYLENE GLYCOL 17 GM PKG PO SCH (08:48)
[2016-12-01] MEDS: METHADONE HCL 10 MG TAB PO SCH (08:48)
--- NOTE | 2016-12-01 08:48 | HHI.PR ---
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 I was informed by the nurse the patient was having soft stools "too many to count", but when I spoke with patient he states he has only had a few episodes of soft stools since last night and denies diarrhea. He admits to a little stomach upset and doesn't want to eat, but denies any actual abdominal pain. He states it's not a big deal. He denies any fevers or chills. Objective Vitals Vital Signs Date Time Temp Pulse Resp B/P Pulse Ox O2 Delivery O2 Flow Rate FiO2 12/01/16 08:00 97.9 76 21 141/86 99 12/01/16 07:00 18 11/30/16 20:00 97.9 71 20 133/93 100 11/30/16 14:38 18 11/30/16 10:46 18 I/O 11/30/16 11/30/16 11/30/16 12/01/16 12/01/16 12/01/16 07:00 15:00 23:00 07:00 15:00 23:00 Intake Total 480 ml 1000 ml 360 ml 120 ml Output Total 650 ml 300 ml Balance -170 ml 1000 ml 60 ml 120 ml Intake Oral 480 ml 1000 ml 360 ml 120 ml Output Urine Total 650 ml 300 ml # Voids 5 1 # Bowel Movements 0 0 Objective Remarks GENERAL: Well-developed patient in no apparent distress. SKIN: [place] and sutures noted over right BKA site with no surrounding erythema. No active drainage. No dehiscence noted. The patient has large area of skin loss over the nose. CARDIOVASCULAR: Regular rate and rhythm. RESPIRATORY: No accessory muscle use. Clear to auscultation. Breath sounds equal bilaterally. GASTROINTESTINAL: Normoactive bowel sounds. Abdomen soft, non-tender, nondistended. MUSCULOSKELETAL: R BKA stump. NEUROLOGICAL: Awake and alert. Normal speech. PSYCHIATRIC: Appropriate mood and affect; insight and judgment normal. Procedures Right BKA 11/13/16 Urinary Catheter: No Vascular Central Line Catheter: No A/P Problem List: (1) Acute osteomyelitis of metatarsal bone of right foot ICD Code: M86.171 Status: Acute (2) Status post below knee amputation of right lower extremity ICD Code: Z89.511 Status: Acute (3) Diabetes ICD Code: E11.9 Status: Chronic (4) Diabetic neuropathy ICD Code: E11.40 Status: Chronic (5) Methadone dependence ICD Code: F11.20 Status: Chronic Assessment and Plan 51-year-old male with history of diabetes, atrial fibrillation, chronic right foot ulcers, chronic pain on methadone/oxycodone, hepatitis C, presented with intractable pain at right foot ulceration. 12/01 Soft stools: I have asked nurse to monitor patient's BMs and alert me if he is having significant number of episodes. Patient denies having actual diarrhea. Will hold off on any C.diff testing at this time. Osteomyelitis/Cellulitis/Gangrene of Right Foot: Right foot x-ray as above indicating cellulitis and osteomyelitis. Right Foot MRI shows subcutaneous emphysema laterally with osteomyelitis of the fifth metatarsal; osteomyelitis of the cuboid; some edema within the calcaneus where there appears to be nondisplaced fracture; Charcot neuropathy of the midfoot. -Elevate the right leg -Blood cultures x 2 NGTD -Pain control with oxycodone 25mg po q6h prn and 2 mg oral dilaudid prn breakthrough pain. Counseling regarding narcotics -s/p BKA, postoperative care per Dr. Lizama. Per Dr. Grant's note on 11/29 leave the sutures in for another 5-6 days. -PT eval, recommended SNF, case management consulted, continue PT while hospitalized -Stump infection improved, completed Levaquin 11/26, monitor. Afebrile. WBC normal. Diabetes: Uncontrolled, labile. HgbA1c 12.0. -Monitor Accu-cheks and cover with SSI. -Levemir was increased to 66 units am and 80 units at night. -He was on high dose sliding scale insulin but this was changed to medium dose after patient had hypoglycemic episode. His BGL then started to rise significantly so patient was placed on individualized Novolin R scale in between medium and high dose. BGL good at 132 this morning. -Continue to monitor and adjust regimen as needed. -Continue Neurontin for neuropathy and phantom pain. Chronic Back Pain: from accident 20years ago. He goes to the [facility] for his methadone 220 mg daily (confirmed by RN), and sees pain management to receive his oxycodone 20 mg q6h prn. Continue medications. Balanitis: UA unremarkable. Clotrimazole cream twice daily for 14 days. Improving. Acute kidney injury: Resolved. Unclear etiology. 11/17 Renal U/S unremarkable. Renal function improved. Monitor BMP as needed. Hypertension: Continue Norvasc and Lisinopril; Clonidine as needed. Insomnia: Restoril 30 mg qhs. All other medical conditions stable, continue home medications as appropriate. DVT Prophylaxis: Teds/SCDs to the left leg, Lovenox Discharge Planning 11/28: Per hospice case manager patient has no payor source for rehabilitation. He is to remain hospitalized until cleared by physical therapy to return home. Attending Statement Patient seen. Agree with above. Patient tells me that he was having loose stools today, but "not diarrhea". Elba Marvin Dec 01, 2016 08:48 Javan Sanchez MD Dec 01, 2016 14:58
[2016-12-01] MEDS: SENNOSIDES 8.6 MG TAB PO SCH (08:49)
--- NOTE | 2016-12-01 10:54 | PD.CAR.PN ---
CVT Progress Note Subjective/Hospital Course: Patient seen Full consult dictated We will proceed with a right below-knee amputation tomorrow Thanks J 11/14/16 Status post R BKA, Dressing dry intact. patient doing well. Pain control difficult due to patient's addiction to narcotics. Will keep dressing on till Friday Able DC patient Friday11/15/16 Status post BK amputation Incisions clean and dry dressing is intact and pain is finally under control We'll remove dressing tomorrow and after that patient can be discharged to a [facility] 11/16/16 Stump appears to be clean without drainage but that does appear somewhat red on the lateral aspect and anteriorly We'll place patient on antibiotics because these have been for some reason stopped after the surgery It should be noted the patient a gangrene of the foot so antibiotic should be continued for at least a week thereafter 11/17/16 Stump looks a little better today swelling is decreased and so is the redness The streaking up the thigh has also disappeared Patient should stand antibiotics as the above-noted Doing well at this time 11/19/16 Stump looks much nicer and its dry with some redness in the lateral aspect of the stump One stitch has been removed but there is no drainage No infection noted just sort of inflamed skin which is receding In next few days patient will be able to be discharged 11/21/16 Stump clean dry Redress daily Can DC patient from my point any time FU with me 2 weeks 11/22/16 Stump clean and dry Healing very nicely All the cultures are negative and patient can be discharged from my point Stitches will stay in for at least another 10 days and then be removed in my office 11/29/16 Stump is clean and dry and stitches are not ready to come out yet Would leave the sutures in for another 5-6 days Patient is in the hospital for unrelated diabetic problems Nothing to add to care 12/01/16 Stump is clean and dry it is been now 2 weeks since the surgery Patient has delayed healing due to ischemia and therefore I'll leave the stitches in for another few days Stump is clean and dry Objective: Vital Signs Date Time Temp Pulse Resp B/P Pulse Ox O2 Delivery O2 Flow Rate FiO2 12/01/16 08:00 97.9 76 21 141/86 99 12/01/16 07:00 18 11/30/16 20:00 97.9 71 20 133/93 100 11/30/16 14:38 18 Velasquez Lizama MD Dec 01, 2016 10:54
[2016-12-01] MEDS ORDERED: NEOMYCIN/POLYMYXIN/BACITRACIN OINT 15 GM TUBE TOPICAL ONE (16:45)
[2016-12-01 20:00] VITALS: BP 133/73; PULSE 73; RESP 20; TEMP 97.9; O2SAT 100
[2016-12-02] MEDS: TEMAZEPAM 15 MG CAP PO PRN ×2 (00:13→22:07)
[2016-12-02] MEDS: HYDROmorphone HCL 2 MG TAB PO PRN ×3 (02:00→19:56)
[2016-12-02] MEDS: DOCUSATE SODIUM 100 MG CAP PO SCH ×2 (06:34→19:15)
[2016-12-02] MEDS: INSULIN DETEMIR 100 UNITS/ML VIAL SQ SCH ×2 (06:37→20:25)
[2016-12-02] MEDS: INSULIN NovoLIN REGULAR SUPPLEMENTAL SCALE SQ SCH ×4 (06:37→20:25)
[2016-12-02 08:00] VITALS: BP 120/87; PULSE 68; RESP 16; TEMP 97; O2SAT 100
[2016-12-02] MEDS: POLYETHYLENE GLYCOL 17 GM PKG PO SCH ×2 (09:00→09:48)
[2016-12-02] MEDS: SODIUM CHLORIDE 0.9% FLUSH 5 ML FLUSH FLUSH SCH ×2 (09:00→19:59)
[2016-12-02] MEDS: amLODIPine BESYLATE 5 MG TAB PO SCH (09:48)
[2016-12-02] MEDS: ENOXAPARIN SODIUM 40 MG/0.4 ML SYRINGE SQ SCH (09:49)
[2016-12-02] MEDS: LISINOPRIL 10 MG TAB PO SCH (09:49)
[2016-12-02] MEDS: PANTOPRAZOLE SOD 40 MG DELAYED RELEASE TAB PO SCH (09:50)
[2016-12-02] MEDS: METHADONE HCL 10 MG TAB PO SCH (09:51)
[2016-12-02] MEDS: GABAPENTIN 300 MG CAP PO SCH ×3 (09:52→16:58)
[2016-12-02] MEDS: SENNOSIDES 8.6 MG TAB PO SCH (09:52)
[2016-12-02] MEDS: NEOMYCIN/POLYMYXIN/BACITRACIN OINT 15 GM TUBE TOPICAL SCH ×2 (09:53→19:56)
--- NOTE | 2016-12-02 18:43 | HHI.PR ---
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 Patient denies any chest pain, shortness of breath, cough, nausea, vomiting. Objective Vitals Vital Signs Date Time Temp Pulse Resp B/P Pulse Ox O2 Delivery O2 Flow Rate FiO2 12/02/16 08:00 97.0 68 16 120/87 100 12/01/16 20:00 97.9 73 20 133/73 100 I/O 12/01/16 12/01/16 12/01/16 12/02/16 12/02/16 12/02/16 07:00 15:00 23:00 07:00 15:00 23:00 Intake Total 120 ml 480 ml 240 ml 360 ml Output Total 1100 ml 300 ml 1000 ml Balance 120 ml -620 ml -60 ml -640 ml Intake Oral 120 ml 480 ml 240 ml 360 ml Output Urine Total 1100 ml 300 ml 1000 ml # Voids 1 # Bowel Movements 0 Objective Remarks GENERAL: Well-developed patient in no apparent distress. SKIN: [place] and sutures noted over right BKA site with no surrounding erythema. No active drainage. No dehiscence noted. The patient has large area of skin loss over the nose. CARDIOVASCULAR: Regular rate and rhythm. RESPIRATORY: No accessory muscle use. Clear to auscultation. Breath sounds equal bilaterally. GASTROINTESTINAL: Normoactive bowel sounds. MUSCULOSKELETAL: R BKA stump. NEUROLOGICAL: Awake and alert. Normal speech. PSYCHIATRIC: Appropriate mood and affect; insight and judgment normal. Procedures Right BKA 11/13/16 Urinary Catheter: No Vascular Central Line Catheter: No A/P Problem List: (1) Acute osteomyelitis of metatarsal bone of right foot ICD Code: M86.171 Status: Acute (2) Status post below knee amputation of right lower extremity ICD Code: Z89.511 Status: Acute (3) Diabetes ICD Code: E11.9 Status: Chronic (4) Diabetic neuropathy ICD Code: E11.40 Status: Chronic (5) Methadone dependence ICD Code: F11.20 Status: Chronic Assessment and Plan 51-year-old male with history of diabetes, atrial fibrillation, chronic right foot ulcers, chronic pain on methadone/oxycodone, hepatitis C, presented with intractable pain at right foot ulceration. 12/01 Soft stools: I have asked nurse to monitor patient's BMs and alert me if he is having significant number of episodes. Patient denies having actual diarrhea. Will hold off on any C.diff testing at this time. Osteomyelitis/Cellulitis/Gangrene of Right Foot: Right foot x-ray as above indicating cellulitis and osteomyelitis. Right Foot MRI shows subcutaneous emphysema laterally with osteomyelitis of the fifth metatarsal; osteomyelitis of the cuboid; some edema within the calcaneus where there appears to be nondisplaced fracture; Charcot neuropathy of the midfoot. -Elevate the right leg -Blood cultures x 2 NGTD -Pain control with oxycodone 25mg po q6h prn and 2 mg oral dilaudid prn breakthrough pain. Counseling regarding narcotics -s/p BKA, postoperative care per Dr. Lizama. Per Dr. Grant's note on 12/01 leave the sutures in for another few days. -PT eval, recommended SNF, case management consulted, continue PT while hospitalized -Stump infection improved, completed Levaquin 11/26, monitor. Afebrile. WBC normal. Diabetes: Uncontrolled, labile. HgbA1c 12.0. -Monitor Accu-cheks and cover with SSI. -Levemir was increased to 66 units am and 80 units at night. -He was on high dose sliding scale insulin but this was changed to medium dose after patient had hypoglycemic episode. His BGL then started to rise significantly so patient was placed on individualized Novolin R scale in between medium and high dose. -Continue to monitor and adjust regimen as needed. BGL's tend to rise around afternoon time. Will increase am Levemir to 68 units. -Continue Neurontin for neuropathy and phantom pain. Chronic Back Pain: from accident 20years ago. He goes to the [facility] for his methadone 220 mg daily (confirmed by RN), and sees pain management to receive his oxycodone 20 mg q6h prn. Continue medications. Balanitis: UA unremarkable. Clotrimazole cream twice daily for 14 days. Improving. Acute kidney injury: Resolved. Unclear etiology. 11/17 Renal U/S unremarkable. Renal function improved. Monitor BMP as needed. Hypertension: Continue Norvasc and Lisinopril; Clonidine as needed. Insomnia: Restoril 30 mg qhs. All other medical conditions stable, continue home medications as appropriate. DVT Prophylaxis: TEDs/SCDs to the left leg, Lovenox Written by Elba Marvin PA-C acting as scribe for Dr. Sanchez on 12/02/16 at 1137. All or portions of this note were transcribed by scribe Elba Marvin PA-C. I , Dr. Javan Sanchez personally performed the history, physical exam, and medical decision making; and confirmed the accuracy of the information in the transcribed note. Authenticated by Dr. Javan Sanchez on 12/03/16 at 08:19. Discharge Planning 11/28: Per case fitter patient has no payor source for rehabilitation. He is to remain hospitalized until cleared by physical therapy to return home. Elba Marvin Dec 02, 2016 18:43 Javan Sanchez MD Dec 03, 2016 08:20
[2016-12-02 20:00] VITALS: BP 139/81; PULSE 77; RESP 20; TEMP 97.7; O2SAT 100
[2016-12-03] MEDS: HYDROmorphone HCL 2 MG TAB PO PRN (03:53)
[2016-12-03] MEDS: DOCUSATE SODIUM 100 MG CAP PO SCH ×2 (06:09→19:15)
[2016-12-03] MEDS: INSULIN NovoLIN REGULAR SUPPLEMENTAL SCALE SQ SCH ×3 (06:09→12:33)
[2016-12-03] MEDS ORDERED: INSULIN DETEMIR 100 UNITS/ML VIAL SQ SCH (07:00)
[2016-12-03 08:00] VITALS: BP 144/93; PULSE 67; RESP 18; TEMP 97.3; O2SAT 98
[2016-12-03] MEDS: SODIUM CHLORIDE 0.9% FLUSH 5 ML FLUSH FLUSH SCH (09:00)
[2016-12-03] MEDS: amLODIPine BESYLATE 5 MG TAB PO SCH (09:34)
[2016-12-03] MEDS: PANTOPRAZOLE SOD 40 MG DELAYED RELEASE TAB PO SCH (09:34)
[2016-12-03] MEDS: SENNOSIDES 8.6 MG TAB PO SCH (09:34)
[2016-12-03] MEDS: POLYETHYLENE GLYCOL 17 GM PKG PO SCH (09:35)
[2016-12-03] MEDS: GABAPENTIN 300 MG CAP PO SCH ×3 (09:35→17:44)
[2016-12-03] MEDS: LISINOPRIL 10 MG TAB PO SCH (09:36)
[2016-12-03] MEDS: ENOXAPARIN SODIUM 40 MG/0.4 ML SYRINGE SQ SCH (09:39)
[2016-12-03] MEDS: NEOMYCIN/POLYMYXIN/BACITRACIN OINT 15 GM TUBE TOPICAL SCH ×2 (09:40→21:33)
[2016-12-03] MEDS: METHADONE HCL 10 MG TAB PO SCH (10:09)
[2016-12-03] MEDS ORDERED: POLYETHYLENE GLYCOL 17 GM PKG PO PRN (15:00)
[2016-12-03] MEDS ORDERED: ONDANSETRON ODT 4 MG TAB PO PRN (15:00)
--- NOTE | 2016-12-03 15:12 | HHI.PR ---
Subjective Remarks Patient seen and examined today. First thing out of the patient's mouth is that he needed more pain medications. Patient appears to be lying on bed. No obvious signs of pain. Objective Vitals Vital Signs Date Time Temp Pulse Resp B/P Pulse Ox O2 Delivery O2 Flow Rate FiO2 12/03/16 13:34 16 12/03/16 08:00 97.3 67 18 144/93 98 12/02/16 20:00 97.7 77 20 139/81 100 I/O 12/02/16 12/02/16 12/02/16 12/03/16 12/03/16 12/03/16 07:00 15:00 23:00 07:00 15:00 23:00 Intake Total 240 ml 360 ml 480 ml Output Total 300 ml 1000 ml 700 ml Balance -60 ml -640 ml -220 ml Intake Oral 240 ml 360 ml 480 ml Output Urine Total 300 ml 1000 ml 700 ml # Voids 3 # Bowel Movements 0 0 Imaging GENERAL: Well-developed, well-nourished, in no acute distress. alert and orientated HEENT: Head is normocephalic without any lesions or masses noted. Facial features are symmetric. Eyes: Extraocular muscles are intact. Conjunctivae were clear. NECK: Supple without any masses. Trachea midline no deviation. No JVD, CARDIAC: Regular rhythm, regular rate. S1/S2 are heard. No murmurs gallops or rubs. LUNGS: Clear to auscultation bilaterally. No wheeze, rhonchi or rales. No use of accessory muscles on inspiration or expiration. ABDOMEN: Soft, nontender. Nondistended. Bowel sounds heard in all 4 quadrants. No organomegaly or masses. Negative rebound, negative guarding EXTREMITIES: No edema, pulses are equal bilaterally. No cyanosis or clubbing NEUROLOGY: Mood and affect appear appropriate. Cranial nerves II through XII grossly intact. Moving all extremities, speech is clear LEFT LOWER EXTREMITY: Patient had below-knee amputation. Sutures and hermilo are still in place. There does not appear to be any signs of infection. Procedures Right BKA 11/13/16 Urinary Catheter: No Vascular Central Line Catheter: No A/P Assessment and Plan Osteomyelitis/Cellulitis/Gangrene of Right Foot: Right Foot MRI shows subcutaneous emphysema laterally with osteomyelitis of the fifth metatarsal; osteomyelitis of the cuboid; some edema within the calcaneus where there appears to be nondisplaced fracture; Charcot neuropathy of the midfoot. -s/p BKA, postoperative care per Dr. Lizama. Per Dr. Grant's note on 12/01 leave the sutures in for another few days. -PT eval, recommended SNF, case management consulted, continue PT while hospitalized -Stump infection improved, completed Levaquin 11/26, monitor. Afebrile. WBC normal. -Continue Neurontin for neuropathy and phantom pain. -Pain control: Discuss with patient that he is on methadone, that opioid narcotics do not function normally with that medication. Plan to discontinue opioid narcotics Methadone 220 mg daily, this was confirmed at local methadone clinic Oxycodone 25mg po q6h prn , changed to oxycodone 20 mg by mouth every 8 hours. Continue to wean 5 mg every 3-5 days until off completely Discontinue Dilaudid 2 mg every 4 hours as needed for breakthrough pain Diabetes: Uncontrolled, labile. HgbA1c 12.0. -Monitor Accu-cheks and cover with SSI. -Levemir was increased to 78 units am and 85 units at night. Seborrhea dermatitis -Hydrocortisone cream twice daily for 2 weeks Chronic Back Pain: from accident 20years ago. -He goes to the [facility] for his methadone 220 mg daily ( confirmed by RN), -Patient indicated that he goes to pain management to receive his oxycodone 20 mg q6h prn. -Checked Domonique Blancas, and there is been no narcotic prescriptions provided to this patient since July,. Balanitis: UA unremarkable. Clotrimazole cream twice daily for 14 days. Improving. Acute kidney injury: Resolved. 11/17 Renal U/S unremarkable. Hypertension: Blood pressure stable Home medications Norvasc and Lisinopril were continued; Discontinue Clonidine as needed. Insomnia: Restoril 30 mg qhs. All other medical conditions stable, continue home medications as appropriate. DVT Prophylaxis: TEDs/SCDs to the left leg, Lovenox Discharge Planning analysis manager discharge planning. Patient has no findings for rehabilitation placement. Records indicate patient does have a residence. Attending Statement Patient seen. Agree with above. Javan Hsu Dec 03, 2016 15:12 Javan Sanchez MD Dec 03, 2016 18:30
[2016-12-03] MEDS: HYDROCORTISONE 1% CREAM 30 GM TOPICAL SCH ×2 (16:00→21:22)
[2016-12-03] MEDS: INSULIN ASPART SUPPLEMENTAL SCALE SQ SCH ×2 (16:18→21:00)
[2016-12-03 20:00] VITALS: BP 135/87; PULSE 72; RESP 20; TEMP 96.9; O2SAT 100
[2016-12-03] MEDS: INSULIN DETEMIR 100 UNITS/ML VIAL SQ SCH (21:21)
[2016-12-03] MEDS: TEMAZEPAM 15 MG CAP PO PRN (21:42)
[2016-12-04] MEDS: INSULIN ASPART SUPPLEMENTAL SCALE SQ SCH ×5 (06:39→20:23)
[2016-12-04] MEDS: INSULIN DETEMIR 100 UNITS/ML VIAL SQ SCH ×2 (07:00→20:18)
[2016-12-04] MEDS: DOCUSATE SODIUM 100 MG CAP PO SCH ×2 (07:15→16:40)
[2016-12-04 07:55] LABS: BASOPHIL % 0.7 % (0.0-2.0); EOSINOPHIL # 0.2 TH/MM3 (0-0.4); EOSINOPHIL % 3.2 % (0.0-4.0); LYMPHOCYTE # 1.8 TH/MM3 (1.0-4.8); MEAN CELL VOLUME 87.4 FL (80.0-100.0); MEAN CORPUSCULAR HEMOGLOBIN 29.3 PG (27.0-34.0); MEAN CORPUSCULAR HGB CONC 33.5 % (32.0-36.0); NEUT % 54.1 % (16.0-70.0); PLATELET COUNT 91 TH/MM3 (150-450); RED BLOOD COUNT 4.12 MIL/MM3 (4.50-5.90); RED CELL DISTRIBUTION WIDTH 15.1 % (11.6-17.2); WHITE BLOOD COUNT 5.6 TH/MM3 (4.0-11.0)
[2016-12-04 07:59] LABS: HEMO FLAGS DIFF FINAL
[2016-12-04 08:08] LABS: POTASSIUM 4.2 MEQ/L (3.5-5.1)
[2016-12-04 08:11] LABS: BICARBONATE 29.3 MEQ/L (21.0-32.0)
[2016-12-04 08:54] LABS: PLATELET ESTIMATE SMEAR LOW (NORMAL); PLATELET MORPHOLOGY NORMAL (NORMAL)
[2016-12-04] MEDS: GABAPENTIN 300 MG CAP PO SCH ×3 (09:00→16:40)
[2016-12-04] MEDS: METHADONE HCL 10 MG TAB PO SCH (09:02)
[2016-12-04] MEDS: LISINOPRIL 10 MG TAB PO SCH (09:02)
[2016-12-04] MEDS: HYDROCORTISONE 1% CREAM 30 GM TOPICAL SCH ×2 (09:03→20:16)
[2016-12-04] MEDS: amLODIPine BESYLATE 5 MG TAB PO SCH (09:03)
[2016-12-04] MEDS: NEOMYCIN/POLYMYXIN/BACITRACIN OINT 15 GM TUBE TOPICAL SCH ×2 (09:03→20:17)
[2016-12-04] MEDS: ENOXAPARIN SODIUM 40 MG/0.4 ML SYRINGE SQ SCH (09:03)
[2016-12-04] MEDS: PANTOPRAZOLE SOD 40 MG DELAYED RELEASE TAB PO SCH (09:03)
--- NOTE | 2016-12-04 09:44 | HHI.PR ---
Subjective Remarks Patient seen and examined today. Patient very cantankerous today. Patient indicates that he wants his hermilo and sutures removed so he can leave the hospital. Objective Vitals Vital Signs Date Time Temp Pulse Resp B/P Pulse Ox O2 Delivery O2 Flow Rate FiO2 12/03/16 22:20 16 12/03/16 20:00 96.9 72 20 135/87 100 I/O 12/03/16 12/03/16 12/03/16 12/04/16 12/04/16 12/04/16 07:00 15:00 23:00 07:00 15:00 23:00 Intake Total 905 ml 1080 ml Output Total 700 ml 750 ml 1000 ml Balance 205 ml 330 ml -1000 ml Intake Oral 905 ml 1080 ml Output Urine Total 700 ml 750 ml 1000 ml # Voids 9 # Bowel Movements 2 0 0 Result Diagram: 12/04/1672412/04/16724 Objective Remarks GENERAL: Well-developed, well-nourished, in no acute distress. alert and orientated HEENT: Head is normocephalic without any lesions or masses noted. Facial features are symmetric. Eyes: Extraocular muscles are intact. NECK: Supple without any masses. Trachea midline no deviation. No JVD, CARDIAC: Regular rhythm, regular rate. S1/S2 are heard. No murmurs gallops or rubs. LUNGS: Clear to auscultation bilaterally. No wheeze, rhonchi or rales. No use of accessory muscles on inspiration or expiration. ABDOMEN: Soft, nontender. Nondistended. Bowel sounds heard in all 4 quadrants. No organomegaly or masses. Negative rebound, negative guarding EXTREMITIES: No edema, pulses are equal bilaterally. No cyanosis or clubbing NEUROLOGY: Mood and affect appear appropriate. Cranial nerves II through XII grossly intact. Moving all extremities, speech is clear RIGHT LOWER EXTREMITY: Amputation site still has stitches and hermilo in place. No signs of any exudates or infection Procedures Right BKA 11/13/16 Urinary Catheter: No Vascular Central Line Catheter: No A/P Assessment and Plan Osteomyelitis/Cellulitis/Gangrene of Right Foot: Right Foot MRI shows subcutaneous emphysema laterally with osteomyelitis of the fifth metatarsal; osteomyelitis of the cuboid; some edema within the calcaneus where there appears to be nondisplaced fracture; Charcot neuropathy of the midfoot. -s/p BKA, postoperative care per Dr. Lizama. Per Dr. Grant's note on 12/01 leave the sutures in for another few days. -PT eval, recommended SNF, case management consulted, continue PT while hospitalized -Stump infection improved, completed Levaquin 11/26, monitor. Afebrile. WBC normal. -Continue Neurontin for neuropathy and phantom pain. -Pain control: Discuss with patient that he is on methadone, that opioid narcotics do not function normally with that medication. Plan to discontinue opioid narcotics Methadone 220 mg daily, this was confirmed at local methadone clinic Oxycodone 20 mg by mouth every 8 hours. Continue to wean 5 mg every 3-5 days until off completely Diabetes: Uncontrolled, labile. HgbA1c 12.0. -Monitor Accu-cheks and cover with SSI. -Levemir was increased to 78 units am and 85 units at night. Seborrhea dermatitis -Hydrocortisone cream twice daily for 2 weeks Chronic Back Pain: from accident 20years ago. -He goes to the [facility] for his methadone 220 mg daily ( confirmed by RN), -Patient indicated that he goes to pain management to receive his oxycodone 20 mg q6h prn. -Checked E Magalis, and there is been no narcotic prescriptions provided to this patient since July,. Balanitis: UA unremarkable. Clotrimazole cream twice daily for 14 days. Improving. Acute kidney injury: Resolved. 11/17 Renal U/S unremarkable. Hypertension: Blood pressure stable Home medications Norvasc and Lisinopril were continued; Discontinue Clonidine as needed. Insomnia: Restoril 30 mg qhs. All other medical conditions stable, continue home medications as appropriate. DVT Prophylaxis: TEDs/SCDs to the left leg, Lovenox Discharge Planning information manager discharge planning. Patient has no findings for rehabilitation placement. Records indicate patient does have a residence. Attending Statement Patient seen. Agree with above. Javan Hsu Dec 04, 2016 09:44 Javan Sanchez MD Dec 04, 2016 16:35
[2016-12-04 20:00] VITALS: BP 117/79; PULSE 69; RESP 18; TEMP 96.7; O2SAT 98
[2016-12-04] MEDS: TEMAZEPAM 15 MG CAP PO PRN (22:10)
[2016-12-05] MEDS: INSULIN ASPART SUPPLEMENTAL SCALE SQ SCH ×3 (06:31→16:49)
[2016-12-05] MEDS: INSULIN DETEMIR 100 UNITS/ML VIAL SQ SCH (06:32)
[2016-12-05] MEDS: DOCUSATE SODIUM 100 MG CAP PO SCH (07:15)
[2016-12-05 08:23] VITALS: BP 141/90; PULSE 73; RESP 18; TEMP 97; O2SAT 99
[2016-12-05] MEDS: LISINOPRIL 10 MG TAB PO SCH (08:39)
[2016-12-05] MEDS: amLODIPine BESYLATE 5 MG TAB PO SCH (08:39)
[2016-12-05] MEDS: GABAPENTIN 300 MG CAP PO SCH ×3 (08:40→16:50)
[2016-12-05] MEDS: ENOXAPARIN SODIUM 40 MG/0.4 ML SYRINGE SQ SCH (08:40)
[2016-12-05] MEDS: PANTOPRAZOLE SOD 40 MG DELAYED RELEASE TAB PO SCH (08:40)
[2016-12-05] MEDS: METHADONE HCL 10 MG TAB PO SCH (08:41)
[2016-12-05] MEDS: HYDROCORTISONE 1% CREAM 30 GM TOPICAL SCH (08:42)
[2016-12-05] MEDS: NEOMYCIN/POLYMYXIN/BACITRACIN OINT 15 GM TUBE TOPICAL SCH (08:42)
[2016-12-05] MEDS ORDERED: LEVEMIR SQ ×2 (15:01)
--- NOTE | 2016-12-05 15:09 | HHI.DS ---
Discharge Summary Admission Date Nov 12, 2016 at 07:52 Discharge Date: Dec 05, 2016 Admitting Diagnosis diabetic foot/osteomyelitis (1) Acute osteomyelitis of metatarsal bone of right foot ICD Code: M86.171 Diagnosis: Principal (2) Status post below knee amputation of right lower extremity ICD Code: Z89.511 Diagnosis: Principal (3) Diabetes ICD Code: E11.9 Diagnosis: Secondary (4) Diabetic neuropathy ICD Code: E11.40 Diagnosis: Secondary (5) Methadone dependence ICD Code: F11.20 Diagnosis: Secondary Procedures Right BKA 11/13/16 Brief History - From Admission 51-year-old male with history of diabetes, atrial fibrillation, chronic right foot ulcers, chronic pain on methadone/oxycodone, hepatitis C, presents with a three-day history of intractable pain at right foot ulceration. The patient reports he's been dealing with the right foot ulcer for 2 years now, however worse over the past 2 months, and now has had worsening pain over the past 3 days. The pain is 10/10, worse with any ambulation or pressure. He reports purulent yellow drainage from the wounds. Denies fevers or chills. Last time he was on antibiotics was 2months ago. He was following through the community clinic and podiatry, however has not been seen in a few months due to insurance reasons. Patient has no other medical complaints at this time. He goes to the [facility] for his methadone 220 mg daily (confirmed by RN), and sees pain management to receive his oxycodone 20 mg q6h prn. Since his arrival , right foot x-ray shows air in soft tissues along the lateral plantar aspect of the foot suggesting regional cellulitis; in addition, appears to be cortical disruption along the fifth metatarsal head, concerning for regional osteomyelitis; chronic fracture dislocation of the Lisfranc joint with ongoing collapse characteristic of Charcot joint. Podiatry has been consulted. He has been started on IV vancomycin/Zosyn. CBC/BMP: 12/04/16 0725 12/04/16 0725 Significant Findings Laboratory Tests Test 12/04/16 07:25 Red Blood Count 4.12 MIL/MM3 (4.50-5.90) Hemoglobin 12.0 GM/DL (13.0-17.0) Hematocrit 36.0 % (39.0-51.0) Platelet Count 91 TH/MM3 (150-450) Monocytes (%) (Auto) 10.0 % (0.0-8.0) Platelet Estimate LOW (NORMAL) Blood Urea Nitrogen 23 MG/DL (7-18) Random Glucose 188 MG/DL (74-106) Imaging Last Impressions Renal Ultrasound 11/17/16 0000 Signed Impressions: Service Date/Time: Thursday, November 17, 2016 13:33 - CONCLUSION: Normal examination. Kvng Lott MD Foot X-Ray 11/12/16 0405 Signed Impressions: Service Date/Time: Saturday, November 12, 2016 04:06 - CONCLUSION: 1. Air in the soft tissues along the lateral plantar aspect of the foot suggesting a regional cellulitis. 2. In addition, there appears to be cortical disruption along the fifth metatarsal head, concerning for regional osteomyelitis. 3. Chronic fracture dislocation of the Lisfranc joint with ongoing collapse of the same characteristic of a Charcot joint. Eleuterio Carbajal MD Foot MRI 11/12/16 0000 Signed Impressions: Service Date/Time: Saturday, November 12, 2016 11:28 - CONCLUSION: 1. Subcutaneous emphysema laterally with osteomyelitis of the fifth metatarsal. 2. Osteomyelitis of the cuboid. 3. There is some edema within the calcaneus where there appears to be a nondisplaced fracture. 4. Charcot neuropathy of the midfoot Keyur Goldman MD PE at Discharge GENERAL: Well-developed, well-nourished, in no acute distress. alert and orientated HEENT: Head is normocephalic without any lesions or masses noted. Facial features are symmetric. Eyes: Extraocular muscles are intact. NECK: Supple without any masses. Trachea midline no deviation. No JVD, CARDIAC: Regular rhythm, regular rate. S1/S2 are heard. No murmurs gallops or rubs. LUNGS: Clear to auscultation bilaterally. No wheeze, rhonchi or rales. No use of accessory muscles on inspiration or expiration. ABDOMEN: Soft, nontender. Nondistended. Bowel sounds heard in all 4 quadrants. No organomegaly or masses. Negative rebound, negative guarding EXTREMITIES: No edema, pulses are equal bilaterally. No cyanosis or clubbing NEUROLOGY: Mood and affect appear appropriate. Cranial nerves II through XII grossly intact. Moving all extremities, speech is clear RIGHT LOWER EXTREMITY: Amputation site still has stitches and hermilo in place. No signs of any exudates or infection Hospital Course Is a 51 year-old male who originally presented to hospital because of chronic pain, chronic foot ulcerations with intractable pain in the right foot. Patient states that he has been dealing with foot ulcers for 2 years and progressively got worse over the last 2 months. X-rays were performed which does show air in the soft tissue along the lateral plantar service include suggesting regional cellulitis and cortical disruption along the fifth metatarsal head concerning for osteomyelitis. MRI was done which does indicate osteomyelitis of the fifth metatarsal, cuboid. There does appear to be some edema in the calcaneus which appears to be a nondisplaced fracture. Appointment Scheduler was consulted because of the right gangrene foot. They strongly recommended [id number] amputation to solids limb. Vascular surgery was consulted because of the gangrene right foot, peripheral vascular disease. Is recommended that an urgent basis that the patient have a right [id number] amputation for limb salvage. Patient signed Consents and underwent surgery. Surgery was performed and the patient did undergo successful right below-the- knee amputation. Patient was continued on pain control. Patient was transferred to [place] for continued management. Patient had appropriate pain management. Sutures have been removed. Physical therapy has been performed and signed off and indicate patient can go home with frontwheel walker with outpatient PT if can be arranged. Patient clinically stable this time. Will plan discharge accordingly. Pt Condition on Discharge: Stable Discharge Disposition: Discharge Home Discharge Time: > 30 minutes Discharge Instructions DIET: Follow Instructions for: Diabetic Diet Activities you can perform: Regular-No Restrictions Follow up Referrals: PCP Follow-up - 1 Week Surgical - 1 Week New Medications: Amlodipine (Norvasc) 5 Mg Tab 5 MG PO DAILY Blood Pressure Management #30 TAB Gabapentin (Neurontin) 300 Mg Cap 600 MG PO BID neuropathy #112 CAP Insulin Detemir Inj (Levemir Inj) 1,000 unit/ 10 ML Vial 85 UNITS SQ HS Blood Sugar Management Days 30 INJECTION Insulin Detemir Inj (Levemir Inj) 1,000 unit/ 10 ML Vial 78 UNITS SQ AC BREAKFAST Blood Sugar Management Days 30 INJECTION Continued Medications: Lisinopril (Lisinopril) 10 Mg Tab 10 MG PO DAILY #90 Ref 6 TAB Methadone (Methadone) 40 Mg Tab 220 MG PO DAILY Ref 0 TAB Omeprazole (Omeprazole) 40 Mg Cap 40 MG PO DAILY #30 Ref 0 CAP Javan Hsu Dec 05, 2016 15:09
[2016-12-05] MEDS ORDERED: WALKER WHEELS/F1 MIS (15:13)
[2016-12-05 17:15] VITALS: RESP 18
== END 2016-12-05 18:04 | disposition home or self-care (01) | DRG 616 ==
LOC: NEPC 02:02 → INTOOBSV 05:06 → NEDA 05:06 → OBSVTOIN 07:52 → NEPGCP 08:42 → N07B 11-13 16:19 → PH5A 11-28 20:04
PROVIDERS: ADMIT Family Medicine; ATTEND Family Medicine
PROC: 0Y6H0Z1 Detachment at Right Lower Leg, High, Open Approach (ICD-10-PCS; principal; 2016-11-13 14:06)
DX: E11.69 Type 2 diabetes mellitus with other specified complication (principal); A48.0 Gas gangrene; N17.9 Acute kidney failure, unspecified; E11.40 Type 2 diabetes mellitus with diabetic neuropathy, unspecified; M86.171 Other acute osteomyelitis, right ankle and foot; G54.6 Phantom limb syndrome with pain; E11.610 Type 2 diabetes mellitus with diabetic neuropathic arthropathy; F11.20 Opioid dependence, uncomplicated; I48.91 Unspecified atrial fibrillation; I10 Essential (primary) hypertension; L03.115 Cellulitis of right lower limb; E11.621 Type 2 diabetes mellitus with foot ulcer; L97.519 Non-pressure chronic ulcer of other part of right foot with unspecified severity; Z85.828 Personal history of other malignant neoplasm of skin; Z87.442 Personal history of urinary calculi; M19.90 Unspecified osteoarthritis, unspecified site; K21.9 Gastro-esophageal reflux disease without esophagitis; M54.9 Dorsalgia, unspecified; Z91.041 Radiographic dye allergy status; F17.210 Nicotine dependence, cigarettes, uncomplicated; Z79.4 Long term (current) use of insulin; E11.649 Type 2 diabetes mellitus with hypoglycemia without coma; I73.9 Peripheral vascular disease, unspecified; Z79.891 Long term (current) use of opiate analgesic; B19.20 Unspecified viral hepatitis C without hepatic coma; G89.21 Chronic pain due to trauma; G47.00 Insomnia, unspecified; L21.9 Seborrheic dermatitis, unspecified; N47.1 Phimosis; E11.628 Type 2 diabetes mellitus with other skin complications
CPT/HCPCS: 73630; 73720; 76775; 76937; 80048; 80053; 80202; 81001; 82550; 82552; 82565; 82948; 83036; 83605; 83735; 85007; 85025; 85027; 85610; 85730; 86850; 86900; 86901; 87040; 88307; 88311; 93005; 99284; A9579; C9290; J1170; J1650; J1815; J1956; J2250; J2270; J2405; J2543; J3010; J3370; J7030; J7040; J7050

== ENCOUNTER 2017-04-24 22:04 | Inpatient (IN) | payer MEDICAID, OTHER ==
[~2017-04-24] VITALS: Ht 177.8 cm; Wt 92.0 kg
[~2017-04-24 22:04] MED LIST changes: +AMLO5 PO; -CIPR-9 PO; -GABA600T PO; -GLUCTES27 TOP; -HYDR-3535 PO; -HYDR25TA5 PO; -INSU-170; -MISC-226; +NEUR300C PO; -NEUR400C PO; -NOVOLOGP2 SQ; +OMEP40CA2 PO; -PRIL40CA PO; +WALKER WHEELS/F1 MIS
[2017-04-24 22:08] VITALS: BP 124/86; PULSE 78; RESP 16; TEMP 99.8; O2SAT 96
--- NOTE | 2017-04-24 22:26 | PD ---
Physical Exam Date Seen by Provider: Apr 24, 2017 Time Seen by Provider: 22:25 Narrative 51 YOWM C/O R KNEE PAIN ,RED AND SWOLLEN X 2DAYS VS REVIEWED WAITING FOR BED PLACEMENT Data Data Last Documented VS Vital Signs Date Time Temp Pulse Resp B/P Pulse Ox O2 Delivery O2 Flow Rate FiO2 04/24/17 22:08 99.8 78 16 124/86 96 Room Air MDM Supervised Visit with LIAM: Franklin Martinez Apr 24, 2017 22:26
[2017-04-24] MEDS ORDERED: VANCOMYCIN INJ 1,000 MG in SODIUM CHLOR 0.9% 250 ML INJ 250 ML IV STA (22:39)
[2017-04-24] MEDS ORDERED: PIPERACIL-TAZO 4.5 GM PREMIX 100 ML IV STA (22:39)
--- NOTE | 2017-04-24 22:39 | PD ---
HPI Chief Complaint: Skin Problem Time Seen by Provider: 22:28 Travel History International Travel<30 days: No Contact w/Intl Traveler<30days: No Traveled to known affect area: No History of Present Illness HPI PATIENT COMES IN C/O 2 DAY H/O SWELLING AND REDNESS TO ANTERIOR RIGHT KNEE CAP, HAS NOT SEEN ANYONE ABOUT IT AND NO CURRENT ABX...knee pain, sharp, 8/10, nonradiating, denies fever. NO PCP DR Gonzalez" PERFORMED RIGHT BKA PMHX: IDDM PFSH Past Medical History Arthritis: Yes Autoimmune Disease: No Anxiety: No Depression: No Heart Rhythm Problems: No Cancer: Yes (Skin cancer on nose ) Cardiovascular Problems: Yes (htn) Chemotherapy: No Chest Pain: No Congestive Heart Failure: No Cerebrovascular Accident: No Diabetes: Yes Diminished Hearing: No Endocrine: Yes Gastrointestinal Disorders: No GERD: Yes Genitourinary: No Headaches: No Hepatitis: Yes (C) Hiatal Hernia: No Hypertension: Yes Immune Disorder: No Implanted Vascular Access Dvce: No Kidney Stones: Yes Musculoskeletal: Yes (CHRONIC BACK PAIN/DDD/HERNIATED DISC) Neurologic: No Psychiatric: No Reproductive: No Respiratory: No Immunizations Current: Yes Migraines: No Radiation Therapy: No Renal Failure: No Seizures: No Sickle Cell Disease: No Thyroid Disease: No Ulcer: No Past Surgical History Abdominal Surgery: No AICD: No Appendectomy: Yes Arteriovenous Shunt: No Cardiac Surgery: No Ear Surgery: No Endocrine Surgery: No Eye Surgery: No Genitourinary Surgery: No Gynecologic Surgery: No Insulin Pump: No Joint Replacement: No Neurologic Surgery: No Oral Surgery: No Pacemaker: No Thoracic Surgery: No Other Surgery: Yes (NOSE, SKIN GRAFT) Social History Alcohol Use: No Tobacco Use: Yes (2 CIGS PER DAY) Substance Use: No Allergies-Medications (Allergen,Severity, Reaction): Coded Allergies: diatrizoate meglumine (Unverified Allergy, Severe, 04/24/17) gadobenic acid (Unverified Allergy, Severe, 04/24/17) gadodiamide (Unverified Allergy, Severe, 04/24/17) gadoteridol (Unverified Allergy, Severe, 04/24/17) iodixanol (Unverified Allergy, Severe, 04/24/17) iohexol (Unverified Allergy, Severe, 04/24/17) adhesive (Verified Allergy, Intermediate, Rash, 04/25/17) Uncoded Allergies: iv plyeogram dye (Allergy, Severe, Anaphylaxis, 04/25/17) Reported Meds & Prescriptions Reported Meds & Active Scripts Active Walker with Front Wheels (Device) 1 Mis Mis 1 Ea .ROUTE DIRECTED Levemir Inj (Insulin Detemir) 1,000 unit/ 10 ML Vial 78 Units SQ AC BREAKFAST 30 Days Levemir Inj (Insulin Detemir) 1,000 unit/ 10 ML Vial 85 Units SQ HS 30 Days Neurontin (Gabapentin) 300 Mg Cap 600 Mg PO BID Lisinopril 10 Mg Tab 10 Mg PO DAILY Reported Omeprazole 40 Mg Cap 40 Mg PO DAILY Methadone (Methadone HCl) 40 Mg Tab 220 Mg PO DAILY Review of Systems Except as stated in HPI: all other systems reviewed are Neg General / Constitutional: Positive: Fever Skin: Positive Rash, Positive Lesions Physical Exam Narrative GENERAL: SKIN: Warm and dry. HEAD: Atraumatic. Normocephalic. EYES: Pupils equal and round. No scleral icterus. No injection or drainage. ENT: No nasal bleeding or discharge. Mucous membranes pink and moist. NECK: Trachea midline. No JVD. CARDIOVASCULAR: Regular rate and rhythm. RESPIRATORY: No accessory muscle use. Clear to auscultation. Breath sounds equal bilaterally. GASTROINTESTINAL: Abdomen soft, non-tender, nondistended. Hepatic and splenic margins not palpable. MUSCULOSKELETAL: Extremities without clubbing, cyanosis, or edema. No obvious deformities. RIGHT BKA,....ANTERIOR TO PATELLA AREA OF 6CM DIAMETER INDURATION , CELLULITIC CHANGES SPREADS OVER REGIONS WHERE ARTHROCENTESIS WOULD BE DONE THEREFORE ABSOLUTE CONTRAINDICATION TO ARTHOCENTESIS EXIST, WILL TREAT EMPIRICALLY NEUROLOGICAL: Awake and alert. No obvious cranial nerve deficits. Motor grossly within normal limits. Five out of 5 muscle strength in the arms and legs. Normal speech. PSYCHIATRIC: Appropriate mood and affect; insight and judgment normal. Data Data Last Documented VS Orders Orders Complete Blood Count With Diff (04/24/17 22:39) Comprehensive Metabolic Panel (04/24/17 22:39) Lactic Acid Sepsis Protocol (04/24/17 22:39) Blood Culture (04/24/17 22:39) Chest, Single Ap (04/24/17 22:39) Blood Glucose (04/24/17 22:39) Ecg Monitoring (04/24/17 22:39) Iv Access Insert/Monitor (04/24/17 22:39) Oximetry (04/24/17 22:39) Oxygen Administration (04/24/17 22:39) Hydromorphone Pf Inj (Dilaudid Pf Inj) (04/24/17 22:45) Ondansetron Inj (Zofran Inj) (04/24/17 22:45) Piperacil-Tazo 4.5 Gm Premix (Zosyn 4.5 (04/24/17 22:39) Vancomycin Inj (Vancomycin Inj) (04/24/17 22:39) Knee, Ltd (1 Or 2vws) (04/24/17 ) Sodium Chlor 0.9% 1000 Ml Inj (Ns 1000 M (04/25/17 00:00) Admit Order (Ed Use Only) (04/24/17 23:59) Labs Laboratory Tests Test 04/24/17 22:40 White Blood Count 12.7 TH/MM3 Red Blood Count 4.54 MIL/MM3 Hemoglobin 13.7 GM/DL Hematocrit 39.8 % Mean Corpuscular Volume 87.6 FL Mean Corpuscular Hemoglobin 30.1 PG Mean Corpuscular Hemoglobin Concent 34.4 % Red Cell Distribution Width 13.5 % Platelet Count 119 TH/MM3 Mean Platelet Volume 11.3 FL Neutrophils (%) (Auto) 68.7 % Lymphocytes (%) (Auto) 20.5 % Monocytes (%) (Auto) 8.2 % Eosinophils (%) (Auto) 0.9 % Basophils (%) (Auto) 1.7 % Neutrophils # (Auto) 8.8 TH/MM3 Lymphocytes # (Auto) 2.6 TH/MM3 Monocytes # (Auto) 1.0 TH/MM3 Eosinophils # (Auto) 0.1 TH/MM3 Basophils # (Auto) 0.2 TH/MM3 CBC Comment DIFF FINAL Differential Comment Blood Urea Nitrogen 18 MG/DL Creatinine 1.01 MG/DL Random Glucose 217 MG/DL Total Protein 7.5 GM/DL Albumin 3.0 GM/DL Calcium Level 8.6 MG/DL Alkaline Phosphatase 121 U/L Aspartate Amino Transf (AST/SGOT) 35 U/L Alanine Aminotransferase (ALT/SGPT) 41 U/L Total Bilirubin 0.8 MG/DL Sodium Level 136 MEQ/L Potassium Level 4.7 MEQ/L Chloride Level 99 MEQ/L Carbon Dioxide Level 30.7 MEQ/L Anion Gap 6 MEQ/L Estimat Glomerular Filtration Rate 79 ML/MIN Lactic Acid Level 2.2 mmol/L [facility] Medical Decision Making Medical Screen Exam Complete: Yes Emergency Medical Condition: Yes Medical Record Reviewed: Yes Differential Diagnosis cellulitis v septic knee v osteomyelitis Narrative Course patient seen and noted skin induration however cellulitis over entire anterior knee made it impossible to perform arthrocentesis, will treat empirically with vanco/zosyn combo...patient lactic acid wnl and only minor leukocytosis present. patient admitted to observation Diagnosis Primary Impression: Cellulitis of knee, right Admitting Information Admitting Physician Requests: Admit Scripts Oxycodone-Acetaminophen (Percocet) 5-325 mg Tab 1 TAB PO Q4H Y for PAIN, #30 TAB 0 Refills Prov: Willis Pulido Jr., MD 04/28/17 Andrew Padilla MD Apr 24, 2017 22:39
[2017-04-24 22:44] VITALS: O2SAT 97
[2017-04-24] MEDS ORDERED: HYDROmorphone HCL PF 1 MG/ML VIAL IV ONE (22:45)
[2017-04-24] MEDS ORDERED: ONDANSETRON HCL 4 MG/2 ML VIAL IV ONE (22:45)
[2017-04-24 23:10] LABS: AUTOMATED NEUTROPHIL # 8.8 TH/MM3 (1.8-7.7); BASOPHIL # 0.2 TH/MM3 (0-0.2); BASOPHIL % 1.7 % (0.0-2.0); EOSINOPHIL # 0.1 TH/MM3 (0-0.4); EOSINOPHIL % 0.9 % (0.0-4.0); HEMATOCRIT 39.8 % (39.0-51.0); HEMO FLAGS DIFF FINAL; LYMPH % 20.5 % (9.0-44.0); LYMPHOCYTE # 2.6 TH/MM3 (1.0-4.8); MEAN CELL VOLUME 87.6 FL (80.0-100.0); MEAN CORPUSCULAR HEMOGLOBIN 30.1 PG (27.0-34.0); MEAN CORPUSCULAR HGB CONC 34.4 % (32.0-36.0); MONO % 8.2 % (0.0-8.0); NEUT % 68.7 % (16.0-70.0); PLATELET COUNT 119 TH/MM3 (150-450); RED BLOOD COUNT 4.54 MIL/MM3 (4.50-5.90); RED CELL DISTRIBUTION WIDTH 13.5 % (11.6-17.2); WHITE BLOOD COUNT 12.7 TH/MM3 (4.0-11.0)
--- NOTE | 2017-04-24 23:22 | RADRPT ---
EXAM DATE/TIME: 04/24/2017 22:57 [place] COMPARISON: CHEST SINGLE AP, June 28, 2016, 17:10. INDICATIONS : Osteomyelitis. MEDICAL HISTORY : Hepatitis C. Diabetes mellitus type II. Hypertension. SURGICAL HISTORY : Amputation 2nd metatarsal rt foot. ENCOUNTER: Initial ACUITY: 2 days PAIN SCORE: 9/10 LOCATION: Bilateral chest FINDINGS: A single view of the chest demonstrates the lungs to be symmetrically aerated without evidence of mas s, infiltrate or effusion. The cardiomediastinal contours are unremarkable. Osseous structures are intact. CONCLUSION: No acute cardiopulmonary process. Eleuterio Carbajal MD on April 24, 2017 at 23:20 Board Certified Radiologist. This report was verified electronically.
--- NOTE | 2017-04-24 23:29 | RADRPT ---
EXAM DATE/TIME: 04/24/2017 22:59 [place] COMPARISON: No previous studies available for comparison. INDICATIONS : Osteomyelitis. MEDICAL HISTORY : Hepatitis C. Diabetes mellitus type II. Hypertension. SURGICAL HISTORY : Amputation. ENCOUNTER: Initial ACUITY: 2 days PAIN SCORE: 9/10 LOCATION: Right Knee. FINDINGS: Two view examination of the right knee demonstrates a BKA. There is some periosteal reaction about th e abbreviated fibular diaphysis. Osseous structures are otherwise intact. Overlying soft tissues are also intact with suggestion of some increased density in the region of the stump which could represen t some soft tissue induration. No regional air. CONCLUSION: 1. BKA. 2. Nonspecific periosteal reaction about the abbreviated fibular diaphysis. Osseous structures are ot herwise intact with no obvious plain film findings of osteomyelitis. 3. No soft tissue air. 4. There may be some increased density of the soft tissues of the stump possibly representing regiona l induration Eleuterio Carbajal MD on April 24, 2017 at 23:23 Board Certified Radiologist. This report was verified electronically.
[2017-04-24 23:38] LABS: ALKALINE PHOSPHATASE 121 U/L (45-117); TOTAL BILIRUBIN ADULT 0.8 MG/DL (0.2-1.0)
[2017-04-24 23:41] LABS: ALT (GPT) 41 U/L (12-78); ANION GAP 6 MEQ/L (5-15); AST (GOT) 35 U/L (15-37); BICARBONATE 30.7 MEQ/L (21.0-32.0); BLOOD UREA NITROGEN 18 MG/DL (7-18); CHLORIDE 99 MEQ/L (98-107); GLOMERULAR FILTRATION RATE 79 ML/MIN (>89); SODIUM (NA) 136 MEQ/L (136-145)
[2017-04-24 23:43] LABS: POTASSIUM 4.7 MEQ/L (3.5-5.1)
[2017-04-25] VITALS (7 sets, daily range): BP systolic 113–159; BP diastolic 55–91; PULSE 62–85; RESP 17–20; TEMP 97.8–99.2; O2SAT 94–97
[2017-04-25] MEDS ORDERED: SODIUM CHLOR 0.9% 1000 ML INJ 1,000 ML IV ONE
[2017-04-25] MEDS ORDERED: BISACODYL 10 MG SUPP RECTAL PRN (00:30)
[2017-04-25] MEDS ORDERED: ACETAMINOPHEN 325 MG TAB PO PRN (00:30)
[2017-04-25] MEDS ORDERED: LACTULOSE SYRUP 20 GM/30 ML CUP PO PRN (00:30)
[2017-04-25] MEDS ORDERED: SENNOSIDES 8.6 MG TAB PO PRN (00:30)
[2017-04-25] MEDS ORDERED: MAGNESIUM HYDROXIDE SUSP 30 ML CUP PO PRN (00:30)
[2017-04-25] MEDS ORDERED: GLUCAGON 1 MG/ML VIAL OTHER PRN (00:30)
[2017-04-25] MEDS ORDERED: ACETAMINOPHEN/HYDROcodone 325 MG/5 MG TAB PO PRN (00:30)
[2017-04-25] MEDS ORDERED: ONDANSETRON HCL 4 MG/2 ML VIAL IVP PRN (00:30)
[2017-04-25] MEDS ORDERED: DEXTROSE 50% IN WATER 50 ML VIAL(D50) IV PRN (00:30)
[2017-04-25] MEDS ORDERED: SODIUM CHLORIDE 0.9% FLUSH 10 ML FLUSH IV FLUSH PRN (00:30)
[2017-04-25 01:00] LABS: LACTIC ACID GHOST NOT REPORTABLE
[2017-04-25] MEDS: SODIUM CHLOR 0.9% 1000 ML INJ 1,000 ML IV SCH ×3 (03:15→22:45)
[2017-04-25] MEDS: MORPHINE SULFATE 4 MG/ML INJ IV PRN ×4 (03:42→19:59)
--- NOTE | 2017-04-25 04:21 | HHI.HP ---
HPI Service [facility] Primary Care Physician Ronadlo Sun Admission Diagnosis RIGHT KNEE CELLULITIS R/O OSTEO Diagnoses: (1) Sepsis Diagnosis: Principal (2) Cellulitis Diagnosis: Principal (3) Dehydration Diagnosis: Principal (4) Thrombocytopenia Diagnosis: Principal (5) DM (diabetes mellitus) Diagnosis: Principal Travel History International Travel<30 Days: No Contact w/Intl Traveler <30 Da: No Traveled to Known Affected Are: No History of Present Illness This is a 51-year-old male with a PMH of HTN, DM, Tobacco Abuse and h/o Right BKA who presented to the ER w/ complaints of right stump redness and swelling x2 days. Denies fever or chills. On arrival, BP 124/86, HR 78, O2 sat 96% on RA, Temp 99.8. W WBC 12.7. Platelets 119, previously 91 on 12/04/16. Chemistry essentially unremarkable except for GFR 79. Lactic Acid 2.2. CXR with no acute findings. Knee X-ray with nonspecific periosteal reaction. No obvious findings of osteomyelitis. S/p Blood Culture, Vanc/Zosyn in ER. Review of Systems Except as stated in HPI: all other systems reviewed are Neg ROS: 14 point review of systems otherwise negative. Past Family Social History Past Medical History PMH: HTN, DM, Tobacco Abuse and h/o Right BKA Past Surgical History PAST SURGICAL HISTORY: Right BKA, Skin Graft Allergies: Coded Allergies: diatrizoate meglumine (Unverified Allergy, Severe, 04/24/17) gadobenic acid (Unverified Allergy, Severe, 04/24/17) gadodiamide (Unverified Allergy, Severe, 04/24/17) gadoteridol (Unverified Allergy, Severe, 04/24/17) iodixanol (Unverified Allergy, Severe, 04/24/17) iohexol (Unverified Allergy, Severe, 04/24/17) adhesive (Verified Allergy, Intermediate, Rash, 04/25/17) Uncoded Allergies: iv plyeogram dye (Allergy, Severe, Anaphylaxis, 04/25/17) Family History PAST FAMILY HISTORY: Reviewed. No h/o DM or CAD Social History PAST SOCIAL HISTORY: Negative for alcohol or drugs. Smokes 2 cigars per day. Physical Exam Vital Signs Vital Signs Date Time Temp Pulse Resp B/P Pulse Ox O2 Delivery O2 Flow Rate FiO2 04/25/17 02:56 98.6 85 17 157/74 95 04/25/17 00:08 73 18 113/55 95 Room Air 04/24/17 22:44 97 Room Air 04/24/17 22:44 97 Room Air 04/24/17 22:08 99.8 78 16 124/86 96 Room Air Physical Exam PE: GENERAL: Middle-aged white male in no acute distress. HEENT: PERRLA, EOMI. No scleral icterus or conjunctival pallor. No lid lag or facial droop. CARDIOVASCULAR: Regular rate and rhythm. No obvious murmurs to auscultation. No chest tenderness to palpation. RESPIRATORY: No obvious rhonchi or wheezing. Clear to auscultation. Breath sounds equal bilaterally. GASTROINTESTINAL: Abdomen soft, non-tender, nondistended. BS normal. MUSCULOSKELETAL: Extremities without clubbing, cyanosis, or edema. No obvious deformities. Right BKA, cellulitis/erythema, no abscess noted. NEUROLOGICAL: Awake, alert and oriented x4. No focal neurologic deficits. Moving both upper and lower extremities spontaneously. Laboratory Laboratory Tests Test 04/24/17 04/25/17 22:40 01:50 White Blood Count 12.7 Red Blood Count 4.54 Hemoglobin 13.7 Hematocrit 39.8 Mean Corpuscular Volume 87.6 Mean Corpuscular Hemoglobin 30.1 Mean Corpuscular Hemoglobin 34.4 Concent Red Cell Distribution Width 13.5 Platelet Count 119 Mean Platelet Volume 11.3 Neutrophils (%) (Auto) 68.7 Lymphocytes (%) (Auto) 20.5 Monocytes (%) (Auto) 8.2 Eosinophils (%) (Auto) 0.9 Basophils (%) (Auto) 1.7 Neutrophils # (Auto) 8.8 Lymphocytes # (Auto) 2.6 Monocytes # (Auto) 1.0 Eosinophils # (Auto) 0.1 Basophils # (Auto) 0.2 CBC Comment DIFF FINAL Differential Comment Sodium Level 136 Potassium Level 4.7 Chloride Level 99 Carbon Dioxide Level 30.7 Anion Gap 6 Blood Urea Nitrogen 18 Creatinine 1.01 Estimat Glomerular Filtration 79 Rate Random Glucose 217 Calcium Level 8.6 Total Bilirubin 0.8 Aspartate Amino Transf 35 (AST/SGOT) Alanine Aminotransferase 41 (ALT/SGPT) Alkaline Phosphatase 121 Total Protein 7.5 Albumin 3.0 Lactic Acid Level 2.2 1.2 Date/Time Procedure Status Source Growth 04/24/17 22:50 Aerobic Blood Culture Received Blood Peripheral Pending 04/24/17 22:50 Anaerobic Blood Culture Received Blood Peripheral Pending Result Diagram: 04/24/17223904/24/172239 Assessment and Plan Problem List: (1) Sepsis ICD Code: A41.9 Status: Acute (2) Cellulitis ICD Code: L03.90 Status: Acute (3) Dehydration ICD Code: E86.0 Status: Acute (4) Thrombocytopenia ICD Code: D69.6 Status: Acute (5) DM (diabetes mellitus) ICD Code: E11.9 Status: Acute Assessment and Plan A/P: 1. Sepsis: Temp 99.8, WBC 12.7, Lactic Acid 2.2. Source-Stump Infection. S/ p Blood Cultures, Vanc/Zosyn in ER. Will follow up cultures, continue IV Abx, IVF. Repeat Lactic Acid normalized. 2. Cellulitis: Right Stump Infection, no abscess noted. Knee X-ray w/ nonspecific periosteal reaction, osseous structures otherwise intact with no obvious findings of osteomyelitis, images reviewed by me. Continue w/ IV Abx as above. Repeat labs in am, IVF for hydration 3. Dehydration: GFR 79, previously normal 12/04/16. IVF for hydration, repeat labs in am. 4. Thrombocytopenia: Platelets 119, previously 91 on 12/04/16. Active bleeding noted at this time. Will monitor. Repeat labs in a.m. 5. DM: Resume home insulin. Sliding scale Accu-Cheks. 6. DVT Prophylaxis: Heparin sq 7. Social work for DC planning as needed. 8. Case discussed at length with ER physician. Physician Certification 2 Midnight Certification Type: Admission for Inpatient Services Order for Inpatient Services The services are ordered in accordance with Medicare regulations or non- Medicare payer requirements, as applicable. In the case of services not specified as inpatient-only, they are appropriately provided as inpatient services in accordance with the 2-midnight benchmark. Estimated LOS (days): 2 days is the estimated time the patient will need to remain in the hospital, assuming treatment plan goals are met and no additional complications. Post-Hospital Plan: Not yet determined Problem Qualifiers (1) Cellulitis: Qualified Code: L03.115 - Cellulitis of right lower extremity Clarisse Gomez MD Apr 25, 2017 04:21
[2017-04-25] MEDS: INSULIN ASPART SUPPLEMENTAL SCALE SQ SCH ×3 (07:19→18:32)
[2017-04-25] MEDS: GABAPENTIN 300 MG CAP PO SCH ×2 (10:02→22:46)
[2017-04-25] MEDS: LISINOPRIL 10 MG TAB PO SCH (10:02)
[2017-04-25] MEDS: DOCUSATE SODIUM 50 MG/SENNA 8.6 MG TAB PO SCH ×2 (10:02→21:00)
[2017-04-25] MEDS: PANTOPRAZOLE SOD 40 MG DELAYED RELEASE TAB PO SCH (10:02)
[2017-04-25] MEDS: METHADONE HCL 10 MG TAB PO SCH (10:04)
[2017-04-25] MEDS: SODIUM CHLORIDE 0.9% FLUSH 10 ML FLUSH IV FLUSH SCH ×2 (10:04→21:00)
[2017-04-25 18:42] LABS: AUTOMATED NEUTROPHIL # 6.9 TH/MM3 (1.8-7.7); BASOPHIL % 0.5 % (0.0-2.0); EOSINOPHIL # 0.2 TH/MM3 (0-0.4); EOSINOPHIL % 1.8 % (0.0-4.0); HEMATOCRIT 38.3 % (39.0-51.0); HEMO FLAGS DIFF FINAL; LYMPH % 15.6 % (9.0-44.0); LYMPHOCYTE # 1.5 TH/MM3 (1.0-4.8); MEAN CORPUSCULAR HEMOGLOBIN 30.4 PG (27.0-34.0); MEAN CORPUSCULAR HGB CONC 34.6 % (32.0-36.0); MONO % 11.3 % (0.0-8.0); NEUT % 70.8 % (16.0-70.0); PLATELET COUNT 104 TH/MM3 (150-450); RED BLOOD COUNT 4.35 MIL/MM3 (4.50-5.90); RED CELL DISTRIBUTION WIDTH 13.7 % (11.6-17.2); WHITE BLOOD COUNT 9.7 TH/MM3 (4.0-11.0)
--- NOTE | 2017-04-25 18:52 | HHI.PR ---
Subjective Remarks Patient seen, complaining of pain of knee, knee appears red, has TTP, is able to flex without much pain, trouble extending but can eventually do it. Will tavia erythema borders with marker and reassess in AM Objective Vital Signs Date Time Temp Pulse Resp B/P Pulse Ox O2 Delivery O2 Flow Rate FiO2 04/25/17 16:35 98.2 66 20 139/79 95 04/25/17 12:09 97.9 62 18 154/80 96 04/25/17 07:56 97.8 62 20 158/86 95 04/25/17 04:58 98.3 66 18 142/91 94 04/25/17 02:56 98.6 85 17 157/74 95 04/25/17 00:08 73 18 113/55 95 Room Air 04/24/17 22:44 97 Room Air 04/24/17 22:44 97 Room Air 04/24/17 22:08 99.8 78 16 124/86 96 Room Air I/O 04/24/17 04/24/17 04/24/17 04/25/17 04/25/17 04/25/17 07:00 15:00 23:00 07:00 15:00 23:00 Intake Total 750 ml Output Total 1000 ml Balance -250 ml Intake Oral 750 ml Output Urine Total 1000 ml Result Diagram: 04/25/17 1827 04/24/17 2240 Anthony Rico MD Apr 25, 2017 18:52
[2017-04-25] MEDS ORDERED: INSULIN DETEMIR 100 UNITS/ML VIAL SQ SCH ×2 (21:00)
[2017-04-25] MEDS ORDERED: HYDROmorphone HCL PF 1 MG/ML VIAL IV PUSH ONE (22:30)
[2017-04-25] MEDS: MEDIUM DOSE INSULIN NOVOLOG SUPPLEMENTAL SCALE SQ SCH (22:51)
[2017-04-26] VITALS (7 sets, daily range): BP systolic 134–184; BP diastolic 82–98; PULSE 59–71; RESP 18–22; TEMP 97.3–99.3; O2SAT 95–97
[2017-04-26] MEDS: MORPHINE SULFATE 4 MG/ML INJ IV PRN ×2 (02:39→06:05)
[2017-04-26] MEDS: MEDIUM DOSE INSULIN NOVOLOG SUPPLEMENTAL SCALE SQ SCH (06:07)
[2017-04-26] MEDS: SODIUM CHLOR 0.9% 1000 ML INJ 1,000 ML IV SCH ×2 (08:32→16:17)
[2017-04-26] MEDS: DOCUSATE SODIUM 50 MG/SENNA 8.6 MG TAB PO SCH ×2 (08:34→20:40)
[2017-04-26] MEDS: PANTOPRAZOLE SOD 40 MG DELAYED RELEASE TAB PO SCH (08:34)
[2017-04-26] MEDS: HEPARIN SODIUM - SQ 10,000 UNITS/ML VIAL SQ SCH ×2 (08:34→20:40)
[2017-04-26] MEDS: GABAPENTIN 300 MG CAP PO SCH ×2 (08:34→20:37)
[2017-04-26] MEDS: LISINOPRIL 10 MG TAB PO SCH (08:34)
[2017-04-26] MEDS: METHADONE HCL 10 MG TAB PO SCH (08:35)
[2017-04-26] MEDS: SODIUM CHLORIDE 0.9% FLUSH 10 ML FLUSH IV FLUSH SCH ×2 (08:36→20:39)
[2017-04-26] MEDS ORDERED: Vancomycin Consult Pharmacy 1 EA OTHER SCH (09:00)
[2017-04-26] MEDS: POLYETHYLENE GLYCOL 17 GM PKG PO SCH (09:00)
[2017-04-26 09:45] LABS: ANION GAP 4 MEQ/L (5-15); AST (GOT) 20 U/L (15-37); BICARBONATE 30.8 MEQ/L (21.0-32.0); BLOOD UREA NITROGEN 11 MG/DL (7-18); CHLORIDE 98 MEQ/L (98-107); GLOMERULAR FILTRATION RATE 112 ML/MIN (>89); POTASSIUM 4.4 MEQ/L (3.5-5.1); SODIUM (NA) 133 MEQ/L (136-145)
[2017-04-26 09:47] LABS: ALT (GPT) 32 U/L (12-78)
[2017-04-26] MEDS: PIPERACIL-TAZO 4.5 GM PREMIX 100 ML IV SCH ×2 (09:47→18:00)
[2017-04-26 09:49] LABS: ALKALINE PHOSPHATASE 126 U/L (45-117); TOTAL BILIRUBIN ADULT 0.6 MG/DL (0.2-1.0)
--- NOTE | 2017-04-26 10:32 | HHI.PR ---
Subjective Remarks Patient says he still in pain, vocalizes concern that he is not getting antibiotics, thinks that his redness over the knee is slightly improved based upon the marking since yesterday. Thinks he can bend his knee a little bit further, says that this can is what is painful and that it feels tight when it is compressed on extension or stretched on flexion I verified with nursing, to confirm that he has not received antibiotics since his initial doses upon presentation to the emergency room. Patient says that he vocalized not receiving antibiotics and nursing staff yesterday, he did not vocalize this to me yesterday. Objective Vital Signs Date Time Temp Pulse Resp B/P Pulse Ox O2 Delivery O2 Flow Rate FiO2 04/26/17 07:32 98.1 59 18 157/86 97 04/26/17 03:48 98.2 63 18 147/82 96 04/26/17 00:14 98.3 65 18 142/82 97 04/25/17 20:19 99.2 70 18 159/88 97 04/25/17 16:35 98.2 66 20 139/79 95 04/25/17 12:09 97.9 62 18 154/80 96 I/O 04/25/17 04/25/17 04/25/17 04/26/17 04/26/17 04/26/17 07:00 15:00 23:00 07:00 15:00 23:00 Intake Total 750 ml 1500 ml Output Total 1000 ml 500 ml Balance -250 ml 1000 ml Intake Oral 750 ml 500 ml IV Total 1000 ml Output Urine Total 1000 ml 500 ml Result Diagram: 04/25/17 1827 04/26/17 0858 Imaging Last Impressions Chest X-Ray 04/24/17 2239 Signed Impressions: Service Date/Time: April 22:57 - CONCLUSION: No acute cardiopulmonary process. Eleuterio Carbajal MD Knee X-Ray 04/24/17 0000 Signed Impressions: Service Date/Time: April 22:59 - CONCLUSION: 1. BKA. 2. Nonspecific periosteal reaction about the abbreviated fibular diaphysis. Osseous structures are otherwise intact with no obvious plain film findings of osteomyelitis. 3. No soft tissue air. 4. There may be some increased density of the soft tissues of the stump possibly representing regional induration Eleuterio Carbajal MD Reported Meds & Active Scripts Active Walker with Front Wheels (Device) 1 Mis Mis 1 Ea .ROUTE DIRECTED Levemir Inj (Insulin Detemir) 1,000 unit/ 10 ML Vial 78 Units SQ AC BREAKFAST 30 Days Levemir Inj (Insulin Detemir) 1,000 unit/ 10 ML Vial 85 Units SQ HS 30 Days Neurontin (Gabapentin) 300 Mg Cap 600 Mg PO BID Lisinopril 10 Mg Tab 10 Mg PO DAILY Reported Omeprazole 40 Mg Cap 40 Mg PO DAILY Methadone (Methadone HCl) 40 Mg Tab 220 Mg PO DAILY Objective Remarks GENERAL: No acute distress, sitting comfortably in bed CARDIOVASCULAR: No lower extremity edema RESPIRATORY: Unlabored breathing MUSCULOSKELETAL: erythema and edema noted on skin over right patella that has receded within the borders marked yesterday, has tenderness to palpation A/P Assessment and Plan 1. Sepsis: Source likely cellulitis, blood cultures pending 2. Cellulitis: Edema noted over right knee, no abscess felt. Knee X-ray w/ nonspecific periosteal reaction, osseous structures otherwise intact with no obvious findings of osteomyelitis, I informed nursing to contact pharmacy immediately to restart the patient's vancomycin and Zosyn since this seems to be working after the first dose, I informed the patient that there was indeed a gap and antibiotic dosing and apologized to him for this. He was receptive. 3. Dehydration: IVF for hydration, repeat labs in am. 4. Thrombocytopenia: Monitor 5. DM: Have increased his sliding scale to hi dose dose and will continue to increase his nighttime Levemir since his sugars are still above 200. 6. DVT Prophylaxis: switching to lovenox Atnhony Rico MD Apr 26, 2017 10:32
[2017-04-26] MEDS: HYDROmorphone HCL PF 1 MG/ML VIAL IV PUSH PRN ×3 (10:41→20:37)
[2017-04-26] MEDS ORDERED: VANCOMYCIN INJ 1,250 MG in SODIUM CHLOR 0.9% 250 ML INJ 250 ML IV ONE (11:00)
[2017-04-26] MEDS: INSULIN ASPART SUPPLEMENTAL SCALE SQ SCH ×3 (13:39→20:46)
[2017-04-26] MEDS: INSULIN DETEMIR 100 UNITS/ML VIAL SQ SCH (20:44)
[2017-04-27] VITALS: BP 150/78; PULSE 72; RESP 18; TEMP 99; O2SAT 98
[2017-04-27] MEDS: VANCOMYCIN 1,500 MG/NS 500 ML IV SCH ×6 (00:52→22:08)
[2017-04-27] MEDS: HYDROmorphone HCL PF 1 MG/ML VIAL IV PUSH PRN ×4 (00:52→21:40)
[2017-04-27] MEDS: ACETAMINOPHEN/HYDROcodone 325 MG/10 MG TAB PO PRN ×4 (01:33→18:08)
[2017-04-27] MEDS: SODIUM CHLOR 0.9% 1000 ML INJ 1,000 ML IV SCH ×2 (02:28→22:17)
[2017-04-27] MEDS: PIPERACIL-TAZO 4.5 GM PREMIX 100 ML IV SCH ×3 (02:28→17:44)
[2017-04-27 04:00] VITALS: BP 148/77; PULSE 77; RESP 18; TEMP 98.6; O2SAT 95
[2017-04-27 05:21] LABS: AUTOMATED NEUTROPHIL # 8.5 TH/MM3 (1.8-7.7); BASOPHIL # 0.1 TH/MM3 (0-0.2); BASOPHIL % 0.5 % (0.0-2.0); EOSINOPHIL # 0.1 TH/MM3 (0-0.4); EOSINOPHIL % 1.3 % (0.0-4.0); HEMATOCRIT 36.7 % (39.0-51.0); HEMO FLAGS DIFF FINAL; LYMPH % 14.9 % (9.0-44.0); LYMPHOCYTE # 1.7 TH/MM3 (1.0-4.8); MEAN CELL VOLUME 86.9 FL (80.0-100.0); MEAN CORPUSCULAR HEMOGLOBIN 29.6 PG (27.0-34.0); MEAN CORPUSCULAR HGB CONC 34.1 % (32.0-36.0); MONO % 9.6 % (0.0-8.0); NEUT % 73.7 % (16.0-70.0); PLATELET COUNT 117 TH/MM3 (150-450); RED BLOOD COUNT 4.22 MIL/MM3 (4.50-5.90); RED CELL DISTRIBUTION WIDTH 13.2 % (11.6-17.2); WHITE BLOOD COUNT 11.6 TH/MM3 (4.0-11.0)
[2017-04-27] MEDS: INSULIN ASPART SUPPLEMENTAL SCALE SQ SCH ×4 (06:06→21:00)
[2017-04-27 06:29] LABS: BICARBONATE 28.5 MEQ/L (21.0-32.0); POTASSIUM 3.7 MEQ/L (3.5-5.1)
[2017-04-27] MEDS: GABAPENTIN 300 MG CAP PO SCH ×2 (09:00→21:40)
[2017-04-27] MEDS: HEPARIN SODIUM - SQ 10,000 UNITS/ML VIAL SQ SCH (09:00)
[2017-04-27] MEDS: POLYETHYLENE GLYCOL 17 GM PKG PO SCH ×2 (09:00→14:15)
[2017-04-27] MEDS: SODIUM CHLORIDE 0.9% FLUSH 10 ML FLUSH IV FLUSH SCH ×2 (09:00→21:42)
[2017-04-27] MEDS: LISINOPRIL 10 MG TAB PO SCH (09:00)
[2017-04-27] MEDS: DOCUSATE SODIUM 50 MG/SENNA 8.6 MG TAB PO SCH ×2 (09:00→21:00)
[2017-04-27] MEDS: PANTOPRAZOLE SOD 40 MG DELAYED RELEASE TAB PO SCH (09:00)
[2017-04-27] MEDS: METHADONE HCL 10 MG TAB PO SCH (09:00)
--- NOTE | 2017-04-27 14:52 | HHI.PR ---
Subjective Remarks Patient says his pain is slightly improved, reports increased mobility of his right knee joint, says that the overall redness has improved but it did expand both medially and laterally over the patella Objective Vital Signs Date Time Temp Pulse Resp B/P (MAP) Pulse Ox O2 Delivery O2 Flow Rate FiO2 04/27/17 04:00 98.6 77 18 148/77 (100) 95 04/27/17 00:00 99.0 72 18 150/78 (102) 98 04/26/17 20:00 98.2 71 20 184/95 (124) 96 04/26/17 17:00 99.3 69 22 175/98 (123) 95 04/26/17 15:34 98.5 65 18 134/93 (107) 97 I/O 04/26/17 04/26/17 04/26/17 04/27/17 04/27/17 04/27/17 07:00 15:00 23:00 07:00 15:00 23:00 Intake Total 360 ml 1551 ml Output Total 1300 ml 1900 ml Balance -940 ml -349 ml Intake Oral 360 ml 720 ml IV Total 831 ml Output Urine Total 1300 ml 1900 ml # Bowel Movements 0 0 Result Diagram: 04/27/17 0432 04/27/17431 Objective Remarks GENERAL: No acute distress, sitting comfortably in bed RESPIRATORY: Unlabored breathing MUSCULOSKELETAL: erythema and edema noted on skin over right patella that has receded within the borders marked yesterday, has tenderness to palpation; there is increased erythema spreading more medially and laterally over the most recently marked borders, erythema is receding on the other hand in the horizontal planes; has more mobility in flexion and extension than yesterday A/P Assessment and Plan 1. Sepsis: Source likely cellulitis, blood cultures pending, continue vanc and zosyn 2. Cellulitis: Equivocal status regarding improvement/worsening, consult orthopedics for surgical evaluation given that the cellulitis is immediately over the knee joint 3. Dehydration: IVF for hydration, repeat labs in am. 4. Thrombocytopenia: appears mild and chronic, monitor intermittently 5. DM: improved w/ levemir increased, continue HDSS. 6. DVT Prophylaxis: Anthony Domínguez MD Apr 27, 2017 14:52
[2017-04-27] MEDS ORDERED: ENOXAPARIN SODIUM 30 MG/0.3 ML SYRINGE SQ SCH (15:00)
[2017-04-27 16:06] VITALS: BP 129/86; PULSE 64; RESP 19; TEMP 97.9; O2SAT 95
[2017-04-27 20:00] VITALS: BP 155/89; PULSE 66; RESP 19; TEMP 99.4; O2SAT 98
--- NOTE | 2017-04-27 20:50 | PD.CONS ---
cc: Willis Pulido Jr., MD HPI [facility] Consult Requested By Primary Care Physician Ronaldo Sun D.O. Admission Diagnosis RIGHT KNEE CELLULITIS R/O OSTEO Diagnoses: (1) Sepsis (2) Cellulitis (3) Dehydration (4) Thrombocytopenia (5) DM (diabetes mellitus) Chief Complaint: RIGHT knee cellulitis History of Present Illness 51-year-old male with a PMH of HTN, DM, Tobacco Abuse and h/o Right BKA who presented to the ER w/ complaints of right stump redness and swelling x2 days. Denies fever or chills. He denies any history of recent trauma. Knee X-ray reveal nonspecific periosteal reaction. No obvious findings of osteomyelitis. Knee pain 3/10, associated with swelling and redness, improved over the past 24 hours with IV antibiotics, exacerbated by range of motion, not associated with any numbness or paresthesia to the extremity. ROS - General Review of Systems Except as stated in HPI: all other systems reviewed are Neg ROS: 14 point review of systems otherwise negative. PFSH Past Family Social History Past Medical History PMH: HTN, DM, Tobacco Abuse and h/o Right BKA Past Surgical History PAST SURGICAL HISTORY: Right BKA, Skin Graft Allergies: Coded Allergies: diatrizoate meglumine (Unverified Allergy, Severe, 04/24/17) gadobenic acid (Unverified Allergy, Severe, 04/24/17) gadodiamide (Unverified Allergy, Severe, 04/24/17) gadoteridol (Unverified Allergy, Severe, 04/24/17) iodixanol (Unverified Allergy, Severe, 04/24/17) iohexol (Unverified Allergy, Severe, 04/24/17) adhesive (Verified Allergy, Intermediate, Rash, 04/25/17) Uncoded Allergies: iv plyeogram dye (Allergy, Severe, Anaphylaxis, 04/25/17) Family History PAST FAMILY HISTORY: Reviewed. No h/o DM or CAD Social History PAST SOCIAL HISTORY: Negative for alcohol or drugs. Smokes 2 cigars per day. Review of Systems Constitutional: DENIES: Diaphoretic episodes, Fatigue, Fever, Weight gain, Weight loss, Chills, Dizziness, Change in appetite, Night Sweats Eyes: DENIES: Blurred vision, Diplopia, Eye inflammation, Eye pain, Vision loss , Photosensitivity, Double Vision Past Family Social History Past Medical History PMH: HTN, DM, Tobacco Abuse and h/o Right BKA Past Surgical History PAST SURGICAL HISTORY: Right BKA, Skin Graft Allergies: Coded Allergies: diatrizoate meglumine (Unverified Allergy, Severe, 04/24/17) gadobenic acid (Unverified Allergy, Severe, 04/24/17) gadodiamide (Unverified Allergy, Severe, 04/24/17) gadoteridol (Unverified Allergy, Severe, 04/24/17) iodixanol (Unverified Allergy, Severe, 04/24/17) iohexol (Unverified Allergy, Severe, 04/24/17) adhesive (Verified Allergy, Intermediate, Rash, 04/25/17) Uncoded Allergies: iv plyeogram dye (Allergy, Severe, Anaphylaxis, 04/25/17) Active Ordered Medications Current Medications Medications (Trade) Dose Ordered Sig/Ashish Route Start Time Stop Time Status Last Admin Sodium Chloride 1,000 ml @ 100 mls/hr Q10H IV 04/25/17 00:17 04/27/17 02:28 (NS Flush) 2 ml UNSCH PRN IV FLUSH 04/25/17 00:30 (NS Flush) 2 ml BID IV FLUSH 04/25/17 09:00 04/27/17 09:00 (Zofran Inj) 4 mg Q6H PRN IVP 04/25/17 00:30 (Tylenol) 650 mg Q6H PRN PO 04/25/17 00:30 ([place] 5-325 Mg) 1 tab Q4H PRN PO 04/25/17 00:30 (Oksana-Colace) 1 tab BID PO 04/25/17 09:00 (Milk Of Magnesia Liq) 30 ml Q12H PRN PO 04/25/17 00:30 (Senokot) 17.2 mg Q12H PRN PO 04/25/17 00:30 (Dulcolax Supp) 10 mg DAILY PRN RECTAL 04/25/17 00:30 (Lactulose Liq) 30 ml DAILY PRN PO 04/25/17 00:30 (D50w (Vial) Inj) 50 ml UNSCH PRN IV 04/25/17 00:30 (Glucagon Inj) 1 mg UNSCH PRN OTHER 04/25/17 00:30 (Neurontin) 600 mg BID PO 04/25/17 09:00 04/27/17 09:00 (Prinivil) 10 mg DAILY PO 04/25/17 09:00 04/27/17 09:00 (Dolophine) 220 mg DAILY PO 04/25/17 09:00 04/27/17 09:00 (Protonix) 40 mg DAILY PO 04/25/17 09:00 04/27/17 09:00 Pharmacy Profile Note 0 ml @ 0 mls/hr UNSCH OTHER 04/26/17 09:00 Piperacillin Sod/ Tazobactam Sod 100 ml @ 200 mls/hr Q8H IV 04/26/17 10:00 04/27/17 17:44 (Dilaudid Pf Inj) 1 mg Q4H PRN IV PUSH 04/26/17 09:00 04/27/17 16:26 (Miralax) 17 gm DAILY PO 04/26/17 09:00 (Levemir Inj) 100 units HS SQ 04/26/17 21:00 04/26/17 20:44 (NovoLOG SUPPLEMENTAL SCALE) 1 ACHS SLIDING SCALE SQ 04/26/17 11:00 04/27/17 16:34 Vancomycin HCl 1500 mg/Sodium Chloride 515 ml @ 257.5 mls/ hr Q12H IV 04/26/17 23:00 04/27/17 11:00 Miscellaneous Information SPECIFIC LAB TO BE SOPHY... ONCE ONCE .XX 04/28/17 10:45 04/28/17 10:46 ([place] 10-325 Mg) 1 tab Q6H PRN PO 04/27/17 01:30 04/27/17 18:08 (Lovenox Inj) 30 mg Q24H SQ 04/27/17 15:00 04/27/17 16:26 (Diprosone 0.05% Cream) 1 applic BID TOPICAL 04/27/17 21:00 Reported Meds & Active Scripts Active Walker with Front Wheels (Device) 1 Mis Mis 1 Ea .ROUTE DIRECTED Levemir Inj (Insulin Detemir) 1,000 unit/ 10 ML Vial 78 Units SQ AC BREAKFAST 30 Days Levemir Inj (Insulin Detemir) 1,000 unit/ 10 ML Vial 85 Units SQ HS 30 Days Neurontin (Gabapentin) 300 Mg Cap 600 Mg PO BID Lisinopril 10 Mg Tab 10 Mg PO DAILY Reported Omeprazole 40 Mg Cap 40 Mg PO DAILY Methadone (Methadone HCl) 40 Mg Tab 220 Mg PO DAILY Family History PAST FAMILY HISTORY: Reviewed. No h/o DM or CAD Social History PAST SOCIAL HISTORY: Negative for alcohol or drugs. Smokes 2 cigars per day. Physical Exam Vital Signs Vital Signs Date Time Temp Pulse Resp B/P (MAP) Pulse Ox O2 Delivery O2 Flow Rate FiO2 04/27/17 16:06 97.9 64 19 129/86 (100) 95 04/27/17 04:00 98.6 77 18 148/77 (100) 95 04/27/17 00:00 99.0 72 18 150/78 (102) 98 Physical Exam Alert awake and oriented x 3. No acute distress. Head: NC/AT Neck: No pain with any range of motion and neck. trachea is midline Pulmonary: Normal respiratory effort. Bilateral upper extremity: No deformities. Grossly neurovascularly intact. Intact motor in anterior interosseous, posterior interosseous, and ulnar nerve. 2+ radial artery pulses. Good cap refill. RIGHT lower extremity: Below-knee amputation stump and intact. Worsening erythema and fluctuance over patellar bursa, +TTP, painful knee ROM beyond 90 flex. Neurovascularly intact LEFT lower extremity: Neurovascularly intact, +EHL/FHL, + PT/DP pulses. Supple compartments. Negative Homans sign. Laboratory Laboratory Tests Test 04/26/17 21:15 04/27/17 04:32 Procalcitonin 0.14 White Blood Count 11.6 Red Blood Count 4.22 Hemoglobin 12.5 Hematocrit 36.7 Mean Corpuscular Volume 86.9 Mean Corpuscular Hemoglobin 29.6 Mean Corpuscular Hemoglobin Concent 34.1 Red Cell Distribution Width 13.2 Platelet Count 117 Mean Platelet Volume 9.7 Neutrophils (%) (Auto) 73.7 Lymphocytes (%) (Auto) 14.9 Monocytes (%) (Auto) 9.6 Eosinophils (%) (Auto) 1.3 Basophils (%) (Auto) 0.5 Neutrophils # (Auto) 8.5 Lymphocytes # (Auto) 1.7 Monocytes # (Auto) 1.1 Eosinophils # (Auto) 0.1 Basophils # (Auto) 0.1 CBC Comment DIFF FINAL Differential Comment Blood Urea Nitrogen 10 Creatinine 0.76 Random Glucose 171 Calcium Level 8.2 Sodium Level 135 Potassium Level 3.7 Chloride Level 99 Carbon Dioxide Level 28.5 Anion Gap 8 Estimat Glomerular Filtration Rate 109 Date/Time Source Procedure Growth Status 04/24/17 22:50 Blood Peripheral Aerobic Blood Culture - Preliminary NO GROWTH IN 3 DAYS Resulted 04/24/17 22:50 Blood Peripheral Anaerobic Blood Culture - Preliminary NO GROWTH IN 3 DAYS Resulted Result Diagram: 04/27/17 0432 04/27/17 0432 Imaging Last 72 hours Impressions Chest X-Ray 04/24/172238 Signed Impressions: Service Date/Time: , April 24, 2017 22:57 - CONCLUSION: No acute cardiopulmonary process. Eleuterio Carbajal MD Assessment & Plan Assessment and Plan A 51-year-old male with a complicated past medical history including diabetes and previous below-knee amputation presents with cellulitis and redness over the RIGHT knee consistent with prepatellar bursitis for 2 days. There is erythema without significant fluctuance on exam. He is nvi, afebrile, clinically improving on IV antibiotics. I recommend continued IV antibiotics treatment. I will reevaluate him tomorrow. If his clinical picture worsens I will recommend irrigation and drainage. NPO tonight midnight. Risks, benefits and alternatives discussed. All questions answered. Willis Pulido Jr., MD Apr 27, 2017 20:50
[2017-04-27] MEDS: BETAMETHASONE DIPROPIONATE 0.05% CREAM 15 GM TOPICAL SCH (21:39)
[2017-04-27] MEDS: INSULIN DETEMIR 100 UNITS/ML VIAL SQ SCH (21:53)
[2017-04-28] VITALS: BP 137/79; PULSE 68; RESP 17; TEMP 99.2; O2SAT 94
[2017-04-28] MEDS: ACETAMINOPHEN/HYDROcodone 325 MG/10 MG TAB PO PRN ×3 (00:08→15:12)
[2017-04-28] MEDS: PIPERACIL-TAZO 4.5 GM PREMIX 100 ML IV SCH ×3 (01:22→18:13)
[2017-04-28] MEDS: HYDROmorphone HCL PF 1 MG/ML VIAL IV PUSH PRN ×4 (01:23→22:33)
[2017-04-28] MEDS: SODIUM CHLOR 0.9% 1000 ML INJ 1,000 ML IV SCH ×3 (01:48→18:15)
[2017-04-28 04:00] VITALS: BP 151/88; PULSE 66; RESP 22; TEMP 99; O2SAT 97
[2017-04-28] MEDS: INSULIN ASPART SUPPLEMENTAL SCALE SQ SCH ×4 (05:48→20:17)
[2017-04-28 08:00] VITALS: BP 143/79; PULSE 75; RESP 16; TEMP 99.4; O2SAT 92
[2017-04-28] MEDS: METHADONE HCL 10 MG TAB PO SCH (08:40)
[2017-04-28] MEDS: GABAPENTIN 300 MG CAP PO SCH ×2 (08:42→20:17)
[2017-04-28] MEDS: BETAMETHASONE DIPROPIONATE 0.05% CREAM 15 GM TOPICAL SCH ×2 (08:42→20:19)
[2017-04-28] MEDS: LISINOPRIL 10 MG TAB PO SCH (08:42)
[2017-04-28] MEDS: PANTOPRAZOLE SOD 40 MG DELAYED RELEASE TAB PO SCH (08:42)
[2017-04-28] MEDS: SODIUM CHLORIDE 0.9% FLUSH 10 ML FLUSH IV FLUSH SCH ×2 (08:43→20:19)
[2017-04-28] MEDS: DOCUSATE SODIUM 50 MG/SENNA 8.6 MG TAB PO SCH ×2 (08:43→20:17)
[2017-04-28 08:51] LABS: AUTOMATED NEUTROPHIL # 6.1 TH/MM3 (1.8-7.7); BASOPHIL % 0.4 % (0.0-2.0); EOSINOPHIL # 0.1 TH/MM3 (0-0.4); EOSINOPHIL % 1.7 % (0.0-4.0); HEMATOCRIT 41.1 % (39.0-51.0); HEMO FLAGS DIFF FINAL; LYMPH % 17.6 % (9.0-44.0); LYMPHOCYTE # 1.5 TH/MM3 (1.0-4.8); MEAN CELL VOLUME 87.6 FL (80.0-100.0); MEAN CORPUSCULAR HEMOGLOBIN 29.3 PG (27.0-34.0); MEAN CORPUSCULAR HGB CONC 33.5 % (32.0-36.0); MONO % 10.4 % (0.0-8.0); NEUT % 69.9 % (16.0-70.0); PLATELET COUNT 113 TH/MM3 (150-450); RED BLOOD COUNT 4.69 MIL/MM3 (4.50-5.90); RED CELL DISTRIBUTION WIDTH 13.3 % (11.6-17.2); WHITE BLOOD COUNT 8.8 TH/MM3 (4.0-11.0)
--- NOTE | 2017-04-28 09:01 | PD.ORT.PN ---
Subjective Subjective Remarks no change. afebrile. no new issues Objective Vitals Vital Signs Date Time Temp Pulse Resp B/P (MAP) Pulse Ox O2 Delivery O2 Flow Rate FiO2 04/28/17 04:00 99.0 66 22 151/88 (109) 97 04/28/17 00:00 99.2 68 17 137/79 (98) 94 04/27/17 20:00 99.4 66 19 155/89 (111) 98 04/27/17 16:06 97.9 64 19 129/86 (100) 95 I/O 04/27/17 04/27/17 04/27/17 04/28/17 04/28/17 04/28/17 06:59 14:59 22:59 06:59 14:59 22:59 Intake Total 1551 ml 960 ml 620 ml Output Total 1900 ml 800 ml 1050 ml Balance -349 ml 160 ml -430 ml Intake Oral 720 ml 960 ml 620 ml IV Total 831 ml Output Urine Total 1900 ml 800 ml 1050 ml # Bowel Movements 0 0 0 Result Diagram: 04/28/17 0620 04/27/17 0432 Objective Remarks Alert awake and oriented -3. No acute distress. Pulmonary: Normal respiratory effort. Right lower extremity: Increase redness zone of erythema and fluctuance, BKA stump WNL. grossly Neurovascularly intact, Supple compartments. Left lower extremity: neurovascularly intact Assessment & Plan Assessment and Plan A 51-year-old male with a complicated past medical history including diabetes and previous below-knee amputation. Right knee septic bursitis -worsening and not responding to iv abx -NPO -OR today -consent on chart Willis Pulido Jr., MD Apr 28, 2017 09:01
[2017-04-28] MEDS ORDERED: PERC5TAB12 PO (10:02)
[2017-04-28] MEDS ORDERED: PHARMACY ORDERED LAB ONE ×2 (10:45→22:45)
[2017-04-28] MEDS ORDERED: ONDANSETRON HCL 4 MG/2 ML VIAL IV PUSH ONE (12:00)
[2017-04-28] MEDS ORDERED: GENTAMICIN SULFATE 80 MG/2 ML VIAL ONE (12:00)
[2017-04-28] MEDS ORDERED: PROPOFOL 200 MG/20 ML AMP IV ONE (12:00)
[2017-04-28] MEDS: VANCOMYCIN 1,500 MG/NS 500 ML IV SCH ×2 (12:02)
--- NOTE | 2017-04-28 13:09 | PD.OP ---
cc: Willis Pulido Jr., MD Operative Report Date of Surgery: Apr 28, 2017 Preoperative Diagnosis: Right knee septic prepatellar bursitis Postoperative Diagnosis: Same Procedure: Right prepatellar bursa decompression, drainage and irrigation Anesthesia: Gen. Surgeon: Willis Pulido District Agent(s): STEPHON Bryant The surgical procedure was assisted by my Advanced Registered Nurse Practitioner. My PUTTY MIXER presence was necessary throughout this case for the manipulation and positioning of the surgical extremity. My PUTTY MIXER was assisting me throughout the duration of this procedure. The skill set of an Advance Registered Nurse Practitioner was medically necessary to complete this procedure. During the surgical case, the technical support analyst was working at the back table and the Advance Registered Nurse Practitioner was directly assisting me. Resident Surgeon: None Operation and Findings: Patient was seen and evaluated preoperatively. Patient was found to have a septic prepatellar bursa of the right knee. Fluctuance was noted. Informed consent was obtained after detailed discussion of risk and benefits of surgery. Operative site was marked. Patient breath or medicine or table. IV sedation and GETA were administered by anesthesiologist. Operative arm was prepped with alcohol followed by Hibiclens and draped in usual sterile fashion. Timeout procedure was performed. Procedure began with a 2 cm incision over the bursa. Subcutaneous tissue dissected. A large pocket of purulent material was expressed and sent for cultures. Curettes and rongeurs were now used to sharply debride the bursa. The wound was thoroughly irrigated with sterile saline. At this point the wound was clean. The wound was partially closed with 2-0 Vicryl and packed with iodoform gauze. Sterile dressings were applied. Patient was awakened and transferred to recovery in stable condition. Needle and sponge counts were correct. POSTP-OP PLAN OF ACTIVITY Antibiotics: Per ID. intraoperative cultures pending Antiocoagulation: Lovenox Weight bearing status: wbat Dressing: Change daily, by RN starting postop day 1. change packing Willis Meredith Jr., MD Apr 28, 2017 13:09
[2017-04-28] MEDS ORDERED: oxyCODONE/ACETAMINOPHEN 5 MG/325 MG TAB PO PRN (13:15)
[2017-04-28] MEDS ORDERED: MAGNESIUM HYDROXIDE SUSP 30 ML CUP PO PRN (13:15)
[2017-04-28] MEDS ORDERED: SODIUM CHLORIDE 0.9% FLUSH 10 ML FLUSH IV FLUSH PRN (13:15)
[2017-04-28] MEDS ORDERED: BISACODYL 10 MG SUPP RECTAL PRN (13:15)
[2017-04-28] MEDS ORDERED: LACTULOSE SYRUP 20 GM/30 ML CUP PO PRN (13:15)
[2017-04-28] MEDS ORDERED: ZOLPIDEM TARTRATE 5 MG TAB PO PRN (13:15)
[2017-04-28] MEDS ORDERED: SENNOSIDES 8.6 MG TAB PO PRN (13:15)
[2017-04-28] MEDS ORDERED: Post-op Orders (for Pharmacy) MISC XX ONE (13:15)
[2017-04-28] MEDS ORDERED: MIDAZOLAM HCL 2 MG/2 ML VIAL ONE (13:27)
[2017-04-28 14:00] VITALS: BP 156/91; PULSE 74; RESP 16; TEMP 97.6; O2SAT 94
[2017-04-28] MEDS ORDERED: *morphine SULFATE 8 MG/ML PERIprocedure ONLY ONE (14:12)
[2017-04-28] MEDS ORDERED: DO NOT ADM ANY ANTICOAGULANT DRUGS PRN (15:00)
[2017-04-28 16:00] VITALS: BP 125/67; PULSE 76; RESP 16; TEMP 98.2; O2SAT 94
[2017-04-28] MEDS: KETOROLAC TROMETHAMINE 30 MG/ML (IVP) VIAL IVP SCH ×2 (16:35→22:32)
--- NOTE | 2017-04-28 18:48 | HHI.PR ---
Subjective Remarks Patient is currently postop right septic prepatellar bursitis debridement. Says he's tolerated his meals well and urinating well. Objective Vital Signs Date Time Temp Pulse Resp B/P (MAP) Pulse Ox O2 Delivery O2 Flow Rate FiO2 04/28/17 16:00 98.2 76 16 125/67 (86) 94 04/28/17 16:00 Room Air 04/28/17 14:17 15 04/28/17 14:15 98.2 74 15 150/84 (106) 96 Nasal Cannula 2 04/28/17 14:00 97.6 74 16 156/91 (112) 94 04/28/17 14:00 73 15 148/85 (106) 96 Nasal Cannula 2 04/28/17 13:45 72 15 146/84 (104) 95 Nasal Cannula 2 04/28/17 13:30 71 14 139/83 (101) 100 Nasal Cannula 3 04/28/17 13:20 98.5 70 7 129/76 (93) 98 Nasal Cannula 3 04/28/17 08:00 Room Air 04/28/17 08:00 99.4 75 16 143/79 (100) 92 04/28/17 04:00 99.0 66 22 151/88 (109) 97 04/28/17 00:00 99.2 68 17 137/79 (98) 94 04/27/17 20:00 99.4 66 19 155/89 (111) 98 I/O 04/27/17 04/27/17 04/27/17 04/28/17 04/28/17 04/28/17 07:00 15:00 23:00 07:00 15:00 23:00 Intake Total 1551 ml 960 ml 620 ml 450 ml 568 ml Output Total 1900 ml 800 ml 1050 ml 40 ml Balance -349 ml 160 ml -430 ml 410 ml 568 ml Intake Oral 720 ml 960 ml 620 ml IV Total 831 ml 450 ml 568 ml Output Urine Total 1900 ml 800 ml 1050 ml Estimated Blood Loss 40 ml # Bowel Movements 0 0 0 Result Diagram: 04/28/1761904/27/17 0432 Objective Remarks GENERAL: No acute distress, sitting comfortably in bed RESPIRATORY: Unlabored breathing Abdomen: Nondistended, nontender MUSCULOSKELETAL: Right knee and stump in postop dressing A/P Assessment and Plan 1. Sepsis: Septic component resolved, blood cultures pending, continue vanc and zosyn 2. Infectious Prepatellar bursitis: Status post debridement, continue antibiotics as above 3. Dehydration: IVF for hydration, repeat labs in am. 4. Thrombocytopenia: appears mild and chronic, monitor intermittently 5. DM: improved w/ levemir increased, continue HDSS. 6. Debility : PT and OT 6. DVT Prophylaxis: lovenox Patient understands that he might need rehabilitation pending therapy assessment Anthony Rico MD Apr 28, 2017 18:48
[2017-04-28 20:00] VITALS: BP 138/77; PULSE 61; RESP 20; TEMP 97.4; O2SAT 95
[2017-04-28] MEDS: INSULIN DETEMIR 100 UNITS/ML VIAL SQ SCH (20:16)
[2017-04-28] MEDS: oxyCODONE/ACETAMINOPHEN 5 MG/325 MG TAB PO PRN (20:18)
[2017-04-29] VITALS: BP 155/86; PULSE 56; RESP 20; TEMP 97.3; O2SAT 96
[2017-04-29] MEDS: oxyCODONE/ACETAMINOPHEN 5 MG/325 MG TAB PO PRN ×6 (00:35→22:26)
[2017-04-29] MEDS: VANCOMYCIN 1,500 MG/NS 500 ML IV SCH ×6 (00:36→22:27)
[2017-04-29] MEDS: ENOXAPARIN SODIUM 30 MG/0.3 ML SYRINGE SQ SCH ×2 (00:40→13:34)
[2017-04-29] MEDS: PIPERACIL-TAZO 4.5 GM PREMIX 100 ML IV SCH ×3 (02:46→16:56)
[2017-04-29] MEDS: HYDROmorphone HCL PF 1 MG/ML VIAL IV PUSH PRN ×5 (02:47→20:09)
[2017-04-29 04:00] VITALS: BP 145/80; PULSE 60; RESP 20; TEMP 97.3; O2SAT 97
[2017-04-29] MEDS: KETOROLAC TROMETHAMINE 30 MG/ML (IVP) VIAL IVP SCH ×4 (04:19→22:27)
[2017-04-29] MEDS: SODIUM CHLOR 0.9% 1000 ML INJ 1,000 ML IV SCH ×3 (04:20→22:30)
[2017-04-29] MEDS: INSULIN ASPART SUPPLEMENTAL SCALE SQ SCH ×4 (06:54→20:24)
[2017-04-29 08:00] VITALS: BP 170/98; PULSE 63; RESP 18; TEMP 97.4; O2SAT 97
[2017-04-29] MEDS: DOCUSATE SODIUM 50 MG/SENNA 8.6 MG TAB PO SCH ×2 (08:57→20:26)
[2017-04-29] MEDS: POLYETHYLENE GLYCOL 17 GM PKG PO SCH (08:57)
[2017-04-29] MEDS: PANTOPRAZOLE SOD 40 MG DELAYED RELEASE TAB PO SCH (08:59)
[2017-04-29] MEDS: LISINOPRIL 10 MG TAB PO SCH (08:59)
[2017-04-29] MEDS: GABAPENTIN 300 MG CAP PO SCH ×2 (08:59→20:08)
[2017-04-29] MEDS: METHADONE HCL 10 MG TAB PO SCH (08:59)
[2017-04-29] MEDS: BETAMETHASONE DIPROPIONATE 0.05% CREAM 15 GM TOPICAL SCH ×2 (09:00→20:26)
[2017-04-29] MEDS: SODIUM CHLORIDE 0.9% FLUSH 10 ML FLUSH IV FLUSH SCH ×2 (09:00→20:08)
[2017-04-29 11:54] VITALS: BP 168/85; PULSE 66; RESP 18; TEMP 98.5; O2SAT 98
[2017-04-29 16:00] VITALS: BP 154/88; PULSE 63; RESP 18; TEMP 98.3; O2SAT 95
--- NOTE | 2017-04-29 17:40 | PD.ORT.PN ---
Subjective Subjective Remarks no change. Afebrile. pain improved Objective Vitals Vital Signs Date Time Temp Pulse Resp B/P (MAP) Pulse Ox O2 Delivery O2 Flow Rate FiO2 04/29/17 16:00 98.3 63 18 154/88 (110) 95 04/29/17 16:00 Room Air 04/29/17 12:00 Room Air 04/29/17 11:54 98.5 66 18 168/85 (112) 98 04/29/17 08:45 Room Air 04/29/17 08:00 97.4 63 18 170/98 (122) 97 04/29/17 04:00 97.3 60 20 145/80 (101) 97 04/29/17 00:00 97.3 56 20 155/86 (109) 96 04/28/17 20:00 97.4 61 20 138/77 (97) 95 04/28/17 19:30 Room Air I/O 04/28/17 04/28/17 04/28/17 04/29/17 04/29/17 04/29/17 07:00 15:00 23:00 07:00 15:00 23:00 Intake Total 620 ml 450 ml 1888 ml 1650 ml 600 ml Output Total 1050 ml 40 ml 1800 ml Balance -430 ml 410 ml 88 ml 1650 ml 600 ml Intake Oral 620 ml 1320 ml IV Total 450 ml 568 ml 1650 ml 600 ml Output Urine Total 1050 ml 1800 ml Estimated Blood Loss 40 ml # Bowel Movements 0 Result Diagram: 04/28/1720 04/28/172144 Objective Remarks Alert awake and oriented -3. No acute distress. Pulmonary: Normal respiratory effort. Right lower extremity: wound with packing, greatly improved erythema. grossly Neurovascularly intact, Supple compartments. Left lower extremity: neurovascularly intact Assessment & Plan Assessment and Plan POD 1- right knee septic bursa I&D Pain improved abx per ID, + Staph aureus dressing- packing change qday ok to dc from ortho standpoint. NWB lovenox DC with orders for qday packing change and dressing change until wound healed. Dispo: Stable and okay to discharge from orthopedic standpoint SIGN OFF Willis Pulido Jr., MD Apr 29, 2017 17:40
[2017-04-29 20:00] VITALS: BP 161/91; PULSE 66; RESP 18; TEMP 98.2; O2SAT 96
--- NOTE | 2017-04-29 20:07 | HHI.PR ---
Subjective Remarks Patient is currently postop right septic prepatellar bursitis debridement. Patient says his sugars are high in the 400s, nursing confirm this with me even though his sugars were in the 100s a few days ago on the current regimen . Patient is vocalizing concern about being able to care for himself after discharge Objective Vital Signs Date Time Temp Pulse Resp B/P (MAP) Pulse Ox O2 Delivery O2 Flow Rate FiO2 04/29/17 16:00 98.3 63 18 154/88 (110) 95 04/29/17 16:00 Room Air 04/29/17 12:00 Room Air 04/29/17 11:54 98.5 66 18 168/85 (112) 98 04/29/17 08:45 Room Air 04/29/17 08:00 97.4 63 18 170/98 (122) 97 04/29/17 04:00 97.3 60 20 145/80 (101) 97 04/29/17 00:00 97.3 56 20 155/86 (109) 96 I/O 04/28/17 04/28/17 04/28/17 04/29/17 04/29/17 04/29/17 07:00 15:00 23:00 07:00 15:00 23:00 Intake Total 620 ml 450 ml 1888 ml 1650 ml 600 ml 1835 ml Output Total 1050 ml 40 ml 1800 ml 200 ml Balance -430 ml 410 ml 88 ml 1650 ml 600 ml 1635 ml Intake Oral 620 ml 1320 ml 960 ml IV Total 450 ml 568 ml 1650 ml 600 ml 875 ml Output Urine Total 1050 ml 1800 ml 200 ml Estimated Blood Loss 40 ml # Voids 2 # Bowel Movements 0 0 Result Diagram: 04/28/1761904/28/172144 Objective Remarks GENERAL: No acute distress, sitting comfortably in bed RESPIRATORY: Unlabored breathing Abdomen: Nondistended, nontender MUSCULOSKELETAL: Right knee and stump in postop dressing, stump is NTTP, knee has good ROM A/P Assessment and Plan 1. Sepsis: Septic component resolved, blood cultures are no growth 2 days, 2. Infectious Prepatellar bursitis: Growing staph aureus, sensitivities pending , Status post debridement, continue antibiotics as above, continue vanc , zosyn, 3. Thrombocytopenia: appears mild and chronic, monitor intermittently 4. DM: will switch to home regimen of levemir 75 qhs and 65 ac, continue HDSS. 5. Debility : PT and OT 6. DVT Prophylaxis: lovenox Patient understands that he might need rehabilitation pending repeat therapy assessment Anthony Rico MD Apr 29, 2017 20:07
[2017-04-29] MEDS: MULTIVITAMINS/MINERALS THERAPEUTIC TAB PO SCH (20:09)
[2017-04-29] MEDS ORDERED: INSULIN DETEMIR 100 UNITS/ML VIAL SQ SCH (20:30)
[2017-04-30] VITALS: BP 161/93; PULSE 57; RESP 16; TEMP 97.4; O2SAT 97
[2017-04-30] MEDS: HYDROmorphone HCL PF 1 MG/ML VIAL IV PUSH PRN ×2 (00:35→04:49)
[2017-04-30] MEDS: PIPERACIL-TAZO 4.5 GM PREMIX 100 ML IV SCH ×2 (02:39→08:53)
[2017-04-30] MEDS: ENOXAPARIN SODIUM 30 MG/0.3 ML SYRINGE SQ SCH ×2 (02:40→13:24)
[2017-04-30] MEDS: oxyCODONE/ACETAMINOPHEN 5 MG/325 MG TAB PO PRN ×3 (02:41→13:23)
[2017-04-30 04:00] VITALS: BP 169/88; PULSE 60; RESP 18; TEMP 97.5; O2SAT 97
[2017-04-30] MEDS: KETOROLAC TROMETHAMINE 30 MG/ML (IVP) VIAL IVP SCH ×2 (04:08→08:54)
[2017-04-30] MEDS: INSULIN ASPART SUPPLEMENTAL SCALE SQ SCH ×2 (06:20→11:00)
[2017-04-30] MEDS ORDERED: INSULIN DETEMIR 100 UNITS/ML VIAL SQ SCH (07:00)
[2017-04-30 08:00] VITALS: BP 160/91; PULSE 58; RESP 19; TEMP 97.1; O2SAT 97
[2017-04-30] MEDS: SODIUM CHLORIDE 0.9% FLUSH 10 ML FLUSH IV FLUSH SCH (08:50)
[2017-04-30] MEDS: METHADONE HCL 10 MG TAB PO SCH (08:51)
[2017-04-30] MEDS: GABAPENTIN 300 MG CAP PO SCH (08:51)
[2017-04-30] MEDS: POLYETHYLENE GLYCOL 17 GM PKG PO SCH (08:51)
[2017-04-30] MEDS: PANTOPRAZOLE SOD 40 MG DELAYED RELEASE TAB PO SCH (08:52)
[2017-04-30] MEDS: LISINOPRIL 10 MG TAB PO SCH (08:52)
[2017-04-30] MEDS: DOCUSATE SODIUM 50 MG/SENNA 8.6 MG TAB PO SCH (08:52)
[2017-04-30] MEDS: MULTIVITAMINS/MINERALS THERAPEUTIC TAB PO SCH (08:52)
[2017-04-30] MEDS: BETAMETHASONE DIPROPIONATE 0.05% CREAM 15 GM TOPICAL SCH (09:05)
--- NOTE | 2017-04-30 12:05 | HHI.FF ---
Face to Face Verification Diagnosis: (1) Unsteady gait (2) Septic prepatellar bursitis of right knee (3) Cellulitis of knee, right Home Health Nursing Order: Wound care and dressing changes I have seen patient Lazarus Wall on 04/30/17. My clinical findings support the need for the requested home health care services because: Ltd mobility - disease progression Deconditioned w/ increased weakness High risk of falls I certify that my clinical findings support that this patient is homebound because: Unsteady gait/balance Unsafe to leave home unassisted Anthony Rico MD Apr 30, 2017 12:05
[2017-04-30 12:16] VITALS: BP 155/88; PULSE 59; RESP 18; TEMP 97.4; O2SAT 98
[2017-04-30] MEDS: VANCOMYCIN 1,500 MG/NS 500 ML IV SCH ×2 (13:23)
[2017-04-30] MEDS ORDERED: POLY17S PO (13:26)
[2017-04-30] MEDS ORDERED: APIX2.5T PO (13:26)
[2017-04-30] MEDS ORDERED: NOVOLOGSS SQ (13:29)
[2017-04-30] MEDS ORDERED: LEVEMIR SQ ×2 (13:29)
[2017-04-30] MEDS ORDERED: BACT800T5 PO (13:32)
--- NOTE | 2017-04-30 13:34 | HHI.DCPOC ---
Discharge Care Plan Your Health Problems Are: Incision/Drains Skin Breakdown Inflammation Leg Swelling Loss of Movements Goals to Promote Your Health * To prevent worsening of your condition and complications * To maintain your health at the optimal level Take precautions to minimize your chances of falling as you will be on a blood thinner for about 2 weeks. By 2 weeks' time, please have visited your orthopedic surgeon in the clinic for follow-up and decide with him the need for further anticoagulation with her blood thinner. It is important that you get your blood sugars under good control for optimal healing of your wound. Contact your primary care provider to assist with this. Directions to Meet Your Goals Take your medications as prescribed Follow your dietary instruction Follow activity as directed Keep your appointments as scheduled Take your immunizations and boosters as scheduled If your symptoms worsen call your PCP, if no PCP go to Urgent Care Center or Emergency Room Smoking is Dangerous to Your Health. Avoid second hand smoke Call the 24-hour hour crisis hotline for domestic abuse at Anthony Rico MD Apr 30, 2017 13:34
--- NOTE | 2017-04-30 13:40 | HHI.DS ---
Discharge Summary Admission Date Apr 25, 2017 at 00:20 Discharge Date: Apr 30, 2017 Admitting Diagnosis RIGHT KNEE CELLULITIS R/O OSTEO (1) Sepsis ICD Code: A41.9 - Sepsis, unspecified organism Status: Resolved (2) Cellulitis ICD Code: L03.90 - Cellulitis, unspecified Status: Acute (3) Dehydration ICD Code: E86.0 - Dehydration Status: Acute (4) Thrombocytopenia ICD Code: D69.6 - Thrombocytopenia, unspecified Status: Acute (5) DM (diabetes mellitus) ICD Code: E11.9 - Type 2 diabetes mellitus without complications Status: Acute (6) Septic prepatellar bursitis of right knee ICD Code: M71.161 - Other infective bursitis, right knee Diagnosis: Principal Status: Acute Procedures Debridement of prepatellar bursa of right knee Brief History - From Admission This is a 51-year-old male with a PMH of HTN, DM, Tobacco Abuse and h/o Right BKA who presented to the ER w/ complaints of right stump redness and swelling x2 days. Denies fever or chills. On arrival, BP 124/86, HR 78, O2 sat 96% on RA, Temp 99.8. W WBC 12.7. Platelets 119, previously 91 on 12/04/16. Chemistry essentially unremarkable except for GFR 79. Lactic Acid 2.2. CXR with no acute findings. Knee X-ray with nonspecific periosteal reaction. No obvious findings of osteomyelitis. S/p Blood Culture, Vanc/Zosyn in ER. CBC/BMP: 04/28/17 0620 04/30/17 0445 Significant Findings Laboratory Tests Test 04/28/17 06:20 04/28/17 21:45 04/28/17 23:45 04/30/17 04:45 Platelet Count 113 TH/MM3 (150-450) Monocytes (%) (Auto) 10.4 % (0.0-8.0) Random Glucose 401 MG/DL (74-106) Hospital Course .Patient was admitted and started on IV antibiotics and IV fluids and IV pain control. With the first 24 hours the patient's cellulitis. To improve, afterwards however it began to worsen so orthopedic surgery was consult to. They performed debridement of prepatellar bursa with diagnosis of septic prepatellar bursitis; wound culture was MSSA. Patient is transitioned to oral pain medications and was tolerating by mouth intake well, was cleared for discharge from orthopedic surgery. Patient will be put on anticoagulants given limited mobility from the operation; he understands that he is at increased bleeding risk should he injure himself. Patient has met maximum benefit from hospitalization and is clinically stable for discharge. Pt Condition on Discharge: Stable Discharge Disposition: Disch w/ Home Health Serv Discharge Time: > 30 minutes Discharge Instructions DIET: Follow Instructions for: Heart Healthy Diet Activities you can perform: See Additionl Instruction Other Activity Instructions: non weight bearing on right knee until cleared by orthopedic surgeon. Follow up Referrals: Orthopedics - 2 Weeks @ [facility] with Willis Pulido Jr., MD New Medications: Apixaban (Eliquis) 2.5 Mg Tab 2.5 MG PO BID for Blood Clot Prevention, #60 TAB 0 Refills Oxycodone-Acetaminophen (Percocet) 5-325 mg Tab 1 TAB PO Q4H PRN for PAIN, #30 TAB 0 Refills Sulfamethoxazole-Trimethoprim (Bactrim DS) 800-160 Mg Tab 1 TAB PO BID for Infection, #12 TAB 0 Refills Insulin Aspart Inj (Novolog Inj) 100 Unit/Ml Inj 1 UNIT SQ ACHS SLIDING SCALE for Blood Sugar Management, #1 VIAL Insulin Detemir Inj (Levemir Inj) 1,000 unit/ 10 ML Vial 65 UNITS SQ AC BREAKFAST for Blood Sugar Management, #1 VIAL Do not mix with any other Insulin. Insulin Detemir Inj (Levemir Inj) 1,000 unit/ 10 ML Vial 75 UNITS SQ HS for Blood Sugar Management, #1 VIAL Do not mix with any other Insulin. Polyethylene Glycol 3350 Powder (Polyethylene Glycol 3350 Powder) 17 Gm Pow 17 GM PO DAILY for Constipation, #1 BOTTLE Continued Medications: Gabapentin (Neurontin) 300 Mg Cap 600 MG PO BID for neuropathy, #112 CAP Lisinopril (Lisinopril) 10 Mg Tab 10 MG PO DAILY, #90 TAB 6 Refills Methadone (Methadone) 40 Mg Tab 220 MG PO DAILY, TAB 0 Refills Discontinued Medications: Insulin Detemir Inj (Levemir Inj) 1,000 unit/ 10 ML Vial 85 UNITS SQ HS for Blood Sugar Management for 30 Days, INJECTION Insulin Detemir Inj (Levemir Inj) 1,000 unit/ 10 ML Vial 78 UNITS SQ AC BREAKFAST for Blood Sugar Management for 30 Days, INJECTION Anthony Rico MD Apr 30, 2017 13:40
[2017-05-01] MEDS ORDERED: PHARMACY ORDERED LAB ONE (10:45)
[2017-05-02] MEDS ORDERED: PERC5TAB12 PO (10:59)
[2017-06-11] MEDS ORDERED: NEUR300C PO (09:15)
[2017-06-11] MEDS ORDERED: LISI10TA3 PO (09:15)
[2017-06-11] MEDS ORDERED: POLY17S PO (09:15)
[2017-06-11] MEDS ORDERED: LEVEMIR SQ ×2 (09:16)
[2017-06-11] MEDS ORDERED: NOVOLOGSS SQ (09:16)
[2017-06-11] MEDS ORDERED: PERC5TAB12 PO (09:16)
[2017-06-11] MEDS ORDERED: NYST15T TOPICAL (09:18)
[2017-06-11] MEDS ORDERED: MUPI2%T TOPICAL (09:18)
[2017-06-11] MEDS ORDERED: ALA1CRE2 TOPICAL (09:22)
== END 2017-04-30 15:35 | disposition home health service (06) | DRG 854 ==
LOC: NEPE 22:04 → NEDA 04-25 00:02 → OBSVTOIN 04-25 00:20 → NEPFCDU 04-25 02:51 → N04A 04-26 17:05
PROVIDERS: ADMIT Hospitalist; ATTEND Hospitalist
PROC: 0MDN0ZZ Extraction of Right Knee Bursa and Ligament, Open Approach (ICD-10-PCS; principal; 2017-04-28 12:21)
DX: A41.9 Sepsis, unspecified organism (principal); L03.115 Cellulitis of right lower limb; D69.6 Thrombocytopenia, unspecified; M71.161 Other infective bursitis, right knee; I10 Essential (primary) hypertension; M19.90 Unspecified osteoarthritis, unspecified site; K21.9 Gastro-esophageal reflux disease without esophagitis; E11.9 Type 2 diabetes mellitus without complications; F17.290 Nicotine dependence, other tobacco product, uncomplicated; M54.9 Dorsalgia, unspecified; G89.29 Other chronic pain; Z87.442 Personal history of urinary calculi; B19.20 Unspecified viral hepatitis C without hepatic coma; Z79.4 Long term (current) use of insulin; Z89.511 Acquired absence of right leg below knee; Z85.828 Personal history of other malignant neoplasm of skin; B95.61 Methicillin susceptible Staphylococcus aureus infection as the cause of diseases classified elsewhere; E86.0 Dehydration
CPT/HCPCS: 71010; 73560; 80048; 80053; 80202; 82565; 82947; 82948; 83605; 84145; 85025; 86403; 87015; 87040; 87070; 87102; 87116; 87147; 87186; 87205; 87206; 94150; 96374; 96375; J0690; J1170; J1580; J1644; J1650; J1815; J1885; J2250; J2270; J2405; J2543; J3010; J3370; J7030; J7040; J7050

== ENCOUNTER 2017-11-04 06:42 | Inpatient (IN) | payer MEDICAID ==
[~2017-11-04] VITALS: Ht 180.3 cm; Wt 91.0 kg
[~2017-11-04 06:42] MED LIST changes: -AMLO5 PO; +INSU-150; +METF-382 PO; +NOVOLOGSS SQ; +NYST100084 TOPICAL; +PERC5TAB12 PO; +POLY17S PO
[2017-11-04 07:06] VITALS: BP 105/68; PULSE 69; RESP 15; TEMP 98.5; O2SAT 97
[2017-11-04] MEDS ORDERED: NEXI40CA PO (07:29)
[2017-11-04] MEDS ORDERED: LEVEMIR SQ ×2 (07:29)
[2017-11-04] MEDS ORDERED: HYDROmorphone HCL PF 2 MG/ML VIAL IVS ONE (08:00)
[2017-11-04] MEDS ORDERED: ONDANSETRON HCL 4 MG/2 ML VIAL IV PUSH ONE (08:00)
[2017-11-04] MEDS: SODIUM CHLOR 0.9% 1000 ML INJ 1,000 ML IV SCH ×4 (08:16→18:30)
[2017-11-04 08:22] VITALS: BP 99/58; PULSE 60; RESP 20; O2SAT 99
--- NOTE | 2017-11-04 08:22 | RADRPT ---
EXAM DATE/TIME: 11/04/2017 08:16 [place] COMPARISON: CHEST SINGLE AP, April 24, 2017, 22:57. INDICATIONS : Short of breath. MEDICAL HISTORY : Hypertension. Peripheral vascular disease. Squamous cell carcinoma of the nose. Diabetes. SURGICAL HISTORY : None. ENCOUNTER: Initial ACUITY: 1 day PAIN SCORE: 0/10 LOCATION: Bilateral chest FINDINGS: A single view of the chest demonstrates questionable density left upper lobe overlying the anterior f irst rib complex. Lungs are otherwise clear. Heart normal in size. The cardiomediastinal contours are unremarkable. Osseous structures are intact. CONCLUSION: Questionable density left upper lobe likely related to anterior first rib complex. AP Lordotic views are recommended. Keyur Goldman MD on November 04, 2017 at 8:19 Board Certified Radiologist. This report was verified electronically.
[2017-11-04 08:38] LABS: ALKALINE PHOSPHATASE 146 U/L (45-117); TOTAL BILIRUBIN ADULT 0.6 MG/DL (0.2-1.0)
[2017-11-04 08:42] LABS: AUTOMATED NEUTROPHIL # 3.8 TH/MM3 (1.8-7.7); BASOPHIL # 0.1 TH/MM3 (0-0.2); EOSINOPHIL # 0.1 TH/MM3 (0-0.4); EOSINOPHIL % 1.5 % (0.0-4.0); HEMATOCRIT 39.3 % (39.0-51.0); HEMOGLOBIN 13.6 GM/DL (13.0-17.0); LYMPHOCYTE # 2.8 TH/MM3 (1.0-4.8); MEAN CELL VOLUME 87.5 FL (80.0-100.0); MEAN CORPUSCULAR HEMOGLOBIN 30.3 PG (27.0-34.0); MEAN CORPUSCULAR HGB CONC 34.6 % (32.0-36.0); MEAN PLATELET VOLUME 10.2 FL (7.0-11.0); MONO % 10.2 % (0.0-8.0); MONOCYTE # 0.8 TH/MM3 (0-0.9); NEUT % 50.3 % (16.0-70.0); PLATELET COUNT 87 TH/MM3 (150-450); RED CELL DISTRIBUTION WIDTH 13.1 % (11.6-17.2); WHITE BLOOD COUNT 7.6 TH/MM3 (4.0-11.0)
[2017-11-04 08:46] LABS: ALBUMIN 2.8 GM/DL (3.4-5.0); ALT (GPT) 39 U/L (12-78); AST (GOT) 42 U/L (15-37); BLOOD UREA NITROGEN 21 MG/DL (7-18); CALCIUM 8.6 MG/DL (8.5-10.1); CHLORIDE 98 MEQ/L (98-107); CREATININE 0.88 MG/DL (0.60-1.30); GLOMERULAR FILTRATION RATE 92 ML/MIN (>89); GLUCOSE,RANDOM 234 MG/DL (74-106); SODIUM (NA) 131 MEQ/L (136-145)
--- NOTE | 2017-11-04 09:08 | PD ---
HPI Chief Complaint: Fall Time Seen by Provider: 07:45 Travel History International Travel<30 days: No Contact w/Intl Traveler<30days: No Traveled to known affect area: No History of Present Illness HPI 52-year-old male with a history of diabetes mellitus, peripheral vascular disease, presents today with complaints of right BKA stump drainage and redness. Patient states he had a small eschar on the edge of it and he fell 2 days ago. He states since then, he has noted drainage of serosanguineous purulent material coming from the opened eschar site. There is also redness and erythema at the distal stump site. The patient denies any fevers, chills. He denies any nausea vomiting diarrhea. Patient reports that he is urinating more than he normally does. He states his sugars have been elevated from his baseline. He reports his sugars were above 300 today when he he checked it before coming in. PFSH Past Medical History Arthritis: Yes Asthma: No Autoimmune Disease: No Anxiety: No Depression: No Heart Rhythm Problems: No Cancer: Yes (Skin cancer on nose ) Cardiovascular Problems: Yes (htn) Chemotherapy: No Chest Pain: No Congestive Heart Failure: No COPD: No Cerebrovascular Accident: No Diabetes: Yes Patient Takes Glucophage: No Diminished Hearing: No Endocrine: Yes Gastrointestinal Disorders: Yes (diahrrea 8/16 in am) GERD: Yes Genitourinary: No Headaches: No Hepatitis: Yes (C) Hiatal Hernia: No Hypertension: Yes Immune Disorder: No Implanted Vascular Access Dvce: No Kidney Stones: Yes Musculoskeletal: Yes (CHRONIC BACK PAIN/DDD/HERNIATED DISC) Neurologic: No Psychiatric: No Reproductive: No Respiratory: No Immunizations Current: Yes Migraines: No Radiation Therapy: No Renal Failure: No Seizures: No Sickle Cell Disease: No Sleep Apnea: No Thyroid Disease: No Ulcer: No Tetanus Vaccination: < 5 Years Influenza Vaccination: Yes Past Surgical History Abdominal Surgery: No AICD: No Appendectomy: Yes Arteriovenous Shunt: No Cardiac Surgery: No Ear Surgery: No Endocrine Surgery: No Eye Surgery: No Genitourinary Surgery: No Gynecologic Surgery: No Insulin Pump: No Joint Replacement: No Neurologic Surgery: No Oral Surgery: No Pacemaker: No Thoracic Surgery: No Other Surgery: Yes (NOSE, SKIN GRAFT,right knee) Social History Alcohol Use: No Tobacco Use: Yes (2 CIGS PER DAY) Substance Use: No Allergies-Medications (Allergen,Severity, Reaction): Coded Allergies: diatrizoate meglumine (Unverified Allergy, Severe, Rash, 11/04/17) gadobenic acid (Unverified Allergy, Severe, Rash, 11/04/17) gadodiamide (Unverified Allergy, Severe, Rash, 11/04/17) gadoteridol (Unverified Allergy, Severe, Rash, 11/04/17) iodixanol (Unverified Allergy, Severe, Rash, 11/04/17) iohexol (Unverified Allergy, Severe, Rash, 11/04/17) adhesive (Verified Allergy, Intermediate, Rash, 11/04/17) Uncoded Allergies: iv plyeogram dye (Allergy, Severe, Anaphylaxis, 04/25/17) Reported Meds & Prescriptions Reported Meds & Active Scripts Active Novolog Inj (Insulin Aspart) 100 Unit/Ml Inj 1 Unit SQ ACHS SLIDING SCALE Neurontin (Gabapentin) 300 Mg Cap 600 Mg PO BID Lisinopril 10 Mg Tab 10 Mg PO DAILY Metformin ER (Metformin HCl) 1,000 Mg Roberto 1,000 Mg PO DAILY With evening meal Percocet (Oxycodone-Acetaminophen) 5-325 mg Tab 1 Tab PO Q4H PRN Reported Nexium (Esomeprazole DR) 40 Mg Capdr 40 Mg PO DAILY Levemir Inj (Insulin Detemir) 1,000 unit/ 10 ML Vial 85 Units SQ HS Do not mix with any other Insulin. Levemir Inj (Insulin Detemir) 1,000 unit/ 10 ML Vial 65 Units SQ DAILY Do not mix with any other Insulin. Methadone (Methadone HCl) 40 Mg Tab 220 Mg PO DAILY Review of Systems Except as stated in HPI: all other systems reviewed are Neg General / Constitutional: No: Fever, Chills HENT: No: Headaches, Lightheadedness Cardiovascular: No: Chest Pain or Discomfort, Palpitations Respiratory: No: Cough, Shortness of Breath Gastrointestinal: No: Nausea, Vomiting, Abdominal Pain Genitourinary: Positive: Other (Increased urination), No: Dysuria Musculoskeletal: Positive: Pain (Right BKA stump site), Other (Redness and pain at the distal right BKA stump site) Skin: Positive Lesions (Right lateral distal BKA stump draining lesion) Neurologic: No: Weakness, Dizziness, Headache Physical Exam Narrative GENERAL: Well-developed well-nourished male in no acute respiratory distress SKIN: Focused skin assessment warm/dry. HEAD: Atraumatic. Normocephalic. EYES: No scleral icterus. No injection or drainage. ENT: No nasal bleeding or discharge. Mucous membranes pink and moist. NECK: Trachea midline. Supple. CARDIOVASCULAR: Regular rate and rhythm. No murmur appreciated. RESPIRATORY: No accessory muscle use. Clear to auscultation. Breath sounds equal bilaterally. GASTROINTESTINAL: Abdomen soft, non-tender, nondistended. Hepatic and splenic margins not palpable. MUSCULOSKELETAL: On of the examination of the patient's right BKA site, there is a circular eraser size lesion on the right lateral portion of the stump. There is serosanguineous drainage coming from this site. There is erythema/ cellulitis noted in the distal stump site. It is warm to the touch. NEUROLOGICAL: Awake and alert. No obvious cranial nerve deficits. Motor grossly within normal limits. Normal speech. Data Data Last Documented VS Vital Signs Date Time Temp Pulse Resp B/P (MAP) Pulse Ox O2 Delivery O2 Flow Rate FiO2 11/04/17 08:22 60 20 99/58 (72) 99 Room Air 11/04/17 07:06 98.5 Orders Orders Complete Blood Count With Diff (11/04/17 07:52) Comprehensive Metabolic Panel (11/04/17 07:52) Blood Culture (11/04/17 07:52) Urinalysis - C+S If Indicated (11/04/17 07:52) Wound Culture And Gram Stain (11/04/17 07:52) Chest, Single Ap (11/04/17 07:52) Iv Access Insert/Monitor (11/04/17 07:52) Ecg Monitoring (11/04/17 07:52) Oximetry (11/04/17 07:52) Hydromorphone Pf Inj (Dilaudid Pf Inj) (11/04/17 08:00) Ondansetron Inj (Zofran Inj) (11/04/17 08:00) Sodium Chlor 0.9% 1000 Ml Inj (Ns 1000 M (11/04/17 08:00) Sodium Chlor 0.9% 1000 Ml Inj (Ns 1000 M (11/04/17 09:00) Lactic Acid Sepsis Protocol (11/04/17 09:20) Vancomycin Inj (Vancomycin Inj) (11/04/17 09:45) Admit To Inpatient (11/04/17 ) Vital Signs (Adult) Q4H (11/04/17 09:37) Activity Oob With Assistance (11/04/17 09:37) Intake + Output PRISCILLA.QSHIFT (11/04/17 09:37) Sodium Chloride 0.9% Flush (Ns Flush) (11/04/17 09:45) Sodium Chloride 0.9% Flush (Ns Flush) (11/04/17 21:00) Acetaminophen (Tylenol) (11/04/17 09:45) Ondansetron Inj (Zofran Inj) (11/04/17 09:45) Pt Request For Service (11/04/17 09:37) Naloxone Inj (Narcan Inj) (11/04/17 09:45) Magnesium Hydroxide Liq (Milk Of Magnesi (11/04/17 09:45) Inpatient Certification (11/04/17 ) Bedside Glucose PRISCILLA.CSUGAR (11/04/17 09:37) Blood Glucose Goal (Criteria) (11/04/17 09:37) Hypoglycemia 70 Mg/Dl Or < (11/04/17 09:37) Notify Dr: Other (11/04/17 09:37) Dextrose 50% In Phill (Vial) Inj (D50w (Vi (11/04/17 09:45) Glucagon Inj (Glucagon Inj) (11/04/17 09:45) Insulin Aspart Supplemtl Scale (Novolog (11/04/17 12:00) Diet Diabetic (11/04/17 Breakfast) Tibia/Fibula (Ap/Lat) (11/04/17 09:45) Labs Laboratory Tests Test 11/04/17 07:30 11/04/17 09:40 White Blood Count 7.6 TH/MM3 Red Blood Count 4.50 MIL/MM3 Hemoglobin 13.6 GM/DL Hematocrit 39.3 % Mean Corpuscular Volume 87.5 FL Mean Corpuscular Hemoglobin 30.3 PG Mean Corpuscular Hemoglobin Concent 34.6 % Red Cell Distribution Width 13.1 % Platelet Count 87 TH/MM3 Mean Platelet Volume 10.2 FL Neutrophils (%) (Auto) 50.3 % Lymphocytes (%) (Auto) 37.0 % Monocytes (%) (Auto) 10.2 % Eosinophils (%) (Auto) 1.5 % Basophils (%) (Auto) 1.0 % Neutrophils # (Auto) 3.8 TH/MM3 Lymphocytes # (Auto) 2.8 TH/MM3 Monocytes # (Auto) 0.8 TH/MM3 Eosinophils # (Auto) 0.1 TH/MM3 Basophils # (Auto) 0.1 TH/MM3 CBC Comment AUTO DIFF Differential Comment AUTO DIFF CONFIRMED Platelet Estimate LOW Platelet Morphology Comment NORMAL Blood Urea Nitrogen 21 MG/DL Creatinine 0.88 MG/DL Random Glucose 234 MG/DL Total Protein 7.0 GM/DL Albumin 2.8 GM/DL Calcium Level 8.6 MG/DL Alkaline Phosphatase 146 U/L Aspartate Amino Transf (AST/SGOT) 42 U/L Alanine Aminotransferase (ALT/SGPT) 39 U/L Total Bilirubin 0.6 MG/DL Sodium Level 131 MEQ/L Potassium Level 5.2 MEQ/L Chloride Level 98 MEQ/L Carbon Dioxide Level 28.0 MEQ/L Anion Gap 5 MEQ/L Estimat Glomerular Filtration Rate 92 ML/MIN [facility] Medical Decision Making Medical Screen Exam Complete: Yes Emergency Medical Condition: Yes Differential Diagnosis Cellulitis versus osteomyelitis versus infected joint. Narrative Course 52-year-old male with history of diabetes mellitus, peripheral vascular disease , hypertension, tobacco use, who presents today with complaints of drainage and pain from his right BKA site. Patient states he fell 2 days ago and disrupted a eschar. He reports that shortly thereafter it started draining serosanguineous material. He has been blood cultured and wound culture. Lactic acid is pending at this time. White blood cell count is normal. He has obvious cellulitis of the stump. He will be admitted to the hospital for IV antibiotics. Case was discussed with Dr. Ramirez, [facility], who will write admission orders. Diagnosis Primary Impression: Right BKA draining cellulitis. Additional Impressions: Diabetes mellitus History of hypertension Admitting Information Admitting Physician Requests: Admit Jayce Mak MD Nov 04, 2017 09:08
[2017-11-04] MEDS ORDERED: SODIUM CHLORIDE 0.9% FLUSH 10 ML FLUSH IV FLUSH PRN (09:45)
[2017-11-04] MEDS ORDERED: GLUCAGON 1 MG/ML VIAL OTHER PRN (09:45)
[2017-11-04] MEDS ORDERED: DEXTROSE 50% IN WATER 50 ML VIAL(D50) IV PUSH PRN (09:45)
[2017-11-04] MEDS ORDERED: VANCOMYCIN INJ 1,000 MG in SODIUM CHLOR 0.9% 250 ML INJ 250 ML IV ONE (09:45)
[2017-11-04] MEDS ORDERED: NALOXONE HCL 0.4 MG/ML AMP IV PUSH PRN (09:45)
[2017-11-04] MEDS ORDERED: MAGNESIUM HYDROXIDE SUSP 30 ML CUP PO PRN (09:45)
[2017-11-04] MEDS ORDERED: ACETAMINOPHEN 325 MG TAB PO PRN (10:00)
[2017-11-04 10:12] VITALS: BP 115/70; PULSE 68; RESP 15; O2SAT 97
--- NOTE | 2017-11-04 10:24 | RADRPT ---
EXAM DATE/TIME: 11/04/2017 09:58 [facility] COMPARISON: No previous studies available for comparison. INDICATIONS : Right leg pain at amputation. MEDICAL HISTORY : Hypertension. Peripheral vascular disease. Diabetes mellitus type II. Squamous cell carcinoma SURGICAL HISTORY : Right below knee amputation ENCOUNTER: Initial ACUITY: 4 - 6 days PAIN SCORE: 5/10 LOCATION: Right lower leg FINDINGS: There is below the knee amputation with expected postsurgical changes. No gas is identified within th e soft tissue. CONCLUSION: Postsurgical changes as above. no acute findings present Lars Dacosta MD on November 04, 2017 at 10:13 Board Certified Radiologist. This report was verified electronically.
[2017-11-04 12:00] VITALS: BP 111/71; PULSE 58; RESP 16; TEMP 96.5; O2SAT 98
[2017-11-04] MEDS: INSULIN ASPART SUPPLEMENTAL SCALE SQ SCH ×3 (12:00→21:34)
[2017-11-04 12:06] LABS: BILIRUBIN, URINE NEG (NEG); BLOOD, URINE SMALL (NEG); GLUCOSE,URINE NEG (NEG); KETONE, URINE 10 mg/dL (NEG); MUCUS URINE FEW /lpf (OCC); NITRITE,URINE NEG (NEG); PH, URINE 5.5 (5.0-8.5); SQUAMOUS EPITHELIAL CELL URINE <1 /hpf (0-5); URINE COLOR YELLOW (YELLW/STRAW); URINE LEUKOCYTE ESTERASE NEG (NEG)
[2017-11-04] MEDS ORDERED: ONDANSETRON HCL 4 MG/2 ML VIAL IVP PRN (14:00)
--- NOTE | 2017-11-04 15:14 | HHI.HP ---
HPI Service [facility] Primary Care Physician Karuna Mccord MD Admission Diagnosis right bka site cellulitis with drainage, DM, HTN Diagnoses: Chief Complaint: fall and infected wound Travel History International Travel<30 Days: No Contact w/Intl Traveler <30 Da: No Traveled to Known Affected Are: No History of Present Illness This is a 52-year-old male with hx of T2DM insulin dependent, HTN, narcotic dependence, and hx of right BKA who p/w right stump wound. Patient stated that he had a wound there few weeks ago but it was healing but then he fell 2 days ago and now the wound is not healing well. Positive for drainage. Denies fevers or chills. He said he fell because his socket is now loose. He has an appointment to get it corrected. Patient stated he fell because of his prosthesis slipped off and that is how he fell. Patient denied hitting his head. Denies any loss of consciousness. He is only concern is asking for his home pain medication. All other reviewed of systems reviewed and negative. Past Family Social History Past Medical History HTN, DM, Tobacco Abuse and h/o Right BKA Past Surgical History Right BKA, Skin Graft Reported Medications Novolog Inj (Insulin Aspart) 100 Unit/Ml Inj 1 Unit SQ ACHS SLIDING SCALE Neurontin (Gabapentin) 300 Mg Cap 600 Mg PO BID Lisinopril 10 Mg Tab 10 Mg PO DAILY Metformin ER (Metformin HCl) 1,000 Mg Roberto 1,000 Mg PO DAILY With evening meal Percocet (Oxycodone-Acetaminophen) 5-325 mg Tab 1 Tab PO Q4H PRN Nexium (Esomeprazole DR) 40 Mg Capdr 40 Mg PO DAILY Levemir Inj (Insulin Detemir) 1,000 unit/ 10 ML Vial 85 Units SQ HS Do not mix with any other Insulin. Levemir Inj (Insulin Detemir) 1,000 unit/ 10 ML Vial 65 Units SQ DAILY Do not mix with any other Insulin. Methadone (Methadone HCl) 40 Mg Tab 220 Mg PO DAILY Allergies: Coded Allergies: diatrizoate meglumine (Unverified Allergy, Severe, Rash, 11/04/17) gadobenic acid (Unverified Allergy, Severe, Rash, 11/04/17) gadodiamide (Unverified Allergy, Severe, Rash, 11/04/17) gadoteridol (Unverified Allergy, Severe, Rash, 11/04/17) iodixanol (Unverified Allergy, Severe, Rash, 11/04/17) iohexol (Unverified Allergy, Severe, Rash, 11/04/17) adhesive (Verified Allergy, Intermediate, Rash, 11/04/17) Uncoded Allergies: iv plyeogram dye (Allergy, Severe, Anaphylaxis, 04/25/17) Active Ordered Medications Current Medications Hydromorphone HCl (Dilaudid Pf Inj) 1 mg ONCE ONCE IVS Last administered on at 08:17; Start 11/04/17 at 08:00; Stop 11/04/17 at 08:01; Status DC Ondansetron HCl (Zofran Inj) 4 mg ONCE ONCE IV PUSH Last administered on at 08:16; Start 11/04/17 at 08:00; Stop 11/04/17 at 08:01; Status DC Sodium Chloride 1,000 ml @ 125 mls/hr Q8H IV Last administered on 11/04/17at 08 :16; Start 11/04/17 at 08:00 Sodium Chloride 1,000 ml @ 125 mls/hr Q8H IV ; Start 11/04/17 at 09:00 Vancomycin HCl 1000 mg/Sodium Chloride 250 ml @ 250 mls/hr ONCE ONCE IV Last administered on 11/04/17at 10:12; Start 11/04/17 at 09:45; Stop 11/04/17 at 10:44 ; Status DC Sodium Chloride (NS Flush) 2 ml UNSCH PRN IV FLUSH FLUSH AFTER USING IV ACCESS ; Start 11/04/17 at 09:45 Sodium Chloride (NS Flush) 2 ml BID IV FLUSH ; Start 11/04/17 at 21:00 Acetaminophen (Tylenol) 650 mg Q4H PRN PO TEMP > 100.4; Start 11/04/17 at 10:00 Ondansetron HCl (Zofran Inj) 4 mg Q6H PRN IVP NAUSEA OR VOMITING; Start at 14:00 Naloxone HCl (Narcan Inj) 0.4 mg UNSCH PRN IV PUSH SEE LABEL COMMENTS; Start at 09:45 Magnesium Hydroxide (Milk Of Germán Liq) 30 ml Q12H PRN PO Mild constipation ; Start 11/04/17 at 09:45 Dextrose (D50w (Vial) Inj) 50 ml UNSCH PRN IV PUSH HYPOGLYCEMIA-SEE COMMENTS; Start 11/04/17 at 09:45 Glucagon (Glucagon Inj) 1 mg UNSCH PRN OTHER HYPOGLYCEMIA-SEE COMMENTS; Start 11/04/17 at 09:45 Insulin Aspart (NovoLOG SUPPLEMENTAL SCALE) 1 ACHS SLIDING SCALE SQ ; Start at 12:00 Gabapentin (Neurontin) 600 mg BID PO ; Start 11/04/17 at 21:00; Status UNV Insulin Detemir (Levemir Inj) 65 units DAILY SQ ; Start 11/05/17 at 09:00; Status UNV Insulin Detemir (Levemir Inj) 85 units HS SQ ; Start 11/04/17 at 21:00; Status UNV Pharmacy Profile Note 0 ml @ 0 mls/hr UNSCH OTHER ; Start 11/04/17 at 15:15; Status UNV Vancomycin HCl 1000 mg/Sodium Chloride 250 ml @ 250 mls/hr Q12H IV ; Start at 22:00; Status UNV Oxycodone/ Acetaminophen (Percocet 5-325 Mg) 1 tab Q4H PRN PO pain 1-8; Start 11/04/17 at 15:15; Status UNV Oxycodone/ Acetaminophen (Percocet 10-325 Mg) 1 tab Q4H PRN PO pain 9-10; Start 11/04/17 at 15:15; Status UNV Hydromorphone HCl (Dilaudid Pf Inj) 0.5 mg Q4H PRN IV PUSH pain >3; Start 11/04 at 15:15; Status UNV Family History No past family history. Social History Negative for alcohol or drugs. Smokes 2 cigars per day. Physical Exam Vital Signs Vital Signs Date Time Temp Pulse Resp B/P (MAP) Pulse Ox O2 Delivery O2 Flow Rate FiO2 11/04/17 12:00 96.5 58 16 111/71 (84) 98 11/04/17 11:03 97 11/04/17 10:12 68 15 115/70 (85) 97 Room Air 11/04/17 08:22 60 20 99/58 (72) 99 Room Air 11/04/17 08:00 Room Air 11/04/17 07:14 18 97 Room Air 11/04/17 07:06 98.5 69 15 105/68 (80) 97 Physical Exam GENERAL: This is a well-nourished, well-developed patient, in no apparent distress. SKIN: No rashes, ecchymoses or lesions. Cool and dry. HEAD: Atraumatic. Normocephalic. No temporal or scalp tenderness. EYES: Pupils equal round and reactive. Extraocular motions intact. No scleral icterus. No injection or drainage. ENT: Nose without bleeding, purulent drainage or septal hematoma. Throat without erythema, tonsillar hypertrophy or exudate. Uvula midline. Airway patent. NECK: Trachea midline. No JVD or lymphadenopathy. Supple, nontender, no meningeal signs. CARDIOVASCULAR: Regular rate and rhythm without murmurs, gallops, or rubs. RESPIRATORY: Clear to auscultation. Breath sounds equal bilaterally. No wheezes , rales, or rhonchi. GASTROINTESTINAL: Abdomen soft, non-tender, nondistended. No hepato-splenomegaly , or palpable masses. No guarding. MUSCULOSKELETAL: right stump with around 1 cm X 0.5 cm in diameter NEUROLOGICAL: Awake and alert. Cranial nerves II through XII intact. Motor and sensory grossly within normal limits. Five out of 5 muscle strength in all muscle groups. Normal speech. Laboratory Laboratory Tests Test 11/04/17 07:30 11/04/17 09:40 11/04/17 11:55 White Blood Count 7.6 Red Blood Count 4.50 Hemoglobin 13.6 Hematocrit 39.3 Mean Corpuscular Volume 87.5 Mean Corpuscular Hemoglobin 30.3 Mean Corpuscular Hemoglobin Concent 34.6 Red Cell Distribution Width 13.1 Platelet Count 87 Mean Platelet Volume 10.2 Neutrophils (%) (Auto) 50.3 Lymphocytes (%) (Auto) 37.0 Monocytes (%) (Auto) 10.2 Eosinophils (%) (Auto) 1.5 Basophils (%) (Auto) 1.0 Neutrophils # (Auto) 3.8 Lymphocytes # (Auto) 2.8 Monocytes # (Auto) 0.8 Eosinophils # (Auto) 0.1 Basophils # (Auto) 0.1 CBC Comment AUTO DIFF Differential Comment AUTO DIFF CONFIRMED Platelet Estimate LOW Platelet Morphology Comment NORMAL Blood Urea Nitrogen 21 Creatinine 0.88 Random Glucose 234 Total Protein 7.0 Albumin 2.8 Calcium Level 8.6 Alkaline Phosphatase 146 Aspartate Amino Transf (AST/SGOT) 42 Alanine Aminotransferase (ALT/SGPT) 39 Total Bilirubin 0.6 Sodium Level 131 Potassium Level 5.2 Chloride Level 98 Carbon Dioxide Level 28.0 Anion Gap 5 Estimat Glomerular Filtration Rate 92 Lactic Acid Level 1.5 Urine Color YELLOW Urine Turbidity CLEAR Urine pH 5.5 Urine Specific [place] 1.011 Urine Protein 30 Urine Glucose (UA) NEG Urine Ketones 10 Urine Occult Blood SMALL Urine Nitrite NEG Urine Bilirubin NEG Urine Urobilinogen LESS THAN 2.0 Urine Leukocyte Esterase NEG Urine RBC LESS THAN 1 Urine WBC LESS THAN 1 Urine Squamous Epithelial Cells <1 Urine Mucus FEW Microscopic Urinalysis Comment CULT NOT INDICATED Date/Time Source Procedure Growth Status 11/04/17 08:05 Blood Peripheral Aerobic Blood Culture Pending Received 11/04/17 08:05 Blood Peripheral Anaerobic Blood Culture Pending Received 11/04/17 07:25 Wound Leg Gram Stain - Final Resulted 11/04/17 07:25 Wound Leg Wound Culture Pending Resulted Result Diagram: 11/04/17 0730 11/04/17 0730 Imaging Last Impressions Tibia/Fibula X-Ray 11/04/17 0945 Signed Impressions: Service Date/Time: Saturday, November 04, 2017 09:58 - CONCLUSION: Postsurgical changes as above. no acute findings present Lars Dacosta MD Chest X-Ray 11/04/17 0752 Signed Impressions: Service Date/Time: Saturday, November 04, 2017 08:16 - CONCLUSION: Questionable density left upper lobe likely related to anterior first rib complex. AP Lordotic views are recommended. Keyur Goldman MD Caprini VTE Risk Assessment Caprini VTE Risk Assessment: Mod/High Risk (score >= 2) Caprini Risk Assessment Model Point Value = 1 Point Value = 2 Point Value = 3 Point Value = 5 Age 41-60 Minor surgery BMI > 25 kg/m2 Swollen legs Varicose veins or History of unexplained or recurrent spontaneous Oral contraceptives or hormone replacement Sepsis (< 1 month) Serious lung disease, including pneumonia (< 1 month) Abnormal pulmonary function Acute myocardial infarction Congestive heart failure (< 1 month) History of inflammatory bowel disease Medical patient at bed rest Age 61-74 Arthroscopic surgery Major open surgery (> 45 min) Laparoscopic surgery (> 45 min) Malignancy Confined to bed (> 72 hours) Immobilizing plaster cast Central venous access Age >= 75 History of VTE Family history of VTE Factor V Leiden Prothrombin [id number] Lupus anticoagulant Anticardiolipin antibodies Elevated serum homocysteine Heparin-induced thrombocytopenia Other congenital or acquired thrombophilia Stroke (< 1 month) Elective arthroplasty Hip, pelvis, or leg fracture Acute spinal cord injury (< 1 month) Prophylaxis Regimen Total Risk Factor Score Risk Level Prophylaxis Regimen 0-1 Low Early ambulation 2 Moderate Order ONE of the following: *Sequential Compression Device (SCD) *Heparin 5000 units SQ BID 3-4 Higher Order ONE of the following medications: *Heparin 5000 units SQ TID *Enoxaparin/Lovenox 40 mg SQ daily (WT < 150 kg, CrCl > 30 mL/min) *Enoxaparin/Lovenox 30 mg SQ daily (WT < 150 kg, CrCl > 10-29 mL/min) *Enoxaparin/Lovenox 30 mg SQ BID (WT < 150 kg, CrCl > 30 mL/min) AND/OR *Sequential Compression Device (SCD) 5 or more Highest Order ONE of the following medications: *Heparin 5000 units SQ TID (Preferred with Epidurals) *Enoxaparin/Lovenox 40 mg SQ daily (WT < 150 kg, CrCl > 30 mL/min) *Enoxaparin/Lovenox 30 mg SQ daily (WT < 150 kg, CrCl > 10-29 mL/min) *Enoxaparin/Lovenox 30 mg SQ BID (WT < 150 kg, CrCl > 30 mL/min) AND *Sequential Compression Device (SCD) Assessment and Plan Assessment and Plan 52-year-old male history of BKA presented with poor wound healing Poor wound healing on right stump -X-ray negative for any acute process. No leukocytosis or fevers. Cultures already taken from wound site. -Consult his vascular surgeon Dr. Orellana. Patient given vancomycin in the ED. We will continue vancomycin. Pending wound cultures. Type 2 diabetes insulin-dependent/hypertension/chronic pain/GERD -Continue home medication. -Hold lisinopril due to hypotension. DVT prophylaxis -Lovenox. Physician Certification 2 Midnight Certification Type: Continued Stay Order for Inpatient Services The services are ordered in accordance with Medicare regulations or non- Medicare payer requirements, as applicable. In the case of services not specified as inpatient-only, they are appropriately provided as inpatient services in accordance with the 2-midnight benchmark. Estimated LOS (days): 3 3 days is the estimated time the patient will need to remain in the hospital, assuming treatment plan goals are met and no additional complications. Post-Hospital Plan: Erika Steel MD Nov 04, 2017 15:14
[2017-11-04] MEDS ORDERED: oxyCODONE/ACETAMINOPHEN 5 MG/325 MG TAB PO PRN (15:15)
[2017-11-04] MEDS ORDERED: Vancomycin Consult Pharmacy 1 EA OTHER SCH (15:15)
[2017-11-04] MEDS: oxyCODONE/ACETAMINOPHEN 10 MG/325 MG TAB PO PRN ×2 (15:51→21:27)
[2017-11-04 16:00] VITALS: BP 129/80; PULSE 55; RESP 18; TEMP 97.6; O2SAT 99
[2017-11-04] MEDS: ENOXAPARIN SODIUM 40 MG/0.4 ML SYRINGE SQ SCH (18:21)
[2017-11-04 20:00] VITALS: BP 121/77; PULSE 65; RESP 18; TEMP 98.7; O2SAT 98
[2017-11-04] MEDS: GABAPENTIN 300 MG CAP PO SCH (21:26)
[2017-11-04] MEDS: SODIUM CHLORIDE 0.9% FLUSH 10 ML FLUSH IV FLUSH SCH (21:27)
[2017-11-04] MEDS: INSULIN DETEMIR 100 UNITS/ML VIAL SQ SCH (21:27)
[2017-11-04] MEDS: VANCOMYCIN INJ 1,250 MG in SODIUM CHLOR 0.9% 250 ML INJ 250 ML IV SCH (21:33)
[2017-11-04] MEDS ORDERED: VANCOMYCIN INJ 1,000 MG in SODIUM CHLOR 0.9% 250 ML INJ 250 ML IV SCH (22:00)
[2017-11-05] VITALS: BP 132/76; PULSE 61; RESP 15; TEMP 98.3; O2SAT 96
[2017-11-05 04:00] VITALS: BP 169/92; PULSE 64; RESP 18; TEMP 97.6; O2SAT 96
[2017-11-05] MEDS: oxyCODONE/ACETAMINOPHEN 10 MG/325 MG TAB PO PRN ×4 (04:47→23:04)
[2017-11-05] MEDS: SODIUM CHLOR 0.9% 1000 ML INJ 1,000 ML IV SCH ×6 (04:48→17:09)
[2017-11-05 08:00] VITALS: BP 160/94; PULSE 52; RESP 20; TEMP 98; O2SAT 97
[2017-11-05] MEDS: INSULIN ASPART SUPPLEMENTAL SCALE SQ SCH ×4 (09:00→23:04)
[2017-11-05] MEDS: INSULIN DETEMIR 100 UNITS/ML VIAL SQ SCH ×2 (09:00→23:10)
[2017-11-05] MEDS: SODIUM CHLORIDE 0.9% FLUSH 10 ML FLUSH IV FLUSH SCH ×2 (09:00→20:15)
[2017-11-05] MEDS: METHADONE HCL 10 MG TAB PO SCH (09:13)
[2017-11-05] MEDS: GABAPENTIN 300 MG CAP PO SCH ×2 (09:13→20:14)
[2017-11-05 12:00] VITALS: BP 163/87; PULSE 50; RESP 19; TEMP 97.5; O2SAT 97
[2017-11-05] MEDS: VANCOMYCIN INJ 1,250 MG in SODIUM CHLOR 0.9% 250 ML INJ 250 ML IV SCH ×2 (12:01→23:04)
--- NOTE | 2017-11-05 12:38 | PD.CAR.PN ---
CVT Progress Note Subjective/Hospital Course: Patient is status post below-knee amputation a while ago. BKA stump is clean and dry and well healed. Unfortunately patient fell and sustained injury to the lateral stump consisting of a deep ulcer measuring about 1 cm in diameter but certainly reaching at least an inch inside I am not sure if this is reaching down to the bone but that this point appears to be clean and not infected We will keep patient on antibiotics and allow for healing time but right now there is no surgery to be done on it For the time being I recommend conservative therapy and hygiene maintenance and cleaning of the stump If it heals nicely nothing else will need to be done if the patient gets infection and abscess in there and then of course will need to be drained and there is a high chance patient may end up with above-knee amputation Nothing to add from vascular point to patient's care at this time Objective: Vital Signs Date Time Temp Pulse Resp B/P (MAP) Pulse Ox O2 Delivery O2 Flow Rate FiO2 11/05/17 08:00 98.0 52 20 160/94 (116) 97 11/05/17 04:00 97.6 64 18 169/92 (117) 96 11/05/17 00:00 98.3 61 15 132/76 (94) 96 11/04/17 20:00 98.7 65 18 121/77 (92) 98 11/04/17 16:00 97.6 55 18 129/80 (96) 99 Result Diagram: 11/04/1730 11/04/1730 Velasquez Lizama MD Nov 05, 2017 12:38
--- NOTE | 2017-11-05 14:15 | RADRPT ---
EXAM DATE/TIME: 11/05/2017 13:22 [place] COMPARISON: No previous studies available for comparison. INDICATIONS : Syncope. MEDICAL HISTORY : Hepatitis C. Skin cancer. Hypertension. Peripheral neuropathy. Peripheral vascular disease. GERD. Kidney stones. DDD. Arthritis. Diabetes. SURGICAL HISTORY : Appendectomy. Right second toe amputation. Right BKA. ENCOUNTER: Initial ACUITY: 3 days PAIN SCORE: 0/10 LOCATION: Bilateral neck PEAK SYSTOLIC VELOCITIES (cm/sec): ICA/CCA RATIO: Right: 0.9 Left: 1.0 ICA: Right: 56 Left: 85 CCA: Right: 60 Left: 81 ECA: Right: 95 Left: 80 VERTEBRAL: Right: 71 antegrade Left: 54 antegrade Elevated flow velocities and ICA/CCA ratios have been found to correlate with increased degrees of vessel stenosis, calculated as percentage of diameter relative to a normal segment of distal ICA/CCA FINDINGS: RIGHT CAROTID: There is no evidence for a hemodynamically significant carotid stenosis. Minimal intimal hyperplasia is present with scattered calcific plaque. LEFT CAROTID: There is no evidence for a hemodynamically significant carotid stenosis. Minimal intimal hyperplasia is present with scattered calcific plaque. VERTEBRAL ARTERIES: Flow is antegrade in both vertebral arteries. MISCELLANEOUS: There are no ancillary masses or adenopathy. CONCLUSION: Negative examination for a hemodynamically significant carotid stenosis. .. Jhonatan Vallejo MD FACR on November 05, 2017 at 14:14 Board Certified Radiologist. This report was verified electronically.
[2017-11-05] MEDS: HYDROmorphone HCL PF 2 MG/ML VIAL IV PUSH PRN ×2 (14:18→20:14)
--- NOTE | 2017-11-05 15:55 | HHI.PR ---
Subjective Remarks Follow-up for wound infection Patient complaining about pain. He said the Percocet is not working. Otherwise he has no other complaints. He feels like his wound is improving. He remains afebrile. Objective Vitals Vital Signs Date Time Temp Pulse Resp B/P (MAP) Pulse Ox O2 Delivery O2 Flow Rate FiO2 11/05/17 12:00 97.5 50 19 163/87 (112) 97 11/05/17 08:00 98.0 52 20 160/94 (116) 97 11/05/17 04:00 97.6 64 18 169/92 (117) 96 11/05/17 00:00 98.3 61 15 132/76 (94) 96 11/04/17 20:00 98.7 65 18 121/77 (92) 98 11/04/17 16:00 97.6 55 18 129/80 (96) 99 I/O 11/04/17 11/04/17 11/04/17 11/05/17 11/05/17 11/05/17 07:00 15:00 23:00 07:00 15:00 23:00 Intake Total 480 ml 1742.5 ml Output Total 300 ml 800 ml Balance 480 ml 1442.5 ml -800 ml Intake Oral 480 ml 480 ml IV Total 1262.5 ml Output Urine Total 300 ml 800 ml # Voids 3 Result Diagram: 11/04/17 0730 11/04/17 0730 Objective Remarks GENERAL: This is a well-nourished, well-developed patient, in no apparent distress. NECK: Trachea midline. No JVD or lymphadenopathy. Supple, nontender, no meningeal signs. CARDIOVASCULAR: Regular rate and rhythm without murmurs, gallops, or rubs. RESPIRATORY: Clear to auscultation. Breath sounds equal bilaterally. No wheezes , rales, or rhonchi. GASTROINTESTINAL: Abdomen soft, non-tender, nondistended. No hepato-splenomegaly , or palpable masses. No guarding. MUSCULOSKELETAL: right stump with around 1 cm X 0.5 cm in diameter with some serosanguineous discharge. NEUROLOGICAL: Awake and alert. Cranial nerves II through XII intact. Motor and sensory grossly within normal limits. Five out of 5 muscle strength in all muscle groups. Normal speech. Medications and IVs Current Medications Hydromorphone HCl (Dilaudid Pf Inj) 1 mg ONCE ONCE IVS Last administered on at 08:17; Start 11/04/17 at 08:00; Stop 11/04/17 at 08:01; Status DC Ondansetron HCl (Zofran Inj) 4 mg ONCE ONCE IV PUSH Last administered on at 08:16; Start 11/04/17 at 08:00; Stop 11/04/17 at 08:01; Status DC Sodium Chloride 1,000 ml @ 125 mls/hr Q8H IV Last administered on 11/04/17at 18 :30; Start 11/04/17 at 08:00 Sodium Chloride 1,000 ml @ 125 mls/hr Q8H IV Last administered on 11/05/17at 10 :06; Start 11/04/17 at 09:00 Vancomycin HCl 1000 mg/Sodium Chloride 250 ml @ 250 mls/hr ONCE ONCE IV Last administered on 11/04/17at 10:12; Start 11/04/17 at 09:45; Stop 11/04/17 at 10:44 ; Status DC Sodium Chloride (NS Flush) 2 ml UNSCH PRN IV FLUSH FLUSH AFTER USING IV ACCESS ; Start 11/04/17 at 09:45 Sodium Chloride (NS Flush) 2 ml BID IV FLUSH Last administered on 11/04/17at 21: 27; Start 11/04/17 at 21:00 Acetaminophen (Tylenol) 650 mg Q4H PRN PO TEMP > 100.4; Start 11/04/17 at 10:00 Ondansetron HCl (Zofran Inj) 4 mg Q6H PRN IVP NAUSEA OR VOMITING; Start at 14:00 Naloxone HCl (Narcan Inj) 0.4 mg UNSCH PRN IV PUSH SEE LABEL COMMENTS; Start at 09:45 Magnesium Hydroxide (Milk Of Magnesia Liq) 30 ml Q12H PRN PO Mild constipation ; Start 11/04/17 at 09:45 Dextrose (D50w (Vial) Inj) 50 ml UNSCH PRN IV PUSH HYPOGLYCEMIA-SEE COMMENTS; Start 11/04/17 at 09:45 Glucagon (Glucagon Inj) 1 mg UNSCH PRN OTHER HYPOGLYCEMIA-SEE COMMENTS; Start 11/04/17 at 09:45 Insulin Aspart (NovoLOG SUPPLEMENTAL SCALE) 1 ACHS SLIDING SCALE SQ Last administered on 11/05/17at 12:00; Start 11/04/17 at 12:00 Gabapentin (Neurontin) 600 mg BID PO Last administered on 11/05/17at 09:13; Start 11/04/17 at 21:00 Insulin Detemir (Levemir Inj) 65 units DAILY SQ Last administered on 11/05/17at 09:00; Start 11/05/17 at 09:00 Insulin Detemir (Levemir Inj) 85 units HS SQ Last administered on 11/04/17at 21: 27; Start 11/04/17 at 21:00 Pharmacy Profile Note 0 ml @ 0 mls/hr UNSCH OTHER ; Start 11/04/17 at 15:15 Vancomycin HCl 1000 mg/Sodium Chloride 250 ml @ 250 mls/hr Q12H IV ; Start at 22:00; Status Cancel Oxycodone/ Acetaminophen (Percocet 5-325 Mg) 1 tab Q4H PRN PO pain 1-8; Start 11/04/17 at 15:15 Oxycodone/ Acetaminophen (Percocet 10-325 Mg) 1 tab Q4H PRN PO pain 9-10 Last administered on 11/05/17at 09:21; Start 11/04/17 at 15:15 Hydromorphone HCl (Dilaudid Pf Inj) 0.5 mg Q4H PRN IV PUSH pain >3 Last administered on 11/05/17at 14:18; Start 11/04/17 at 15:15 Methadone HCl (Dolophine) 220 mg DAILY PO Last administered on 11/05/17at 09:13 ; Start 11/05/17 at 09:00 Enoxaparin Sodium (Lovenox Inj) 40 mg Q24H SQ Last administered on 11/04/17at 18 :21; Start 11/04/17 at 16:00 Vancomycin HCl 1250 mg/Sodium Chloride 262.5 ml @ 250 mls/hr Q12H IV Last administered on 11/05/17at 12:01; Start 11/04/17 at 22:00 Miscellaneous Information SPECIFIC LAB TO BE ... ONCE ONCE .XX ; Start at 09:45; Stop 11/06/17 at 09:46 A/P Assessment and Plan 52-year-old male history of BKA presented with poor wound healing Poor wound healing on right stump -X-ray negative for any acute process. No leukocytosis or fevers. Cultures already taken from wound site. -Consulted his vascular surgeon Dr. Orellana who stated to keep patient on antibiotics and allow for healing time but right now there is no surgery to be done on it, recommend conservative therapy and hygiene maintenance and cleaning of the stump. if it heals nicely nothing else will need to be done if the patient gets infection and abscess in there and then of course will need to be drained and there is a high chance patient may end up with above-knee amputation -Continue with vancomycin pending wound cultures. Type 2 diabetes insulin-dependent/hypertension/chronic pain/GERD -Continue home medication. DVT prophylaxis -Lovenox. Discussed case with patient's nurse. Erika Ramirez MD Nov 05, 2017 15:55
[2017-11-05 16:00] VITALS: BP 177/97; PULSE 56; RESP 19; TEMP 97.7; O2SAT 96
[2017-11-05] MEDS: ENOXAPARIN SODIUM 40 MG/0.4 ML SYRINGE SQ SCH (17:08)
[2017-11-05 20:00] VITALS: BP 168/91; PULSE 96; RESP 20; TEMP 97.8
[2017-11-06 00:20] VITALS: BP 172/91; PULSE 59; RESP 20; TEMP 98.1; O2SAT 99
[2017-11-06 04:00] VITALS: BP 158/85; PULSE 55; RESP 20; TEMP 98.2; O2SAT 99
[2017-11-06] MEDS: oxyCODONE/ACETAMINOPHEN 10 MG/325 MG TAB PO PRN ×3 (04:04→21:34)
[2017-11-06 04:05] LABS: HEMATOCRIT 36.2 % (39.0-51.0); HEMOGLOBIN 12.4 GM/DL (13.0-17.0); MEAN CELL VOLUME 86.8 FL (80.0-100.0); MEAN CORPUSCULAR HEMOGLOBIN 29.8 PG (27.0-34.0); MEAN CORPUSCULAR HGB CONC 34.3 % (32.0-36.0); MEAN PLATELET VOLUME 9.5 FL (7.0-11.0); PLATELET COUNT 78 TH/MM3 (150-450); RED BLOOD COUNT 4.17 MIL/MM3 (4.50-5.90); RED CELL DISTRIBUTION WIDTH 13.3 % (11.6-17.2); WHITE BLOOD COUNT 3.9 TH/MM3 (4.0-11.0)
[2017-11-06] MEDS: SODIUM CHLOR 0.9% 1000 ML INJ 1,000 ML IV SCH ×7 (04:07→21:57)
[2017-11-06 04:38] LABS: CALCIUM 7.7 MG/DL (8.5-10.1); CREATININE 0.7 MG/DL (0.60-1.30)
[2017-11-06] MEDS: HYDROmorphone HCL PF 2 MG/ML VIAL IV PUSH PRN ×3 (06:21→21:57)
[2017-11-06 08:00] VITALS: BP 165/96; PULSE 54; RESP 18; TEMP 97.6; O2SAT 96
[2017-11-06] MEDS: INSULIN ASPART SUPPLEMENTAL SCALE SQ SCH ×4 (08:00→21:00)
[2017-11-06] MEDS: INSULIN DETEMIR 100 UNITS/ML VIAL SQ SCH ×2 (09:00→21:00)
[2017-11-06] MEDS: SODIUM CHLORIDE 0.9% FLUSH 10 ML FLUSH IV FLUSH SCH ×2 (09:00→21:35)
[2017-11-06] MEDS ORDERED: PHARMACY ORDERED LAB ONE (09:45)
[2017-11-06] MEDS: METHADONE HCL 10 MG TAB PO SCH (10:19)
[2017-11-06] MEDS: GABAPENTIN 300 MG CAP PO SCH ×2 (10:19→21:34)
--- NOTE | 2017-11-06 11:23 | HHI.PR ---
Subjective Remarks in no acute distress. complaining of pain to the right lower extremity. no fever. Objective Vitals Vital Signs Date Time Temp Pulse Resp B/P (MAP) Pulse Ox O2 Delivery O2 Flow Rate FiO2 11/06/17 08:00 97.6 54 18 165/96 (119) 96 11/06/17 04:00 98.2 55 20 158/85 (109) 99 11/06/17 00:20 98.1 59 20 172/91 (118) 99 11/05/17 20:00 97.8 96 20 168/91 (116) 11/05/17 16:00 97.7 56 19 177/97 (123) 96 11/05/17 12:00 97.5 50 19 163/87 (112) 97 I/O 11/05/17 11/05/17 11/05/17 11/06/17 11/06/17 11/06/17 07:00 15:00 23:00 07:00 15:00 23:00 Intake Total 1742.5 ml 1200 ml 2450 ml Output Total 300 ml 800 ml 700 ml Balance 1442.5 ml -800 ml 500 ml 2450 ml Intake Oral 480 ml 1200 ml 1200 ml IV Total 1262.5 ml 1250 ml Output Urine Total 300 ml 800 ml 700 ml # Voids 5 1 # Bowel Movements 1 Result Diagram: 11/06/17 0354 11/06/17 0354 Imaging Last Impressions Carotid Artery Ultrasound 11/05/17 0000 Signed Impressions: Service Date/Time: Sunday, November 05, 2017 13:22 - CONCLUSION: Negative examination for a hemodynamically significant carotid stenosis. .. Jhonatan Vallejo MD FACR Tibia/Fibula X-Ray 11/04/17 0945 Signed Impressions: Service Date/Time: Saturday, November 04, 2017 09:58 - CONCLUSION: Postsurgical changes as above. no acute findings present Lars Dacosta MD Chest X-Ray 11/04/17 0752 Signed Impressions: Service Date/Time: Saturday, November 04, 2017 08:16 - CONCLUSION: Questionable density left upper lobe likely related to anterior first rib complex. AP Lordotic views are recommended. Keyur Goldman MD Objective Remarks GENERAL: This is a well-nourished, well-developed patient, in no apparent distress. CARDIOVASCULAR: Regular rate and regular rhythm without murmurs, gallops, or rubs. RESPIRATORY: Clear to auscultation. Breath sounds equal bilaterally. No wheezes , rales, or rhonchi. GASTROINTESTINAL: Abdomen soft, non-tender, nondistended. Normal, active bowel sounds MUSCULOSKELETAL: right stump covered with clean dressing. NEURO: Alert & Oriented x4 to person, place, time, situation. Moves all ext x4 Medications and IVs Inpatient Medications Acetaminophen (Tylenol) 650 mg Q4H PRN PO TEMP > 100.4; Start 11/04/17 at 10:00 Dextrose (D50w (Vial) Inj) 50 ml UNSCH PRN IV PUSH HYPOGLYCEMIA-SEE COMMENTS; Start 11/04/17 at 09:45 Enoxaparin Sodium (Lovenox Inj) 40 mg Q24H SQ Last administered on 11/05/17at 17 :08; Start 11/04/17 at 16:00 Gabapentin (Neurontin) 600 mg BID PO Last administered on 11/06/17at 10:19; Start 11/04/17 at 21:00 Glucagon (Glucagon Inj) 1 mg UNSCH PRN OTHER HYPOGLYCEMIA-SEE COMMENTS; Start 11/04/17 at 09:45 Hydromorphone HCl (Dilaudid Pf Inj) 0.5 mg Q4H PRN IV PUSH pain >3 Last administered on 11/06/17at 06:21; Start 11/04/17 at 15:15 Insulin Aspart (NovoLOG SUPPLEMENTAL SCALE) 1 ACHS SLIDING SCALE SQ Last administered on 11/06/17at 08:00; Start 11/04/17 at 12:00 Insulin Detemir (Levemir Inj) 85 units HS SQ Last administered on 11/05/17at 23: 10; Start 11/04/17 at 21:00 Magnesium Hydroxide (Milk Of Magnesia Liq) 30 ml Q12H PRN PO Mild constipation ; Start 11/04/17 at 09:45 Methadone HCl (Dolophine) 220 mg DAILY PO Last administered on 11/06/17at 10:19; Start 11/05/17 at 09:00 Miscellaneous Information SPECIFIC LAB TO BE SOPHY... ONCE ONCE .XX ; Start at 09:45; Stop 11/06/17 at 09:46; Status DC Naloxone HCl (Narcan Inj) 0.4 mg UNSCH PRN IV PUSH SEE LABEL COMMENTS; Start at 09:45 Ondansetron HCl (Zofran Inj) 4 mg Q6H PRN IVP NAUSEA OR VOMITING; Start at 14:00 Oxycodone/ Acetaminophen (Percocet 5-325 Mg) 1 tab Q4H PRN PO pain 1-8; Start 11/04/17 at 15:15 Oxycodone/ Acetaminophen (Percocet 10-325 Mg) 1 tab Q4H PRN PO pain 9-10 Last administered on 11/06/17at 04:04; Start 11/04/17 at 15:15 Pharmacy Profile Note 0 ml @ 0 mls/hr UNSCH OTHER ; Start 11/04/17 at 15:15 Sodium Chloride (NS Flush) 2 ml BID IV FLUSH Last administered on 11/04/17at 21: 27; Start 11/04/17 at 21:00 Vancomycin HCl 1000 mg/Sodium Chloride 250 ml @ 250 mls/hr ONCE ONCE IV Last administered on 11/04/17at 10:12; Start 11/04/17 at 09:45; Stop 11/04/17 at 10:44 ; Status DC Vancomycin HCl 1250 mg/Sodium Chloride 262.5 ml @ 250 mls/hr Q12H IV Last administered on 11/05/17at 23:04; Start 11/04/17 at 22:00 A/P Assessment and Plan A/P Poor wound healing on right stump -X-ray negative for any acute process. No leukocytosis or fevers. Cultures already taken from wound site. -Consulted his vascular surgeon Dr. Orellana who stated to keep patient on antibiotics and allow for healing time but right now there is no surgery to be done on it, recommend conservative therapy and hygiene maintenance and cleaning of the stump. if it heals nicely nothing else will need to be done if the patient gets infection and abscess in there and then of course will need to be drained and there is a high chance patient may end up with above-knee amputation. continue pain control. Type 2 diabetes insulin-dependent/hypertension/chronic pain/GERD -Continue home medication. DVT prophylaxis -Lovenox. Discharge Planning when cleared by vascular surgery. Scott Duarte MD Nov 06, 2017 11:23
[2017-11-06 12:00] VITALS: BP 167/95; PULSE 50; RESP 18; TEMP 97.8; O2SAT 98
[2017-11-06] MEDS: VANCOMYCIN INJ 1,250 MG in SODIUM CHLOR 0.9% 250 ML INJ 250 ML IV SCH ×2 (12:39→21:57)
[2017-11-06 16:00] VITALS: BP 134/80; PULSE 54; RESP 18; TEMP 98.3; O2SAT 100
[2017-11-06] MEDS: ENOXAPARIN SODIUM 40 MG/0.4 ML SYRINGE SQ SCH (17:04)
[2017-11-06 20:00] VITALS: BP 165/83; PULSE 61; RESP 18; TEMP 97.6; O2SAT 99
[2017-11-07] VITALS: BP 165/92; PULSE 65; RESP 16; TEMP 98.2; O2SAT 98
[2017-11-07] MEDS: SODIUM CHLOR 0.9% 1000 ML INJ 1,000 ML IV SCH ×7 (01:00→23:00)
[2017-11-07] MEDS: oxyCODONE/ACETAMINOPHEN 10 MG/325 MG TAB PO PRN ×5 (01:00→21:02)
[2017-11-07] MEDS: HYDROmorphone HCL PF 2 MG/ML VIAL IV PUSH PRN ×3 (02:18→22:00)
[2017-11-07 04:00] VITALS: BP 170/93; PULSE 67; RESP 18; O2SAT 95
[2017-11-07 08:00] VITALS: BP 169/96; PULSE 60; RESP 18; TEMP 97.9; O2SAT 100
[2017-11-07] MEDS: INSULIN ASPART SUPPLEMENTAL SCALE SQ SCH ×4 (08:00→20:55)
[2017-11-07] MEDS: GABAPENTIN 300 MG CAP PO SCH ×2 (09:23→20:55)
[2017-11-07] MEDS: INSULIN DETEMIR 100 UNITS/ML VIAL SQ SCH ×2 (09:23→20:55)
[2017-11-07] MEDS: METHADONE HCL 10 MG TAB PO SCH (09:24)
[2017-11-07] MEDS: SODIUM CHLORIDE 0.9% FLUSH 10 ML FLUSH IV FLUSH SCH ×2 (09:24→20:56)
--- NOTE | 2017-11-07 10:22 | HHI.PR ---
Subjective Remarks in no acute distress. remains afebrile. d/w the RN and no acute issues over night. Objective Vitals Vital Signs Date Time Temp Pulse Resp B/P (MAP) Pulse Ox O2 Delivery O2 Flow Rate FiO2 11/07/17 08:00 97.9 60 18 169/96 (120) 100 11/07/17 04:00 67 18 170/93 (118) 95 11/07/17 00:00 98.2 65 16 165/92 (116) 98 11/06/17 20:00 97.6 61 18 165/83 (110) 99 11/06/17 16:00 98.3 54 18 134/80 (98) 100 11/06/17 12:00 97.8 50 18 167/95 (119) 98 I/O 11/06/17 11/06/17 11/06/17 11/07/17 11/07/17 11/07/17 07:00 15:00 23:00 07:00 15:00 23:00 Intake Total 2450 ml 240 ml 480 ml 600 ml Output Total 2000 ml 1500 ml Balance 2450 ml 240 ml -1520 ml -900 ml Intake Oral 1200 ml 240 ml 480 ml 600 ml IV Total 1250 ml Output Urine Total 2000 ml 1500 ml # Voids 1 # Bowel Movements 1 1 Result Diagram: 11/06/17 0354 11/06/17 0354 Imaging Last Impressions Carotid Artery Ultrasound 11/05/17 0000 Signed Impressions: Service Date/Time: Sunday, November 05, 2017 13:22 - CONCLUSION: Negative examination for a hemodynamically significant carotid stenosis. .. Jhonatan Vallejo MD FACR Tibia/Fibula X-Ray 11/04/17 0945 Signed Impressions: Service Date/Time: Saturday, November 04, 2017 09:58 - CONCLUSION: Postsurgical changes as above. no acute findings present Lars Dacosta MD Chest X-Ray 11/04/17 0752 Signed Impressions: Service Date/Time: Saturday, November 04, 2017 08:16 - CONCLUSION: Questionable density left upper lobe likely related to anterior first rib complex. AP Lordotic views are recommended. Keyur Goldman MD Objective Remarks GENERAL: This is a well-nourished, well-developed patient, in no apparent distress. CARDIOVASCULAR: Regular rate and regular rhythm without murmurs, gallops, or rubs. RESPIRATORY: Clear to auscultation. Breath sounds equal bilaterally. No wheezes , rales, or rhonchi. GASTROINTESTINAL: Abdomen soft, non-tender, nondistended. Normal, active bowel sounds MUSCULOSKELETAL: right stump covered with clean dressing. NEURO: Alert & Oriented x4 to person, place, time, situation. Moves all ext x4 Medications and IVs Inpatient Medications Acetaminophen (Tylenol) 650 mg Q4H PRN PO TEMP > 100.4; Start 11/04/17 at 10:00 Dextrose (D50w (Vial) Inj) 50 ml UNSCH PRN IV PUSH HYPOGLYCEMIA-SEE COMMENTS; Start 11/04/17 at 09:45 Enoxaparin Sodium (Lovenox Inj) 40 mg Q24H SQ Last administered on 11/06/17at 17: 04; Start 11/04/17 at 16:00 Gabapentin (Neurontin) 600 mg BID PO Last administered on 11/07/17at 09:23; Start 11/04/17 at 21:00 Glucagon (Glucagon Inj) 1 mg UNSCH PRN OTHER HYPOGLYCEMIA-SEE COMMENTS; Start 11/04/17 at 09:45 Hydromorphone HCl (Dilaudid Pf Inj) 0.5 mg Q4H PRN IV PUSH pain >3 Last administered on 11/07/17at 02:18; Start 11/04/17 at 15:15 Insulin Aspart (NovoLOG SUPPLEMENTAL SCALE) 1 ACHS SLIDING SCALE SQ Last administered on 11/06/17at 12:00; Start 11/04/17 at 12:00 Insulin Detemir (Levemir Inj) 85 units HS SQ Last administered on 11/06/17at 21: 00; Start 11/04/17 at 21:00 Magnesium Hydroxide (Milk Of Magnesia Liq) 30 ml Q12H PRN PO Mild constipation ; Start 11/04/17 at 09:45 Methadone HCl (Dolophine) 220 mg DAILY PO Last administered on 11/07/17at 09:24; Start 11/05/17 at 09:00 Miscellaneous Information SPECIFIC LAB TO BE DRAWN:[facility] DATE TO BE DRKristi.. ONCE ONCE .XX ; Start 11/08/17 at 09:45; Stop 11/08/17 at 09:46 Naloxone HCl (Narcan Inj) 0.4 mg UNSCH PRN IV PUSH SEE LABEL COMMENTS; Start at 09:45 Ondansetron HCl (Zofran Inj) 4 mg Q6H PRN IVP NAUSEA OR VOMITING; Start at 14:00 Oxycodone/ Acetaminophen (Percocet 5-325 Mg) 1 tab Q4H PRN PO pain 1-8; Start 11/04/17 at 15:15 Oxycodone/ Acetaminophen (Percocet 10-325 Mg) 1 tab Q4H PRN PO pain 9-10 Last administered on 11/07/17at 09:24; Start 11/04/17 at 15:15 Pharmacy Profile Note 0 ml @ 0 mls/hr UNSCH OTHER ; Start 11/04/17 at 15:15 Sodium Chloride (NS Flush) 2 ml BID IV FLUSH Last administered on 11/07/17at 09: 24; Start 11/04/17 at 21:00 Vancomycin HCl 1000 mg/Sodium Chloride 250 ml @ 250 mls/hr ONCE ONCE IV Last administered on 11/04/17at 10:12; Start 11/04/17 at 09:45; Stop 11/04/17 at 10:44 ; Status DC Vancomycin HCl 1250 mg/Sodium Chloride 262.5 ml @ 250 mls/hr Q12H IV Last administered on 11/06/17at 21:57; Start 11/04/17 at 22:00 A/P Assessment and Plan A/P Poor wound healing on right stump -X-ray negative for any acute process. No leukocytosis or fevers. Cultures already taken from wound site. -Consulted his vascular surgeon Dr. Orellana who stated to keep patient on antibiotics and allow for healing time but right now there is no surgery to be done on it, recommend conservative therapy and hygiene maintenance and cleaning of the stump. if it heals nicely nothing else will need to be done if the patient gets infection and abscess in there and then of course will need to be drained and there is a high chance patient may end up with above-knee amputation. continue pain control. Type 2 diabetes insulin-dependent/hypertension/chronic pain/GERD -Continue home medication. DVT prophylaxis -Lovenox. PT consulted. Discharge Planning when cleared by vascular surgery. Scott Duarte MD Nov 07, 2017 10:22
[2017-11-07] MEDS: VANCOMYCIN INJ 1,250 MG in SODIUM CHLOR 0.9% 250 ML INJ 250 ML IV SCH ×2 (11:04→21:02)
[2017-11-07 12:00] VITALS: BP 170/93; PULSE 59; RESP 18; TEMP 98.4; O2SAT 99
[2017-11-07] MEDS: ENOXAPARIN SODIUM 40 MG/0.4 ML SYRINGE SQ SCH (14:55)
[2017-11-07 16:00] VITALS: BP 164/97; PULSE 58; RESP 19; TEMP 98.2; O2SAT 100
[2017-11-07 19:56] VITALS: BP 171/92; PULSE 65; RESP 20; TEMP 97.6; O2SAT 98
[2017-11-08] VITALS: BP 151/87; PULSE 69; RESP 20; TEMP 98.6; O2SAT 100
[2017-11-08] MEDS: oxyCODONE/ACETAMINOPHEN 10 MG/325 MG TAB PO PRN ×4 (01:54→20:58)
[2017-11-08 04:00] VITALS: BP 164/91; PULSE 55; RESP 21; TEMP 97.7; O2SAT 91
[2017-11-08] MEDS: HYDROmorphone HCL PF 2 MG/ML VIAL IV PUSH PRN ×2 (05:20→15:10)
[2017-11-08 06:19] LABS: CREATININE 0.73 MG/DL (0.60-1.30)
[2017-11-08 08:00] VITALS: BP 174/95; PULSE 64; RESP 16; TEMP 97.6; O2SAT 97
[2017-11-08] MEDS: SODIUM CHLOR 0.9% 1000 ML INJ 1,000 ML IV SCH ×4 (08:00→20:44)
[2017-11-08] MEDS: INSULIN ASPART SUPPLEMENTAL SCALE SQ SCH ×4 (08:00→20:43)
[2017-11-08] MEDS: INSULIN DETEMIR 100 UNITS/ML VIAL SQ SCH ×2 (09:00→20:44)
[2017-11-08] MEDS: SODIUM CHLORIDE 0.9% FLUSH 10 ML FLUSH IV FLUSH SCH ×2 (09:00→20:44)
[2017-11-08] MEDS: METHADONE HCL 10 MG TAB PO SCH (09:18)
[2017-11-08] MEDS: GABAPENTIN 300 MG CAP PO SCH ×2 (09:18→20:42)
[2017-11-08] MEDS ORDERED: PHARMACY ORDERED LAB ONE (09:45)
--- NOTE | 2017-11-08 09:48 | HHI.PR ---
Subjective Remarks in no acute distress. looks fairly comfortable. no fever. d/w the RN. Objective Vitals Vital Signs Date Time Temp Pulse Resp B/P (MAP) Pulse Ox O2 Delivery O2 Flow Rate FiO2 11/08/17 08:00 97.6 64 16 174/95 (121) 97 11/08/17 07:39 Room Air 11/08/17 05:50 20 11/08/17 04:00 97.7 55 21 164/91 (115) 91 11/08/17 04:00 Room Air 11/08/17 02:54 20 11/08/17 00:00 98.6 69 20 151/87 (108) 100 11/08/17 00:00 Room Air 11/07/17 19:56 97.6 65 20 171/92 (118) 98 11/07/17 19:56 Room Air 11/07/17 16:00 98.2 58 19 164/97 (119) 100 11/07/17 12:00 99 Room Air 11/07/17 12:00 98.4 59 18 170/93 (118) 99 I/O 11/07/17 11/07/17 11/07/17 11/08/17 11/08/17 11/08/17 07:00 15:00 23:00 07:00 15:00 23:00 Intake Total 600 ml 1640 ml 1200 ml 125 ml Output Total 1500 ml 2500 ml 1600 ml Balance -900 ml -860 ml -400 ml 125 ml Intake Oral 600 ml 1640 ml 1200 ml IV Total 125 ml Output Urine Total 1500 ml 2500 ml 1600 ml Result Diagram: 11/06/17 0354 11/08/17 0511 Imaging Last Impressions Carotid Artery Ultrasound 11/05/17 0000 Signed Impressions: Service Date/Time: Sunday, November 05, 2017 13:22 - CONCLUSION: Negative examination for a hemodynamically significant carotid stenosis. .. Jhonatan Vallejo MD FACR Tibia/Fibula X-Ray 11/04/17 0945 Signed Impressions: Service Date/Time: Saturday, November 04, 2017 09:58 - CONCLUSION: Postsurgical changes as above. no acute findings present Lars Dacosta MD Chest X-Ray 11/04/17 0752 Signed Impressions: Service Date/Time: Saturday, November 04, 2017 08:16 - CONCLUSION: Questionable density left upper lobe likely related to anterior first rib complex. AP Lordotic views are recommended. Keyur Goldman MD Objective Remarks GENERAL: This is a well-nourished, well-developed patient, in no apparent distress. CARDIOVASCULAR: Regular rate and regular rhythm without murmurs, gallops, or rubs. RESPIRATORY: Clear to auscultation. Breath sounds equal bilaterally. No wheezes , rales, or rhonchi. GASTROINTESTINAL: Abdomen soft, non-tender, nondistended. Normal, active bowel sounds MUSCULOSKELETAL: right stump covered with clean dressing. NEURO: Alert & Oriented x4 to person, place, time, situation. Moves all ext x4 Medications and IVs Inpatient Medications Acetaminophen (Tylenol) 650 mg Q4H PRN PO TEMP > 100.4; Start 11/04/17 at 10:00 Dextrose (D50w (Vial) Inj) 50 ml UNSCH PRN IV PUSH HYPOGLYCEMIA-SEE COMMENTS; Start 11/04/17 at 09:45 Enoxaparin Sodium (Lovenox Inj) 40 mg Q24H SQ Last administered on 11/07/17at 14: 55; Start 11/04/17 at 16:00 Gabapentin (Neurontin) 600 mg BID PO Last administered on 11/08/17 09:18; Start 11/04/17 at 21:00 Glucagon (Glucagon Inj) 1 mg UNSCH PRN OTHER HYPOGLYCEMIA-SEE COMMENTS; Start 11/04/17 at 09:45 Hydromorphone HCl (Dilaudid Pf Inj) 0.5 mg Q4H PRN IV PUSH pain >3 Last administered on 11/08/17at 05:20; Start 11/04/17 at 15:15 Insulin Aspart (NovoLOG SUPPLEMENTAL SCALE) 1 ACHS SLIDING SCALE SQ Last administered on 11/08/17 08:00; Start 11/04/17 at 12:00 Insulin Detemir (Levemir Inj) 85 units HS SQ Last administered on 11/07/17at 20: 55; Start 11/04/17 at 21:00 Magnesium Hydroxide (Milk Of Magnesia Liq) 30 ml Q12H PRN PO Mild constipation ; Start 11/04/17 at 09:45 Methadone HCl (Dolophine) 220 mg DAILY PO Last administered on 11/08/17at 09:18; Start 11/05/17 at 09:00 Miscellaneous Information SPECIFIC LAB TO BE DRAWN:[facility] DATE TO BE DRKristi.. ONCE ONCE .XX ; Start 11/08/17 at 09:45; Stop 11/08/17 at 09:46 Naloxone HCl (Narcan Inj) 0.4 mg UNSCH PRN IV PUSH SEE LABEL COMMENTS; Start at 09:45 Ondansetron HCl (Zofran Inj) 4 mg Q6H PRN IVP NAUSEA OR VOMITING; Start at 14:00 Oxycodone/ Acetaminophen (Percocet 5-325 Mg) 1 tab Q4H PRN PO pain 1-8; Start 11/04/17 at 15:15 Oxycodone/ Acetaminophen (Percocet 10-325 Mg) 1 tab Q4H PRN PO pain 9-10 Last administered on 11/08/17at 01:54; Start 11/04/17 at 15:15 Pharmacy Profile Note 0 ml @ 0 mls/hr UNSCH OTHER ; Start 11/04/17 at 15:15 Sodium Chloride (NS Flush) 2 ml BID IV FLUSH Last administered on 11/07/17at 20: 56; Start 11/04/17 at 21:00 Vancomycin HCl 1000 mg/Sodium Chloride 250 ml @ 250 mls/hr ONCE ONCE IV Last administered on 11/04/17at 10:12; Start 11/04/17 at 09:45; Stop 11/04/17 at 10:44 ; Status DC Vancomycin HCl 1250 mg/Sodium Chloride 262.5 ml @ 250 mls/hr Q12H IV Last administered on 11/07/17at 21:02; Start 11/04/17 at 22:00 A/P Assessment and Plan A/P Poor wound healing on right stump -X-ray negative for any acute process. No leukocytosis or fevers. Cultures already taken from wound site. -Consulted his vascular surgeon Dr. Orellana who stated to keep patient on antibiotics and allow for healing time but right now there is no surgery to be done on it, recommend conservative therapy and hygiene maintenance and cleaning of the stump. if it heals nicely nothing else will need to be done if the patient gets infection and abscess in there and then of course will need to be drained and there is a high chance patient may end up with above-knee amputation. continue pain control. Type 2 diabetes insulin-dependent/hypertension/chronic pain/GERD -Continue home medication. DVT prophylaxis -Lovenox. PT consulted. Discharge Planning when cleared by vascular surgery. Scott Duarte MD Nov 08, 2017 09:48
[2017-11-08] MEDS ORDERED: PERC5TAB12 PO (09:49)
[2017-11-08] MEDS: VANCOMYCIN INJ 1,250 MG in SODIUM CHLOR 0.9% 250 ML INJ 250 ML IV SCH ×2 (11:02→20:42)
[2017-11-08 12:00] VITALS: BP 163/88; PULSE 54; RESP 18; TEMP 99; O2SAT 97
[2017-11-08] MEDS: ENOXAPARIN SODIUM 40 MG/0.4 ML SYRINGE SQ SCH (16:00)
[2017-11-08 20:11] VITALS: BP 167/96; PULSE 63; RESP 18; TEMP 98.2; O2SAT 95
[2017-11-09 00:10] VITALS: BP 168/97; PULSE 68; RESP 20; TEMP 98.4; O2SAT 96
[2017-11-09] MEDS: oxyCODONE/ACETAMINOPHEN 10 MG/325 MG TAB PO PRN ×3 (01:19→11:01)
[2017-11-09] MEDS: HYDROmorphone HCL PF 2 MG/ML VIAL IV PUSH PRN (04:19)
[2017-11-09 04:30] VITALS: BP 152/64
[2017-11-09 04:33] VITALS: BP 154/91; PULSE 69; RESP 20; TEMP 98.2; O2SAT 97
[2017-11-09 07:44] VITALS: BP 174/98; PULSE 92; RESP 20; TEMP 97.7; O2SAT 96
[2017-11-09] MEDS: INSULIN ASPART SUPPLEMENTAL SCALE SQ SCH ×2 (08:00→12:00)
[2017-11-09] MEDS: INSULIN DETEMIR 100 UNITS/ML VIAL SQ SCH (09:16)
[2017-11-09] MEDS: SODIUM CHLORIDE 0.9% FLUSH 10 ML FLUSH IV FLUSH SCH (09:16)
[2017-11-09] MEDS: GABAPENTIN 300 MG CAP PO SCH (09:16)
[2017-11-09] MEDS: SODIUM CHLOR 0.9% 1000 ML INJ 1,000 ML IV SCH (09:17)
[2017-11-09] MEDS: METHADONE HCL 10 MG TAB PO SCH (09:24)
--- NOTE | 2017-11-09 09:31 | HHI.PR ---
Subjective Remarks in no acute distress. remains afebrile. pain is controlled. wound is clean. no new complaints and wants to go home. Objective Vitals Vital Signs Date Time Temp Pulse Resp B/P (MAP) Pulse Ox O2 Delivery O2 Flow Rate FiO2 11/09/17 07:44 97.7 92 20 174/98 (123) 96 11/09/17 04:49 20 11/09/17 04:33 98.2 69 20 154/91 (112) 97 11/09/17 04:30 152/64 (93) 11/09/17 02:19 20 11/09/17 00:10 98.4 68 20 168/97 (120) 96 11/08/17 20:11 Room Air 11/08/17 20:11 98.2 63 18 167/96 (119) 95 11/08/17 17:43 11/08/17 14:13 11/08/17 12:00 99.0 54 18 163/88 (113) 97 11/08/17 09:59 I/O 11/08/17 11/08/17 11/08/17 11/09/17 11/09/17 11/09/17 07:00 15:00 23:00 07:00 15:00 23:00 Intake Total 1200 ml 125 ml 1440 ml Output Total 1600 ml 1700 ml 800 ml 1025 ml Balance -400 ml 125 ml -260 ml -800 ml -1025 ml Intake Oral 1200 ml 1440 ml IV Total 125 ml Output Urine Total 1600 ml 1700 ml 800 ml 1025 ml Result Diagram: 11/06/17 0354 11/08/17 0511 Imaging Last Impressions Carotid Artery Ultrasound 11/05/17 0000 Signed Impressions: Service Date/Time: Sunday, November 05, 2017 13:22 - CONCLUSION: Negative examination for a hemodynamically significant carotid stenosis. .. Jhonatan Vallejo MD FACR Tibia/Fibula X-Ray 11/04/17 0945 Signed Impressions: Service Date/Time: Saturday, November 04, 2017 09:58 - CONCLUSION: Postsurgical changes as above. no acute findings present Lars Dacosta MD Chest X-Ray 11/04/17 0752 Signed Impressions: Service Date/Time: Saturday, November 04, 2017 08:16 - CONCLUSION: Questionable density left upper lobe likely related to anterior first rib complex. AP Lordotic views are recommended. Keyur Goldman MD Objective Remarks GENERAL: This is a well-nourished, well-developed patient, in no apparent distress. CARDIOVASCULAR: Regular rate and regular rhythm without murmurs, gallops, or rubs. RESPIRATORY: Clear to auscultation. Breath sounds equal bilaterally. No wheezes , rales, or rhonchi. GASTROINTESTINAL: Abdomen soft, non-tender, nondistended. Normal, active bowel sounds MUSCULOSKELETAL: right stump covered with clean dressing. NEURO: Alert & Oriented x4 to person, place, time, situation. Moves all ext x4 Medications and IVs Inpatient Medications Acetaminophen (Tylenol) 650 mg Q4H PRN PO TEMP > 100.4; Start 11/04/17 at 10:00 Dextrose (D50w (Vial) Inj) 50 ml UNSCH PRN IV PUSH HYPOGLYCEMIA-SEE COMMENTS; Start 11/04/17 at 09:45 Enoxaparin Sodium (Lovenox Inj) 40 mg Q24H SQ Last administered on 11/08/17at 16: 00; Start 11/04/17 at 16:00 Gabapentin (Neurontin) 600 mg BID PO Last administered on 11/09/17 09:16; Start 11/04/17 at 21:00 Glucagon (Glucagon Inj) 1 mg UNSCH PRN OTHER HYPOGLYCEMIA-SEE COMMENTS; Start 11/04/17 at 09:45 Hydromorphone HCl (Dilaudid Pf Inj) 0.5 mg Q4H PRN IV PUSH pain >3 Last administered on 11/09/17 04:19; Start 11/04/17 at 15:15 Insulin Aspart (NovoLOG SUPPLEMENTAL SCALE) 1 ACHS SLIDING SCALE SQ Last administered on 11/08/17 17:00; Start 11/04/17 at 12:00 Insulin Detemir (Levemir Inj) 85 units HS SQ Last administered on 11/08/17 20: 44; Start 11/04/17 at 21:00 Magnesium Hydroxide (Milk Of Magnesia Liq) 30 ml Q12H PRN PO Mild constipation ; Start 11/04/17 at 09:45 Methadone HCl (Dolophine) 220 mg DAILY PO Last administered on 11/08/17 09:18; Start 11/05/17 at 09:00 Miscellaneous Information SPECIFIC LAB TO BE DRAWN:[facility] DATE TO BE DRKristi.. ONCE ONCE .XX ; Start 11/08/17 at 09:45; Stop 11/08/17 at 09:46; Status DC Naloxone HCl (Narcan Inj) 0.4 mg UNSCH PRN IV PUSH SEE LABEL COMMENTS; Start at 09:45 Ondansetron HCl (Zofran Inj) 4 mg Q6H PRN IVP NAUSEA OR VOMITING; Start at 14:00 Oxycodone/ Acetaminophen (Percocet 5-325 Mg) 1 tab Q4H PRN PO pain 1-8; Start 11/04/17 at 15:15 Oxycodone/ Acetaminophen (Percocet 10-325 Mg) 1 tab Q4H PRN PO pain 9-10 Last administered on 11/09/17at 06:22; Start 11/04/17 at 15:15 Pharmacy Profile Note 0 ml @ 0 mls/hr UNSCH OTHER ; Start 11/04/17 at 15:15 Sodium Chloride (NS Flush) 2 ml BID IV FLUSH Last administered on 11/09/17at 09: 16; Start 11/04/17 at 21:00 Vancomycin HCl 1000 mg/Sodium Chloride 250 ml @ 250 mls/hr ONCE ONCE IV Last administered on 11/04/17at 10:12; Start 11/04/17 at 09:45; Stop 11/04/17 at 10:44 ; Status DC Vancomycin HCl 1250 mg/Sodium Chloride 262.5 ml @ 250 mls/hr Q12H IV Last administered on 11/08/17at 20:42; Start 11/04/17 at 22:00 A/P Assessment and Plan A/P wound on right stump- seems to be improving. -X-ray negative for any acute process. No leukocytosis or fevers. Cultures already taken from wound site. -Consulted his vascular surgeon Dr. Orellana who stated to keep patient on antibiotics and allow for healing time but right now there is no surgery to be done on it, recommend conservative therapy and hygiene maintenance and cleaning of the stump. if it heals nicely nothing else will need to be done if the patient gets infection and abscess in there and then of course will need to be drained and there is a high chance patient may end up with above-knee amputation. continue pain control. change IV antibiotic to po. Type 2 diabetes insulin-dependent/hypertension/chronic pain/GERD -Continue home medication. DVT prophylaxis -Lovenox. PT consulted. Discharge Planning dc home today with f/u by pcp and vascular surgery. see med list. d/w the patient. Scott Duarte MD Nov 09, 2017 09:31
[2017-11-09] MEDS ORDERED: CEPH-460 PO (09:32)
--- NOTE | 2017-11-09 09:33 | HHI.DS ---
Discharge Summary Admission Date Nov 04, 2017 at 10:05 Discharge Date: Nov 09, 2017 Admitting Diagnosis right bka site cellulitis with drainage, DM, HTN (1) wound of the right stump Diagnosis: Principal Procedures none Brief History - From Admission This is a 52-year-old male with hx of T2DM insulin dependent, HTN, narcotic dependence, and hx of right BKA who p/w right stump wound. Patient stated that he had a wound there few weeks ago but it was healing but then he fell 2 days ago and now the wound is not healing well. Positive for drainage. Denies fevers or chills. He said he fell because his socket is now loose. He has an appointment to get it corrected. Patient stated he fell because of his prosthesis slipped off and that is how he fell. Patient denied hitting his head. Denies any loss of consciousness. He is only concern is asking for his home pain medication. All other reviewed of systems reviewed and negative. CBC/BMP: 11/06/17 0354 11/08/17 0511 Significant Findings Laboratory Tests Test 11/06/17 21:45 11/08/17 05:11 Vancomycin Level Trough 10.6 MCG/ML (5.0-10.0) Imaging Last Impressions Carotid Artery Ultrasound 11/05/17 0000 Signed Impressions: Service Date/Time: Sunday, November 05, 2017 13:22 - CONCLUSION: Negative examination for a hemodynamically significant carotid stenosis. .. Jhonatan Vallejo MD FACR Tibia/Fibula X-Ray 11/04/17 0945 Signed Impressions: Service Date/Time: Saturday, November 04, 2017 09:58 - CONCLUSION: Postsurgical changes as above. no acute findings present Lars Dacosta MD Chest X-Ray 11/04/17 0752 Signed Impressions: Service Date/Time: Saturday, November 04, 2017 08:16 - CONCLUSION: Questionable density left upper lobe likely related to anterior first rib complex. AP Lordotic views are recommended. Keyur Goldman MD PE at Discharge GENERAL: This is a well-nourished, well-developed patient, in no apparent distress. CARDIOVASCULAR: Regular rate and regular rhythm without murmurs, gallops, or rubs. RESPIRATORY: Clear to auscultation. Breath sounds equal bilaterally. No wheezes , rales, or rhonchi. GASTROINTESTINAL: Abdomen soft, non-tender, nondistended. Normal, active bowel sounds MUSCULOSKELETAL: right stump covered with clean dressing. NEURO: Alert & Oriented x4 to person, place, time, situation. Moves all ext x4 Hospital Course wound on right stump- seems to be improving. -X-ray negative for any acute process. No leukocytosis or fevers. Cultures already taken from wound site. -Consulted his vascular surgeon Dr. Orellana who stated to keep patient on antibiotics and allow for healing time but right now there is no surgery to be done on it, recommend conservative therapy and hygiene maintenance and cleaning of the stump. if it heals nicely nothing else will need to be done if the patient gets infection and abscess in there and then of course will need to be drained and there is a high chance patient may end up with above-knee amputation. continue pain control. change IV antibiotic to po. Type 2 diabetes insulin-dependent/hypertension/chronic pain/GERD -Continue home medication. DVT prophylaxis -Lovenox. Pt Condition on Discharge: Fair Discharge Disposition: Discharge Home Discharge Time: <= 30 minutes Discharge Instructions DIET: Follow Instructions for: Heart Healthy Diet, Diabetic Diet Scott Duarte MD Nov 09, 2017 09:33
[2017-11-09] MEDS: VANCOMYCIN INJ 1,250 MG in SODIUM CHLOR 0.9% 250 ML INJ 250 ML IV SCH (10:49)
[2017-11-09 11:52] VITALS: BP 155/77; PULSE 94; RESP 20; TEMP 98.3; O2SAT 96
== END 2017-11-09 13:06 | disposition home or self-care (01) | DRG 565 ==
LOC: NEPE 06:42 → NEDA 10:05 → N03B 11:10
PROVIDERS: ADMIT Internal Medicine; ATTEND Internal Medicine
DX: T87.43 Infection of amputation stump, right lower extremity (principal); L03.115 Cellulitis of right lower limb; F11.20 Opioid dependence, uncomplicated; I10 Essential (primary) hypertension; L97.819 Non-pressure chronic ulcer of other part of right lower leg with unspecified severity; T87.89 Other complications of amputation stump; Z89.511 Acquired absence of right leg below knee; Z91.81 History of falling; E11.9 Type 2 diabetes mellitus without complications; Z79.4 Long term (current) use of insulin; G89.29 Other chronic pain; F17.210 Nicotine dependence, cigarettes, uncomplicated; K21.9 Gastro-esophageal reflux disease without esophagitis; Z85.828 Personal history of other malignant neoplasm of skin
CPT/HCPCS: 71045; 73590; 76937; 80048; 80053; 80202; 81001; 82565; 82948; 83605; 85025; 85027; 86403; 87040; 87070; 87147; 87186; 87205; 93880; 96361; 96365; 96375; J1170; J1650; J1815; J2405; J3370; J7030; J7050

== ENCOUNTER 2017-12-21 06:15 | Emergency (ER) | payer MEDICAID ==
[~2017-12-21] VITALS: Ht 182.9 cm; Wt 82.0 kg
[~2017-12-21 06:15] MED LIST changes: +CEPH-460 PO; -INSU-150; +NEXI40CA PO; -NYST100084 TOPICAL; -OMEP40CA2 PO; -POLY17S PO; -WALKER WHEELS/F1 MIS
[2017-12-21 06:29] VITALS: BP 158/76; PULSE 67; RESP 18; TEMP 97.8; O2SAT 98
[2017-12-21] MEDS ORDERED: HYDR4TAB PO (07:14)
[2017-12-21] MEDS ORDERED: MORPHINE SULFATE 4 MG/ML INJ IV PUSH ONE (07:15)
[2017-12-21 08:28] LABS: ALKALINE PHOSPHATASE 140 U/L (45-117); ALT (GPT) 49 U/L (12-78); AST (GOT) 37 U/L (15-37); BICARBONATE 27.3 MEQ/L (21.0-32.0); BLOOD UREA NITROGEN 20 MG/DL (7-18); C-REACTIVE PROTEIN 0.49 MG/DL (0.00-0.30); CALCIUM 8.7 MG/DL (8.5-10.1); CHLORIDE 96 MEQ/L (98-107); CREATININE 1.03 MG/DL (0.60-1.30); GLOMERULAR FILTRATION RATE 76 ML/MIN (>89); SODIUM (NA) 130 MEQ/L (136-145); TOTAL BILIRUBIN ADULT 0.4 MG/DL (0.2-1.0); TOTAL PROTEIN 7.2 GM/DL (6.4-8.2)
[2017-12-21 08:35] LABS: GLUCOSE,RANDOM 492 MG/DL (74-106)
[2017-12-21] MEDS ORDERED: GADODIAMIDE PF 287 MG/ML 20 ML VIAL (for RAD MRI) IVCONTRAST ONE (08:42)
[2017-12-21] MEDS ORDERED: INSULIN HUMAN REGULAR 1,000 UNITS/10 ML VIAL IV PUSH ONE (08:45)
[2017-12-21] MEDS ORDERED: SODIUM CHLOR 0.9% 1000 ML INJ 1,000 ML IV ONE (08:45)
[2017-12-21 08:50] LABS: AUTOMATED NEUTROPHIL # 3.7 TH/MM3 (1.8-7.7); BASOPHIL # 0.1 TH/MM3 (0-0.2); BASOPHIL % 1.2 % (0.0-2.0); EOSINOPHIL # 0.1 TH/MM3 (0-0.4); EOSINOPHIL % 2.1 % (0.0-4.0); HEMOGLOBIN 13.5 GM/DL (13.0-17.0); LYMPH % 27.9 % (9.0-44.0); LYMPHOCYTE # 1.7 TH/MM3 (1.0-4.8); MEAN CELL VOLUME 86.7 FL (80.0-100.0); MEAN CORPUSCULAR HEMOGLOBIN 29.4 PG (27.0-34.0); MEAN CORPUSCULAR HGB CONC 33.9 % (32.0-36.0); MEAN PLATELET VOLUME 10.4 FL (7.0-11.0); MONO % 7.8 % (0.0-8.0); MONOCYTE # 0.5 TH/MM3 (0-0.9); PLATELET COUNT 73 TH/MM3 (150-450); RED BLOOD COUNT 4.61 MIL/MM3 (4.50-5.90); RED CELL DISTRIBUTION WIDTH 13.7 % (11.6-17.2); WHITE BLOOD COUNT 6.1 TH/MM3 (4.0-11.0)
--- NOTE | 2017-12-21 08:58 | RADRPT ---
EXAM DATE/TIME: 12/21/2017 07:59 [facility] COMPARISON: TIBIA/FIBULA RIGHT (AP/LAT), December 21, 2017, 8:43. INDICATIONS : Osteomyelitis. Rt lower stump. CONTRAST: 16 cc Omniscan (gadodiamide) IV MEDICAL HISTORY : Hypertension. Diabetes mellitus type 2. Hepatitis C. GERD, SURGICAL HISTORY : Right below knee amputation. Skin ca on nose. ENCOUNTER: Subsequent ACUITY: > 1 year PAIN SCORE: 1/10 LOCATION: Right lower extremity. TECHNIQUE: Multiplanar multisequence MRI examination of the lower leg was performed with and without contrast. FINDINGS: Patient is status post BKA amputation. The marrow signal in the proximal tibia appears homogeneous a nd normal. There is no evidence for osteomyelitis. Moderate motion is present on most of the acquis itions not cannot entirely excluded deep space abscess. CONCLUSION: Negative for osteomyelitis. Moderate motion. I don't see evidence for abscess Jhonatan Vallejo MD FACR on December 21, 2017 at 8:54 Board Certified Radiologist. This report was verified electronically.
--- NOTE | 2017-12-21 09:00 | RADRPT ---
EXAM DATE/TIME: 12/21/2017 08:43 [facility] COMPARISON: MRI LOWER LEG RIGHT W & W/O CONTRAST, December 21, 2017, 7:59. TIBIA/FIBULA RIGHT (AP/LAT), October, 9:58. INDICATIONS : Lower extremity pain. MEDICAL HISTORY : Hepatitis C. Skin cancer. Hypertension. Peripheral neuropathy. Peripheral vascular disease. GERD. Kid cedric stones. DDD. Arthritis. Diabetes. SURGICAL HISTORY : Appendectomy. Right second toe amputation. Right BKA. ENCOUNTER: Subsequent ACUITY: 1 month PAIN SCORE: 5/10 LOCATION: Right lower extremity. FINDINGS: Status post BKA. Minimal periosteal reaction around the remaining fibula. This is suspicious for os teomyelitis. I cannot confirm this on the MRI because of motion. There is no osteomyelitis in the t ibia. Tagged white cell study may be helpful. CONCLUSION: : Findings suspicious for osteomyelitis of the remaining fibula. Jhonatan Vallejo MD FACR on December 21, 2017 at 8:56 Board Certified Radiologist. This report was verified electronically.
[2017-12-21 09:26] LABS: PROTHROMBIN TIME - PATIENT 10.3 SEC (9.8-11.6)
[2017-12-21 10:29] VITALS: BP 118/62; PULSE 85; RESP 18; O2SAT 97
[2017-12-21] MEDS ORDERED: NORC5TAB PO (10:48)
[2017-12-21] MEDS ORDERED: CLIN300C5 PO (10:48)
--- NOTE | 2017-12-21 10:48 | PD ---
HPI Chief Complaint: Skin Problem Time Seen by Provider: 07:04 Travel History International Travel<30 days: No Contact w/Intl Traveler<30days: No Traveled to known affect area: No History of Present Illness HPI Patient is a 52-year-old male who comes in because he is concerned for infection to his right BKA. He was here about a month ago and was treated for infection. He says he never seemed to really get better. He has not followed up with the vascular surgeon. He says he is having severe pain, but this has been going on since being discharged from the hospital as well. He reports a fever a few days ago of 100. He has not taken anything for the pain. He says the wound is leaking. Severity is mild to moderate. PFSH Past Medical History Arthritis: Yes Asthma: No Autoimmune Disease: No Anxiety: No Depression: No Heart Rhythm Problems: No Cancer: Yes (Skin cancer on nose ) Cardiovascular Problems: Yes (htn) Chemotherapy: No Chest Pain: No Congestive Heart Failure: No COPD: No Cerebrovascular Accident: No Diabetes: Yes Patient Takes Glucophage: No Diminished Hearing: No Endocrine: Yes Gastrointestinal Disorders: Yes (diahrrea 816 in am) GERD: Yes Genitourinary: No Headaches: No Hepatitis: Yes (C) Hiatal Hernia: No Hypertension: Yes Immune Disorder: No Implanted Vascular Access Dvce: No Kidney Stones: Yes Musculoskeletal: Yes (CHRONIC BACK PAIN/DDD/HERNIATED DISC) Neurologic: No Psychiatric: No Reproductive: No Respiratory: No Immunizations Current: Yes Migraines: No Radiation Therapy: No Renal Failure: No Seizures: No Sickle Cell Disease: No Sleep Apnea: No Thyroid Disease: No Ulcer: No Tetanus Vaccination: < 5 Years Influenza Vaccination: Yes Past Surgical History Abdominal Surgery: No AICD: No Appendectomy: Yes Arteriovenous Shunt: No Cardiac Surgery: No Ear Surgery: No Endocrine Surgery: No Eye Surgery: No Genitourinary Surgery: No Gynecologic Surgery: No Insulin Pump: No Joint Replacement: No Neurologic Surgery: No Oral Surgery: No Pacemaker: No Thoracic Surgery: No Other Surgery: Yes (NOSE, SKIN GRAFT,right knee) Social History Alcohol Use: No Tobacco Use: Yes (2 CIGS PER DAY) Substance Use: No Allergies-Medications (Allergen,Severity, Reaction): Coded Allergies: diatrizoate meglumine (Unverified Allergy, Severe, Rash, 12/21/17) gadobenic acid (Unverified Allergy, Severe, Rash, 12/21/17) gadodiamide (Unverified Allergy, Severe, Rash, 12/21/17) gadoteridol (Unverified Allergy, Severe, Rash, 12/21/17) iodixanol (Unverified Allergy, Severe, Rash, 12/21/17) iohexol (Unverified Allergy, Severe, Rash, 12/21/17) adhesive (Verified Allergy, Intermediate, Rash, 12/21/17) Uncoded Allergies: iv plyeogram dye (Allergy, Severe, Anaphylaxis, 04/25/17) Reported Meds & Prescriptions Reported Meds & Active Scripts Active Novolog Inj (Insulin Aspart) 100 Unit/Ml Inj 1 Unit SQ ACHS SLIDING SCALE Neurontin (Gabapentin) 300 Mg Cap 600 Mg PO BID Lisinopril 10 Mg Tab 10 Mg PO DAILY Reported Hydromorphone (Hydromorphone HCl) 4 Mg Tab 4 Mg PO Q4-6H PRN Nexium (Esomeprazole DR) 40 Mg Capdr 40 Mg PO DAILY Levemir Inj (Insulin Detemir) 1,000 unit/ 10 ML Vial 85 Units SQ HS Do not mix with any other Insulin. Levemir Inj (Insulin Detemir) 1,000 unit/ 10 ML Vial 65 Units SQ DAILY Do not mix with any other Insulin. Methadone (Methadone HCl) 40 Mg Tab 220 Mg PO DAILY Review of Systems Except as stated in HPI: all other systems reviewed are Neg General / Constitutional: Positive: Fever HENT: No: Headaches, Lightheadedness Cardiovascular: No: Chest Pain or Discomfort Respiratory: No: Shortness of Breath Musculoskeletal: Positive: Pain Skin: Positive Lesions Neurologic: No: Weakness, Dizziness Physical Exam Narrative GENERAL: Awake and alert, in no acute distress. SKIN: Focused skin assessment warm/dry. Mild erythema to the surgical site of the right BKA. There is some minimal leakage of purulent fluid, no fluctuance felt. HEAD: Atraumatic. Normocephalic. EYES: Pupils equal and round. No scleral icterus. ENT: Mucous membranes pink and moist. NECK: Trachea midline. No JVD. CARDIOVASCULAR: Regular rate and rhythm. No murmur appreciated. RESPIRATORY: No accessory muscle use. Clear to auscultation. Breath sounds equal bilaterally. GASTROINTESTINAL: Abdomen soft, non-tender, nondistended. MUSCULOSKELETAL: No obvious deformities. No clubbing. No cyanosis. No edema. NEUROLOGICAL: Awake and alert. No obvious cranial nerve deficits. Motor grossly within normal limits. Normal speech. PSYCHIATRIC: Appropriate mood and affect; insight and judgment normal. Data Data Last Documented VS Vital Signs Date Time Temp Pulse Resp B/P (MAP) Pulse Ox O2 Delivery O2 Flow Rate FiO2 12/21/17 10:29 85 18 118/62 (80) 97 Room Air 12/21/17 06:29 97.8 Orders Orders Iv Access Insert/Monitor (12/21/17 07:09) Complete Blood Count With Diff (12/21/17 07:09) Comprehensive Metabolic Panel (12/21/17 07:09) Westergren Sedimentation Rate (12/21/17 07:09) C-Reactive Protein (Crp) (12/21/17 07:09) Act Partial Throm Time (Ptt) (12/21/17 07:09) Prothrombin Time / Inr (Pt) (12/21/17 07:09) Tibia/Fibula (Ap/Lat) (12/21/17 ) Morphine Inj (Morphine Inj) (12/21/17 07:15) Mri Lower Leg W/Wo Contrast (12/21/17 ) Sodium Chlor 0.9% 1000 Ml Inj (Ns 1000 M (12/21/17 08:45) Insulin Human Regular Inj (Novolin R Inj (12/21/17 08:45) Gadodiamide Pf Inj (Omniscan Pf Inj) (12/21/17 08:42) Labs Laboratory Tests Test 12/21/17 07:36 12/21/17 08:29 12/21/17 09:00 Blood Urea Nitrogen 20 MG/DL Creatinine 1.03 MG/DL Random Glucose 492 MG/DL Total Protein 7.2 GM/DL Albumin 3.0 GM/DL Calcium Level 8.7 MG/DL Alkaline Phosphatase 140 U/L Aspartate Amino Transf (AST/SGOT) 37 U/L Alanine Aminotransferase (ALT/SGPT) 49 U/L Total Bilirubin 0.4 MG/DL Sodium Level 130 MEQ/L Potassium Level 4.7 MEQ/L Chloride Level 96 MEQ/L Carbon Dioxide Level 27.3 MEQ/L Anion Gap 7 MEQ/L Estimat Glomerular Filtration Rate 76 ML/MIN C-Reactive Protein 0.49 MG/DL White Blood Count 6.1 TH/MM3 Red Blood Count 4.61 MIL/MM3 Hemoglobin 13.5 GM/DL Hematocrit 40.0 % Mean Corpuscular Volume 86.7 FL Mean Corpuscular Hemoglobin 29.4 PG Mean Corpuscular Hemoglobin Concent 33.9 % Red Cell Distribution Width 13.7 % Platelet Count 73 TH/MM3 Mean Platelet Volume 10.4 FL Neutrophils (%) (Auto) 61.0 % Lymphocytes (%) (Auto) 27.9 % Monocytes (%) (Auto) 7.8 % Eosinophils (%) (Auto) 2.1 % Basophils (%) (Auto) 1.2 % Neutrophils # (Auto) 3.7 TH/MM3 Lymphocytes # (Auto) 1.7 TH/MM3 Monocytes # (Auto) 0.5 TH/MM3 Eosinophils # (Auto) 0.1 TH/MM3 Basophils # (Auto) 0.1 TH/MM3 CBC Comment AUTO DIFF Differential Comment AUTO DIFF CONFIRMED Platelet Estimate LOW Platelet Morphology Comment NORMAL Erythrocyte Sedimentation Rate 39 mm/hr Prothrombin Time 10.3 SEC Prothromb Time International Ratio 1.0 RATIO Activated Partial Thromboplast Time 24.5 SEC MDM Medical Decision Making Medical Screen Exam Complete: Yes Emergency Medical Condition: Yes Medical Record Reviewed: Yes Differential Diagnosis Cellulitis versus abscess versus osteomyelitis Narrative Course Patient is a 52-year-old male who comes in due to concerns for infection to his BKA. Exam shows slight erythema and leakage of purulent fluid. IV established , labs sent. Labs show slight elevation in CRP, no other acute abnormalities other than elevated glucose. Patient given IV fluids, pain medicine, insulin. MRI performed shows no evidence of abscess or osteomyelitis. Last 24 hours Impressions Tibia/Fibula X-Ray 12/21/17 0000 Signed Impressions: Service Date/Time: Thursday, December 21, 2017 08:43 - CONCLUSION: : Findings suspicious for osteomyelitis of the remaining fibula. Jhonatan Vallejo MD FACR Lower Extremity MRI 12/21/17 0000 Signed Impressions: Service Date/Time: Thursday, December 21, 2017 07:59 - CONCLUSION: Negative for osteomyelitis. Moderate motion. I don't see evidence for abscess Jhonatan Vallejo MD FACR Patient will be discharged with a course of oral antibiotics. He is advised follow-up with his vascular surgeon. Advised to return to the ED as needed for any worsening symptoms. Diagnosis Primary Impression: Cellulitis Qualified Codes: L03.115 - Cellulitis of right lower limb Patient Instructions: Cellulitis (ED), General Instructions Additional Instructions: Take all of your antibiotic. Follow up with Dr. Martin. Return to the ED as needed for any worsening symptoms. Scripts Hydrocodone-Acetaminophen ([place]) 5 Mg-325 Mg Tab 1 TAB PO Q6H Y for PAIN for 7 Days, #28 TAB 0 Refills Prov: Ava Morrissey MD 12/21/17 Clindamycin (Clindamycin) 300 Mg Cap 600 MG PO Q8H for Infection for 7 Days, #42 CAP 0 Refills Prov: Ava Morrissey MD 12/21/17 Disposition: 01 DISCHARGE HOME Condition: Stable Ava Morrissey MD Dec 21, 2017 10:48
== END 2017-12-21 11:24 | disposition home or self-care (01) ==
LOC: NEPE 06:15
DX: L03.115 Cellulitis of right lower limb (principal); M19.90 Unspecified osteoarthritis, unspecified site; I10 Essential (primary) hypertension; E11.9 Type 2 diabetes mellitus without complications; K21.9 Gastro-esophageal reflux disease without esophagitis; F17.210 Nicotine dependence, cigarettes, uncomplicated; Z89.511 Acquired absence of right leg below knee; Z86.19 Personal history of other infectious and parasitic diseases; Z87.442 Personal history of urinary calculi
CPT/HCPCS: 73590; 73720; 80053; 85025; 85610; 85652; 85730; 86140; 96374; 96375; 99285; A9579; J1815; J2270; J7030

== ENCOUNTER 2018-02-12 23:54 | Observation (INO) | payer MEDICAID ==
[~2018-02-12 23:54] MED LIST changes: -CEPH-460 PO; +CLIN300C5 PO; +HYDR4TAB PO; -METF-382 PO; +NORC5TAB PO; -PERC5TAB12 PO
[2018-02-13] VITALS (7 sets, daily range): BP systolic 96–177; BP diastolic 64–92; PULSE 56–85; RESP 15–20; TEMP 97.7–98.5; O2SAT 92–99
[2018-02-13] MEDS ORDERED: GABA600T PO (00:33)
[2018-02-13] MEDS ORDERED: CLINDAMYCIN 600 MG/NS PREMIX 50 ML IV ONE (01:00)
[2018-02-13 01:05] LABS: BASOPHIL % 0.5 % (0.0-2.0); EOSINOPHIL # 0.1 TH/MM3 (0-0.4); EOSINOPHIL % 1.2 % (0.0-4.0); HEMATOCRIT 43.2 % (39.0-51.0); HEMOGLOBIN 14.6 GM/DL (13.0-17.0); LYMPH % 23.1 % (9.0-44.0); LYMPHOCYTE # 1.7 TH/MM3 (1.0-4.8); MEAN CELL VOLUME 86.7 FL (80.0-100.0); MEAN CORPUSCULAR HEMOGLOBIN 29.3 PG (27.0-34.0); MEAN CORPUSCULAR HGB CONC 33.8 % (32.0-36.0); MEAN PLATELET VOLUME 10.5 FL (7.0-11.0); MONO % 8.7 % (0.0-8.0); MONOCYTE # 0.7 TH/MM3 (0-0.9); NEUT % 66.5 % (16.0-70.0); PLATELET COUNT 91 TH/MM3 (150-450); RED BLOOD COUNT 4.98 MIL/MM3 (4.50-5.90); RED CELL DISTRIBUTION WIDTH 13.6 % (11.6-17.2); WHITE BLOOD COUNT 7.5 TH/MM3 (4.0-11.0)
--- NOTE | 2018-02-13 01:07 | PD ---
HPI . knee skin infection Chief Complaint: Skin Problem Time Seen by Provider: 00:23 Travel History International Travel<30 days: No Contact w/Intl Traveler<30days: No Traveled to known affect area: No History of Present Illness HPI Patient reports that he is having streaking of red lymphatics streaks up his right inner thigh from the knee towards his groin. He thinks it is cellulitis- like inflammation on the top of his patella. Patient was here December 21 a month and half ago for similar was treated with vancomycin and discharged home after a few days in the hospital. Patient had a BKA over 2 years ago and has had recurrence of cellulitis since then. He has no pain with bending his knee or extending his knee but he does have pain on the inner aspect of the patella as he has red streaks to go up the inner aspect of the right thigh towards the groin PFSH Past Medical History Arthritis: Yes Asthma: No Autoimmune Disease: No Anxiety: No Depression: No Heart Rhythm Problems: No Cancer: Yes (Skin cancer on nose ) Cardiovascular Problems: Yes (htn) Chemotherapy: No Chest Pain: No Congestive Heart Failure: No COPD: No Cerebrovascular Accident: No Diabetes: Yes Patient Takes Glucophage: No Diminished Hearing: No Endocrine: Yes Gastrointestinal Disorders: Yes (diahrrea 8/16 in am) GERD: Yes Genitourinary: No Headaches: No Hepatitis: Yes (C) Hiatal Hernia: No Hypertension: Yes Immune Disorder: No Implanted Vascular Access Dvce: No Kidney Stones: Yes Musculoskeletal: Yes (CHRONIC BACK PAIN/DDD/HERNIATED DISC) Neurologic: No Psychiatric: No Reproductive: No Respiratory: No Immunizations Current: Yes Migraines: No Radiation Therapy: No Renal Failure: No Seizures: No Sickle Cell Disease: No Sleep Apnea: No Thyroid Disease: No Ulcer: No Influenza Vaccination: Yes Past Surgical History Abdominal Surgery: No AICD: No Appendectomy: Yes Arteriovenous Shunt: No Cardiac Surgery: No Ear Surgery: No Endocrine Surgery: No Eye Surgery: No Genitourinary Surgery: No Gynecologic Surgery: No Insulin Pump: No Joint Replacement: No Neurologic Surgery: No Oral Surgery: No Pacemaker: No Thoracic Surgery: No Other Surgery: Yes (NOSE, SKIN GRAFT,right knee) Social History Alcohol Use: No Tobacco Use: Yes (2 CIGS PER DAY) Substance Use: No Allergies-Medications (Allergen,Severity, Reaction): Coded Allergies: diatrizoate meglumine (Unverified Allergy, Severe, Rash, 02/13/18) gadobenic acid (Unverified Allergy, Severe, Rash, 02/13/18) gadodiamide (Unverified Allergy, Severe, Rash, 02/13/18) gadoteridol (Unverified Allergy, Severe, Rash, 02/13/18) iodixanol (Unverified Allergy, Severe, Rash, 02/13/18) iohexol (Unverified Allergy, Severe, Rash, 02/13/18) adhesive (Verified Allergy, Intermediate, Rash, 02/13/18) Uncoded Allergies: iv plyeogram dye (Allergy, Severe, Anaphylaxis, 04/25/17) Reported Meds & Prescriptions Reported Meds & Active Scripts Active [place] (Hydrocodone-Acetaminophen) 5 Mg-325 Mg Tab 1 Tab PO Q6H PRN 7 Days Novolog Inj (Insulin Aspart) 100 Unit/Ml Inj 1 Unit SQ ACHS SLIDING SCALE Lisinopril 10 Mg Tab 10 Mg PO DAILY Reported Gabapentin 600 Mg Tab 600 Mg PO TID Hydromorphone (Hydromorphone HCl) 4 Mg Tab 4 Mg PO Q4-6H PRN Nexium (Esomeprazole DR) 40 Mg Capdr 40 Mg PO DAILY Levemir Inj (Insulin Detemir) 1,000 unit/ 10 ML Vial 85 Units SQ HS Do not mix with any other Insulin. Levemir Inj (Insulin Detemir) 1,000 unit/ 10 ML Vial 65 Units SQ DAILY Do not mix with any other Insulin. Methadone (Methadone HCl) 40 Mg Tab 220 Mg PO DAILY Review of Systems Except as stated in HPI: all other systems reviewed are Neg Physical Exam Narrative GENERAL: Nontoxic-appearing SKIN: Warm and dry. HEAD: Atraumatic. Normocephalic. EYES: Pupils equal and round. No scleral icterus. No injection or drainage. ENT: Patient has no skin over the nasal bone and one can see his septum however the conchae are closed NECK: Trachea midline. No JVD. CARDIOVASCULAR: Regular rate and rhythm. RESPIRATORY: No accessory muscle use. Clear to auscultation. Breath sounds equal bilaterally. GASTROINTESTINAL: Abdomen soft, non-tender, nondistended. Hepatic and splenic margins not palpable. MUSCULOSKELETAL: Extremities Right knee rednerss and swelling to the patella with red lymphatic like stresking up the inner thigh BKA right obvious deformities. NEUROLOGICAL: Awake and alert. No obvious cranial nerve deficits. Motor grossly within normal limits. Five out of 5 muscle strength in the arms and legs. Normal speech. PSYCHIATRIC: Appropriate mood and affect; insight and judgment normal. Data Data Last Documented VS Vital Signs Date Time Temp Pulse Resp B/P (MAP) Pulse Ox O2 Delivery O2 Flow Rate FiO2 02/13/18 00:11 98.5 85 15 177/82 (113) 99 Orders Orders Complete Blood Count With Diff (02/13/18 00:44) Comprehensive Metabolic Panel (02/13/18 00:44) Blood Culture (02/13/18 00:44) Lipase (02/13/18 00:44) Lactic Acid (02/13/18 00:45) Clindamycin 600 Mg/Ns Premix (Cleocin 60 (02/13/18 01:00) Piperacil-Tazo 3.375 Gm Premix (Zosyn 3. (02/13/18 01:15) Morphine Inj (Morphine Inj) (02/13/18 01:45) Metoclopramide Inj (Reglan Inj) (02/13/18 01:45) Insulin Human Regular Inj (Novolin R Inj (02/13/18 02:15) Admit To Inpatient (02/13/18 ) Vital Signs (Adult) Q4H (02/13/18 02:40) Activity Oob Ad Ruby (02/13/18 02:40) Digital Field Service Technician / Telemetry .CONTINUOUS (02/13/18 02:40) Intake + Output PRISCILLA.QSHIFT (02/13/18 02:40) Diet 1800 Ada Cons Carb (02/13/18 Breakfast) Sodium Chloride 0.9% Flush (Ns Flush) (02/13/18 02:45) Sodium Chloride 0.9% Flush (Ns Flush) (02/13/18 09:00) Basic Metabolic Panel (Bmp) (02/14/18 06:00) Complete Blood Count With Diff (02/14/18 06:00) Case Management Consult (02/13/18 02:40) Heparin Inj (Heparin Inj) (02/13/18 04:00) Scd Bilateral/Knee High PRISCILLA.BID (02/13/18 02:40) Naloxone Inj (Narcan Inj) (02/13/18 02:45) Inpatient Certification (02/13/18 ) Piperacil-Tazo 3.375 Gm Premix (Zosyn 3. (02/13/18 08:00) Clindamycin 600 Mg/Ns Premix (Cleocin 60 (02/13/18 06:00) Bedside Glucose PRISCILLA.CSUGAR (02/13/18 02:45) Blood Glucose Goal (Criteria) (02/13/18 02:45) Hypoglycemia 70 Mg/Dl Or < (02/13/18 02:45) Notify Dr: Other (02/13/18 02:45) Dextrose 50% In Phill (Vial) Inj (D50w (Vi (02/13/18 02:45) Glucagon Inj (Glucagon Inj) (02/13/18 02:45) Insulin Aspart Supplemtl Scale (Novolog (02/13/18 08:00) Admit Order (Ed Use Only) (02/13/18 02:52) Place In Observation (02/13/18 ) Labs Laboratory Tests Test 02/13/18 00:45 White Blood Count 7.5 TH/MM3 Red Blood Count 4.98 MIL/MM3 Hemoglobin 14.6 GM/DL Hematocrit 43.2 % Mean Corpuscular Volume 86.7 FL Mean Corpuscular Hemoglobin 29.3 PG Mean Corpuscular Hemoglobin Concent 33.8 % Red Cell Distribution Width 13.6 % Platelet Count 91 TH/MM3 Mean Platelet Volume 10.5 FL Neutrophils (%) (Auto) 66.5 % Lymphocytes (%) (Auto) 23.1 % Monocytes (%) (Auto) 8.7 % Eosinophils (%) (Auto) 1.2 % Basophils (%) (Auto) 0.5 % Neutrophils # (Auto) 5.0 TH/MM3 Lymphocytes # (Auto) 1.7 TH/MM3 Monocytes # (Auto) 0.7 TH/MM3 Eosinophils # (Auto) 0.1 TH/MM3 Basophils # (Auto) 0.0 TH/MM3 CBC Comment AUTO DIFF Differential Comment AUTO DIFF CONFIRMED Platelet Estimate LOW Platelet Morphology Comment NORMAL Blood Urea Nitrogen 15 MG/DL Creatinine 1.00 MG/DL Random Glucose 462 MG/DL Total Protein 7.7 GM/DL Albumin 3.2 GM/DL Calcium Level 8.3 MG/DL Alkaline Phosphatase 239 U/L Aspartate Amino Transf (AST/SGOT) 21 U/L Alanine Aminotransferase (ALT/SGPT) 43 U/L Total Bilirubin 0.4 MG/DL Sodium Level 132 MEQ/L Potassium Level 4.5 MEQ/L Chloride Level 96 MEQ/L Carbon Dioxide Level 25.5 MEQ/L Anion Gap 11 MEQ/L Estimat Glomerular Filtration Rate 79 ML/MIN Lactic Acid Level 2.0 mmol/L Lipase 57 U/L MDM Medical Decision Making Medical Screen Exam Complete: Yes Emergency Medical Condition: Yes Differential Diagnosis Cellulitis versus lymphadenitis versus trauma versus infected intra-articular infection versus other Narrative Course WBC 7.5 and streaking lymphadenitis clind IV and zosyn and admit for close follow Diagnosis Primary Impression: Cellulitis Additional Impression: Cellulitis, leg Qualified Codes: L03.115 - Cellulitis of right lower limb Ammon Lam MD Feb 13, 2018 01:07
[2018-02-13] MEDS ORDERED: PIPERACIL-TAZO 3.375 GM PREMIX 50 ML IV ONE (01:15)
[2018-02-13 01:42] LABS: ALBUMIN 3.2 GM/DL (3.4-5.0); ALKALINE PHOSPHATASE 239 U/L (45-117); ALT (GPT) 43 U/L (12-78); AST (GOT) 21 U/L (15-37); BICARBONATE 25.5 MEQ/L (21.0-32.0); BLOOD UREA NITROGEN 15 MG/DL (7-18); CALCIUM 8.3 MG/DL (8.5-10.1); CHLORIDE 96 MEQ/L (98-107); GLOMERULAR FILTRATION RATE 79 ML/MIN (>89); SODIUM (NA) 132 MEQ/L (136-145); TOTAL BILIRUBIN ADULT 0.4 MG/DL (0.2-1.0); TOTAL PROTEIN 7.7 GM/DL (6.4-8.2)
[2018-02-13] MEDS ORDERED: METOCLOPRAMIDE INJ 10 MG in SODIUM CHLORIDE 0.9% INJ 50 ML IV ONE (01:45)
[2018-02-13] MEDS ORDERED: MORPHINE SULFATE 4 MG/ML INJ IV PUSH ONE (01:45)
[2018-02-13 02:02] LABS: GLUCOSE,RANDOM 462 MG/DL (74-106)
[2018-02-13] MEDS ORDERED: INSULIN HUMAN REGULAR 1,000 UNITS/10 ML VIAL IV PUSH ONE (02:15)
[2018-02-13] MEDS ORDERED: GLUCAGON 1 MG/ML VIAL OTHER PRN (02:45)
[2018-02-13] MEDS ORDERED: NALOXONE HCL 0.4 MG/ML AMP IV PUSH PRN (02:45)
[2018-02-13] MEDS ORDERED: SODIUM CHLORIDE 0.9% FLUSH 10 ML FLUSH IV FLUSH PRN (02:45)
[2018-02-13] MEDS ORDERED: DEXTROSE 50% IN WATER 50 ML VIAL(D50) IV PUSH PRN (02:45)
[2018-02-13] MEDS ORDERED: SODIUM CHLOR 0.9% 1000 ML INJ 1,000 ML IV ONE (03:30)
[2018-02-13] MEDS: HEPARIN SODIUM - SQ 10,000 UNITS/ML VIAL SQ SCH ×3 (05:00→21:03)
[2018-02-13] MEDS: CLINDAMYCIN 600 MG/NS PREMIX 50 ML IV SCH ×4 (05:00→23:48)
[2018-02-13] MEDS: PIPERACIL-TAZO 3.375 GM PREMIX 50 ML IV SCH ×3 (09:04→21:02)
[2018-02-13] MEDS: SODIUM CHLORIDE 0.9% FLUSH 10 ML FLUSH IV FLUSH SCH ×2 (09:10→21:03)
[2018-02-13] MEDS: INSULIN ASPART SUPPLEMENTAL SCALE SQ SCH ×4 (09:10→21:04)
--- NOTE | 2018-02-13 10:11 | HHI.HP ---
cc: Karuna Mccord MD [facility] Service [facility] Primary Care Physician Karuna Mccord MD Admission Diagnosis cellulitis Diagnoses: (1) Hypertension (2) Methadone dependence (3) Tobacco dependence (4) DM (diabetes mellitus) (5) Cellulitis, leg Chief Complaint: Cellulitis/bursitis right knee Travel History International Travel<30 Days: No Contact w/Intl Traveler <30 Da: No Traveled to Known Affected Are: No History of Present Illness The patient is a 52-year-old male status post right BKA about 2 years ago. He has had multiple episodes of cellulitis in the right leg since that time. He states that about 2 days ago he started noticing increased redness and swelling over the right patella. He noticed red streaking up his right leg yesterday and decided to come to the ER. He reports some improvement overnight with IV antibiotics. The pain is superficial overlying the patella. There is no pain in the joint and he has good range of motion with flexion of the knee, limited only by swelling/tightness of the overlying skin. He has had fever, chills, and night sweats. No other complaints at this time. Review of Systems Constitutional: DENIES: Fever, Chills, Night Sweats Eyes: DENIES: Blurred vision, Vision loss Ears, nose, mouth, throat: DENIES: Hearing loss Respiratory: DENIES: Cough, Wheezing, Sputum production, Shortness of breath Cardiovascular: DENIES: Chest pain, Palpitations, Dyspnea on Exertion, Lower Extremity Edema Gastrointestinal: DENIES: Abdominal pain, Constipation, Diarrhea, Nausea, Vomiting Genitourinary: DENIES: Urinary frequency, Urinary incontinence, Urgency, Hematuria, Dysuria, Nocturia Musculoskeletal: DENIES: Joint pain, Muscle aches Integumentary: DENIES: Pruritus Hematologic/lymphatic: DENIES: Bruising Neurologic: DENIES: Headache Past Family Social History Past Medical History Insulin-dependent diabetes mellitus Hypertension Chronic pain Tobacco abuse Past Surgical History Right BKA Skin graft Appendectomy Reported Medications [place] (Hydrocodone-Acetaminophen) 5 Mg-325 Mg Tab 1 Tab PO Q6H PRN 7 Days Novolog Inj (Insulin Aspart) 100 Unit/Ml Inj 1 Unit SQ ACHS SLIDING SCALE Lisinopril 10 Mg Tab 10 Mg PO DAILY Gabapentin 600 Mg Tab 600 Mg PO TID Hydromorphone (Hydromorphone HCl) 4 Mg Tab 4 Mg PO Q4-6H PRN Nexium (Esomeprazole DR) 40 Mg Capdr 40 Mg PO DAILY Levemir Inj (Insulin Detemir) 1,000 unit/ 10 ML Vial 85 Units SQ HS Do not mix with any other Insulin. Levemir Inj (Insulin Detemir) 1,000 unit/ 10 ML Vial 65 Units SQ DAILY Do not mix with any other Insulin. Methadone (Methadone HCl) 40 Mg Tab 220 Mg PO DAILY Allergies: Coded Allergies: diatrizoate meglumine (Unverified Allergy, Severe, Rash, 02/13/18) gadobenic acid (Unverified Allergy, Severe, Rash, 02/13/18) gadodiamide (Unverified Allergy, Severe, Rash, 02/13/18) gadoteridol (Unverified Allergy, Severe, Rash, 02/13/18) iodixanol (Unverified Allergy, Severe, Rash, 02/13/18) iohexol (Unverified Allergy, Severe, Rash, 02/13/18) adhesive (Verified Allergy, Intermediate, Rash, 02/13/18) Uncoded Allergies: iv plyeogram dye (Allergy, Severe, Anaphylaxis, 04/25/17) Family History Patient denies significant past family medical history. Social History Smokes 3-4 cigarettes per day. Denies alcohol or illicit drug use. Physical Exam Vital Signs Vital Signs Date Time Temp Pulse Resp B/P (MAP) Pulse Ox O2 Delivery O2 Flow Rate FiO2 02/13/18 07:55 98.0 63 20 157/92 (113) 97 02/13/18 04:36 98.4 66 17 155/85 (108) 97 02/13/18 00:11 98.5 85 15 177/82 (113) 99 Physical Exam GENERAL: Well-nourished, well-developed male in no acute distress. HEENT: Normocephalic, atraumatic. Pupils equal, round and reactive. Extraocular movements intact. No scleral icterus. No injection or drainage. Oropharynx is clear. Mucous membranes are moist. Skin overlying the bridge of the nose is absent. CARDIOVASCULAR: Regular rate and rhythm without murmurs, gallops, or rubs. RESPIRATORY: Clear to auscultation. No wheezes, rales, or rhonchi. Breathing is non-labored. GASTROINTESTINAL: Abdomen soft, non-tender, nondistended. EXTREMITIES: No left lower extremity edema. No calf tenderness. Right BKA. There is swelling and erythema overlying the right knee, consistent with bursitis/cellulitis. Range of motion of the knee is slightly limited due to swelling, tightness of the skin. PSYCH: Alert and oriented x 3. Laboratory Laboratory Tests Test 02/13/18 00:45 White Blood Count 7.5 Red Blood Count 4.98 Hemoglobin 14.6 Hematocrit 43.2 Mean Corpuscular Volume 86.7 Mean Corpuscular Hemoglobin 29.3 Mean Corpuscular Hemoglobin Concent 33.8 Red Cell Distribution Width 13.6 Platelet Count 91 Mean Platelet Volume 10.5 Neutrophils (%) (Auto) 66.5 Lymphocytes (%) (Auto) 23.1 Monocytes (%) (Auto) 8.7 Eosinophils (%) (Auto) 1.2 Basophils (%) (Auto) 0.5 Neutrophils # (Auto) 5.0 Lymphocytes # (Auto) 1.7 Monocytes # (Auto) 0.7 Eosinophils # (Auto) 0.1 Basophils # (Auto) 0.0 CBC Comment AUTO DIFF Differential Comment AUTO DIFF CONFIRMED Platelet Estimate LOW Platelet Morphology Comment NORMAL Blood Urea Nitrogen 15 Creatinine 1.00 Random Glucose 462 Total Protein 7.7 Albumin 3.2 Calcium Level 8.3 Alkaline Phosphatase 239 Aspartate Amino Transf (AST/SGOT) 21 Alanine Aminotransferase (ALT/SGPT) 43 Total Bilirubin 0.4 Sodium Level 132 Potassium Level 4.5 Chloride Level 96 Carbon Dioxide Level 25.5 Anion Gap 11 Estimat Glomerular Filtration Rate 79 Lactic Acid Level 2.0 Lipase 57 Date/Time Source Procedure Growth Status 02/13/18 00:45 Blood Peripheral Aerobic Blood Culture Pending Received 02/13/18 00:45 Blood Peripheral Anaerobic Blood Culture Pending Received Result Diagram: 02/13/184402/13/1844 Caprini VTE Risk Assessment Caprini VTE Risk Assessment: Mod/High Risk (score >= 2) Caprini Risk Assessment Model Point Value = 1 Point Value = 2 Point Value = 3 Point Value = 5 Age 41-60 Minor surgery BMI > 25 kg/m2 Swollen legs Varicose veins or History of unexplained or recurrent spontaneous Oral contraceptives or hormone replacement Sepsis (< 1 month) Serious lung disease, including pneumonia (< 1 month) Abnormal pulmonary function Acute myocardial infarction Congestive heart failure (< 1 month) History of inflammatory bowel disease Medical patient at bed rest Age 61-74 Arthroscopic surgery Major open surgery (> 45 min) Laparoscopic surgery (> 45 min) Malignancy Confined to bed (> 72 hours) Immobilizing plaster cast Central venous access Age >= 75 History of VTE Family history of VTE Factor V Leiden Prothrombin [id number] Lupus anticoagulant Anticardiolipin antibodies Elevated serum homocysteine Heparin-induced thrombocytopenia Other congenital or acquired thrombophilia Stroke (< 1 month) Elective arthroplasty Hip, pelvis, or leg fracture Acute spinal cord injury (< 1 month) Prophylaxis Regimen Total Risk Factor Score Risk Level Prophylaxis Regimen 0-1 Low Early ambulation 2 Moderate Order ONE of the following: *Sequential Compression Device (SCD) *Heparin 5000 units SQ BID 3-4 Higher Order ONE of the following medications: *Heparin 5000 units SQ TID *Enoxaparin/Lovenox 40 mg SQ daily (WT < 150 kg, CrCl > 30 mL/min) *Enoxaparin/Lovenox 30 mg SQ daily (WT < 150 kg, CrCl > 10-29 mL/min) *Enoxaparin/Lovenox 30 mg SQ BID (WT < 150 kg, CrCl > 30 mL/min) AND/OR *Sequential Compression Device (SCD) 5 or more Highest Order ONE of the following medications: *Heparin 5000 units SQ TID (Preferred with Epidurals) *Enoxaparin/Lovenox 40 mg SQ daily (WT < 150 kg, CrCl > 30 mL/min) *Enoxaparin/Lovenox 30 mg SQ daily (WT < 150 kg, CrCl > 10-29 mL/min) *Enoxaparin/Lovenox 30 mg SQ BID (WT < 150 kg, CrCl > 30 mL/min) AND *Sequential Compression Device (SCD) Assessment and Plan Assessment and Plan 1. Cellulitis/bursitis, right knee: Continue IV antibiotics. Improving. Consider orthopedic surgery consult if symptoms worsen. 2. Hypertension: Continue lisinopril. 3. GERD: Continue PPI. 4. Chronic back pain: We will need to confirm methadone dosing with the [place] [facility]. 5. Insulin-dependent diabetes mellitus: Glucose has been significantly elevated. Continue sliding scale insulin coverage. Restart home dose of Levemir, 65 units in the morning and 85 units in the evening. 6. Peripheral neuropathy: Continue gabapentin. 7. DVT prophylaxis: Left lower extremity SCD. Problem Qualifiers (1) Cellulitis, leg: Qualified Codes: L03.115 - Cellulitis of right lower limb Javan Sanchez MD Feb 13, 2018 10:11
[2018-02-13] MEDS: INSULIN DETEMIR 100 UNITS/ML VIAL SQ SCH ×2 (12:11→21:04)
[2018-02-13] MEDS: PANTOPRAZOLE SOD 40 MG DELAYED RELEASE TAB PO SCH (12:12)
[2018-02-13] MEDS: LISINOPRIL 10 MG TAB PO SCH (12:12)
[2018-02-13] MEDS: METHADONE HCL 10 MG TAB PO SCH (12:13)
[2018-02-14] MEDS: PIPERACIL-TAZO 3.375 GM PREMIX 50 ML IV SCH ×4 (03:12→21:02)
[2018-02-14 04:21] VITALS: BP 110/69; PULSE 56; RESP 18; TEMP 97.8; O2SAT 96
[2018-02-14 04:52] LABS: AUTOMATED NEUTROPHIL # 5.5 TH/MM3 (1.8-7.7); BASOPHIL # 0.1 TH/MM3 (0-0.2); BASOPHIL % 0.5 % (0.0-2.0); EOSINOPHIL # 0.1 TH/MM3 (0-0.4); EOSINOPHIL % 1.4 % (0.0-4.0); HEMATOCRIT 39.9 % (39.0-51.0); HEMOGLOBIN 13.6 GM/DL (13.0-17.0); LYMPH % 29.5 % (9.0-44.0); LYMPHOCYTE # 2.8 TH/MM3 (1.0-4.8); MEAN CELL VOLUME 85.5 FL (80.0-100.0); MEAN CORPUSCULAR HEMOGLOBIN 29.1 PG (27.0-34.0); MEAN CORPUSCULAR HGB CONC 34.1 % (32.0-36.0); MEAN PLATELET VOLUME 10.6 FL (7.0-11.0); MONO % 9.6 % (0.0-8.0); MONOCYTE # 0.9 TH/MM3 (0-0.9); PLATELET COUNT 104 TH/MM3 (150-450); RED BLOOD COUNT 4.67 MIL/MM3 (4.50-5.90); WHITE BLOOD COUNT 9.4 TH/MM3 (4.0-11.0)
[2018-02-14] MEDS: HEPARIN SODIUM - SQ 10,000 UNITS/ML VIAL SQ SCH ×3 (05:09→21:03)
[2018-02-14] MEDS: CLINDAMYCIN 600 MG/NS PREMIX 50 ML IV SCH ×3 (05:09→18:14)
[2018-02-14 05:14] LABS: BICARBONATE 26.3 MEQ/L (21.0-32.0); CALCIUM 8.5 MG/DL (8.5-10.1); CREATININE 1.07 MG/DL (0.60-1.30)
[2018-02-14] MEDS: INSULIN ASPART SUPPLEMENTAL SCALE SQ SCH ×4 (08:00→21:22)
[2018-02-14 08:08] VITALS: BP 149/85; PULSE 60; RESP 18; TEMP 97.6; O2SAT 99
[2018-02-14] MEDS: LISINOPRIL 10 MG TAB PO SCH (08:58)
[2018-02-14] MEDS: PANTOPRAZOLE SOD 40 MG DELAYED RELEASE TAB PO SCH (08:58)
[2018-02-14] MEDS: METHADONE HCL 10 MG TAB PO SCH (08:59)
[2018-02-14] MEDS: SODIUM CHLORIDE 0.9% FLUSH 10 ML FLUSH IV FLUSH SCH ×2 (09:02→21:03)
[2018-02-14] MEDS: INSULIN DETEMIR 100 UNITS/ML VIAL SQ SCH ×2 (09:39→21:22)
--- NOTE | 2018-02-14 13:24 | HHI.PR ---
Subjective Remarks Patient says right knee pain continues, feels it is slightly worsened today. Denies any chest pain shortness of breath. Denies nausea or vomiting. Objective Vital Signs Date Time Temp Pulse Resp B/P (MAP) Pulse Ox O2 Delivery O2 Flow Rate FiO2 02/14/18 08:08 97.6 60 18 149/85 (106) 99 02/14/18 04:21 97.8 56 18 110/69 (83) 96 02/13/18 23:45 97.7 58 18 119/66 (83) 99 02/13/18 20:22 97.8 56 16 96/64 (75) 92 02/13/18 16:26 97.9 56 16 98/65 (76) 97 02/13/18 13:45 20 I/O 02/13/18 02/13/18 02/13/18 02/14/18 02/14/18 02/14/18 07:00 15:00 23:00 07:00 15:00 23:00 Intake Total 100 ml 100 ml 120 ml 140 ml Balance 100 ml 100 ml 120 ml 140 ml Intake Oral 120 ml 140 ml IV Total 100 ml 100 ml # Voids 3 Result Diagram: 02/14/18 0420 02/14/18 0420 Objective Remarks GENERAL: Patient sitting up in bed. Appears comfortable. SKIN: Warm and dry. HEAD: Normocephalic. EYES: No scleral icterus. No injection or drainage. NECK: Supple, trachea midline. No JVD. CARDIOVASCULAR: Regular rate and rhythm without murmurs, gallops, or rubs. RESPIRATORY: Breath sounds equal bilaterally. No accessory muscle use. GASTROINTESTINAL: Abdomen soft, non-tender, nondistended. MUSCULOSKELETAL: No cyanosis, or edema. Right below the knee amputation which appears to have healed well. Prepatellar bursa with warmth, erythema, small puncture wound which appears to be partially healed. BACK: Nontender without obvious deformity. No CVA tenderness. A/P Assessment and Plan //Cellulitis/bursitis, right knee: Continue IV antibiotics. Improving. Consider orthopedic surgery consult if symptoms worsen. = Erythema itself has improved, however continued pain of prepatellar bursa, with evidence of skin puncture above bursa. This will need to be drained and cultured. Consult orthopedics. // Hypertension: Continue lisinopril. //GERD: Continue PPI. // Chronic back pain: We will need to confirm methadone dosing with the [facility]. // Insulin-dependent diabetes mellitus: Glucose has been significantly elevated. Continue sliding scale insulin coverage. Restart home dose of Levemir, 65 units in the morning and 85 units in the evening. // Peripheral neuropathy: Continue gabapentin. //DVT prophylaxis: Left lower extremity SCD. Discharge Planning continued right patellar bursitis. Will need drainage and culture, after which patient may discharge. Alec Laird MD Feb 14, 2018 13:24
[2018-02-14 13:41] VITALS: BP 123/77; PULSE 69; RESP 18; TEMP 98.7; O2SAT 94
[2018-02-14 17:09] VITALS: BP 120/68; PULSE 57; RESP 18; TEMP 97.8; O2SAT 95
[2018-02-14 19:27] VITALS: BP 124/80; PULSE 61; RESP 16; TEMP 97.8; O2SAT 99
[2018-02-15 00:07] VITALS: BP 116/69; PULSE 57; RESP 16; TEMP 98; O2SAT 97
[2018-02-15] MEDS: CLINDAMYCIN 600 MG/NS PREMIX 50 ML IV SCH ×2 (00:41→06:42)
[2018-02-15] MEDS: PIPERACIL-TAZO 3.375 GM PREMIX 50 ML IV SCH ×2 (03:42→09:21)
[2018-02-15 04:06] VITALS: BP 115/73; PULSE 64; RESP 16; TEMP 98; O2SAT 99
[2018-02-15] MEDS: HEPARIN SODIUM - SQ 10,000 UNITS/ML VIAL SQ SCH (04:30)
[2018-02-15] MEDS: INSULIN ASPART SUPPLEMENTAL SCALE SQ SCH (08:00)
[2018-02-15 08:03] VITALS: BP 116/69; PULSE 56; RESP 18; TEMP 98.1; O2SAT 98
--- NOTE | 2018-02-15 09:06 | MB ---
cc: Duncan Christy MD DATE: 02/15/2018 CONSULTING PHYSICIAN: Dr. Sanchez. REASON FOR CONSULTATION: Right knee bursitis. HISTORY OF PRESENT ILLNESS: Lazarus is a 52-year-old male who has a history of right below-knee amputation approximately 2 years ago. He states that he has had several episodes of cellulitis since that time. He wears a prosthesis. He states that the prosthesis does rub along his anterior knee. He has noticed increased redness and swelling around the knee. Currently, his symptoms have subsided. He states that last night, there was a small opening in the skin and a large amount of blood came out. He has minimal pain with knee range of motion. He denies any fevers or chills. His only complaint is his right knee. PAST MEDICAL HISTORY: Illnesses: Diabetes, hypertension, chronic pain, tobacco use. SURGICAL HISTORY: Right below-knee amputation, appendectomy. MEDICATIONS: Include: 1. NovoLog insulin. 2. Lisinopril. 3. Gabapentin. 4. Hydromorphone. 5. Nexium. 6. Levemir. 7. Methadone. ALLERGIES: ADHESIVES, IOHEXOL AND GADODIAMIDE. FAMILY HISTORY: Noncontributory. SOCIAL HISTORY: The patient smokes approximately 4 cigarettes a day. Denies alcohol or drug use. REVIEW OF SYSTEMS: The patient denies headache, visual changes, neck pain, chest pain, shortness of breath, abdominal pain, nausea, vomiting, recent weight loss, fever or chills, numbness or tingling of extremities. He complains of right knee pain and swelling. LABORATORY DATA: The patient has a white blood cell count of 9.4, hematocrit 39, platelet count of 14, INR 1.0, BUN of 22, potassium 4.1. PHYSICAL EXAMINATION: GENERAL: The patient is a pleasant 52-year-old male who is awake and alert, in no acute distress. He appears well-developed and well-nourished. VITAL SIGNS: Temperature 98.0, pulse 64, respirations 16, blood pressure 115/73, O2 saturation 99% on room air. HEENT: Head: The patient is normocephalic. Pupils are equal. NECK: Soft, nontender. The trachea is in the midline. ABDOMEN: Soft, nontender, nondistended. EXTREMITIES: Examination of bilateral upper extremities reveals no pain with shoulder, elbow or wrist motion. He has intact sensation in all fingers. He has good cap refill in all fingers. Skin is intact. Radial pulses are palpable. Examination of left leg reveals no pain with hip, knee or ankle motion. Skin is intact. Examination of right leg reveals no pain with hip or knee motion. He has a pinpoint opening over the anterior knee. There is a small amount of bloody drainage. There is no erythema or drainage. He has minimal pain with knee range of motion. His stump appears to be well healed. IMPRESSION: 1. Right knee hematoma. 2. Diabetes. 3. History of below-knee amputation. PLAN: Treatment options were discussed with the patient. At this point, I would recommend conservative treatment. The patient does not appear to have any sign of infection at this time. He appears to have some bursitis and some bloody drainage. He would benefit from icing. He should not wear his prosthesis until this is completely healed. He will need to continue to monitor the skin, once he does begin to wear the prosthesis again. The patient is in agreement with this plan. All questions were answered. A mid-level provider in my office, nurse practitioner or PA, may see this patient on a follow-up basis and continue to implement the objective of this plan including: Starting or adjusting medications, injections of muscle, tendon, bursa or joints, cast application, orthotic or brace application, physical therapy, further radiographic studies including x-ray, MRI, CT, ultrasounds or bone scan, vascular studies, neurologic studies, or other specialist consultations, and proceeding with surgical management as appropriate. MD RAÚL Barclay/CARLOS , 07:37 AM , 09:05 AM
[2018-02-15] MEDS: SODIUM CHLORIDE 0.9% FLUSH 10 ML FLUSH IV FLUSH SCH (09:21)
[2018-02-15] MEDS: PANTOPRAZOLE SOD 40 MG DELAYED RELEASE TAB PO SCH (09:22)
[2018-02-15] MEDS: INSULIN DETEMIR 100 UNITS/ML VIAL SQ SCH (09:22)
[2018-02-15] MEDS: METHADONE HCL 10 MG TAB PO SCH (09:22)
[2018-02-15] MEDS: LISINOPRIL 10 MG TAB PO SCH (09:22)
[2018-02-15] MEDS ORDERED: LEVO750T3 PO (10:59)
[2018-02-15] MEDS ORDERED: CLIN300C5 PO (10:59)
--- NOTE | 2018-02-15 11:06 | HHI.PR ---
Subjective Remarks Patient says he is feeling better today. Pain is under control. Denies any chest pain shortness of breath. Denies nausea or vomiting. Prepatellar bursa opened up last night and is draining serous drainage. Patient seen by orthopedics who recommends conservative management. Objective Vital Signs Date Time Temp Pulse Resp B/P (MAP) Pulse Ox O2 Delivery O2 Flow Rate FiO2 02/15/18 08:03 98.1 56 18 116/69 (85) 98 02/15/18 04:06 98.0 64 16 115/73 (87) 99 02/15/18 00:07 98.0 57 16 116/69 (85) 97 02/14/18 19:27 97.8 61 16 124/80 (95) 99 02/14/18 17:09 97.8 57 18 120/68 (85) 95 02/14/18 13:41 98.7 69 18 123/77 (92) 94 I/O 02/14/18 02/14/18 02/14/18 02/15/18 02/15/18 02/15/18 07:00 15:00 23:00 07:00 15:00 23:00 Intake Total 615 ml 100 ml 1000 ml Output Total 1000 ml 3 ml Balance -385 ml 100 ml 997 ml Intake Oral 565 ml 1000 ml IV Total 50 ml 100 ml Output Urine Total 1000 ml 3 ml Result Diagram: 02/14/1841902/14/18419 Objective Remarks GENERAL: Patient sitting up in bed. Appears comfortable. Alert and oriented 3. SKIN: Warm and dry. HEAD: Normocephalic. EYES: No scleral icterus. No injection or drainage. NECK: Supple, trachea midline. No JVD. CARDIOVASCULAR: Regular rate and rhythm without murmurs, gallops, or rubs. RESPIRATORY: Breath sounds equal bilaterally. No accessory muscle use. GASTROINTESTINAL: Abdomen soft, non-tender, nondistended. MUSCULOSKELETAL: No cyanosis, or edema. Right below the knee amputation which appears to have healed well. Prepatellar bursa with much improved erythema, draining serous drainage. BACK: Nontender without obvious deformity. No CVA tenderness. A/P Assessment and Plan //Cellulitis/bursitis, right knee: Continue IV antibiotics. Improving. Consider orthopedic surgery consult if symptoms worsen. = Erythema itself has improved, however continued pain of prepatellar bursa, with evidence of skin puncture above bursa. This will need to be drained and cultured. Consult orthopedics. = 02/15. MRSA has ruptured draining serous drainage. Continue conservative management as per orthopedics. Appreciate assistance. Discharge home on antibiotics to include anaerobic and Pseudomonas coverage due to history of diabetes. // Hypertension: Continue lisinopril. //GERD: Continue PPI. // Chronic back pain: We will need to confirm methadone dosing with the [facility] methadone clinic. // Insulin-dependent diabetes mellitus: Glucose has been significantly elevated. Continue sliding scale insulin coverage. Restart home dose of Levemir, 65 units in the morning and 85 units in the evening. // Peripheral neuropathy: Continue gabapentin. //DVT prophylaxis: Left lower extremity SCD. Discharge Planning Much improving. Discharge home with by mouth antibiotics. Follow-up with primary care and orthopedics. Patient is not to use prosthesis until cleared by primary care or orthopedics. Alec Laird MD Feb 15, 2018 11:06
--- NOTE | 2018-02-15 11:09 | HHI.DS ---
Discharge Summary Admission Date Feb 13, 2018 at 03:10 Discharge Date: Feb 15, 2018 Admitting Diagnosis cellulitis (1) Hypertension ICD Code: I10 - Essential (primary) hypertension Status: Chronic (2) Methadone dependence ICD Code: F11.20 - Methadone dependence Status: Chronic (3) Tobacco dependence ICD Code: F17.200 - Tobacco dependence syndrome Status: Chronic (4) DM (diabetes mellitus) ICD Code: E11.9 - Type 2 diabetes mellitus without complications Status: Acute (5) Cellulitis, leg ICD Code: L03.119 - Cellulitis of unspecified part of limb Status: Acute Procedures No invasive procedures. Brief History - From Admission The patient is a 52-year-old male status post right BKA about 2 years ago. He has had multiple episodes of cellulitis in the right leg since that time. He states that about 2 days ago he started noticing increased redness and swelling over the right patella. He noticed red streaking up his right leg yesterday and decided to come to the ER. He reports some improvement overnight with IV antibiotics. The pain is superficial overlying the patella. There is no pain in the joint and he has good range of motion with flexion of the knee, limited only by swelling/tightness of the overlying skin. He has had fever, chills, and night sweats. No other complaints at this time. CBC/BMP: 02/14/18 0420 02/14/18 0420 Significant Findings Laboratory Tests Test 02/13/18 00:45 02/14/18 04:20 02/14/18 21:59 Platelet Count 91 TH/MM3 (150-450) 104 TH/MM3 (150-450) Monocytes (%) (Auto) 8.7 % (0.0-8.0) 9.6 % (0.0-8.0) Platelet Estimate LOW (NORMAL) Random Glucose 462 MG/DL (74-106) Albumin 3.2 GM/DL (3.4-5.0) Calcium Level 8.3 MG/DL (8.5-10.1) Alkaline Phosphatase 239 U/L (45-117) Sodium Level 132 MEQ/L (136-145) Chloride Level 96 MEQ/L (98-107) Estimat Glomerular Filtration Rate 79 ML/MIN (>89) 73 ML/MIN (>89) Lipase 57 U/L (73-393) Blood Urea Nitrogen 22 MG/DL (7-18) Hospital Course Patient admitted with extensive erythema and swelling of prepatellar bursa. Was started on broad-spectrum antibiotics with marked improvement. Prepatellar bursa ruptured, draining serous drainage. Orthopedics was consulted and recommends conservative management. Patient will be discharged home on by mouth antibiotics. He will need a follow-up with primary care and orthopedics. He is not to use prosthesis until cleared to do so. For problem based summary from most recent progress note, please see below. //Cellulitis/bursitis, right knee: Continue IV antibiotics. Improving. Consider orthopedic surgery consult if symptoms worsen. = Erythema itself has improved, however continued pain of prepatellar bursa, with evidence of skin puncture above bursa. This will need to be drained and cultured. Consult orthopedics. = 02/15. MRSA has ruptured draining serous drainage. Continue conservative management as per orthopedics. Appreciate assistance. Discharge home on antibiotics to include anaerobic and Pseudomonas coverage due to history of diabetes. // Hypertension: Continue lisinopril. //GERD: Continue PPI. // Chronic back pain: We will need to confirm methadone dosing with the [facility] methadone clinic. // Insulin-dependent diabetes mellitus: Glucose has been significantly elevated. Continue sliding scale insulin coverage. Restart home dose of Levemir, 65 units in the morning and 85 units in the evening. // Peripheral neuropathy: Continue gabapentin. //DVT prophylaxis: Left lower extremity SCD. Discharge Planning Much improving. Discharge home with by mouth antibiotics. Follow-up with primary care and orthopedics. Patient is not to use prosthesis until cleared by primary care or orthopedics. Pt Condition on Discharge: Good Discharge Disposition: Discharge Home Discharge Time: > 30 minutes Discharge Instructions DIET: Follow Instructions for: Diabetic Diet Activities you can perform: Regular-No Restrictions Other Activity Instructions: Not wear prosthesis until cleared by orthopedics or primary care Follow up Referrals: Orthopedics - 1 Week with Duncan Christy MD PCP Follow-up - 1 Week with [facility] New Medications: Clindamycin (Clindamycin) 300 Mg Cap 300 MG PO Q6H for Infection for 14 Days, #56 CAP 0 Refills Levofloxacin (Levofloxacin) 750 Mg Tablet 750 MG PO DAILY for Infection for 14 Days, #14 TAB 0 Refills Continued Medications: Esomeprazole DR (Nexium) 40 Mg Capdr 40 MG PO DAILY, CAP 0 Refills Gabapentin (Gabapentin) 600 Mg Tab 600 MG PO TID, #90 TAB 0 Refills Hydrocodone-Acetaminophen ([place]) 5 Mg-325 Mg Tab 1 TAB PO Q6H PRN for PAIN for 7 Days, #28 TAB 0 Refills Hydromorphone (Hydromorphone) 4 Mg Tab 4 MG PO Q4-6H PRN for PAIN, #30 TAB 0 Refills Insulin Aspart Inj (Novolog Inj) 100 Unit/Ml Inj 1 UNIT SQ ACHS SLIDING SCALE for Blood Sugar Management, #1 VIAL 3 Refills Insulin Detemir Inj (Levemir Inj) 1,000 unit/ 10 ML Vial 65 UNITS SQ DAILY for Blood Sugar Management, VIAL 0 Refills Do not mix with any other Insulin. Insulin Detemir Inj (Levemir Inj) 1,000 unit/ 10 ML Vial 85 UNITS SQ HS for Blood Sugar Management, VIAL 0 Refills Do not mix with any other Insulin. Lisinopril (Lisinopril) 10 Mg Tab 10 MG PO DAILY, #90 TAB 6 Refills Methadone (Methadone) 40 Mg Tab 220 MG PO DAILY, TAB 0 Refills Alec Laird MD Feb 15, 2018 11:09
== END 2018-02-15 12:25 | disposition home or self-care (01) ==
LOC: NEPE 23:54 → NEDA 02-13 02:45 → UNDOADMIN 02-13 02:45 → NEDA 02-13 03:10 → INTOOBSV 02-13 03:10 → NEPFCDU 02-13 03:41
PROVIDERS: ADMIT Internal Medicine; ATTEND Internal Medicine
DX: L03.115 Cellulitis of right lower limb (principal); M70.51 Other bursitis of knee, right knee; S80.01XA Contusion of right knee, initial encounter; I88.9 Nonspecific lymphadenitis, unspecified; I10 Essential (primary) hypertension; K21.9 Gastro-esophageal reflux disease without esophagitis; E11.9 Type 2 diabetes mellitus without complications; M54.9 Dorsalgia, unspecified; G89.29 Other chronic pain; G62.9 Polyneuropathy, unspecified; F11.20 Opioid dependence, uncomplicated; F17.210 Nicotine dependence, cigarettes, uncomplicated; M19.90 Unspecified osteoarthritis, unspecified site; Z79.4 Long term (current) use of insulin; Z89.511 Acquired absence of right leg below knee; Z85.828 Personal history of other malignant neoplasm of skin; Z79.899 Other long term (current) drug therapy; X58.XXXA Exposure to other specified factors, initial encounter
CPT/HCPCS: 76937; 80048; 80053; 82948; 83605; 83690; 85025; 85610; 87040; 96361; 96365; 96366; 96367; 96372; 96375; 99285; G0378; J1644; J1815; J2270; J2543; J7030

== ENCOUNTER 2018-04-30 23:44 | Inpatient (IN) ==
--- NOTE | 2018-05-01 01:02 | CT ---
EXAM DATE: 05/01/2018 12:41 AM EDT AGE/SEX: 52 years / Male INDICATIONS: Left arm numbness and facial numbness. CLINICAL DATA: This is the patient's initial encounter. Patient reports that signs and symptoms have been present for 1 day and indicates a pain score of 0/10. MEDICAL/SURGICAL HISTORY: Diabetes. Hypertension. Carcinoma, skin cancer. None. RADIATION DOSE: 56.35 CTDI (mGy) COMPARISON: No prior exams available for comparison. TECHNIQUE: CT of the head without contrast. Using automated exposure control and adjustment of the mA and/or kV according to patient size, radiation dose was kept as low as reasonably achievable to ob tain optimal diagnostic quality images. DICOM format image data is available electronically for revi ew and comparison. FINDINGS: Cerebrum: The ventricles are normal for age. There is some asymmetric volume loss in the right mid parietal region with gyriform increased density at the frontoparietal junction and right temporal lob e possibly representing a focus of cortical laminar necrosis. No evidence of midline shift, mass lesi on, hemorrhage or acute infarction. No extraaxial fluid collections are seen. Posterior Fossa: The cerebellum and brainstem are intact. The 4th ventricle is midline. The cerebe llopontine angle is unremarkable. Extracranial: The visualized portion of the orbits is intact. Skull: The calvaria is intact. No evidence of skull fracture. CONCLUSION: 1. Some asymmetric volume loss in the mid right parietal lobe with suggestion of cortical laminar ne crosis at the frontoparietal junction and temporal lobe also on the right. Findings could represent a subacute on chronic stroke in the right MCA territory which could explain current clinical symptoms. 2. No acute intracranial hemorrhage or midline shift. . Electronically signed by: Eleuterio Carbajal MD 05/01/2018 1:01 AM EDT
[2018-05-01 01:04] LABS: Baso # (Auto) 0.1 th/mm3 (0.0-0.2); Eos # (Auto) 0.1 th/mm3 (0.0-0.4); Eos % (Auto) 0.7 % (0.0-4.0); Hematocrit 38.8 % (39.0-51.0); Hemoglobin 13.7 gm/dL (13.0-17.0); Lymph # (Auto) 1.6 th/mm3 (1.0-4.8); Lymph % (Auto) 17.4 % (9.0-44.0); Mean Corpuscular HGB Conc 35.2 % (32.0-36.0); Mean Corpuscular Hemoglobin 30.2 pg (27.0-34.0); Mean Corpuscular Volume 85.5 fL (80.0-100.0); Mean Platelet Volume 10.1 fL (7.0-11.0); Mono # (Auto) 0.9 th/mm3 (0.0-0.9); Neut # (Auto) 6.8 th/mm3 (1.8-7.7); Neut % (Auto) 71.9 % (16.0-70.0); Platelet Count 111 th/mm3 (150-450); Red Blood Count 4.53 mil/mm3 (4.50-5.90); Red Cell Distribution Width 13.7 % (11.6-17.2); White Blood Count 9.5 th/mm3 (4.0-11.0)
[2018-05-01 01:17] LABS: INR 1.1 Ratio; Prothrombin Time 11.2 sec (9.8-11.6)
[2018-05-01 01:18] LABS: Alanine Aminotransferase 35 U/L (12-78); Albumin 2.8 g/dL (3.4-5.0); Anion Gap 7 meq/L (5-15); Aspartate Aminotransferase 19 U/L (15-37); Blood Urea Nitrogen 20 mg/dL (7-18); Calcium 8.3 mg/dL (8.5-10.1); Carbon Dioxide 26.9 meq/L (21.0-32.0); Chloride 99 meq/L (98-107); Glomerular Filtration Rate 84 mL/min (>89); Glucose,Random 337 mg/dL (74-106); Potassium 4.1 meq/L (3.5-5.1); Sodium 133 meq/L (136-145)
[2018-05-01 01:22] LABS: Alkaline Phosphatase 149 U/L (45-117); Total Protein 7.2 g/dL (6.4-8.2)
[2018-05-01 01:27] LABS: Bilirubin,Urine Negative (Negative); Clarity,Urine Clear (Clear); Color,Urine Yellow (Yellw/Straw); Glucose,Urine (UA) 500 or Greater mg/dL (Negative); Leukocyte Esterase,Urine Negative (Negative); Nitrite,Urine Negative (Negative); Specific Gravity,Urine 1.033 (1.002-1.035); Squamous Epithelial Cell,Urine 1 /hpf (0-5)
[2018-05-01 01:30] LABS: Amphetamine Screen,Urine Neg (Neg); Barbiturate Screen,Urine Neg (Neg); Cannabinoid Screen,Urine Neg (Neg); Cocaine Screen,Urine Pos (Neg)
[2018-05-01 01:32] LABS: Opiate Screen,Urine Neg (Neg)
--- NOTE | 2018-05-01 01:41 | ED ---
HPI General Chief Complaint: Altered Mental Status Stated Complaint: Neuro Time Seen by Provider: 04/30/18 23:53 Source: patient and family Mode of arrival: ambulatory Limitations: no limitations History of Present Illness HPI narrative: 52-year-old male arrives to the ER with a complaint of pain in the right lower extremity along with redness swelling and warmth. He believes he has right lower extremity infection. Duration is been 2 days. The patient also complains of some difficulty speaking with slurred speech. He reports taking a nap approximately 6-1/2 hours prior to ER arrival and then woke up 3 hours later and when he woke up he felt tingling in the face and arm on the left side as well as slurred speech. Patient also reports the glucose was elevated at home. No fever. No chest pain or shortness of breath. Related Data Home Medications Medication Instructions Recorded Confirmed esomeprazole magnesium [Nexium] 20 mg PO DAILY 05/01/18 05/01/18 gabapentin 600 mg PO TID 05/01/18 05/01/18 insulin detemir U-100 [Levemir 65 unit SUB-Q DAILY 05/01/18 05/01/18 U-100 Insulin] insulin detemir U-100 [Levemir 85 unit SUB-Q HS 05/01/18 05/01/18 U-100 Insulin] insulin regular human [Novolin R 1 sliding scale dose SUB-Q UD 05/01/18 05/01/18 Regular U-100 Insuln] lisinopril 10 mg PO DAILY 05/01/18 05/01/18 methadone [Methadose] 220 mg PO DAILY 05/01/18 05/01/18 Allergies Allergy/AdvReac Type Severity Reaction Status Date / Time diatrizoate meglumine Allergy Severe Rash Unverified 05/01/18 00:07 gadobenic acid Allergy Severe Rash Unverified 05/01/18 00:07 gadodiamide Allergy Severe Rash Unverified 05/01/18 00:07 gadoteridol Allergy Severe Rash Unverified 05/01/18 00:07 iodixanol Allergy Severe Rash Unverified 05/01/18 00:07 iohexol Allergy Severe Rash Unverified 05/01/18 00:07 adhesive Allergy Intermediate Rash Verified 05/01/18 00:07 iv plyeogram dye Allergy Severe Anaphylaxis Uncoded 05/01/18 00:07 Review of Systems ROS: all other systems reviewed are negative [facility] Medical History Medical History Diabetes (Acute) HTN (hypertension) (Acute) History of skin cancer (Acute) Hx of right BKA (Acute) Social History Social History Substance History: No History of Abuse Second Hand Smoke Exposure: Yes Smoking Status: Current every day smoker Tobacco Type: Cigarettes How Often Do You Have a Drink Containing Alcohol: Never Recent Travel in [facility] within the Last 8 Weeks: No Recent Out of Country Travel within the Last 8 Weeks: No Immunization History Tetanus Immunization: Unsure Hx Influenza Vaccine This Season: No Exam Narrative Exam Narrative: GENERAL: 52-year-old male chronically ill in appearance recently cooperative SKIN: Cellulitis about the right lower extremity stump. Chronic deformity about the nose. HEAD: Atraumatic. Normocephalic. EYES: Pupils equal and round. No scleral icterus. No injection or drainage. ENT: No nasal bleeding or discharge. Mucous membranes pink and moist. NECK: Trachea midline. No JVD. CARDIOVASCULAR: Regular rate and rhythm. No murmur appreciated. RESPIRATORY: No accessory muscle use. Clear to auscultation. Breath sounds equal bilaterally. GASTROINTESTINAL: Abdomen soft, non-tender, nondistended. Hepatic and splenic margins not palpable. MUSCULOSKELETAL: Right below-knee amputation well-healed. The right lower extremity stump is erythematous tender warm and indurated. There is no fluctuance. NEUROLOGICAL: Patient is speaking sentences. A trace left depression nasolabial fold present. Handgrip is equal. Patient is able to elevate both legs off the bed. There is no pronator drift. PSYCHIATRIC: Appropriate mood and affect; insight and judgment normal. Course Initial Documented Vital Signs Temperature 97.8 F 04/30/18 23:46 Pulse Rate 80 04/30/18 23:46 Respiratory Rate 18 04/30/18 23:46 Blood Pressure 139/88 04/30/18 23:46 Pulse Oximetry 97 04/30/18 23:46 Last Documented Vital Signs Temperature 97.8 F 04/30/18 23:46 Pulse Rate 80 04/30/18 23:46 Respiratory Rate 18 04/30/18 23:46 Blood Pressure 139/88 04/30/18 23:46 Pulse Oximetry 98 05/01/18 01:10 Critical Care Time Critical Care Time: Yes Total Critical Care Time: 35 Attestation: Aggregate critical care time was 35 minutes. Time to perform other separately billable procedures was not included in the critical care time. My time did not include minutes spent treating any other patients simultaneously or on activities that did not directly contribute to the patient's treatment. The services I provided to this patient were to treat and/or prevent clinically significant deterioration that could result in: Stroke, permanent weakness, disability I provided critical care services requiring my management, as noted below: Chart data review, documentation time, medication orders and management, vital sign assessments/reviewing monitor data, ordering and reviewing lab tests, ordering and interpreting/reviewing x-rays and diagnostic studies, care of the patient and discussion of the patient with the admitting physicians. Medical Decision Making MDM Narrative Medical decision making narrative: CT head reveals abnormality potentially consistent with acute stroke and/or acute on chronic stroke. Patient not a candidate for TPA due to time of onset being 6 hours prior to ED arrival. The patient will be admitted for further evaluation. Discussed with Dr. Miranda. Clindamycin started for right lower extremity cellulitis. Medical Screen Exam Complete: Yes Emergency Medical Condition: Yes Lab Data Lab results reviewed: Yes I reviewed the patient's lab results. Lab results narrative: Troponin less than 0.02 Urine drug screen positive for cocaine LFTs essentially unremarkable Result diagrams: 05/01/18 00:50 05/01/18 00:50 Lab Results 05/01/18 05/01/18 05/01/18 Range/Units 00:50 00:50 00:50 WBC 9.5 (4.0-11.0) th/mm3 RBC 4.53 (4.50-5.90) mil/mm3 Hgb 13.7 (13.0-17.0) gm/dL Hct 38.8 L (39.0-51.0) % MCV 85.5 (80.0-100.0) fL MCH 30.2 (27.0-34.0) pg MCHC 35.2 (32.0-36.0) % RDW 13.7 (11.6-17.2) % Plt Count 111 L (150-450) th/mm3 MPV 10.1 (7.0-11.0) fL Neut % (Auto) 71.9 H (16.0-70.0) % Lymph % (Auto) 17.4 (9.0-44.0) % [place] % (Auto) 9.0 H (0.0-8.0) % Eos % (Auto) 0.7 (0.0-4.0) % Baso % (Auto) 1.0 (0.0-2.0) % Neut # (Auto) 6.8 (1.8-7.7) th/mm3 Lymph # (Auto) 1.6 (1.0-4.8) th/mm3 [place] # (Auto) 0.9 (0.0-0.9) th/mm3 Eos # (Auto) 0.1 (0.0-0.4) th/mm3 Baso # (Auto) 0.1 (0.0-0.2) th/mm3 WBC Differential . Differential Comment Auto diff final PT 11.2 (9.8-11.6) sec INR 1.1 Ratio APTT 24.0 L (24.3-30.1) sec Sodium 133 L (136-145) meq/L Potassium 4.1 (3.5-5.1) meq/L Chloride 99 (98-107) meq/L Carbon Dioxide 26.9 (21.0-32.0) meq/L Anion Gap 7 (5-15) meq/L BUN 20 H (7-18) mg/dL Creatinine 0.95 (0.60-1.30) mg/dL Estimated GFR 84 L (>89) mL/min Random Glucose 337 H (74-106) mg/dL Calcium 8.3 L (8.5-10.1) mg/dL Total Bilirubin 0.9 (0.2-1.0) mg/dL AST 19 (15-37) U/L ALT 35 (12-78) U/L Alkaline Phosphatase 149 H (45-117) U/L Troponin I Less than 0.02 L (0.02-0.05) ng/mL Total Protein 7.2 (6.4-8.2) g/dL Albumin 2.8 L (3.4-5.0) g/dL Beta-Hydroxybutyric Acd (0.00-0.39) mmol/L Urine Color (Yellw/Straw) Urine Clarity (Clear) Urine pH (5.0-8.5) Ur Specific [place] (1.002-1.035) Urine Protein (Neg-Trace) mg/dL Urine Glucose (UA) (Negative) mg/dL Urine Ketones (Negative) mg/dL Urine Occult Blood (Negative) Urine Nitrate (Negative) Urine Bilirubin (Negative) Urine Urobilinogen (Less than 2) mg/dL Ur Leukocyte Esterase (Negative) Urine RBC (0-3) /hpf Urine WBC (0-5) /hpf Ur Squamous Epith Cells (0-5) /hpf Urine Yeast (None) /hpf Micro UA Comment Ur Microscopic Review Urine Culture Comments Urine Opiates Screen (Neg) Ur Barbiturates Screen (Neg) Ur Amphetamines Screen (Neg) U Benzodiazepines Scrn (Neg) Urine Cocaine Screen (Neg) U Cannabinoids Screen (Neg) 05/01/18 05/01/18 05/01/18 Range/Units 00:50 01:14 01:14 WBC (4.0-11.0) th/mm3 RBC (4.50-5.90) mil/mm3 Hgb (13.0-17.0) gm/dL Hct (39.0-51.0) % MCV (80.0-100.0) fL MCH (27.0-34.0) pg MCHC (32.0-36.0) % RDW (11.6-17.2) % Plt Count (150-450) th/mm3 MPV (7.0-11.0) fL Neut % (Auto) (16.0-70.0) % Lymph % (Auto) (9.0-44.0) % [place] % (Auto) (0.0-8.0) % Eos % (Auto) (0.0-4.0) % Baso % (Auto) (0.0-2.0) % Neut # (Auto) (1.8-7.7) th/mm3 Lymph # (Auto) (1.0-4.8) th/mm3 [place] # (Auto) (0.0-0.9) th/mm3 Eos # (Auto) (0.0-0.4) th/mm3 Baso # (Auto) (0.0-0.2) th/mm3 WBC Differential Differential Comment PT (9.8-11.6) sec INR Ratio APTT (24.3-30.1) sec Sodium (136-145) meq/L Potassium (3.5-5.1) meq/L Chloride (98-107) meq/L Carbon Dioxide (21.0-32.0) meq/L Anion Gap (5-15) meq/L BUN (7-18) mg/dL Creatinine (0.60-1.30) mg/dL Estimated GFR (>89) mL/min Random Glucose (74-106) mg/dL Calcium (8.5-10.1) mg/dL Total Bilirubin (0.2-1.0) mg/dL AST (15-37) U/L ALT (12-78) U/L Alkaline Phosphatase (45-117) U/L Troponin I (0.02-0.05) ng/mL Total Protein (6.4-8.2) g/dL Albumin (3.4-5.0) g/dL Beta-Hydroxybutyric Acd 0.07 (0.00-0.39) mmol/L Urine Color Yellow (Yellw/Straw) Urine Clarity Clear (Clear) Urine pH 5.0 (5.0-8.5) Ur Specific [place] 1.033 (1.002-1.035) Urine Protein 30 H (Neg-Trace) mg/dL Urine Glucose (UA) 500 or greater (Negative) mg/dL Urine Ketones Negative (Negative) mg/dL Urine Occult Blood Moderate H (Negative) Urine Nitrate Negative (Negative) Urine Bilirubin Negative (Negative) Urine Urobilinogen Less than 2 (Less than 2) mg/dL Ur Leukocyte Esterase Negative (Negative) Urine RBC 5 H (0-3) /hpf Urine WBC 3 (0-5) /hpf Ur Squamous Epith Cells 1 (0-5) /hpf Urine Yeast Rare H (None) /hpf Micro UA Comment Culture not ind Ur Microscopic Review Not Reportable Urine Culture Comments Culture not ind Urine Opiates Screen Neg (Neg) Ur Barbiturates Screen Neg (Neg) Ur Amphetamines Screen Neg (Neg) U Benzodiazepines Scrn Neg (Neg) Urine Cocaine Screen Pos H (Neg) U Cannabinoids Screen Neg (Neg) Imaging Data Radiologist's impression: Head CT 05/01/18 00:19 CONCLUSION: 1. Some asymmetric volume loss in the mid right parietal lobe with suggestion of cortical laminar necrosis at the frontoparietal junction and temporal lobe also on the right. Findings could represent a subacute on chronic stroke in the right MCA territory which could explain current clinical symptoms. 2. No acute intracranial hemorrhage or midline shift. . Discharge Plan Discharge Disposition Patient Disposition: 30 Still Patient Physicians Team ED Provider: Daniel Salas Primary Care Provider: Karuna Mccord Attending Provider: Angelita Miranda Status ED Status: Admitted Patient
[2018-05-01] MEDS ORDERED: Clindamycin 900 mg/NS Premix 900 MG/50 ML PIGGYBACK IV.SIG ONE (02:29)
[2018-05-01] MEDS ORDERED: Dextrose 50% in Water 50 ML Vial IV.PUSH PRN (03:59)
[2018-05-01] MEDS ORDERED: Heparin - SQ 10,000 UNITS/ML Vial SQ SCH (04:00)
--- NOTE | 2018-05-01 04:02 | XR ---
EXAM DATE: 05/01/2018 2:50 AM EDT AGE/SEX: 52 years / Male INDICATIONS: Right lower leg stump redness and pain. CLINICAL DATA: This is the patient's initial encounter. Patient reports that signs and symptoms have been present for 1 day and indicates a pain score of 2/10. MEDICAL/SURGICAL HISTORY: . Hypertension. Peripheral vascular disease. Diabetes mellitus type I I. Squamous cell carcinoma . Right below knee amputation COMPARISON: [facility] [place], TIBIA/FIBULA RIGHT (AP/LAT), 12/21/2017. . FINDINGS: BKA. Tibial margin of the amputation is distinct and well corticated. However, fibular margin is hazy with some periosteal reaction. Findings could represent a chronic osteomyelitis. Partial resorption of a osseous fragment distal to the main fibular fragment when compared to the prior. CONCLUSION: 1. Persistent haziness of the excisional margin of the proximal fibular diaphysis could represent a chronic osteomyelitis. Associated regional callus formation. 2. Interval partial resorption of the free osseous fragment distal to the fibula. 3. Tibia remains intact. Electronically signed by: Eleuterio Carbajal MD 05/01/2018 4:01 AM EDT
--- NOTE | 2018-05-01 04:12 | P.HP ---
History of Present Illness Service: [facility] Primary Care Physician: Karuna Mccord MD History of Present Illness: 62-year-old male with past medical history significant for diabetes mellitus and hypertension presents to the emergency department for the evaluation of right lower extremity redness, swelling and warmth. He is status post right lower extremity BKA. He reports that his stump has been swollen and red for the past 2 days. He denies any fever/chills. The patient is also concerned that he may have had a stroke. He reports that he woke up around 6 PM with difficulty speaking and slurred speech. He also states he had associated tingling in his face and left arm. He denies any chest pain or shortness of breath. No headaches or blurry vision. No nausea/vomiting/diarrhea. No abdominal pain. Inpatient Certification: I certify that the inpatient services were ordered in accordance with Medicare regulations governing the order. This includes certification that hospital inpatient services are reasonable and necessary and in the case of services not specified as inpatient-only under 42 CFR 419.22(n), that they are appropriately provided as inpatient services in accordance to with the 2-midnight benchmark under 43 CFR 412.3(e) Estimated Total Length of Stay (Days): 2 Plans for Post Hospital Care: Not yet determined Review of Systems All other systems reviewed negative except as stated in HPI [facility] - History History Provided By: Patient - Medical History Medical History: Medical History (Last Updated 04/30/18 @ 23:48 by Torito Castro) Diabetes HTN (hypertension) History of skin cancer Hx of right BKA - Family History Family History: Family History (Last Updated 05/01/18 @ 04:03 by Angelita Miranda MD) Other Congestive heart failure - Tobacco History Second Hand Smoke Exposure: Yes Tobacco Use In Past 30 Days: Yes Smoking Status: Current every day smoker Tobacco Type: Cigarettes - Alcohol History How Often Do You Have a Drink Containing Alcohol: Never - Substance Use History Substance History: No History of Abuse - Travel History Recent Travel in the [place] Within the Last 8 Weeks: No Recent Travel Out of the Country Within the Last 8 Weeks: No - Immunization History Tetanus Immunization: Unsure Hx Influenza Vaccine This Season: No Medications and Allergies Active Medications: Active Medications Dextrose (D50w Vial) 50 ml IV.PUSH UNSCH PRN PRN Reason: PER HYPOGLYCEMIA PROTOCOL Glucagon (Glucagon Inj) 1 mg OTHER PRN PRN PRN Reason: for Hypoglycemia Protocol Heparin Sodium (Porcine) (Heparin Inj) 5,000 units SQ Q12H YAMILETH Sodium Chloride (Ns Inj) 1,000 mls @ 70 mls/hr IV.CONT .[id number] YAMILETH Insulin Aspart (Novolog Insulin Correctional Sugar Inj) 0 unit SQ ACHS AND 3AM YAMILETH; Protocol Sodium Chloride (Ns Flush) 2 ml IV.FLUSH PRN PRN PRN Reason: FLUSH AFTER USING IV ACCESS Sodium Chloride (Ns Flush) 2 ml IV.FLUSH BID YAMILETH Allergies Allergy/AdvReac Type Severity Reaction Status Date / Time diatrizoate meglumine Allergy Severe Rash Unverified 05/01/18 00:07 gadobenic acid Allergy Severe Rash Unverified 05/01/18 00:07 gadodiamide Allergy Severe Rash Unverified 05/01/18 00:07 gadoteridol Allergy Severe Rash Unverified 05/01/18 00:07 iodixanol Allergy Severe Rash Unverified 05/01/18 00:07 iohexol Allergy Severe Rash Unverified 05/01/18 00:07 adhesive Allergy Intermediate Rash Verified 05/01/18 00:07 iv plyeogram dye Allergy Severe Anaphylaxis Uncoded 05/01/18 00:07 Home Medications Medication Instructions Recorded Confirmed Type esomeprazole magnesium [Nexium] 20 mg PO DAILY 05/01/18 05/01/18 History gabapentin 600 mg PO TID 05/01/18 05/01/18 History insulin detemir U-100 [Levemir 65 unit SUB-Q DAILY 05/01/18 05/01/18 History U-100 Insulin] insulin detemir U-100 [Levemir 85 unit SUB-Q HS 05/01/18 05/01/18 History U-100 Insulin] insulin regular human [Novolin R 1 sliding scale dose SUB-Q UD 05/01/18 History Regular U-100 Insuln] lisinopril 10 mg PO DAILY 05/01/18 05/01/18 History methadone [Methadose] 220 mg PO DAILY 05/01/18 05/01/18 History Exam Vital signs: Vital Signs 04/30/18 23:46 05/01/18 01:10 05/01/18 03:40 Temperature 97.8 F Pulse Rate 80 66 Respiratory Rate 18 16 Blood Pressure 139/88 131/86 Pulse Oximetry 97 98 97 Intake & Output 04/30/18 04/30/18 05/01/18 06:59 18:59 06:59 Weight 77.111 kg Narrative: Gen.: No acute distress Head: Normocephalic. Atraumatic. EENT: Pupils equal round and reactive to light. Nose without drainage. Airway intact. Throat without injection. Cardiovascular: Regular rate and rhythm. No murmurs, rubs or gallops. Respiratory: Lungs clear to auscultation bilaterally. No wheezes or rhonchi. Abdomen: Soft, nontender, nondistended. No peritoneal signs. Musculoskeletal: Right BKA. Skin: Right stump with erythema and slight warmth to the touch. No fluctuance or induration. Neuro: Sensory equal and intact. Strength 5/5 throughout. No facial droop noted. Patient with some slurred speech however is edentulous, baseline unknown. No word finding difficulties. Alert and oriented 3. Results - Labs CBC & Chem 7: 05/01/18 00:50 05/01/18 00:50 Labs: Laboratory Results - last 24 hr 05/01/18 05/01/18 05/01/18 00:50 00:50 00:50 WBC 9.5 RBC 4.53 Hgb 13.7 Hct 38.8 L MCV 85.5 MCH 30.2 MCHC 35.2 RDW 13.7 Plt Count 111 L MPV 10.1 Neut % (Auto) 71.9 H Lymph % (Auto) 17.4 [place] % (Auto) 9.0 H Eos % (Auto) 0.7 Baso % (Auto) 1.0 Neut # (Auto) 6.8 Lymph # (Auto) 1.6 [place] # (Auto) 0.9 Eos # (Auto) 0.1 Baso # (Auto) 0.1 WBC Differential . Differential Comment Auto diff final PT 11.2 INR 1.1 APTT 24.0 L Sodium 133 L Potassium 4.1 Chloride 99 Carbon Dioxide 26.9 Anion Gap 7 BUN 20 H Creatinine 0.95 Estimated GFR 84 L Random Glucose 337 H Calcium 8.3 L Total Bilirubin 0.9 AST 19 ALT 35 Alkaline Phosphatase 149 H Troponin I Less than 0.02 L Total Protein 7.2 Albumin 2.8 L Beta-Hydroxybutyric Acd Urine Color Urine Clarity Urine pH Ur Specific [place] Urine Protein Urine Glucose (UA) Urine Ketones Urine Occult Blood Urine Nitrate Urine Bilirubin Urine Urobilinogen Ur Leukocyte Esterase Urine RBC Urine WBC Ur Squamous Epith Cells Urine Yeast Micro UA Comment Ur Microscopic Review Urine Culture Comments Urine Opiates Screen Ur Barbiturates Screen Ur Amphetamines Screen U Benzodiazepines Scrn Urine Cocaine Screen U Cannabinoids Screen 05/01/18 05/01/18 05/01/18 00:50 01:14 01:14 WBC RBC Hgb Hct MCV MCH MCHC RDW Plt Count MPV Neut % (Auto) Lymph % (Auto) [place] % (Auto) Eos % (Auto) Baso % (Auto) Neut # (Auto) Lymph # (Auto) [place] # (Auto) Eos # (Auto) Baso # (Auto) WBC Differential Differential Comment PT INR APTT Sodium Potassium Chloride Carbon Dioxide Anion Gap BUN Creatinine Estimated GFR Random Glucose Calcium Total Bilirubin AST ALT Alkaline Phosphatase Troponin I Total Protein Albumin Beta-Hydroxybutyric Acd 0.07 Urine Color Yellow Urine Clarity Clear Urine pH 5.0 Ur Specific [place] 1.033 Urine Protein 30 H Urine Glucose (UA) 500 or greater Urine Ketones Negative Urine Occult Blood Moderate H Urine Nitrate Negative Urine Bilirubin Negative Urine Urobilinogen Less than 2 Ur Leukocyte Esterase Negative Urine RBC 5 H Urine WBC 3 Ur Squamous Epith Cells 1 Urine Yeast Rare H Micro UA Comment Culture not ind Ur Microscopic Review Not Reportable Urine Culture Comments Culture not ind Urine Opiates Screen Neg Ur Barbiturates Screen Neg Ur Amphetamines Screen Neg U Benzodiazepines Scrn Neg Urine Cocaine Screen Pos H U Cannabinoids Screen Neg - Imaging Impressions Head CT 05/01/18 00:19 CONCLUSION: 1. Some asymmetric volume loss in the mid right parietal lobe with suggestion of cortical laminar necrosis at the frontoparietal junction and temporal lobe also on the right. Findings could represent a subacute on chronic stroke in the right MCA territory which could explain current clinical symptoms. 2. No acute intracranial hemorrhage or midline shift. . Caprini VTE Risk Assessment Caprini VTE Risk Assessment: No/Low Risk (score <= 1) Caprini Risk Assessment Model: Point Value = 1 Point Value = 2 Point Value = 3 Point Value = 5 Age 41-60 Minor surgery BMI > 25 kg/m2 Swollen legs Varicose veins or History of unexplained or recurrent spontaneous Oral contraceptives or hormone replacement Sepsis (< 1 month) Serious lung disease, including pneumonia (< 1 month) Abnormal pulmonary function Acute myocardial infarction Congestive heart failure (< 1 month) History of inflammatory bowel disease Medical patient at bed rest Age 61-74 Arthroscopic surgery Major open surgery (> 45 min) Laparoscopic surgery (> 45 min) Malignancy Confined to bed (> 72 hours) Immobilizing plaster cast Central venous access Age >= 75 History of VTE Family history of VTE Factor V Leiden Prothrombin [id number] Lupus anticoagulant Anticardiolipin antibodies Elevated serum homocysteine Heparin-induced thrombocytopenia Other congenital or acquired thrombophilia Stroke (< 1 month) Elective arthroplasty Hip, pelvis, or leg fracture Acute spinal cord injury (< 1 month) Prophylaxis Regimen: Total Risk Factor Score Risk Level Prophylaxis Regimen 0-1 Low Early ambulation 2 Moderate Order ONE of the following: *Sequential Compression Device (SCD) *Heparin 5000 units SQ BID 3-4 Higher Order ONE of the following medications: *Heparin 5000 units SQ TID *Enoxaparin/Lovenox 40 mg SQ daily (WT < 150 kg, CrCl > 30 mL/min) *Enoxaparin/Lovenox 30 mg SQ daily (WT < 150 kg, CrCl > 10-29 mL/min) *Enoxaparin/Lovenox 30 mg SQ BID (WT < 150 kg, CrCl > 30 mL/min) AND/OR *Sequential Compression Device (SCD) 5 or more Highest Order ONE of the following medications: *Heparin 5000 units SQ TID (Preferred with Epidurals) *Enoxaparin/Lovenox 40 mg SQ daily (WT < 150 kg, CrCl > 30 mL/min) *Enoxaparin/Lovenox 30 mg SQ daily (WT < 150 kg, CrCl > 10-29 mL/min) *Enoxaparin/Lovenox 30 mg SQ BID (WT < 150 kg, CrCl > 30 mL/min) AND *Sequential Compression Device (SCD) Assessment and Plan - Plan Assessment/plan: 1. CVA Head CT significant for volume loss in the right parietal lobe with suggestion of cortical laminar necrosis, concern for subacute on chronic stroke in the right MCA Brain MRI, carotid ultrasound pending MRA/CTA cannot be performed secondary to patient's contrast allergy Neurology consulted, appreciate recommendations 2. Diabetes mellitus Sliding-scale insulin Monitor blood glucose A1c pending 3. Hypertension Permissive hypertension secondary to CVA FEN N.p.o. Electrolytes: Monitor and replete as needed NS at 70 cc/hour
[2018-05-01] MEDS: Sod Chloride 0.9% Inj 1,000 ML IV.CONT SCH ×2 (05:45→19:36)
[2018-05-01] MEDS: Insulin NovoLOG Aspart Correctional Sugar Inj SQ SCH ×4 (08:32→20:02)
--- NOTE | 2018-05-01 11:18 | MR ---
EXAM DATE: 05/01/2018 10:55 AM EDT AGE/SEX: 52 years / Male INDICATIONS: CVA. Left side weakness. CLINICAL DATA: This is the patient's initial encounter. Patient reports that signs and symptoms have been present for 1 day and indicates a pain score of 0/10. MEDICAL/SURGICAL HISTORY: Hypertension. Diabetes mellitus type II. Appendectomy. Right BKA. COMPARISON: [facility] [place], CT HEAD W/O CONTRAST, 05/01/2018. . TECHNIQUE: Multiplanar, multisequence examination of the brain was performed without contrast. FINDINGS: There is developing cortical T2 prolongation in portions of the low convexity right temporal parietal region and some similar changes present in the right escalona radiata consistent with areas of subacut e infarction. No significant mass effect at present. Contralateral left hemisphere is unremarkable. T here is no evidence of macroscopic hemorrhage. There is no evidence of brain mass. Extracranial structures are benign in intact. CONCLUSION: Areas of evolving right hemispheric stroke Electronically signed by: Kvng Nogueira MD 05/01/2018 11:17 AM EDT
[2018-05-01] MEDS: Clindamycin 900 mg/NS Premix 900 MG/50 ML PIGGYBACK IV.SIG SCH ×2 (12:24→19:55)
--- NOTE | 2018-05-01 16:48 | P.CONNEU ---
History of Present Illness Service: Neurology Primary Care Provider: Karuna Mccord MD Chief Complaint: Stroke History of Present Illness: 52-year-old admitted for left-sided weakness 1 week. Denies any previous history of stroke taking any blood thinners. States he smokes 1/2-1 pack a day for decades. Denies any head or neck trauma or visual loss. 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 Review of Systems All other systems reviewed negative except as stated in HPI PMFSH - History History Provided By: Patient - Medical History Medical History: Medical History (Last Reviewed 05/01/18 @ 10:37 by Bisi Ng) Diabetes GERD (gastroesophageal reflux disease) HTN (hypertension) History of skin cancer Right BKA infection Skin cancer - Surgical History Surgical History: Surgical History (Last Reviewed 05/01/18 @ 10:37 by Bisi Ng) History of appendectomy Hx of BKA - Family History Family History: Family History (Last Updated 05/01/18 @ 04:03 by Angelita Miranda MD) Other Congestive heart failure - Tobacco History Second Hand Smoke Exposure: Yes Tobacco Use In Past 30 Days: Yes Smoking Status: Current some day smoker Tobacco Type: Cigarettes - Alcohol History How Often Do You Have a Drink Containing Alcohol: Never - Substance Use History Substance History: No History of Abuse - Travel History Recent Travel in the [place] Within the Last 8 Weeks: No Recent Travel Out of the Country Within the Last 8 Weeks: No - Immunization History Tetanus Immunization: Unsure Hx Influenza Vaccine This Season: No Medications and Allergies Active Medications: Active Medications Dextrose (D50w Vial) 50 ml IV.PUSH UNSCH PRN PRN Reason: PER HYPOGLYCEMIA PROTOCOL Glucagon (Glucagon Inj) 1 mg OTHER PRN PRN PRN Reason: for Hypoglycemia Protocol Sodium Chloride (Ns Inj) 1,000 mls @ 70 mls/hr IV.CONT .[id number] YAMILETH Last Admin: 05/01/18 05:45 Dose: 70 mls/hr Clindamycin/Sodium Chloride (Cleocin 900 Mg/Ns Premix) 900 mg in 50 mls @ 100 mls/hr IV.SIG Q8H YAMILETH Last Infusion: 05/01/18 16:12 Dose: Infused Insulin Aspart (Novolog Insulin Correctional Sugar Inj) 0 unit SQ ACHS AND 3AM YAMILETH; Protocol Last Admin: 05/01/18 12:29 Dose: 5 unit Sodium Chloride (Ns Flush) 2 ml IV.FLUSH BID YAMILETH Last Admin: 05/01/18 12:17 Dose: Not Given Sodium Chloride (Ns Flush) 2 ml IV.FLUSH PRN PRN PRN Reason: FLUSH AFTER USING IV ACCESS Allergies Allergy/AdvReac Type Severity Reaction Status Date / Time diatrizoate meglumine Allergy Severe Rash Verified 05/01/18 08:29 gadobenic acid Allergy Severe Rash Verified 05/01/18 08:29 gadodiamide Allergy Severe Rash Verified 05/01/18 08:29 gadoteridol Allergy Severe Rash Verified 05/01/18 08:29 iodixanol Allergy Severe Rash Verified 05/01/18 08:29 iohexol Allergy Severe Rash Verified 05/01/18 08:29 adhesive Allergy Intermediate Rash Verified 05/01/18 00:07 iv plyeogram dye Allergy Severe Anaphylaxis Uncoded 05/01/18 00:07 Home Medications Medication Instructions Recorded Confirmed Type esomeprazole magnesium [Nexium] 20 mg PO DAILY 05/01/18 05/01/18 History gabapentin 600 mg PO TID 05/01/18 05/01/18 History insulin detemir U-100 [Levemir 65 unit SUB-Q DAILY 05/01/18 05/01/18 History U-100 Insulin] insulin detemir U-100 [Levemir 85 unit SUB-Q HS 05/01/18 05/01/18 History U-100 Insulin] insulin regular human [Novolin R 1 sliding scale dose SUB-Q UD 05/01/18 History Regular U-100 Insuln] lisinopril 10 mg PO DAILY 05/01/18 05/01/18 History methadone [Methadose] 220 mg PO DAILY 05/01/18 05/01/18 History Exam Vital signs: Vital Signs 04/30/18 23:46 05/01/18 01:10 05/01/18 03:40 Temperature 97.8 F Pulse Rate 80 66 Respiratory Rate 18 16 Blood Pressure 139/88 131/86 Pulse Oximetry 97 98 97 05/01/18 04:00 05/01/18 08:00 05/01/18 08:43 Temperature 98.2 F 98.2 F Pulse Rate 68 68 72 Respiratory Rate 22 18 Blood Pressure 128/85 134/70 Pulse Oximetry 98 05/01/18 12:46 Temperature 98.2 F Pulse Rate 72 Respiratory Rate 20 Blood Pressure 138/68 Pulse Oximetry 96 Intake & Output 04/30/18 05/01/18 05/01/18 18:59 06:59 18:59 Intake Total 50 / 50 Balance 50 / 50 Weight 74.7 kg Intake: IV 50 / 50 Cleocin 900 mg/NS Premix 900 mg 50 / 50 In 50 ml @ 100 mls/hr IV.SIG Q8H YAMILETH Rx#:[id number] Other: Weight On Admission 77.111 kg Narrative: Gen.: No acute distress Head: Normocephalic. Atraumatic. EENT: Pupils equal round and reactive to light. Nose without drainage. Cardiovascular: Regular rate and rhythm. No murmurs, rubs or gallops. Respiratory: Lungs clear to auscultation bilaterally. Abdomen: Soft, nontender, nondistended. No peritoneal signs. Musculoskeletal: Right BKA. Skin: Right stump with erythema and slight warmth to the touch. Neuro: Awake alert oriented 3 no aphasia, slightly dysarthric speech, mildly reduced left nasolabial fold. Absence of nasal bridge scan with only cartilage showing secondary to excision for cancer, left hemiparesis strength 3-4 out of 5 with associated hemiataxia, right below the knee amputation, reduce pinprick glove and left stocking distribution - Constitutional no acute distress - Routine HEENT Exam Head: Present: normocephalic Eye: Present: EOMI Results - Labs CBC & Chem 7: 05/01/18 00:50 05/01/18 00:50 Labs: Laboratory Results - last 24 hr 05/01/18 05/01/18 05/01/18 00:50 00:50 00:50 WBC 9.5 RBC 4.53 Hgb 13.7 Hct 38.8 L MCV 85.5 MCH 30.2 MCHC 35.2 RDW 13.7 Plt Count 111 L MPV 10.1 Neut % (Auto) 71.9 H Lymph % (Auto) 17.4 [place] % (Auto) 9.0 H Eos % (Auto) 0.7 Baso % (Auto) 1.0 Neut # (Auto) 6.8 Lymph # (Auto) 1.6 [place] # (Auto) 0.9 Eos # (Auto) 0.1 Baso # (Auto) 0.1 WBC Differential . Differential Comment Auto diff final PT 11.2 INR 1.1 APTT 24.0 L Sodium 133 L Potassium 4.1 Chloride 99 Carbon Dioxide 26.9 Anion Gap 7 BUN 20 H Creatinine 0.95 Estimated GFR 84 L POC Glucose Random Glucose 337 H Calcium 8.3 L Total Bilirubin 0.9 AST 19 ALT 35 Alkaline Phosphatase 149 H Troponin I Less than 0.02 L Total Protein 7.2 Albumin 2.8 L Beta-Hydroxybutyric Acd Urine Color Urine Clarity Urine pH Ur Specific [place] Urine Protein Urine Glucose (UA) Urine Ketones Urine Occult Blood Urine Nitrate Urine Bilirubin Urine Urobilinogen Ur Leukocyte Esterase Urine RBC Urine WBC Ur Squamous Epith Cells Urine Yeast Micro UA Comment Ur Microscopic Review Urine Culture Comments Urine Opiates Screen Ur Barbiturates Screen Ur Amphetamines Screen U Benzodiazepines Scrn Urine Cocaine Screen U Cannabinoids Screen 05/01/18 05/01/18 05/01/18 00:50 01:14 01:14 WBC RBC Hgb Hct MCV MCH MCHC RDW Plt Count MPV Neut % (Auto) Lymph % (Auto) [place] % (Auto) Eos % (Auto) Baso % (Auto) Neut # (Auto) Lymph # (Auto) [place] # (Auto) Eos # (Auto) Baso # (Auto) WBC Differential Differential Comment PT INR APTT Sodium Potassium Chloride Carbon Dioxide Anion Gap BUN Creatinine Estimated GFR POC Glucose Random Glucose Calcium Total Bilirubin AST ALT Alkaline Phosphatase Troponin I Total Protein Albumin Beta-Hydroxybutyric Acd 0.07 Urine Color Yellow Urine Clarity Clear Urine pH 5.0 Ur Specific [place] 1.033 Urine Protein 30 H Urine Glucose (UA) 500 or greater Urine Ketones Negative Urine Occult Blood Moderate H Urine Nitrate Negative Urine Bilirubin Negative Urine Urobilinogen Less than 2 Ur Leukocyte Esterase Negative Urine RBC 5 H Urine WBC 3 Ur Squamous Epith Cells 1 Urine Yeast Rare H Micro UA Comment Culture not ind Ur Microscopic Review Not Reportable Urine Culture Comments Culture not ind Urine Opiates Screen Neg Ur Barbiturates Screen Neg Ur Amphetamines Screen Neg U Benzodiazepines Scrn Neg Urine Cocaine Screen Pos H U Cannabinoids Screen Neg 05/01/18 05/01/18 05/01/18 04:27 04:44 04:58 WBC RBC Hgb Hct MCV MCH MCHC RDW Plt Count MPV Neut % (Auto) Lymph % (Auto) [place] % (Auto) Eos % (Auto) Baso % (Auto) Neut # (Auto) Lymph # (Auto) [place] # (Auto) Eos # (Auto) Baso # (Auto) WBC Differential Differential Comment PT INR APTT Sodium Potassium Chloride Carbon Dioxide Anion Gap BUN Creatinine Estimated GFR POC Glucose 66 L 69 111 H Random Glucose Calcium Total Bilirubin AST ALT Alkaline Phosphatase Troponin I Total Protein Albumin Beta-Hydroxybutyric Acd Urine Color Urine Clarity Urine pH Ur Specific [place] Urine Protein Urine Glucose (UA) Urine Ketones Urine Occult Blood Urine Nitrate Urine Bilirubin Urine Urobilinogen Ur Leukocyte Esterase Urine RBC Urine WBC Ur Squamous Epith Cells Urine Yeast Micro UA Comment Ur Microscopic Review Urine Culture Comments Urine Opiates Screen Ur Barbiturates Screen Ur Amphetamines Screen U Benzodiazepines Scrn Urine Cocaine Screen U Cannabinoids Screen 05/01/18 05/01/18 08:31 12:25 WBC RBC Hgb Hct MCV MCH MCHC RDW Plt Count MPV Neut % (Auto) Lymph % (Auto) [place] % (Auto) Eos % (Auto) Baso % (Auto) Neut # (Auto) Lymph # (Auto) [place] # (Auto) Eos # (Auto) Baso # (Auto) WBC Differential Differential Comment PT INR APTT Sodium Potassium Chloride Carbon Dioxide Anion Gap BUN Creatinine Estimated GFR POC Glucose 102 255 H Random Glucose Calcium Total Bilirubin AST ALT Alkaline Phosphatase Troponin I Total Protein Albumin Beta-Hydroxybutyric Acd Urine Color Urine Clarity Urine pH Ur Specific [place] Urine Protein Urine Glucose (UA) Urine Ketones Urine Occult Blood Urine Nitrate Urine Bilirubin Urine Urobilinogen Ur Leukocyte Esterase Urine RBC Urine WBC Ur Squamous Epith Cells Urine Yeast Micro UA Comment Ur Microscopic Review Urine Culture Comments Urine Opiates Screen Ur Barbiturates Screen Ur Amphetamines Screen U Benzodiazepines Scrn Urine Cocaine Screen U Cannabinoids Screen - Imaging Impressions Tibia/Fibula X-Ray 05/01/18 00:00 CONCLUSION: 1. Persistent haziness of the excisional margin of the proximal fibular diaphysis could represent a chronic osteomyelitis. Associated regional callus formation. 2. Interval partial resorption of the free osseous fragment distal to the fibula. 3. Tibia remains intact. Head CT 05/01/18 00:19 CONCLUSION: 1. Some asymmetric volume loss in the mid right parietal lobe with suggestion of cortical laminar necrosis at the frontoparietal junction and temporal lobe also on the right. Findings could represent a subacute on chronic stroke in the right MCA territory which could explain current clinical symptoms. 2. No acute intracranial hemorrhage or midline shift. . Head MRI 05/01/18 03:58 CONCLUSION: Areas of evolving right hemispheric stroke Review/Management - Diagnosis (1) Acute right MCA stroke Code(s): I63.511 - Cerebral infarction due to unspecified occlusion or stenosis of right middle cerebral artery Status: Acute Current Visit: Yes (2) Tobacco use Code(s): Z72.0 - Tobacco use Status: Acute Current Visit: Yes (3) Diabetes Code(s): E11.9 - Type 2 diabetes mellitus without complications Status: Acute Current Visit: Yes - Review/Management Plan: Right hemispheric stroke. Exclude carotid right MCA disease with history of chronic tobacco use additional risk factors include diabetes In addition UDS positive for cocaine which could cause focal cerebral vasoconstriction resulting in a stroke Recommendations Aspirin Echo Cerebrovascular imaging Therapy evaluation Diabetic lipid blood pressure control Tobacco cessation (3) Diabetes Qualifiers: Diabetes mellitus type: type 2 Diabetes mellitus complication status: with neurologic complications Diabetes mellitus complication detail: with polyneuropathy
--- NOTE | 2018-05-01 18:14 | MR ---
EXAM DATE: 05/01/2018 6:04 PM EDT AGE/SEX: 52 years / Male INDICATIONS: . CVA, Left arm and leg weakness and numbness. CLINICAL DATA: This is the patient's initial encounter. Patient reports that signs and symptoms have been present for 1 day and indicates a pain score of 4/10. MEDICAL/SURGICAL HISTORY: Hypertension. Diabetes mellitus type II. Congestive heart failure. Appendectomy. Right BKA. COMPARISON: No prior exams available for comparison. TECHNIQUE: 3D time-of- flight MRA of the extracranial circulation was performed using a [employer] ar coil. Post processing was performed including rotating sub-volume maximum intensity projections o f each carotid artery, rotating full-volume maximum intensity projections of both carotid arteries, s agittal and coronal sliding thin-slab reformations of each carotid artery, and left oblique sliding t hin-slab reformation through the aortic arch to include the origin of the arch branch vessels. FINDINGS: Aortic Arch : There is a three-vessel origin of the great vessels from the aorta. No evidence of o stial narrowing. Right Carotid : The common carotid artery is intact. The carotid bulb has a normal configuration wi thout ulceration or narrowing. The internal carotid artery lumen is smooth without stenosis. The ex ternal carotid artery is intact. Left Carotid : The common carotid artery is intact. The carotid bulb has a normal configuration wit hout ulceration or narrowing. The internal carotid artery lumen is smooth without stenosis. The ext ernal carotid artery is intact. Vertebrals : The vertebral arteries have a symmetric diameter. No stenotic lesions are seen. CONCLUSION: 1. Negative MRA of the carotids and vertebrals. Percent stenosis is calculated using the diameter of the stenotic region over the diameter of the nor mal distal internal carotid artery Electronically signed by: Nic Armijo MD 05/01/2018 6:12 PM JENNIFERT
--- NOTE | 2018-05-01 18:18 | MR ---
EXAM DATE: 05/01/2018 6:02 PM EDT AGE/SEX: 52 years / Male INDICATIONS: CVA. Left arm and leg numbness and weakness. CLINICAL DATA: This is the patient's initial encounter. Patient reports that signs and symptoms have been present for 1 day and indicates a pain score of 3/10. MEDICAL/SURGICAL HISTORY: Hypertension. Diabetes mellitus type II. Congestive heart failure. Appendectomy. Right BKA. [place] [facility] [place], [place]/2018. [facility] [place], 05/01/2018. . TECHNIQUE: 3D [id number] MRA was performed. Source images, multiplanar STS MIP, and 3D volum e MIP reconstructions were reviewed. FINDINGS: Examination is abnormal demonstrating absent flow in the entire right middle cerebral artery from its origin. The right A1 segment and the left anterior circulation is intact. Flow is seen in the anteri or communicating artery. The right posterior cerebral artery derives its flow from the anterior circu lation and is a normal-sized vessel. No flow seen in the left PCOM. CONCLUSION: 1. No flow seen in the entire right middle cerebral artery. 2. Patent right posterior cerebral artery which arises from the anterior circulation. Electronically signed by: Nic Armijo MD 05/01/2018 6:17 PM EDT
[2018-05-01 20:32] LABS: Thyroid Stimulating Hormone 0.697 uIU/mL (0.358-3.740)
--- NOTE | 2018-05-01 22:27 | US ---
EXAM DATE: 05/01/2018 10:13 PM EDT AGE/SEX: 52 years / Male INDICATIONS: Cerebrovascular accident. CLINICAL DATA: This is the patient's initial encounter. Patient reports that signs and symptoms have been present for 1 day and indicates a pain score of 0/10. MEDICAL/SURGICAL HISTORY: Diabetes. Gastroesophageal reflux disease. Carcinoma, skin cancer. Hypertension. Right BKA infection. Appendectomy. COMPARISON: [facility] – [place], [place] CAROTID ARTERIES, 11/05/2017. . VELOCITY PARAMETERS: ICA/CCA Ratio: Right 0.8 , Left 1.1 ICA: Right 53 cm/sec, Left 52 cm/sec CCA: Right 70 cm/sec, Left 70 cm/sec ECA: Right 105 cm/sec, Left 102 cm/sec Vertebral: Right 42 cm/sec antegrade, Left 68 cm/sec antegrade FINDINGS: Right Carotid: Mild arteriosclerotic plaque is visualized.The waveforms are within normal limits. Left Carotid: Mild arteriosclerotic plaque is visualized. The waveforms are within normal limits. Other: None. CONCLUSION: 1. Right Internal Carotid Artery: Findings indicate <50% stenosis. 2. Left Internal Carotid Artery: Findings indicate <50% stenosis. Electronically signed by: Nic Armijo MD 05/01/2018 10:26 PM EDT
[2018-05-02] MEDS: Clindamycin 900 mg/NS Premix 900 MG/50 ML PIGGYBACK IV.SIG SCH ×3 (02:52→18:08)
[2018-05-02] MEDS: Insulin NovoLOG Aspart Correctional Sugar Inj SQ SCH ×5 (02:53→22:45)
[2018-05-02 09:19] LABS: Chol/HDL Ratio 4.46 Ratio; HDL Cholesterol 32.5 mg/dL (40.0-60.0)
[2018-05-02] MEDS: Methadone 10 MG Tablet PO SCH (09:45)
--- NOTE | 2018-05-02 09:58 | P.PNNEU ---
Subjective Subjective Comments: Slept relatively well pains little bit better controlled denies any visual loss no dyspnea or chest pain Active Medications: Active Medications Dextrose (D50w Vial) 50 ml IV.PUSH UNSCH PRN PRN Reason: PER HYPOGLYCEMIA PROTOCOL Glucagon (Glucagon Inj) 1 mg OTHER PRN PRN PRN Reason: for Hypoglycemia Protocol Sodium Chloride (Ns Inj) 1,000 mls @ 70 mls/hr IV.CONT .[id number] [facility] Last Admin: 05/01/18 19:36 Dose: 70 mls/hr Clindamycin/Sodium Chloride (Cleocin 900 Mg/Ns Premix) 900 mg in 50 mls @ 100 mls/hr IV.SIG Q8H [facility] [place] Last Infusion: 05/02/18 06:52 Dose: 100 mls/hr Insulin Aspart (Novolog Insulin Correctional Sugar Inj) 0 unit SQ ACHS AND 3AM [facility]; Protocol Last Admin: 05/02/18 09:44 Dose: 5 unit Methadone HCl (Dolophine) 220 mg PO DAILY [facility] [place] Last Admin: 05/02/18 09:45 Dose: 220 mg Sodium Chloride (Ns Flush) 2 ml IV.FLUSH BID [facility] [place] Last Admin: 05/01/18 20:03 Dose: 2 ml Sodium Chloride (Ns Flush) 2 ml IV.FLUSH PRN PRN PRN Reason: FLUSH AFTER USING IV ACCESS Allergies/Adverse Reactions: Allergies Allergy/AdvReac Type Severity Reaction Status Date / Time diatrizoate meglumine Allergy Severe Rash Verified 05/01/18 08:29 gadobenic acid Allergy Severe Rash Verified 05/01/18 08:29 gadodiamide Allergy Severe Rash Verified 05/01/18 08:29 gadoteridol Allergy Severe Rash Verified 05/01/18 08:29 iodixanol Allergy Severe Rash Verified 05/01/18 08:29 iohexol Allergy Severe Rash Verified 05/01/18 08:29 adhesive Allergy Intermediate Rash Verified 05/01/18 00:07 iv plyeogram dye Allergy Severe Anaphylaxis Uncoded 05/01/18 00:07 Review of Systems All other systems reviewed negative except as stated in HPI Physical Exam Vital signs: Vital Signs 05/01/18 12:46 05/01/18 18:22 05/01/18 20:00 Temperature 98.2 F 98.6 F 98.0 F Pulse Rate 72 70 71 Respiratory Rate 20 20 20 Blood Pressure 138/68 128/62 124/72 Pulse Oximetry 96 98 99 05/02/18 00:00 05/02/18 04:00 05/02/18 07:32 Temperature 98.1 F 98.1 F 98.4 F Pulse Rate 61 58 L 61 Respiratory Rate 22 20 16 Blood Pressure 113/76 115/72 143/79 H Pulse Oximetry 97 96 99 Intake & Output 05/01/18 05/02/18 05/02/18 18:59 06:59 18:59 Intake Total 50 / 50 1000 / 1000 Balance 50 / 50 1000 / 1000 Intake: IV 50 / 50 1000 / 1000 NS Inj 1,000 ML @ 70 mls/hr IV. 1000 / 1000 CONT .[id number] [facility] Rx#:[id number] Cleocin 900 mg/NS Premix 900 mg 50 / 50 0 / 0 In 50 ml @ 100 mls/hr IV.SIG Q8H [facility] Rx#:[id number] Other: Date of Last Bowel Movement 05/01/18 Narrative: Gen.: No acute distress Head: Normocephalic. Atraumatic. EENT: Pupils equal round and reactive to light. Nose without drainage. Cardiovascular: Regular rate and rhythm. No murmurs, rubs or gallops. Respiratory: Lungs clear to auscultation bilaterally. Abdomen: Soft, nontender, nondistended. No peritoneal signs. Musculoskeletal: Right BKA. Skin: Right stump with erythema and slight warmth to the touch. Neuro: Awake alert oriented 3 no aphasia, slightly dysarthric speech, mildly reduced left nasolabial fold. Absence of nasal bridge scan with only cartilage showing secondary to excision for cancer, left hemiparesis strength 3-4 out of 5 with associated hemiataxia, right below the knee amputation, reduce pinprick glove and left stocking distribution - Constitutional no acute distress - Routine HEENT Exam Head: Present: normocephalic Objective Laboratory Results - last 24 hr 05/01/18 05/01/18 05/01/18 12:25 17:00 19:11 POC Glucose 255 H 130 H Triglycerides Cholesterol LDL Cholesterol, Calc HDL Cholesterol Cholesterol/HDL Ratio Vitamin B12 1000 H TSH 0.697 05/01/18 05/02/18 05/02/18 19:59 02:52 07:57 POC Glucose 310 H 99 Triglycerides 119 Cholesterol 145 LDL Cholesterol, Calc 89 HDL Cholesterol 32.5 L Cholesterol/HDL Ratio 4.46 Vitamin B12 TSH 05/02/18 09:13 POC Glucose 250 H Triglycerides Cholesterol LDL Cholesterol, Calc HDL Cholesterol Cholesterol/HDL Ratio Vitamin B12 TSH Review/Management - Diagnosis (1) Acute right MCA stroke Code(s): I63.511 - Cerebral infarction due to unspecified occlusion or stenosis of right middle cerebral artery Status: Acute Current Visit: Yes (2) Tobacco use Code(s): Z72.0 - Tobacco use Status: Acute Current Visit: Yes (3) Diabetes Code(s): E11.9 - Type 2 diabetes mellitus without complications Status: Acute Current Visit: Yes - Review/Management Plan: Right hemispheric stroke. 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 Carotid ultrasound MRA less than 50% stenosis in the carotids Recommendations Avoid hypotension Continue aspirin and statin Echo pending May require inpatient rehabilitation Therapy evaluation Diabetic lipid blood pressure control Tobacco cessation (3) Diabetes Qualifiers: Diabetes mellitus type: type 2 Diabetes mellitus complication status: with neurologic complications Diabetes mellitus complication detail: with polyneuropathy
--- NOTE | 2018-05-02 10:47 | P.PN ---
Subjective Interval history: patietn awake and alert still with left sided weakness but feels stronger no headaches no fever right knee-stump- right lateral aspect with swelling and erythema ? induration + effusion suprapatellar states unable to wear prosthesis due to swelling on this Physical Exam Vital signs: Vital Signs 05/01/18 12:46 05/01/18 18:22 05/01/18 20:00 Temperature 98.2 F 98.6 F 98.0 F Pulse Rate 72 70 71 Respiratory Rate 20 20 20 Blood Pressure 138/68 128/62 124/72 Pulse Oximetry 96 98 99 05/02/18 00:00 05/02/18 04:00 05/02/18 07:32 Temperature 98.1 F 98.1 F 98.4 F Pulse Rate 61 58 L 61 Respiratory Rate 22 20 16 Blood Pressure 113/76 115/72 143/79 H Pulse Oximetry 97 96 99 Intake & Output 05/01/18 05/02/18 05/02/18 18:59 06:59 18:59 Intake Total 50 / 50 1000 / 1000 Balance 50 / 50 1000 / 1000 Intake: IV 50 / 50 1000 / 1000 NS Inj 1,000 ML @ 70 mls/hr IV. 1000 / 1000 CONT .[id number] [facility] Rx#:[id number] Cleocin 900 mg/NS Premix 900 mg 50 / 50 0 / 0 In 50 ml @ 100 mls/hr IV.SIG Q8H [facility] Rx#:[id number] Other: Date of Last Bowel Movement 05/01/18 Narrative: No acute distress Head: Normocephalic. Atraumatic. EENT: Pupils equal round and reactive to light. Nose without drainage. Cardiovascular: Regular rate and rhythm. No murmurs, rubs or gallops. Respiratory: Lungs clear to auscultation bilaterally. Abdomen: Soft, nontender, nondistended. No peritoneal signs. Musculoskeletal: Right BKA. stump- lateral aspect with erythema and mild swelling ? induration Right knee with suprapatellar swelling ? effusion on exam- Neuro: Awake alert oriented 3 no aphasia, slightly dysarthric speech, mild facial asymmetry - shallow left nasolabial fold Absence of nasal bridge scan with only cartilage showing secondary to excision for cancer, motor - mild left hemiparesis strength 4 out of 5 - definitely with some drift Results - Labs CBC & Chem 7: 05/04/18 05:06 05/04/18 05:06 Laboratory Results - last 24 hr 05/01/18 05/01/18 05/01/18 12:25 17:00 19:11 POC Glucose 255 H 130 H Triglycerides Cholesterol LDL Cholesterol, Calc HDL Cholesterol Cholesterol/HDL Ratio Vitamin B12 1000 H TSH 0.697 05/01/18 05/02/18 05/02/18 19:59 02:52 07:57 POC Glucose 310 H 99 Triglycerides 119 Cholesterol 145 LDL Cholesterol, Calc 89 HDL Cholesterol 32.5 L Cholesterol/HDL Ratio 4.46 Vitamin B12 TSH 05/02/18 09:13 POC Glucose 250 H Triglycerides Cholesterol LDL Cholesterol, Calc HDL Cholesterol Cholesterol/HDL Ratio Vitamin B12 TSH - Imaging Impressions Head MRI 05/01/18 03:58 CONCLUSION: Areas of evolving right hemispheric stroke Neck MRA 05/01/18 16:46 CONCLUSION: 1. Negative MRA of the carotids and vertebrals. _ Percent stenosis is calculated using the diameter of the stenotic region over the diameter of the normal distal internal carotid artery _ Carotid Doppler Study 05/01/18 16:47 CONCLUSION: 1. Right Internal Carotid Artery: Findings indicate <50% stenosis. 2. Left Internal Carotid Artery: Findings indicate <50% stenosis. Head MRA 05/01/18 16:47 CONCLUSION: 1. No flow seen in the entire right middle cerebral artery. 2. Patent right posterior cerebral artery which arises from the anterior circulation. Assessment and Plan - Plan CVA with mild left hemiapresis Head CT significant for volume loss in the right parietal lobe with suggestion of cortical laminar necrosis, concern for subacute on chronic stroke in the right MCA Brain MRI, carotid ultrasound pending MRA/CTA cannot be performed secondary to patient's contrast allergy Neurology consulted, appreciate recommendations - ASA Diabetes mellitus, insulin requriing Sliding-scale insulin A1c pending start levemeri 15 untis SQ bid- (at home on high dose 60-80 bid) monitor blood sugars and adjust regimen Hypertension Permissive hypertension secondary to CVA Right knee Stump cellulitis with suprapatellar swelling r/o effusion - get MRI of the knee r/o deepr soft tissue infection - started on IV Clindamycin on admission - consider arthrocentesis if + for fluid - consider ID vs Orthopedics consult if +
[2018-05-02 12:01] LABS: Hemoglobin A1c 12.2 % (4.3-6.0)
--- NOTE | 2018-05-02 12:46 | MR ---
EXAM DATE: 05/02/2018 12:32 PM EDT AGE/SEX: 52 years / Male INDICATIONS: Osteomyelitis. Redness to lower lateral stump.Right below knee amputation CLINICAL DATA: This is the patient's initial encounter. Patient reports that signs and symptoms have been present for 2 days and indicates a pain score of 0/10. MEDICAL/SURGICAL HISTORY: Congestive heart failure. Diabetes mellitus type II. Hypertension. Appendectomy. Right below knee amputation. COMPARISON: [facility] [place], [place] LOWER LEG RIGHT W & W/O CONTRAST, 12/21/2017. . TECHNIQUE: Multiplanar, multisequence MRI examination was performed without contrast. FINDINGS: Cruciate Ligaments: ACL and PCL are intact. Menisci: Medial and lateral menisci are intact. Collateral Ligaments: MCL and LCL complexes are intact. Marrow/Cartilage: Bone marrow signal is homogeneous and unremarkable along the stomach. There are so me reactive changes along the proximal tibia. There is high signal within the fibula. Articular cart ilage is unremarkable. Other: No evidence of joint effusion. Extensor mechanism is intact. Extensive soft tissue swelling CONCLUSION: 1. Cellulitic changes greatest along the lateral knee and lateral stump. 2. Edema within the proximal fibula suggesting osteomyelitis. 3. No osteomyelitis within the tibial stump. 4. Reactive changes within the proximal tibia Electronically signed by: Keyur Goldman MD 05/02/2018 12:45 PM EDT
[2018-05-02] MEDS: Enoxaparin Inj 40 MG/0.4 ML Syringe SQ SCH (13:47)
[2018-05-02] MEDS: Sod Chloride 0.9% Inj 1,000 ML IV.CONT SCH (14:06)
--- NOTE | 2018-05-02 17:31 | ECG ---
Date Performed: 05/01/2018 Time Performed: 00:13:05 PTAGE: 52 years EKG: Sinus rhythm NORMAL ECG PREVIOUS TRACING : 11/13/2016 14.01 DOCTOR: Angelito Price Interpretating Date/Time 05/02/2018 17:27:55
[2018-05-02] MEDS ORDERED: Insulin Detemir Inj 1,000 UNIT/10 ML Vial SQ SCH (21:00)
[2018-05-02] MEDS: Insulin Detemir Inj 1,000 UNIT/10 ML Vial SQ SCH (22:45)
[2018-05-03] MEDS: Clindamycin 900 mg/NS Premix 900 MG/50 ML PIGGYBACK IV.SIG SCH ×2 (03:07→10:16)
[2018-05-03] MEDS: Insulin NovoLOG Aspart Correctional Sugar Inj SQ SCH ×5 (03:23→21:05)
[2018-05-03] MEDS: Sod Chloride 0.9% Inj 1,000 ML IV.CONT SCH ×2 (07:15→12:34)
[2018-05-03] MEDS: Enoxaparin Inj 40 MG/0.4 ML Syringe SQ SCH (09:59)
[2018-05-03] MEDS: Insulin Detemir Inj 1,000 UNIT/10 ML Vial SQ SCH ×2 (09:59→21:05)
[2018-05-03] MEDS: Methadone 10 MG Tablet PO SCH (10:13)
--- NOTE | 2018-05-03 10:49 | P.PNIM ---
Subjective Interval history: Patient seen and examined this morning. Afebrile vital signs stable. Patient is reporting some pain over his methadone treatment. Part of the cellulitis has blistered and is draining serosanguineous pus. MRI was consistent with a possible osteomyelitis. Infectious disease been consulted for further evaluation. Explained to the patient that if they feel it is unlikely to heal with IV antibiotics will have to be evaluated by orthopedic surgery. Patient denies any chest pain or shortness of breath. Denies any nausea vomiting. Physical Exam Vital signs: Vital Signs 05/02/18 11:52 05/02/18 16:22 05/02/18 18:06 Temperature 98.8 F 98.9 F 98.4 F Pulse Rate 61 55 L 56 L Respiratory Rate 16 14 16 Blood Pressure 136/81 113/66 135/97 H Pulse Oximetry 98 97 95 05/02/18 20:00 05/03/18 00:00 05/03/18 04:00 Temperature 98.7 F 98.1 F 98.2 F Pulse Rate 61 57 L 63 Respiratory Rate 19 18 18 Blood Pressure 120/71 117/68 142/83 H Pulse Oximetry 96 96 95 05/03/18 08:00 Temperature 98.1 F Pulse Rate 61 Respiratory Rate 16 Blood Pressure 167/93 H Pulse Oximetry 98 Intake & Output 05/02/18 05/03/18 05/03/18 18:59 06:59 18:59 Intake Total 100 / 100 100 / 100 1000 / 1000 Balance 100 / 100 100 / 100 1000 / 1000 Weight 74.7 kg Intake: IV 100 / 100 100 / 100 1000 / 1000 NS Inj 1,000 ML @ 70 mls/hr IV. 0 / 0 1000 / 1000 CONT .[id number] [facility] Rx#:[id number] Cleocin 900 mg/NS Premix 900 mg 100 / 100 100 / 100 In 50 ml @ 100 mls/hr IV.SIG Q8H [facility] Rx#:[id number] Other: Date of Last Bowel Movement 05/01/18 Narrative: Sitting up in bed no acute distress Head: Normocephalic. Atraumatic. EENT: Pupils equal round and reactive to light. Nose without drainage. Cardiovascular: Regular rate and rhythm. No murmurs, rubs or gallops. Respiratory: Lungs clear to auscultation bilaterally. Abdomen: Soft, nontender, nondistended. No peritoneal signs. Musculoskeletal: Right BKA. stump- lateral aspect with erythema and mild swelling ? induration Right knee with suprapatellar swelling ? effusion on exam- Neuro: Awake alert oriented 3 no aphasia, slightly dysarthric speech, mild facial asymmetry - shallow left nasolabial fold Absence of nasal bridge scan with only cartilage showing secondary to excision for cancer, motor - mild left hemiparesis strength 4 out of 5 - definitely with some drift Results - Labs CBC & Chem 7: 05/01/18 00:50 05/01/18 00:50 Laboratory Results - last 24 hr 05/02/18 05/02/18 05/02/18 07:57 13:25 16:43 ESR POC Glucose 267 H Hemoglobin A1c 12.2 H C-Reactive Protein 2.50 H 05/02/18 05/02/18 05/02/18 16:43 17:42 21:45 ESR 56 H POC Glucose 275 H 285 H Hemoglobin A1c C-Reactive Protein 05/03/18 05/03/18 03:09 07:10 ESR POC Glucose 375 H 191 H Hemoglobin A1c C-Reactive Protein - Imaging Impressions Knee MRI 05/02/18 00:00 CONCLUSION: 1. Cellulitic changes greatest along the lateral knee and lateral stump. 2. Edema within the proximal fibula suggesting osteomyelitis. 3. No osteomyelitis within the tibial stump. 4. Reactive changes within the proximal tibia Assessment and Plan - Assessment (1) Osteomyelitis Code(s): M86.9 - Osteomyelitis, unspecified Status: Acute (2) Hx of right BKA Code(s): Z89.511 - Acquired absence of right leg below knee Status: Acute - Plan 62-year-old male with past medical history significant for diabetes mellitus and hypertension presents to the emergency department for the evaluation of right lower extremity redness, swelling and warmth. He is status post right lower extremity BKA. CVA with mild left hemiapresis: Head CT significant for volume loss in the right parietal lobe with suggestion of cortical laminar necrosis, concern for subacute on chronic stroke in the right MCA Brain MRI, carotid ultrasound pending MRA/CTA cannot be performed secondary to patient's contrast allergy Neurology consulted, appreciate recommendations - ASA Right knee Stump cellulitis with suprapatellar swelling r/o effusion -MRI of the right knee concerning for osteomyelitis -Continue d on IV Clindamycin -Infectious disease consulted, recommendations appreciated -We will consider orthopedic surgery consult if no improvement obtained with antibiotics Diabetes mellitus, insulin requiring Sliding-scale insulin Monitor blood glucose A1c pending start levemeri 15 untis SQ bid- (at home on high dose 60-80 bid) Hypertension Permissive hypertension secondary to CVA Code Status: Full code Discharge Planning: Anticipate patient will require longterm facility upon discharge
--- NOTE | 2018-05-03 11:48 | P.PNNEU ---
Subjective Subjective Comments: Denies any headache vision loss or any new weakness. Slept well Active Medications: Active Medications Aspirin (Ecotrin) 325 mg PO DAILY [facility] Last Admin: 05/03/18 10:00 Dose: 325 mg Atorvastatin Calcium (Lipitor) 40 mg PO HS [facility] Last Admin: 05/02/18 22:44 Dose: 40 mg Dextrose (D50w Vial) 50 ml IV.PUSH UNSCH PRN PRN Reason: PER HYPOGLYCEMIA PROTOCOL Enoxaparin Sodium (Lovenox Inj) 40 mg SQ DAILY [facility] Last Admin: 05/03/18 09:59 Dose: 40 mg Glucagon (Glucagon Inj) 1 mg OTHER PRN PRN PRN Reason: for Hypoglycemia Protocol Sodium Chloride (Ns Inj) 1,000 mls @ 70 mls/hr IV.CONT .[id number] [facility] Last Infusion: 05/03/18 10:28 Dose: Infused Clindamycin/Sodium Chloride (Cleocin 900 Mg/Ns Premix) 900 mg in 50 mls @ 100 mls/hr IV.SIG Q8H [facility] Last Infusion: 05/03/18 11:03 Dose: 0 mls/hr Insulin Aspart (Novolog Insulin Correctional Sugar Inj) 0 unit SQ ACHS AND 3AM [facility]; Protocol Last Admin: 05/03/18 09:58 Dose: 1 unit Insulin Detemir (Levemir Inj) 20 unit SQ BID [facility] Last Admin: 05/03/18 09:59 Dose: 20 unit Methadone HCl (Dolophine) 220 mg PO DAILY [facility] Last Admin: 05/03/18 10:13 Dose: 220 mg Morphine Sulfate (Morphine Inj) 2 mg IV.PUSH Q4H PRN PRN Reason: BREAKTHROUGH PAIN Sodium Chloride (Ns Flush) 2 ml IV.FLUSH BID [facility] Last Admin: 05/03/18 10:16 Dose: 2 ml Sodium Chloride (Ns Flush) 2 ml IV.FLUSH PRN PRN PRN Reason: FLUSH AFTER USING IV ACCESS Allergies/Adverse Reactions: Allergies Allergy/AdvReac Type Severity Reaction Status Date / Time diatrizoate meglumine Allergy Severe Rash Verified 05/01/18 08:29 gadobenic acid Allergy Severe Rash Verified 05/01/18 08:29 gadodiamide Allergy Severe Rash Verified 05/01/18 08:29 gadoteridol Allergy Severe Rash Verified 05/01/18 08:29 iodixanol Allergy Severe Rash Verified 05/01/18 08:29 iohexol Allergy Severe Rash Verified 05/01/18 08:29 adhesive Allergy Intermediate Rash Verified 05/01/18 00:07 iv plyeogram dye Allergy Severe Anaphylaxis Uncoded 05/01/18 00:07 Review of Systems All other systems reviewed negative except as stated in HPI Physical Exam Vital signs: Vital Signs 05/02/18 11:52 05/02/18 16:22 05/02/18 18:06 Temperature 98.8 F 98.9 F 98.4 F Pulse Rate 61 55 L 56 L Respiratory Rate 16 14 16 Blood Pressure 136/81 113/66 135/97 H Pulse Oximetry 98 97 95 05/02/18 20:00 05/03/18 00:00 05/03/18 04:00 Temperature 98.7 F 98.1 F 98.2 F Pulse Rate 61 57 L 63 Respiratory Rate 19 18 18 Blood Pressure 120/71 117/68 142/83 H Pulse Oximetry 96 96 95 05/03/18 08:00 Temperature 98.1 F Pulse Rate 61 Respiratory Rate 16 Blood Pressure 167/93 H Pulse Oximetry 98 Intake & Output 05/02/18 05/03/18 05/03/18 18:59 06:59 18:59 Intake Total 100 / 100 100 / 100 1000 / 1000 Balance 100 / 100 100 / 100 1000 / 1000 Weight 74.7 kg Intake: IV 100 / 100 100 / 100 1000 / 1000 NS Inj 1,000 ML @ 70 mls/hr IV. 0 / 0 1000 / 1000 CONT .[id number] [facility] Rx#:[id number] Cleocin 900 mg/NS Premix 900 mg 100 / 100 100 / 100 In 50 ml @ 100 mls/hr IV.SIG Q8H [facility] Rx#:[id number] Other: Date of Last Bowel Movement 05/01/18 Narrative: Sitting up in bed no acute distress Head: Normocephalic. Atraumatic. EENT: Pupils equal round and reactive to light. Nose without drainage. Cardiovascular: Regular rate and rhythm. No murmurs, rubs or gallops. Respiratory: Lungs clear to auscultation bilaterally. Abdomen: Soft, nontender, nondistended. No peritoneal signs. Neuro: Awake alert oriented 3 no aphasia, slightly dysarthric speech, reduced left nasolabial fold with only cartilage showing secondary to excision for cancer, motor - mild left hemiparesis strength 4+ out of 5 - definitely with some drift, right below the knee amputation wrapped Psychiatry: Mood appropriate, pleasant - Constitutional no acute distress - Routine HEENT Exam Head: Present: normocephalic Eye: Present: EOMI Objective Laboratory Results - last 24 hr 05/02/18 05/02/18 05/02/18 07:57 13:25 16:43 ESR POC Glucose 267 H Hemoglobin A1c 12.2 H C-Reactive Protein 2.50 H 05/02/18 05/02/18 05/02/18 16:43 17:42 21:45 ESR 56 H POC Glucose 275 H 285 H Hemoglobin A1c C-Reactive Protein 05/03/18 05/03/18 03:09 07:10 ESR POC Glucose 375 H 191 H Hemoglobin A1c C-Reactive Protein Review/Management - Diagnosis (1) Acute right MCA stroke Code(s): I63.511 - Cerebral infarction due to unspecified occlusion or stenosis of right middle cerebral artery Status: Acute Current Visit: Yes (2) Tobacco use Code(s): Z72.0 - Tobacco use Status: Acute Current Visit: Yes (3) Diabetes Code(s): E11.9 - Type 2 diabetes mellitus without complications Status: Acute Current Visit: Yes - Review/Management Plan: Right hemispheric stroke. 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 Carotid ultrasound MRA less than 50% stenosis in the carotids Recommendations Neuro stable Avoid hypotension Continue aspirin and statin Echo pending May require inpatient rehabilitation Therapy evaluation Diabetic lipid blood pressure control Tobacco cessation (3) Diabetes Qualifiers: Diabetes mellitus type: type 2 Diabetes mellitus complication status: with neurologic complications Diabetes mellitus complication detail: with polyneuropathy
--- NOTE | 2018-05-03 13:38 | P.CONID ---
History of Present Illness Service: Infectious disease Consult date: 05/03/18 Requesting Physician: Dolly Enamorado Reason for Consult: Eval patient with cellulitis of the right lateral BKA stump , possible osteo Primary Care Provider: Karuna Mccord MD Chief Complaint: Stroke History of Present Illness: Patient seen and examined. Records reviewed. Patient is a 62-year-old male, presented to the hospital complaining of redness and swelling on the lateral aspect of his right BKA stump. Patient had BKA November 2016. Since that time he has had some infection of the stump for which he was treated successfully. He has had cellulitis at one point, and also has had prepatellar bursitis. About 2 days prior to admission he noticed redness and some swelling on his right BKA stump. He has a bony prominence on the right and a somewhat rubs on his prostheses. Because of the swelling he has not been wearing his prostheses. He denies any fever chills or sweats. He has had a chronic cough but that has not gotten worse. He had an episode of vomiting 1 day prior to admission. No abdominal pain. Patient states he has had intermittent diarrhea which usually resolves on its own and he has not had any workup for that. Patient also on the day of admission noted that his speech was somewhat slurred. He presented to the hospital for further evaluation and treatment. Since admission he has not been febrile. He was diagnosed to have cellulitis on the lateral aspect of his stump. MRI of the knee was done and there was some evidence of cellulitis, and there was some findings suggestive of possible early osteo-on the proximal aspect of his right fibula. Patient states that he has chronic prepatellar bursitis. Intermittently he would have some small amount of bloody drainage from his right knee. His WBC is normal. Sed rate is 56. CRP is 2.5 he is currently on IV clindamycin. Patient also has been evaluated by neurology, and finding showed some evidence of CVA. Infectious disease consultation has been requested to evaluate the patient. Review of Systems Constitutional: Denies chills, Denies fever(s), Denies headache(s) Eyes: Denies discharge, Denies dry eyes Ears, Nose, Mouth, and Throat: Denies mouth lesions, Denies nasal congestion, Denies nasal discharge, Denies pain with swallowing, Denies sore throat Cardiovascular: Denies chest pain, Denies shortness of breath Respiratory: Reports cough, Denies shortness of breath Gastrointestinal: Reports loose stools, Reports vomiting, Denies abdominal pain , Denies pain with swallowing, Denies vomiting blood Genitourinary: Denies painful urination Musculoskeletal: Reports joint pain Skin/Breast: Reports redness, Denies rash PMFSH - History History Provided By: Patient - Medical History Medical History: Medical History (Last Reviewed 05/03/18 @ 13:31 by Vida Massey MD) Diabetes GERD (gastroesophageal reflux disease) HTN (hypertension) History of skin cancer Right BKA infection Skin cancer - Surgical History Surgical History: Surgical History (Last Updated 05/03/18 @ 13:32 by Vida Massey MD) History of appendectomy History of nasal surgery Hx of BKA - Family History Family History: Family History (Last Updated 05/01/18 @ 04:03 by Angelita Miranda MD) Other Congestive heart failure - Tobacco History Second Hand Smoke Exposure: Yes Tobacco Use In Past 30 Days: Yes Smoking Status: Current some day smoker Tobacco Type: Cigarettes - Alcohol History How Often Do You Have a Drink Containing Alcohol: Never - Substance Use History Substance History: No History of Abuse - Travel History Recent Travel in the [place] Within the Last 8 Weeks: No Recent Travel Out of the Country Within the Last 8 Weeks: No - Immunization History Tetanus Immunization: Unsure Hx Influenza Vaccine This Season: No Medications and Allergies Active Medications: Active Medications Aspirin (Ecotrin) 325 mg PO DAILY [facility] Last Admin: 05/03/18 10:00 Dose: 325 mg Atorvastatin Calcium (Lipitor) 40 mg PO HS [facility] Last Admin: 05/02/18 22:44 Dose: 40 mg Dextrose (D50w Vial) 50 ml IV.PUSH UNSCH PRN PRN Reason: PER HYPOGLYCEMIA PROTOCOL Enoxaparin Sodium (Lovenox Inj) 40 mg SQ DAILY [facility] Last Admin: 05/03/18 09:59 Dose: 40 mg Glucagon (Glucagon Inj) 1 mg OTHER PRN PRN PRN Reason: for Hypoglycemia Protocol Sodium Chloride (Ns Inj) 1,000 mls @ 70 mls/hr IV.CONT .[id number] [facility] Last Admin: 05/03/18 12:34 Dose: 70 mls/hr Clindamycin/Sodium Chloride (Cleocin 900 Mg/Ns Premix) 900 mg in 50 mls @ 100 mls/hr IV.SIG Q8H [facility] Last Infusion: 05/03/18 11:03 Dose: 0 mls/hr Insulin Aspart (Novolog Insulin Correctional Sugar Inj) 0 unit SQ ACHS AND 3AM [facility]; Protocol Last Admin: 05/03/18 12:33 Dose: 7 unit Insulin Detemir (Levemir Inj) 20 unit SQ BID [facility] Last Admin: 05/03/18 09:59 Dose: 20 unit Methadone HCl (Dolophine) 220 mg PO DAILY [facility] Last Admin: 05/03/18 10:13 Dose: 220 mg Morphine Sulfate (Morphine Inj) 2 mg IV.PUSH Q4H PRN PRN Reason: BREAKTHROUGH PAIN Sodium Chloride (Ns Flush) 2 ml IV.FLUSH BID [facility] Last Admin: 05/03/18 10:16 Dose: 2 ml Sodium Chloride (Ns Flush) 2 ml IV.FLUSH PRN PRN PRN Reason: FLUSH AFTER USING IV ACCESS Allergies Allergy/AdvReac Type Severity Reaction Status Date / Time diatrizoate meglumine Allergy Severe Rash Verified 05/01/18 08:29 gadobenic acid Allergy Severe Rash Verified 05/01/18 08:29 gadodiamide Allergy Severe Rash Verified 05/01/18 08:29 gadoteridol Allergy Severe Rash Verified 05/01/18 08:29 iodixanol Allergy Severe Rash Verified 05/01/18 08:29 iohexol Allergy Severe Rash Verified 05/01/18 08:29 adhesive Allergy Intermediate Rash Verified 05/01/18 00:07 iv plyeogram dye Allergy Severe Anaphylaxis Uncoded 05/01/18 00:07 Home Medications Medication Instructions Recorded Confirmed Type esomeprazole magnesium [Nexium] 20 mg PO DAILY 05/01/18 05/01/18 History gabapentin 600 mg PO TID 05/01/18 05/01/18 History insulin detemir U-100 [Levemir 65 unit SUB-Q DAILY 05/01/18 05/01/18 History U-100 Insulin] insulin detemir U-100 [Levemir 85 unit SUB-Q HS 05/01/18 05/01/18 History U-100 Insulin] insulin regular human [Novolin R 1 sliding scale dose SUB-Q UD 05/01/18 History Regular U-100 Insuln] lisinopril 10 mg PO DAILY 05/01/18 05/01/18 History methadone [Methadose] 220 mg PO DAILY 05/01/18 05/01/18 History Exam Vital signs: Vital Signs 05/02/18 16:22 05/02/18 18:06 05/02/18 20:00 Temperature 98.9 F 98.4 F 98.7 F Pulse Rate 55 L 56 L 61 Respiratory Rate 14 16 19 Blood Pressure 113/66 135/97 H 120/71 Pulse Oximetry 97 95 96 05/03/18 00:00 05/03/18 04:00 05/03/18 08:00 Temperature 98.1 F 98.2 F 98.1 F Pulse Rate 57 L 63 61 Respiratory Rate 18 18 16 Blood Pressure 117/68 142/83 H 167/93 H Pulse Oximetry 96 95 98 05/03/18 12:00 Temperature 98.6 F Pulse Rate 63 Respiratory Rate 16 Blood Pressure 179/91 H Pulse Oximetry 97 Intake & Output 05/02/18 05/03/18 05/03/18 18:59 06:59 18:59 Intake Total 100 / 100 100 / 100 1000 / 1000 Balance 100 / 100 100 / 100 1000 / 1000 Weight 74.7 kg Intake: IV 100 / 100 100 / 100 1000 / 1000 NS Inj 1,000 ML @ 70 mls/hr IV. 0 / 0 1000 / 1000 CONT .[id number] [facility] Rx#:[id number] Cleocin 900 mg/NS Premix 900 mg 100 / 100 100 / 100 In 50 ml @ 100 mls/hr IV.SIG Q8H [facility] Rx#:[id number] Other: Date of Last Bowel Movement 05/01/18 Narrative: Physical Examination GENERAL: Patient is a well-nourished, well-developed male, awake and alert, not in respiratory distress. SKIN: Cool and dry. No generalized rash, no ecchymoses and no evidence of embolic lesions. HEAD: Normocephalic. No temporal wasting, or tenderness. EYES: [place] conjunctiva. No petechia or hemorrhage. Pupils equal, round and reactive to light. Extraocular movements full and intact. No scleral icterus. No injection or drainage. EARS, NOSE AND THROAT: Nose with some deformity due to skin cancer surgery. Mucous membranes pink and moist. No oral lesions noted. No exudate. No oral thrush. NECK: Trachea midline. Supple and not tender, no meningeal signs CARDIOVASCULAR: Regular rate and rhythm. No murmurs, rubs or gallops heard RESPIRATORY: Clear to auscultation. Breath sounds equal bilaterally. No rales , wheezing or rhonchi ABDOMEN: Soft, non-tender, nondistended. Bowel sounds present and normoactive. No guarding. No rebound. No organomegaly. EXTREMITIES: No clubbing, cyanosis. LLE ok. RLE: has fluid on prepatellar area, but no redness or tenderness. Has good ROM on his R knee joint. His RBKA stump is well healed. He has redness on the lateral aspect of that stum and he seems to have an ecchymotic area over the bony prominence of his fibula, (+) heat. No calf tenderness. Well perfused and warm. NEUROLOGICAL: Awake and alert. Some mild dysarthria. Cranial nerves grossly intact. Has some weakness on his L side. PSYCHIATRIC: Normal affect, calm and cooperative. LINE: No evidence of infection Results - Labs CBC & Chem 7: 05/04/18 05:06 05/04/18 05:06 Labs: Laboratory Results - last 24 hr 05/02/18 05/02/18 05/02/18 07:57 13:25 16:43 ESR POC Glucose 267 H Hemoglobin A1c 12.2 H C-Reactive Protein 2.50 H 05/02/18 05/02/18 05/02/18 16:43 17:42 21:45 ESR 56 H POC Glucose 275 H 285 H Hemoglobin A1c C-Reactive Protein 05/03/18 05/03/18 05/03/18 03:09 07:10 12:33 ESR POC Glucose 375 H 191 H 304 H Hemoglobin A1c C-Reactive Protein - Imaging Tibia/Fibula X-Ray 05/01/18 00:00 CONCLUSION: 1. Persistent haziness of the excisional margin of the proximal fibular diaphysis could represent a chronic osteomyelitis. Associated regional callus formation. 2. Interval partial resorption of the free osseous fragment distal to the fibula. 3. Tibia remains intact. Head CT 05/01/18 00:19 CONCLUSION: 1. Some asymmetric volume loss in the mid right parietal lobe with suggestion of cortical laminar necrosis at the frontoparietal junction and temporal lobe also on the right. Findings could represent a subacute on chronic stroke in the right MCA territory which could explain current clinical symptoms. 2. No acute intracranial hemorrhage or midline shift. Head MRI 05/01/18 03:58 CONCLUSION: Areas of evolving right hemispheric stroke Neck MRA 05/01/18 16:46 CONCLUSION: 1. Negative MRA of the carotids and vertebrals. Carotid Doppler Study 05/01/18 16:47 CONCLUSION: 1. Right Internal Carotid Artery: Findings indicate <50% stenosis. 2. Left Internal Carotid Artery: Findings indicate <50% stenosis. Head MRA 05/01/18 16:47 CONCLUSION: 1. No flow seen in the entire right middle cerebral artery. 2. Patent right posterior cerebral artery which arises from the anterior circulation. Knee MRI 05/02/18 00:00 CONCLUSION: 1. Cellulitic changes greatest along the lateral knee and lateral stump. 2. Edema within the proximal fibula suggesting osteomyelitis. 3. No osteomyelitis within the tibial stump. 4. Reactive changes within the proximal tibia Assessment and Plan - Plan Impression Cellulitis lateral aspect RBKA stump ?Contusion on bony prominence of his R fibula - no open wound CVA prob chronic bursitis R knee Recommendation IV Ancef WBC scan to further evaluate the abnormal MRI Follow progress and monitor response to Rx Follow C/S I will follow along with you Thank you for this consultation
--- NOTE | 2018-05-03 14:53 | ECHRPT ---
Indication: ATRIAL FIB/FLUTTER CONCLUSIONS Normal left ventricular size. Wall thickness is normal. Normal left ventricular systolic function with an ejection fraction of 60-65%. Mild moderate mitral valve regurgitation. Aortic valve sclerosis is present. There is mild tricuspid valve regurgitation. The estimated pulmonary arterial pressure is 45 mmHg. BP: / HR: Rhythm: Sinus MEASUREMENTS (Male / Female) Normal Values Technical Quality:Fair 2D ECHO LV Diastolic Diameter PLAX 5.5 cm 4.2 - 5.9 / 3.9 - 5.3 cm LV Systolic Diameter PLAX 3.9 cm IVS Diastolic Thickness 1.0 cm 0.6 - 1.0 / 0.6 - 0.9 cm LVPW Diastolic Thickness 1.0 cm 0.6 - 1.0 / 0.6 - 0.9 cm LV Relative Wall Thickness 0.4 RV Internal Dim ED PLAX 2.3 cm LVOT Diameter 2.1 cm Aortic Root Diameter 2.7 cm LA Systolic Diameter LX 3.6 cm 3.0 - 4.0 / 2.7 - 3.8 cm M-MODE AV Cusp Separation MM 1.9 cm DOPPLER AV Peak Velocity 160.0 cm/s AV Peak Gradient 10.2 mmHg AV Mean Gradient 6.0 mmHg AV Velocity Time Integral 34.1 cm LVOT Peak Velocity 94.0 cm/s LVOT Peak Gradient 3.5 mmHg LVOT Velocity Time Integral 21.6 cm AV Area Cont Eq vti 2.2 cm AV Area Cont Eq pk 2.0 cm Mitral E Point Velocity 105.0 cm/s Mitral A Point Velocity 99.7 cm/s Mitral E to A Ratio 1.1 TR Peak Velocity 296.0 cm/s TR Peak Gradient 35.0 mmHg Right Atrial Pressure 10.0 mmHg Pulmonary Artery Systolic Pressu 45.0 mmHg Right Ventricular Systolic Press 45.0 mmHg PV Peak Velocity 48.9 cm/s PV Peak Gradient 1.0 mmHg FINDINGS LEFT VENTRICLE Normal left ventricular size. Wall thickness is normal. The left ventricular systolic function is normal with an estimated ejection fraction in the range of 60-65%. RIGHT VENTRICLE Normal right ventricular size and systolic function. LEFT ATRIUM The left atrial size is normal. RIGHT ATRIUM The right atrial size is normal. ATRIAL SEPTUM The interatrial septum not well visualized. AORTA The aortic root and proximal ascending aorta are normal in size on limited imaging. MITRAL VALVE Mild mitral valve regurgitation. AORTIC VALVE Aortic valve sclerosis is present. TRICUSPID VALVE There is mild tricuspid valve regurgitation. The estimated pulmonary arterial pressure is 45 mmHg. PULMONARY VALVE No pulmonary valve regurgitation or stenosis. VESSELS The inferior vena cava was not well visualized. PERICARDIUM No pericardial effusion. James Cerna MD (Electronically Signed) Final Date:03 May 2018 14:51
[2018-05-03] MEDS: ceFAZolin Inj 2,000 MG in Sodium Chlor 0.9% Inj 80 ML IV.SIG SCH (16:26)
[2018-05-03] MEDS: Morphine Inj 4 MG/ML Vial IV.PUSH PRN ×2 (16:30→21:38)
[2018-05-04] MEDS: ceFAZolin Inj 2,000 MG in Sodium Chlor 0.9% Inj 80 ML IV.SIG SCH ×4 (00:39→23:43)
[2018-05-04] MEDS: Insulin NovoLOG Aspart Correctional Sugar Inj SQ SCH ×5 (03:06→20:18)
[2018-05-04] MEDS: Sod Chloride 0.9% Inj 1,000 ML IV.CONT SCH ×2 (03:10→18:35)
[2018-05-04] MEDS: Morphine Inj 4 MG/ML Vial IV.PUSH PRN ×4 (03:11→23:48)
[2018-05-04 05:58] LABS: Hematocrit 37.9 % (39.0-51.0); Hemoglobin 12.8 gm/dL (13.0-17.0); Mean Corpuscular HGB Conc 33.7 % (32.0-36.0); Mean Corpuscular Hemoglobin 29.3 pg (27.0-34.0); Mean Corpuscular Volume 86.8 fL (80.0-100.0); Mean Platelet Volume 10.6 fL (7.0-11.0); Platelet Count 92 th/mm3 (150-450); Red Blood Count 4.37 mil/mm3 (4.50-5.90); White Blood Count 6.6 th/mm3 (4.0-11.0)
[2018-05-04 06:36] LABS: Albumin 2.4 g/dL (3.4-5.0); Anion Gap 8 meq/L (5-15); Aspartate Aminotransferase 21 U/L (15-37); Blood Urea Nitrogen 13 mg/dL (7-18); Calcium 8.3 mg/dL (8.5-10.1); Carbon Dioxide 30.1 meq/L (21.0-32.0); Chloride 99 meq/L (98-107); Glomerular Filtration Rate 86 mL/min (>89); Glucose,Random 336 mg/dL (74-106); Potassium 4.1 meq/L (3.5-5.1); Sodium 137 meq/L (136-145)
[2018-05-04 06:37] LABS: Alanine Aminotransferase 24 U/L (12-78)
[2018-05-04 06:40] LABS: Alkaline Phosphatase 159 U/L (45-117); Total Protein 6.7 g/dL (6.4-8.2)
[2018-05-04] MEDS: Enoxaparin Inj 40 MG/0.4 ML Syringe SQ SCH (08:36)
[2018-05-04] MEDS: Methadone 10 MG Tablet PO SCH (08:36)
--- NOTE | 2018-05-04 08:36 | P.PNNEU ---
Subjective Subjective Comments: Denies any headache vision loss leg disturbance feels like his strength is almost back to baseline on the left side Active Medications: Active Medications Aspirin (Ecotrin) 325 mg PO DAILY [facility] Last Admin: 05/03/18 10:00 Dose: 325 mg Atorvastatin Calcium (Lipitor) 40 mg PO HS [facility] Last Admin: 05/03/18 21:05 Dose: 40 mg Dextrose (D50w Vial) 50 ml IV.PUSH UNSCH PRN PRN Reason: PER HYPOGLYCEMIA PROTOCOL Enoxaparin Sodium (Lovenox Inj) 40 mg SQ DAILY [facility] Last Admin: 05/03/18 09:59 Dose: 40 mg Glucagon (Glucagon Inj) 1 mg OTHER PRN PRN PRN Reason: for Hypoglycemia Protocol Sodium Chloride (Ns Inj) 1,000 mls @ 70 mls/hr IV.CONT .[id number] [facility] Last Admin: 05/04/18 03:10 Dose: Not Given Cefazolin Sodium 2,000 mg/ (Sodium Chloride) 100 mls @ 200 mls/hr IV.SIG Q8H [facility] Last Infusion: 05/04/18 03:09 Dose: Infused Insulin Aspart (Novolog Insulin Correctional Sugar Inj) 0 unit SQ ACHS AND 3AM [facility]; Protocol Last Admin: 05/04/18 03:06 Dose: 9 unit Insulin Detemir (Levemir Inj) 20 unit SQ BID [facility] Last Admin: 05/03/18 21:05 Dose: 20 unit Methadone HCl (Dolophine) 220 mg PO DAILY [facility] Last Admin: 05/03/18 10:13 Dose: 220 mg Morphine Sulfate (Morphine Inj) 2 mg IV.PUSH Q4H PRN PRN Reason: BREAKTHROUGH PAIN Last Admin: 05/04/18 03:11 Dose: 2 mg Sodium Chloride (Ns Flush) 2 ml IV.FLUSH BID [facility] Last Admin: 05/03/18 21:05 Dose: 2 ml Sodium Chloride (Ns Flush) 2 ml IV.FLUSH PRN PRN PRN Reason: FLUSH AFTER USING IV ACCESS Allergies/Adverse Reactions: Allergies Allergy/AdvReac Type Severity Reaction Status Date / Time diatrizoate meglumine Allergy Severe Rash Verified 05/01/18 08:29 gadobenic acid Allergy Severe Rash Verified 05/01/18 08:29 gadodiamide Allergy Severe Rash Verified 05/01/18 08:29 gadoteridol Allergy Severe Rash Verified 05/01/18 08:29 iodixanol Allergy Severe Rash Verified 05/01/18 08:29 iohexol Allergy Severe Rash Verified 05/01/18 08:29 adhesive Allergy Intermediate Rash Verified 05/01/18 00:07 iv plyeogram dye Allergy Severe Anaphylaxis Uncoded 05/01/18 00:07 Review of Systems All other systems reviewed negative except as stated in HPI Physical Exam Vital signs: Vital Signs 05/03/18 12:00 05/03/18 16:00 05/03/18 20:00 Temperature 98.6 F 98.2 F 97.8 F Pulse Rate 63 57 L 60 Respiratory Rate 16 16 18 Blood Pressure 179/91 H 151/82 H 146/85 H Pulse Oximetry 97 96 98 05/04/18 00:00 05/04/18 04:00 Temperature 97.3 F L 98 F Pulse Rate 56 L 59 L Respiratory Rate 18 18 Blood Pressure 139/82 150/83 H Pulse Oximetry 92 L 96 Intake & Output 05/03/18 05/04/18 05/04/18 18:59 06:59 18:59 Intake Total 1100 / 1100 100 / 100 Output Total 1600 / 1600 Balance 1100 / 1100 -1500 / -1500 Weight 74.7 kg Intake: IV 1100 / 1100 100 / 100 NS Inj 1,000 ML @ 70 mls/hr IV. 1000 / 1000 CONT .[id number] [facility] Rx#:[id number] Ancef Inj 2,000 MG In NS Inj 80 100 / 100 100 / 100 ML @ 200 mls/hr IV.SIG Q8H [facility] Rx#:[id number] Output: Urine 1600 / 1600 Other: Date of Last Bowel Movement 05/03/18 Narrative: Sitting up in bed no acute distress Head: Normocephalic. Atraumatic. EENT: Pupils equal round and reactive to light. Cardiovascular: Regular rate and rhythm. Respiratory: Lungs clear to auscultation bilaterally. Abdomen: Soft, nontender, nondistended. No peritoneal signs. Neuro: Awake alert oriented 3 no aphasia, Speech more clear, reduced left nasolabial fold with only cartilage showing secondary to excision for cancer, motor - mild left hemiparesis strength 5- out of 5 - definitely with some drift, right below the knee amputation wrapped Psychiatry: Mood appropriate, pleasant - Constitutional no acute distress - Routine HEENT Exam Head: Present: normocephalic Eye: Present: EOMI Objective Laboratory Results - last 24 hr 05/03/18 05/03/18 05/03/18 12:33 16:15 19:29 WBC RBC Hgb Hct MCV MCH MCHC RDW Plt Count MPV Sodium Potassium Chloride Carbon Dioxide Anion Gap BUN Creatinine Estimated GFR POC Glucose 304 H 289 H 297 H Random Glucose Calcium Total Bilirubin AST ALT Alkaline Phosphatase Total Protein Albumin 05/04/18 05/04/18 05/04/18 02:38 05:06 05:06 WBC 6.6 RBC 4.37 L Hgb 12.8 L Hct 37.9 L MCV 86.8 MCH 29.3 MCHC 33.7 RDW 14.0 Plt Count 92 L MPV 10.6 Sodium 137 Potassium 4.1 Chloride 99 Carbon Dioxide 30.1 Anion Gap 8 BUN 13 Creatinine 0.93 Estimated GFR 86 L POC Glucose 476 H* Random Glucose 336 H Calcium 8.3 L Total Bilirubin 0.4 AST 21 ALT 24 Alkaline Phosphatase 159 H Total Protein 6.7 Albumin 2.4 L 05/04/18 07:36 WBC RBC Hgb Hct MCV MCH MCHC RDW Plt Count MPV Sodium Potassium Chloride Carbon Dioxide Anion Gap BUN Creatinine Estimated GFR POC Glucose 351 H Random Glucose Calcium Total Bilirubin AST ALT Alkaline Phosphatase Total Protein Albumin Review/Management - Diagnosis (1) Acute right MCA stroke Code(s): I63.511 - Cerebral infarction due to unspecified occlusion or stenosis of right middle cerebral artery Status: Acute Current Visit: Yes (2) Tobacco use Code(s): Z72.0 - Tobacco use Status: Acute Current Visit: Yes (3) Diabetes Code(s): E11.9 - Type 2 diabetes mellitus without complications Status: Acute Current Visit: Yes - Review/Management Plan: Right hemispheric stroke. 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 Carotid ultrasound MRA less than 50% stenosis in the carotids Echo showing EF greater than 50% Recommendations Neuro stable Seen by ID Avoid hypotension Continue aspirin and statin May require inpatient rehabilitation Therapy evaluation Diabetic lipid blood pressure control Tobacco cessation We will follow peripherally discharge planning from my standpoint (3) Diabetes Qualifiers: Diabetes mellitus type: type 2 Diabetes mellitus complication status: with neurologic complications Diabetes mellitus complication detail: with polyneuropathy
[2018-05-04] MEDS: Insulin Detemir Inj 1,000 UNIT/10 ML Vial SQ SCH ×2 (08:37→20:18)
--- NOTE | 2018-05-04 12:10 | P.PNID ---
Subjective Remarks: Patient is a 62-year-old male, presented to the hospital complaining of redness and swelling on the lateral aspect of his right BKA stump. Patient had BKA November 2016. Since that time he has had some infection of the stump for which he was treated successfully. He has had cellulitis at one point, and also has had prepatellar bursitis. About 2 days prior to admission he noticed redness and some swelling on his right BKA stump. He has a bony prominence on the right and a somewhat rubs on his prostheses. Because of the swelling he has not been wearing his prostheses. He denies any fever chills or sweats. He has had a chronic cough but that has not gotten worse. He had an episode of vomiting 1 day prior to admission. No abdominal pain. Patient states he has had intermittent diarrhea which usually resolves on its own and he has not had any workup for that. Patient also on the day of admission noted that his speech was somewhat slurred. He presented to the hospital for further evaluation and treatment. Since admission he has not been febrile. He was diagnosed to have cellulitis on the lateral aspect of his stump. MRI of the knee was done and there was some evidence of cellulitis, and there was some findings suggestive of possible early osteo-on the proximal aspect of his right fibula. Patient states that he has chronic prepatellar bursitis. Intermittently he would have some small amount of bloody drainage from his right knee. His WBC is normal. Sed rate is 56. CRP is 2.5 he is currently on IV clindamycin. Patient also has been evaluated by neurology, and finding showed some evidence of CVA. Infectious disease consultation has been requested to evaluate the patient. Notes reviewed Afebrile Leaking blood from his knee Lateral stump area now leaking also For WBC scan today Antibiotics: Ancef Lines: PIV no evid of infection Past Medical History: Diabetes GERD (gastroesophageal reflux disease) HTN (hypertension) History of skin cancer Right BKA infection Skin cancer History of appendectomy History of nasal surgery Hx of BKA Allergies/Adverse Reactions: Allergies diatrizoate meglumine Allergy (Severe, Verified 05/01/18 08:29) Rash gadobenic acid Allergy (Severe, Verified 05/01/18 08:29) Rash gadodiamide Allergy (Severe, Verified 05/01/18 08:29) Rash gadoteridol Allergy (Severe, Verified 05/01/18 08:29) Rash iodixanol Allergy (Severe, Verified 05/01/18 08:29) Rash iohexol Allergy (Severe, Verified 05/01/18 08:29) Rash adhesive Allergy (Intermediate, Verified 05/01/18 00:07) Rash iv plyeogram dye Allergy (Severe, Uncoded 05/01/18 00:07) Anaphylaxis Objective Vital Signs 05/03/18 16:00 05/03/18 20:00 05/04/18 00:00 Temperature 98.2 F 97.8 F 97.3 F L Pulse Rate 57 L 60 56 L Respiratory Rate 16 18 18 Blood Pressure 151/82 H 146/85 H 139/82 Pulse Oximetry 96 98 92 L 05/04/18 04:00 05/04/18 08:00 Temperature 98 F 98.1 F Pulse Rate 59 L 60 Respiratory Rate 18 20 Blood Pressure 150/83 H 172/96 H Pulse Oximetry 96 98 Intake & Output 05/03/18 05/04/18 05/04/18 18:59 06:59 18:59 Intake Total 1100 / 1100 100 / 100 Output Total 1600 / 1600 Balance 1100 / 1100 -1500 / -1500 Weight 74.7 kg Intake: IV 1100 / 1100 100 / 100 NS Inj 1,000 ML @ 70 mls/hr IV. 1000 / 1000 CONT .[id number] [facility] Rx#:[id number] Ancef Inj 2,000 MG In NS Inj 80 100 / 100 100 / 100 ML @ 200 mls/hr IV.SIG Q8H [facility] Rx#:[id number] Output: Urine 1600 / 1600 Other: Date of Last Bowel Movement 05/03/18 Lab - Hematology Results 05/02/18 05/04/18 16:43 05:06 WBC 6.6 RBC 4.37 L Hgb 12.8 L Hct 37.9 L MCV 86.8 MCH 29.3 MCHC 33.7 RDW 14.0 Plt Count 92 L MPV 10.6 ESR 56 H Lab - Chemistry Results 05/02/18 05/02/18 05/02/18 07:57 13:25 16:43 Sodium Potassium Chloride Carbon Dioxide Anion Gap BUN Creatinine Estimated GFR POC Glucose 267 H Random Glucose Hemoglobin A1c 12.2 H Calcium Total Bilirubin AST ALT Alkaline Phosphatase C-Reactive Protein 2.50 H Total Protein Albumin 05/02/18 05/02/18 05/03/18 17:42 21:45 03:09 Sodium Potassium Chloride Carbon Dioxide Anion Gap BUN Creatinine Estimated GFR POC Glucose 275 H 285 H 375 H Random Glucose Hemoglobin A1c Calcium Total Bilirubin AST ALT Alkaline Phosphatase C-Reactive Protein Total Protein Albumin 05/03/18 05/03/18 05/03/18 07:10 12:33 16:15 Sodium Potassium Chloride Carbon Dioxide Anion Gap BUN Creatinine Estimated GFR POC Glucose 191 H 304 H 289 H Random Glucose Hemoglobin A1c Calcium Total Bilirubin AST ALT Alkaline Phosphatase C-Reactive Protein Total Protein Albumin 05/03/18 05/04/18 05/04/18 19:29 02:38 05:06 Sodium 137 Potassium 4.1 Chloride 99 Carbon Dioxide 30.1 Anion Gap 8 BUN 13 Creatinine 0.93 Estimated GFR 86 L POC Glucose 297 H 476 H* Random Glucose 336 H Hemoglobin A1c Calcium 8.3 L Total Bilirubin 0.4 AST 21 ALT 24 Alkaline Phosphatase 159 H C-Reactive Protein Total Protein 6.7 Albumin 2.4 L 05/04/18 05/04/18 07:36 11:59 Sodium Potassium Chloride Carbon Dioxide Anion Gap BUN Creatinine Estimated GFR POC Glucose 351 H 196 H Random Glucose Hemoglobin A1c Calcium Total Bilirubin AST ALT Alkaline Phosphatase C-Reactive Protein Total Protein Albumin Imaging: ITS Impressions Tibia/Fibula X-Ray 05/01/18 00:00 CONCLUSION: 1. Persistent haziness of the excisional margin of the proximal fibular diaphysis could represent a chronic osteomyelitis. Associated regional callus formation. 2. Interval partial resorption of the free osseous fragment distal to the fibula. 3. Tibia remains intact. Head CT 05/01/18 00:19 CONCLUSION: 1. Some asymmetric volume loss in the mid right parietal lobe with suggestion of cortical laminar necrosis at the frontoparietal junction and temporal lobe also on the right. Findings could represent a subacute on chronic stroke in the right MCA territory which could explain current clinical symptoms. 2. No acute intracranial hemorrhage or midline shift. . Head MRI 05/01/18 03:58 CONCLUSION: Areas of evolving right hemispheric stroke Neck MRA 05/01/18 16:46 CONCLUSION: 1. Negative MRA of the carotids and vertebrals. _ Percent stenosis is calculated using the diameter of the stenotic region over the diameter of the normal distal internal carotid artery _ Carotid Doppler Study 05/01/18 16:47 CONCLUSION: 1. Right Internal Carotid Artery: Findings indicate <50% stenosis. 2. Left Internal Carotid Artery: Findings indicate <50% stenosis. Head MRA 05/01/18 16:47 CONCLUSION: 1. No flow seen in the entire right middle cerebral artery. 2. Patent right posterior cerebral artery which arises from the anterior circulation. Knee MRI 05/02/18 00:00 CONCLUSION: 1. Cellulitic changes greatest along the lateral knee and lateral stump. 2. Edema within the proximal fibula suggesting osteomyelitis. 3. No osteomyelitis within the tibial stump. 4. Reactive changes within the proximal tibia Physical Exam: GENERAL: awake and alert, not in respiratory distress. SKIN: Cool and dry. No generalized rash. HEAD: Normocephalic. No temporal wasting, or tenderness. EYES: [place] conjunctiva. No petechia or hemorrhage. No scleral icterus. No injection or drainage. EARS, NOSE AND THROAT: Nose with some deformity due to skin cancer surgery. Mucous membranes pink and moist. No oral lesions noted. No exudate. No oral thrush. NECK: Trachea midline. Supple and not tender, no meningeal signs CARDIOVASCULAR: Regular rate and rhythm. No murmurs, rubs or gallops heard RESPIRATORY: Clear to auscultation. Breath sounds equal bilaterally. No rales , wheezing or rhonchi ABDOMEN: Soft, non-tender, nondistended. Bowel sounds present and normoactive. No guarding. No rebound. No organomegaly. EXTREMITIES: No clubbing, cyanosis. LLE ok. RLE: has fluid on prepatellar area, bloody drainage, but no redness or tenderness. Has good ROM on his R knee joint. His RBKA stump is well healed. He has redness on the lateral aspect of that stump and he seems to have an ecchymotic area over the bony prominence of his fibula which now has somall amount of yellow drainage, (+) heat. No calf tenderness. Well perfused and warm. NEUROLOGICAL: Awake and alert. Some mild dysarthria. Cranial nerves grossly intact. Has some weakness on his L side. PSYCHIATRIC: Normal affect, calm and cooperative. LINE: No evidence of infection Assessment and Plan - Plan Impression Cellulitis lateral aspect RBKA stump ?Contusion on bony prominence of his R fibula - no open wound CVA prob chronic bursitis R knee Recommendation Continue IV Ancef WBC scan to further evaluate the abnormal MRI Follow progress and monitor response to Rx Follow C/S get C/S from the lateral stump wound
--- NOTE | 2018-05-04 12:51 | P.PNIM ---
Subjective Interval history: Patient seen and examined this morning. Afebrile vital signs stable. Patient is currently receiving further workup by infectious disease for his possible osteomyelitis. Continue the IV antibiotics at this time. Patient's only concern is that he is having some insomnia symptoms. He says that [employer] is worked well for him in the past. Patient denies any chest pain or shortness of breath. Patient denies any nausea vomiting. Physical Exam Vital signs: Vital Signs 05/03/18 16:00 05/03/18 20:00 05/04/18 00:00 Temperature 98.2 F 97.8 F 97.3 F L Pulse Rate 57 L 60 56 L Respiratory Rate 16 18 18 Blood Pressure 151/82 H 146/85 H 139/82 Pulse Oximetry 96 98 92 L 05/04/18 04:00 05/04/18 08:00 05/04/18 09:40 Temperature 98 F 98.1 F Pulse Rate 59 L 60 Respiratory Rate 18 20 18 Blood Pressure 150/83 H 172/96 H Pulse Oximetry 96 98 05/04/18 12:00 Temperature 97.4 F L Pulse Rate 66 Respiratory Rate 22 Blood Pressure 118/74 Pulse Oximetry 96 Intake & Output 05/03/18 05/04/18 05/04/18 18:59 06:59 18:59 Intake Total 1100 / 1100 100 / 100 100 / 100 Output Total 1600 / 1600 Balance 1100 / 1100 -1500 / -1500 100 / 100 Weight 74.7 kg Intake: IV 1100 / 1100 100 / 100 100 / 100 NS Inj 1,000 ML @ 70 mls/hr IV. 1000 / 1000 CONT .[id number] [facility] Rx#:[id number] Ancef Inj 2,000 MG In NS Inj 80 100 / 100 100 / 100 100 / 100 ML @ 200 mls/hr IV.SIG Q8H [facility] Rx#:[id number] Output: Urine 1600 / 1600 Other: Date of Last Bowel Movement 05/03/18 Narrative: Sitting up in bed no acute distress Head: Normocephalic. Atraumatic. EENT: Pupils equal round and reactive to light. Cardiovascular: Regular rate and rhythm. Respiratory: Lungs clear to auscultation bilaterally. Abdomen: Soft, nontender, nondistended. No peritoneal signs. Neuro: Awake alert oriented 3 no aphasia, Speech more clear, reduced left nasolabial fold with only cartilage showing secondary to excision for cancer, motor - mild left hemiparesis strength 5- out of 5 - definitely with some drift, right below the knee amputation wrapped clean dry and intact Psychiatry: Mood appropriate, pleasant Results - Labs CBC & Chem 7: 05/04/18 05:06 05/04/18 05:06 Laboratory Results - last 24 hr 05/03/18 05/03/18 05/04/18 16:15 19:29 02:38 WBC RBC Hgb Hct MCV MCH MCHC RDW Plt Count MPV Sodium Potassium Chloride Carbon Dioxide Anion Gap BUN Creatinine Estimated GFR POC Glucose 289 H 297 H 476 H* Random Glucose Calcium Total Bilirubin AST ALT Alkaline Phosphatase Total Protein Albumin 05/04/18 05/04/18 05/04/18 05:06 05:06 07:36 WBC 6.6 RBC 4.37 L Hgb 12.8 L Hct 37.9 L MCV 86.8 MCH 29.3 MCHC 33.7 RDW 14.0 Plt Count 92 L MPV 10.6 Sodium 137 Potassium 4.1 Chloride 99 Carbon Dioxide 30.1 Anion Gap 8 BUN 13 Creatinine 0.93 Estimated GFR 86 L POC Glucose 351 H Random Glucose 336 H Calcium 8.3 L Total Bilirubin 0.4 AST 21 ALT 24 Alkaline Phosphatase 159 H Total Protein 6.7 Albumin 2.4 L 05/04/18 11:59 WBC RBC Hgb Hct MCV MCH MCHC RDW Plt Count MPV Sodium Potassium Chloride Carbon Dioxide Anion Gap BUN Creatinine Estimated GFR POC Glucose 196 H Random Glucose Calcium Total Bilirubin AST ALT Alkaline Phosphatase Total Protein Albumin - Imaging Tibia/Fibula X-Ray 05/01/18 00:00 CONCLUSION: 1. Persistent haziness of the excisional margin of the proximal fibular diaphysis could represent a chronic osteomyelitis. Associated regional callus formation. 2. Interval partial resorption of the free osseous fragment distal to the fibula. 3. Tibia remains intact. Head CT 05/01/18 00:19 CONCLUSION: 1. Some asymmetric volume loss in the mid right parietal lobe with suggestion of cortical laminar necrosis at the frontoparietal junction and temporal lobe also on the right. Findings could represent a subacute on chronic stroke in the right MCA territory which could explain current clinical symptoms. 2. No acute intracranial hemorrhage or midline shift. . Head MRI 05/01/18 03:58 CONCLUSION: Areas of evolving right hemispheric stroke Neck MRA 05/01/18 16:46 CONCLUSION: 1. Negative MRA of the carotids and vertebrals. _ Percent stenosis is calculated using the diameter of the stenotic region over the diameter of the normal distal internal carotid artery _ Carotid Doppler Study 05/01/18 16:47 CONCLUSION: 1. Right Internal Carotid Artery: Findings indicate <50% stenosis. 2. Left Internal Carotid Artery: Findings indicate <50% stenosis. Head MRA 05/01/18 16:47 CONCLUSION: 1. No flow seen in the entire right middle cerebral artery. 2. Patent right posterior cerebral artery which arises from the anterior circulation. Knee MRI 05/02/18 00:00 CONCLUSION: 1. Cellulitic changes greatest along the lateral knee and lateral stump. 2. Edema within the proximal fibula suggesting osteomyelitis. 3. No osteomyelitis within the tibial stump. 4. Reactive changes within the proximal tibia Assessment and Plan - Assessment (1) Hx of right BKA Code(s): Z89.511 - Acquired absence of right leg below knee Status: Acute (2) Acute right MCA stroke Code(s): I63.511 - Cerebral infarction due to unspecified occlusion or stenosis of right middle cerebral artery Status: Acute (3) Osteomyelitis Code(s): M86.9 - Osteomyelitis, unspecified Status: Acute - Plan 62-year-old male with past medical history significant for diabetes mellitus and hypertension presents to the emergency department for the evaluation of right lower extremity redness, swelling and warmth. He is status post right lower extremity BKA. CVA with mild left hemiapresis: Head CT significant for volume loss in the right parietal lobe with suggestion of cortical laminar necrosis, concern for subacute on chronic stroke in the right MCA MRA/CTA cannot be performed secondary to patient's contrast allergy Neurology consulted, appreciate recommendations: Currently stable from their standpoint at this time Continue neuro checks Continue physical therapy - ASA Right knee Stump cellulitis with suprapatellar swelling r/o effusion -MRI of the right knee concerning for osteomyelitis -Continue on IV Clindamycin -Pending white blood cell scan for further evaluation of the osteomyelitis -Infectious disease consulted, recommendations appreciated -Pending cultures -We will consider orthopedic surgery consult if no improvement obtained with antibiotics Diabetes mellitus, insulin requiring Sliding-scale insulin Monitor blood glucose A1c pending start levemeri 15 untis SQ bid- (at home on high dose 60-80 bid) Hypertension Permissive hypertension secondary to CVA Code Status: Full code Discharge Planning: Anticipate patient will require alf facility upon discharge
[2018-05-04] MEDS: Temazepam 15 MG Capsule PO PRN (20:17)
[2018-05-05] MEDS: Morphine Inj 4 MG/ML Vial IV.PUSH PRN ×3 (03:45→20:29)
[2018-05-05] MEDS: Insulin NovoLOG Aspart Correctional Sugar Inj SQ SCH ×5 (03:45→20:37)
[2018-05-05] MEDS: Enoxaparin Inj 40 MG/0.4 ML Syringe SQ SCH (08:52)
[2018-05-05] MEDS: Methadone 10 MG Tablet PO SCH (08:57)
[2018-05-05] MEDS: ceFAZolin Inj 2,000 MG in Sodium Chlor 0.9% Inj 80 ML IV.SIG SCH ×3 (08:58→23:05)
[2018-05-05] MEDS: Sod Chloride 0.9% Inj 1,000 ML IV.CONT SCH ×2 (08:59→23:07)
[2018-05-05] MEDS: Insulin Detemir Inj 1,000 UNIT/10 ML Vial SQ SCH ×2 (09:00→20:38)
--- NOTE | 2018-05-05 12:58 | P.PNIM ---
Subjective Interval history: Patient seen and examined this morning. Afebrile vital signs stable, does have some continued mild elevated blood pressure. His recent blood pressure is 167/ 90. Patient is status post white blood cell scan of his right amputated awaiting further results. Awaiting further recommendations from infectious disease. Patient understands plan of care at this time. Physical Exam Vital signs: Vital Signs 05/04/18 13:55 05/04/18 16:00 05/04/18 20:00 Temperature 97.8 F 98.2 F Pulse Rate 65 63 Respiratory Rate 18 22 18 Blood Pressure 130/70 166/96 H Pulse Oximetry 96 96 05/05/18 00:00 05/05/18 00:18 05/05/18 04:00 Temperature 98.2 F 97.9 F Pulse Rate 64 60 Respiratory Rate 18 18 18 Blood Pressure 151/85 H 166/89 H Pulse Oximetry 99 95 05/05/18 04:31 05/05/18 08:00 05/05/18 09:27 Temperature 97.9 F Pulse Rate 18 L Respiratory Rate 18 18 16 Blood Pressure 167/92 H Pulse Oximetry 97 Intake & Output 05/04/18 05/05/18 05/05/18 18:59 06:59 18:59 Intake Total 100 / 100 200 / 200 1100 / 1100 Output Total 680 / 680 400 / 400 Balance -580 / -580 -200 / -200 1100 / 1100 Weight 79.5 kg Intake: IV 100 / 100 200 / 200 1100 / 1100 NS Inj 1,000 ML @ 70 mls/hr IV. 1000 / 1000 CONT .[id number] Y[facility]ILE[facility] Rx#:[id number] Ancef Inj 2,000 MG In NS Inj 80 100 / 100 200 / 200 100 / 100 ML @ 200 mls/hr IV.SIG Q8H YAMILETH Rx#:[id number] Output: Urine 680 / 680 400 / 400 Other: Date of Last Bowel Movement 05/04/18 05/04/18 Narrative: Sitting up in bed no acute distress Head: Normocephalic. Atraumatic. EENT: Pupils equal round and reactive to light. Cardiovascular: Regular rate and rhythm. Respiratory: Lungs clear to auscultation bilaterally. Abdomen: Soft, nontender, nondistended. No peritoneal signs. Neuro: Awake alert oriented 3 no aphasia, Speech more clear, reduced left nasolabial fold with only cartilage showing secondary to excision for cancer, motor - mild left hemiparesis strength 5- out of 5 - definitely with some drift, right below the knee amputation wrapped clean dry and intact Psychiatry: Mood appropriate, pleasant Results - Labs CBC & Chem 7: 05/04/18 05:06 05/04/18 05:06 Laboratory Results - last 24 hr 05/04/18 05/04/18 05/05/18 17:27 20:09 03:39 POC Glucose 275 H 283 H 324 H 05/05/18 07:57 POC Glucose 179 H Microbiology 05/04/18 17:30 Wound - Leg Gram Stain - Final Assessment and Plan - Assessment (1) Hx of right BKA Code(s): Z89.511 - Acquired absence of right leg below knee Status: Acute (2) Acute right MCA stroke Code(s): I63.511 - Cerebral infarction due to unspecified occlusion or stenosis of right middle cerebral artery Status: Acute (3) Osteomyelitis Code(s): M86.9 - Osteomyelitis, unspecified Status: Acute - Plan 62-year-old male with past medical history significant for diabetes mellitus and hypertension presents to the emergency department for the evaluation of right lower extremity redness, swelling and warmth. He is status post right lower extremity BKA. CVA with mild left hemiapresis: Head CT significant for volume loss in the right parietal lobe with suggestion of cortical laminar necrosis, concern for subacute on chronic stroke in the right MCA MRA/CTA cannot be performed secondary to patient's contrast allergy Neurology consulted, appreciate recommendations: Currently stable from their standpoint at this time Continue neuro checks Continue physical therapy - ASA Right knee Stump cellulitis with suprapatellar swelling r/o effusion -MRI of the right knee concerning for osteomyelitis -Continue on IV Clindamycin -Status post white blood cell scan for further evaluation of the osteomyelitis: Results -Infectious disease consulted, recommendations appreciated -Pending cultures -We will consider orthopedic surgery consult if no improvement obtained with antibiotics Diabetes mellitus, insulin requiring Sliding-scale insulin Monitor blood glucose A1c pending start levemeri 15 untis SQ bid- (at home on high dose 60-80 bid) Hypertension Permissive hypertension secondary to CVA Code Status: Full code Discharge Planning: Anticipate patient will require alf facility upon discharge
[2018-05-05] MEDS: Gabapentin 300 MG Capsule PO SCH ×2 (14:17→17:00)
--- NOTE | 2018-05-05 15:09 | NM ---
EXAM DATE: 05/05/2018 11:48 AM EDT AGE/SEX: 52 years / Male INDICATIONS: Redness and swelling on right below the knee amputation stump. CLINICAL DATA: This is the patient's initial encounter. Patient reports that signs and symptoms have been present for 2 days and indicates a pain score of 4/10. Location: , Laterality: MEDICAL/SURGICAL HISTORY: Diabetes mellitus type II. Carcinoma, skin cancer. Hypertension. Ap pendectomy. Right below the knee amputation. COMPARISON: C, MR KNEE RIGHT W/O CONTRAST, 05/02/2018. . DOSE: 21.2 mCi Tc99m Ceretec labeled white blood cells IV IMAGING TIMES: 30 min , 3 hrs 20 hrs. IMAGING: SPECT/CT imaging with fusion was performed. RADIATION DOSE: 4.99 CTDIvol(mGy) TECHNIQUE: Following the in vitro labeling of autologous white cells and reinjection, whole body sca n was performed at the specified times. SPECT imaging was performed at the specified time in sagittal , axial and coronal planes. Attenuation correction was performed with the computed tomography and laz th the attenuation correction and non-attenuation corrected data sets were reviewed. FINDINGS: There is motion artifact identified. The patient is status post right below knee amputation. Recent M RI demonstrated abnormal increased T2 and decreased T1 signal within the right fibular metaphysis, wi th surrounding adjacent skin thickening and inflammatory changes. The CT images demonstrate diffuse s ubcutaneous edema, soft tissue swelling seen circumferentially, and skin thickening characteristic of cellulitis. There is focal intense radiotracer accumulation localizing to the soft tissues directly adjacent to the right proximal fibula and probably at the level of the proximal fibula though limited by motion artifact. This is seen best on the fused axial and coronal images. CONCLUSION: 1. There is intense radiotracer accumulation in the right proximal fibula and surrounding soft tissu es characteristic of osteomyelitis and cellulitis. Electronically signed by: Roman Tinsley MD 05/05/2018 3:08 PM EDT
[2018-05-05] MEDS ORDERED: Acetaminophen 325 MG Tablet PO ONE (17:30)
[2018-05-05] MEDS: Temazepam 15 MG Capsule PO PRN (20:37)
[2018-05-06] MEDS: Insulin NovoLOG Aspart Correctional Sugar Inj SQ SCH ×6 (03:48→23:30)
[2018-05-06] MEDS: Morphine Inj 4 MG/ML Vial IV.PUSH PRN ×3 (04:33→17:15)
[2018-05-06 07:43] LABS: Hematocrit 36.6 % (39.0-51.0); Hemoglobin 12.4 gm/dL (13.0-17.0); Mean Corpuscular Hemoglobin 29.6 pg (27.0-34.0); Mean Corpuscular Volume 87.2 fL (80.0-100.0); Mean Platelet Volume 10.8 fL (7.0-11.0); Platelet Count 93 th/mm3 (150-450); Red Blood Count 4.19 mil/mm3 (4.50-5.90); Red Cell Distribution Width 13.8 % (11.6-17.2); White Blood Count 6.2 th/mm3 (4.0-11.0)
[2018-05-06] MEDS: ceFAZolin Inj 2,000 MG in Sodium Chlor 0.9% Inj 80 ML IV.SIG SCH ×3 (08:00→23:30)
[2018-05-06] MEDS: Insulin Detemir Inj 1,000 UNIT/10 ML Vial SQ SCH ×2 (08:01→20:34)
[2018-05-06] MEDS: Methadone 10 MG Tablet PO SCH (08:02)
[2018-05-06] MEDS: Gabapentin 300 MG Capsule PO SCH ×3 (08:02→17:00)
[2018-05-06] MEDS: Enoxaparin Inj 40 MG/0.4 ML Syringe SQ SCH (08:04)
[2018-05-06 08:07] LABS: Anion Gap 8 meq/L (5-15); Blood Urea Nitrogen 14 mg/dL (7-18); Calcium 8.6 mg/dL (8.5-10.1); Carbon Dioxide 31.1 meq/L (21.0-32.0); Chloride 99 meq/L (98-107); Glomerular Filtration Rate Greater Than 89 mL/min (>89); Glucose,Random 262 mg/dL (74-106); Potassium 4.3 meq/L (3.5-5.1); Sodium 138 meq/L (136-145)
--- NOTE | 2018-05-06 10:47 | P.PNIM ---
Subjective Interval history: f/u; CVA/ right BKA stump infection in no acute distress. complaining of some pain to the right lower extremity. no fever. Physical Exam Vital signs: Vital Signs 05/05/18 16:00 05/05/18 20:00 05/05/18 22:24 Temperature 98.6 F 97.6 F Pulse Rate 50 L 58 L Respiratory Rate 18 18 18 Blood Pressure 172/80 H 121/81 Pulse Oximetry 100 96 05/06/18 00:00 05/06/18 04:00 05/06/18 05:18 Temperature 97.8 F 98.1 F Pulse Rate 56 L 57 L Respiratory Rate 18 18 18 Blood Pressure 134/77 132/76 Pulse Oximetry 95 97 05/06/18 08:00 Temperature 97.7 F Pulse Rate 58 L Respiratory Rate 16 Blood Pressure 161/91 H Pulse Oximetry 99 Intake & Output 05/05/18 05/06/18 05/06/18 18:59 06:59 18:59 Intake Total 1920 / 1920 100 / 100 100 / 100 Output Total 1200 / 1200 400 / 400 Balance 720 / 720 -300 / -300 100 / 100 Weight 79.5 kg Intake: IV 1200 / 1200 100 / 100 100 / 100 NS Inj 1,000 ML @ 70 mls/hr IV. 1000 / 1000 CONT .[id number] [facility] Rx#:[id number] Ancef Inj 2,000 MG In NS Inj 80 200 / 200 100 / 100 100 / 100 ML @ 200 mls/hr IV.SIG Q8H [facility] Rx#:[id number] Oral 720 / 720 Output: Urine 1200 / 1200 400 / 400 Other: Date of Last Bowel Movement 05/04/18 05/05/18 05/05/18 - Constitutional no acute distress - Routine Respiratory Exam Present: CTA bilaterally - Routine Cardiovascular Exam Present: RRR - Routine Abdominal Exam Present: soft - Routine Extremities Exam Comments: s/p right BKA- stump covered with clean dressing. - Routine Neurological Exam Present: alert, oriented X3 Results - Labs CBC & Chem 7: 05/06/18 07:11 05/06/18 07:11 Laboratory Results - last 24 hr 05/05/18 05/05/18 05/06/18 16:14 19:39 03:44 WBC RBC Hgb Hct MCV MCH MCHC RDW Plt Count MPV Sodium Potassium Chloride Carbon Dioxide Anion Gap BUN Creatinine Estimated GFR POC Glucose 420 H 317 H 248 H Random Glucose Calcium 05/06/18 05/06/18 05/06/18 07:11 07:11 07:44 WBC 6.2 RBC 4.19 L Hgb 12.4 L Hct 36.6 L MCV 87.2 MCH 29.6 MCHC 34.0 RDW 13.8 Plt Count 93 L MPV 10.8 Sodium 138 Potassium 4.3 Chloride 99 Carbon Dioxide 31.1 Anion Gap 8 BUN 14 Creatinine 0.86 Estimated GFR Greater than 89 POC Glucose 244 H Random Glucose 262 H Calcium 8.6 Microbiology 05/04/18 17:30 Wound - Leg Gram Stain - Final 05/04/18 17:30 Wound - Leg Wound Culture - Preliminary Staphylococcus aureus - Imaging Impressions WBC Scan Nuclear Medicine 05/04/18 00:00 There is motion artifact identified. The patient is status post right below knee amputation. Recent MRI demonstrated abnormal increased T2 and decreased T1 signal within the right fibular metaphysis, with surrounding adjacent skin thickening and inflammatory changes. The CT images demonstrate diffuse subcutaneous edema, soft tissue swelling seen circumferentially, and skin thickening characteristic of cellulitis. There is focal intense radiotracer accumulation localizing to the soft tissues directly adjacent to the right proximal fibula and probably at the level of the proximal fibula though limited by motion artifact. This is seen best on the fused axial and coronal images. CONCLUSION: 1. There is intense radiotracer accumulation in the right proximal fibula and surrounding soft tissues characteristic of osteomyelitis and cellulitis. Assessment and Plan - Assessment (1) Hx of right BKA Code(s): Z89.511 - Acquired absence of right leg below knee Status: Acute (2) Acute right MCA stroke Code(s): I63.511 - Cerebral infarction due to unspecified occlusion or stenosis of right middle cerebral artery Status: Acute (3) Osteomyelitis Code(s): M86.9 - Osteomyelitis, unspecified Status: Acute - Plan CVA with mild left hemiapresis: Head CT significant for volume loss in the right parietal lobe with suggestion of cortical laminar necrosis, concern for subacute on chronic stroke in the right MCA MRA/CTA cannot be performed secondary to patient's contrast allergy Neurology consulted, appreciate recommendations: Currently stable from their standpoint at this time Continue neuro checks Continue physical therapy - ASA Right knee Stump cellulitis with suprapatellar swelling r/o effusion -MRI of the right knee concerning for osteomyelitis -Continue on IV Ancef -Infectious disease consulted, recommendations appreciated -We will consider orthopedic surgery consult if no improvement obtained with antibiotics Diabetes mellitus, insulin requiring Sliding-scale insulin Monitor blood glucose A1c pending will consider increasing levemir tomorrow-pending the accu-check readings today. Hypertension Permissive hypertension secondary to CVA Discharge Planning: likely needs SNF.
--- NOTE | 2018-05-06 11:23 | P.PNID ---
Subjective Remarks: Patient is a 62-year-old male, presented to the hospital complaining of redness and swelling on the lateral aspect of his right BKA stump. Patient had BKA November 2016. Since that time he has had some infection of the stump for which he was treated successfully. He has had cellulitis at one point, and also has had prepatellar bursitis. About 2 days prior to admission he noticed redness and some swelling on his right BKA stump. He has a bony prominence on the right and a somewhat rubs on his prostheses. Because of the swelling he has not been wearing his prostheses. He denies any fever chills or sweats. He has had a chronic cough but that has not gotten worse. He had an episode of vomiting 1 day prior to admission. No abdominal pain. Patient states he has had intermittent diarrhea which usually resolves on its own and he has not had any workup for that. Patient also on the day of admission noted that his speech was somewhat slurred. He presented to the hospital for further evaluation and treatment. Since admission he has not been febrile. He was diagnosed to have cellulitis on the lateral aspect of his stump. MRI of the knee was done and there was some evidence of cellulitis, and there was some findings suggestive of possible early osteo-on the proximal aspect of his right fibula. Patient states that he has chronic prepatellar bursitis. Intermittently he would have some small amount of bloody drainage from his right knee. His WBC is normal. Sed rate is 56. CRP is 2.5 he is currently on IV clindamycin. Patient also has been evaluated by neurology, and finding showed some evidence of CVA. Infectious disease consultation has been requested to evaluate the patient. Notes reviewed Afebrile WBC scan C/W cellulitis and osteo prox fibula Knee not leaking today Antibiotics: Ancef Lines: PIV no evid of infection Past Medical History: Diabetes GERD (gastroesophageal reflux disease) HTN (hypertension) History of skin cancer Right BKA infection Skin cancer History of appendectomy History of nasal surgery Hx of BKA Allergies/Adverse Reactions: Allergies diatrizoate meglumine Allergy (Severe, Verified 05/01/18 08:29) Rash gadobenic acid Allergy (Severe, Verified 05/01/18 08:29) Rash gadodiamide Allergy (Severe, Verified 05/01/18 08:29) Rash gadoteridol Allergy (Severe, Verified 05/01/18 08:29) Rash iodixanol Allergy (Severe, Verified 05/01/18 08:29) Rash iohexol Allergy (Severe, Verified 05/01/18 08:29) Rash adhesive Allergy (Intermediate, Verified 05/01/18 00:07) Rash iv plyeogram dye Allergy (Severe, Uncoded 05/01/18 00:07) Anaphylaxis Objective Vital Signs 05/05/18 16:00 05/05/18 20:00 05/05/18 22:24 Temperature 98.6 F 97.6 F Pulse Rate 50 L 58 L Respiratory Rate 18 18 18 Blood Pressure 172/80 H 121/81 Pulse Oximetry 100 96 05/06/18 00:00 05/06/18 04:00 05/06/18 05:18 Temperature 97.8 F 98.1 F Pulse Rate 56 L 57 L Respiratory Rate 18 18 18 Blood Pressure 134/77 132/76 Pulse Oximetry 95 97 05/06/18 08:00 Temperature 97.7 F Pulse Rate 58 L Respiratory Rate 16 Blood Pressure 161/91 H Pulse Oximetry 99 Intake & Output 05/05/18 05/06/18 05/06/18 18:59 06:59 18:59 Intake Total 1920 / 1920 100 / 100 100 / 100 Output Total 1200 / 1200 400 / 400 Balance 720 / 720 -300 / -300 100 / 100 Weight 79.5 kg Intake: IV 1200 / 1200 100 / 100 100 / 100 NS Inj 1,000 ML @ 70 mls/hr IV. 1000 / 1000 CONT .[id number] [facility] Rx#:[id number] Ancef Inj 2,000 MG In NS Inj 80 200 / 200 100 / 100 100 / 100 ML @ 200 mls/hr IV.SIG Q8H [facility] Rx#:[id number] Oral 720 / 720 Output: Urine 1200 / 1200 400 / 400 Other: Date of Last Bowel Movement 05/04/18 05/05/18 05/05/18 05/04/18 17:30 Wound - Leg Gram Stain - Final 05/04/18 17:30 Wound - Leg Wound Culture - Preliminary Staphylococcus aureus Lab - Hematology Results 05/06/18 07:11 WBC 6.2 RBC 4.19 L Hgb 12.4 L Hct 36.6 L MCV 87.2 MCH 29.6 MCHC 34.0 RDW 13.8 Plt Count 93 L MPV 10.8 Lab - Chemistry Results 05/04/18 05/04/18 05/04/18 11:59 17:27 20:09 Sodium Potassium Chloride Carbon Dioxide Anion Gap BUN Creatinine Estimated GFR POC Glucose 196 H 275 H 283 H Random Glucose Calcium 05/05/18 05/05/18 05/05/18 03:39 07:57 16:14 Sodium Potassium Chloride Carbon Dioxide Anion Gap BUN Creatinine Estimated GFR POC Glucose 324 H 179 H 420 H Random Glucose Calcium 05/05/18 05/06/18 05/06/18 19:39 03:44 07:11 Sodium 138 Potassium 4.3 Chloride 99 Carbon Dioxide 31.1 Anion Gap 8 BUN 14 Creatinine 0.86 Estimated GFR Greater than 89 POC Glucose 317 H 248 H Random Glucose 262 H Calcium 8.6 05/06/18 07:44 Sodium Potassium Chloride Carbon Dioxide Anion Gap BUN Creatinine Estimated GFR POC Glucose 244 H Random Glucose Calcium Imaging: ITS Impressions Tibia/Fibula X-Ray 05/01/18 00:00 CONCLUSION: 1. Persistent haziness of the excisional margin of the proximal fibular diaphysis could represent a chronic osteomyelitis. Associated regional callus formation. 2. Interval partial resorption of the free osseous fragment distal to the fibula. 3. Tibia remains intact. Head CT 05/01/18 00:19 CONCLUSION: 1. Some asymmetric volume loss in the mid right parietal lobe with suggestion of cortical laminar necrosis at the frontoparietal junction and temporal lobe also on the right. Findings could represent a subacute on chronic stroke in the right MCA territory which could explain current clinical symptoms. 2. No acute intracranial hemorrhage or midline shift. . Head MRI 05/01/18 03:58 CONCLUSION: Areas of evolving right hemispheric stroke Neck MRA 05/01/18 16:46 CONCLUSION: 1. Negative MRA of the carotids and vertebrals. _ Percent stenosis is calculated using the diameter of the stenotic region over the diameter of the normal distal internal carotid artery _ Carotid Doppler Study 05/01/18 16:47 CONCLUSION: 1. Right Internal Carotid Artery: Findings indicate <50% stenosis. 2. Left Internal Carotid Artery: Findings indicate <50% stenosis. Head MRA 05/01/18 16:47 CONCLUSION: 1. No flow seen in the entire right middle cerebral artery. 2. Patent right posterior cerebral artery which arises from the anterior circulation. Knee MRI 05/02/18 00:00 CONCLUSION: 1. Cellulitic changes greatest along the lateral knee and lateral stump. 2. Edema within the proximal fibula suggesting osteomyelitis. 3. No osteomyelitis within the tibial stump. 4. Reactive changes within the proximal tibia WBC Scan Nuclear Medicine 05/04/18 00:00 There is motion artifact identified. The patient is status post right below knee amputation. Recent MRI demonstrated abnormal increased T2 and decreased T1 signal within the right fibular metaphysis, with surrounding adjacent skin thickening and inflammatory changes. The CT images demonstrate diffuse subcutaneous edema, soft tissue swelling seen circumferentially, and skin thickening characteristic of cellulitis. There is focal intense radiotracer accumulation localizing to the soft tissues directly adjacent to the right proximal fibula and probably at the level of the proximal fibula though limited by motion artifact. This is seen best on the fused axial and coronal images. CONCLUSION: 1. There is intense radiotracer accumulation in the right proximal fibula and surrounding soft tissues characteristic of osteomyelitis and cellulitis. Physical Exam: GENERAL: awake and alert, not in respiratory distress. SKIN: Cool and dry. No generalized rash. HEAD: Normocephalic. No temporal wasting, or tenderness. EYES: [place] conjunctiva. No petechia or hemorrhage. No scleral icterus. No injection or drainage. EARS, NOSE AND THROAT: Nose with some deformity due to skin cancer surgery. Mucous membranes pink and moist. No oral lesions noted. NECK: Trachea midline. Supple and not tender, no meningeal signs CARDIOVASCULAR: Regular rate and rhythm. No murmurs, rubs or gallops heard RESPIRATORY: Clear to auscultation. Breath sounds equal bilaterally. No rales , wheezing or rhonchi ABDOMEN: Soft, non-tender, nondistended. Bowel sounds present and normoactive. No guarding. No rebound. No organomegaly. EXTREMITIES: No clubbing, cyanosis. LLE ok. RLE: has fluid on prepatellar area, bloody drainage, but no redness or tenderness. Has good ROM on his R knee joint. His RBKA stump is well healed. Redness on lateral stump much improved, now mostly on area that is fluctuant over bony prominence. R knee with fluid, but not red or tender. NEUROLOGICAL: Awake and alert. Some mild dysarthria. Cranial nerves grossly intact. Has some weakness on his L side. PSYCHIATRIC: Normal affect, calm and cooperative. LINE: No evidence of infection Assessment and Plan - Plan Impression Cellulitis lateral aspect RBKA stump ?Contusion on bony prominence of his R fibula - no open wound CVA prob chronic bursitis R knee Recommendation Continue IV Ancef Will ask ortho to evaluate that fluctuant area on his R stump - ?I and D Follow progress and monitor response to Rx Follow C/S Explained plan to patient Will need course of Rx for osteomyelitis Give one dose of IV vancomycin
[2018-05-06] MEDS: Sod Chloride 0.9% Inj 1,000 ML IV.CONT SCH (13:21)
[2018-05-06] MEDS ORDERED: Vancomycin Inj 1,500 MG in Sodium Chlor 0.9% Inj 500 ML IV.SIG ONE (14:00)
[2018-05-06] MEDS: Temazepam 15 MG Capsule PO PRN (20:35)
[2018-05-07] MEDS: Insulin NovoLOG Aspart Correctional Sugar Inj SQ SCH ×5 (03:31→21:55)
[2018-05-07] MEDS: Sod Chloride 0.9% Inj 1,000 ML IV.CONT SCH (03:34)
[2018-05-07] MEDS: Methadone 10 MG Tablet PO SCH (08:15)
[2018-05-07] MEDS: Gabapentin 300 MG Capsule PO SCH ×3 (08:15→17:01)
[2018-05-07] MEDS: Insulin Detemir Inj 1,000 UNIT/10 ML Vial SQ SCH ×2 (08:17→21:56)
[2018-05-07] MEDS: ceFAZolin Inj 2,000 MG in Sodium Chlor 0.9% Inj 80 ML IV.SIG SCH ×2 (08:18→15:52)
[2018-05-07] MEDS: Enoxaparin Inj 40 MG/0.4 ML Syringe SQ SCH (08:18)
--- NOTE | 2018-05-07 10:02 | P.PNIM ---
Subjective Interval history: in no acute distress. still with pain to the right BKA stump- says that norco doesn't help. no fever. Physical Exam Vital signs: Vital Signs 05/06/18 12:00 05/06/18 16:00 05/06/18 20:00 Temperature 98.4 F 98.4 F 98.8 F Pulse Rate 60 65 81 Respiratory Rate 16 16 16 Blood Pressure 138/83 131/75 154/90 H Pulse Oximetry 96 91 L 92 L 05/07/18 00:00 05/07/18 04:00 05/07/18 05:05 Temperature 98.6 F 98.4 F Pulse Rate 70 70 Respiratory Rate 16 20 16 Blood Pressure 167/92 H 156/81 H Pulse Oximetry 91 L 95 Intake & Output 05/06/18 05/07/18 05/07/18 18:59 06:59 18:59 Intake Total 1000 / 1000 1580 / 1580 100 / 100 Output Total 600 / 600 1150 / 1150 600 / 600 Balance 400 / 400 430 / 430 -500 / -500 Weight 78 kg 69.4 kg Intake: IV 200 / 200 1100 / 1100 100 / 100 NS Inj 1,000 ML @ 70 mls/hr IV. 1000 / 1000 CONT .[id number] [facility] Rx#:[id number] Vancomycin Inj 1,500 MG In NS 0 / 0 Inj 500 ML @ 250 mls/hr IV.SIG ONCE ONE Rx#:[id number] Ancef Inj 2,000 MG In NS Inj 80 200 / 200 100 / 100 100 / 100 ML @ 200 mls/hr IV.SIG Q8H [facility] Rx#:[id number] Oral 800 / 800 480 / 480 Output: Urine 600 / 600 1150 / 1150 600 / 600 Other: # Voids 4 Date of Last Bowel Movement 05/05/18 05/06/18 05/07/18 - Constitutional no acute distress - Routine Respiratory Exam Present: CTA bilaterally - Routine Cardiovascular Exam Present: RRR - Routine Abdominal Exam Present: soft - Routine Extremities Exam Comments: right BKA stump covered with clean dressing. - Routine Neurological Exam Present: alert, oriented X3 Results - Labs CBC & Chem 7: 05/06/18 07:11 05/06/18 07:11 Laboratory Results - last 24 hr 05/06/18 05/06/18 05/06/18 12:04 17:35 17:38 POC Glucose 304 H 452 H* 574 H* 05/06/18 05/07/18 05/07/18 23:28 01:20 03:28 POC Glucose 355 H 345 H 262 H 05/07/18 07:26 POC Glucose 273 H Microbiology 05/04/18 17:30 Wound - Leg Gram Stain - Final 05/04/18 17:30 Wound - Leg Wound Culture - Preliminary Staphylococcus aureus Assessment and Plan - Assessment (1) Hx of right BKA Code(s): Z89.511 - Acquired absence of right leg below knee Status: Acute (2) Acute right MCA stroke Code(s): I63.511 - Cerebral infarction due to unspecified occlusion or stenosis of right middle cerebral artery Status: Acute (3) Osteomyelitis Code(s): M86.9 - Osteomyelitis, unspecified Status: Acute - Plan CVA with mild left hemiapresis: Head CT significant for volume loss in the right parietal lobe with suggestion of cortical laminar necrosis, concern for subacute on chronic stroke in the right MCA MRA/CTA cannot be performed secondary to patient's contrast allergy Neurology consulted, appreciate recommendations: Currently stable from their standpoint at this time Continue neuro checks Continue physical therapy - ASA Right knee Stump cellulitis with suprapatellar swelling r/o effusion -MRI of the right knee concerning for osteomyelitis -Continue on IV Ancef -Infectious disease consulted, recommendations appreciated - orthopedic surgery consulted. Diabetes mellitus, insulin requiring Sliding-scale insulin increased levemit to 22 units subq bid. changed the diet to 1800 judy ADA Monitor blood glucose Hypertension Permissive hypertension secondary to CVA Discharge Planning: likely needs SNF.
--- NOTE | 2018-05-07 10:22 | P.PNVS ---
Subjective Subjective/Hospital Course: Patient seen full consult dictated. Summary, osteomyelitis of the fibula would be a noncurable condition and it can be only temporized. Patient will eventually need right above-knee amputation Thanks J Objective Vital Signs / I&O: Vital Signs 05/06/18 12:00 05/06/18 16:00 05/06/18 20:00 Temperature 98.4 F 98.4 F 98.8 F Pulse Rate 60 65 81 Respiratory Rate 16 16 16 Blood Pressure 138/83 131/75 154/90 H Pulse Oximetry 96 91 L 92 L 05/07/18 00:00 05/07/18 04:00 05/07/18 05:05 Temperature 98.6 F 98.4 F Pulse Rate 70 70 Respiratory Rate 16 20 16 Blood Pressure 167/92 H 156/81 H Pulse Oximetry 91 L 95 05/07/18 08:00 Temperature 97.6 F Pulse Rate 68 Respiratory Rate 18 Blood Pressure 155/100 H Pulse Oximetry 93 L Intake & Output 05/06/18 05/07/18 05/07/18 18:59 06:59 18:59 Intake Total 1000 / 1000 1580 / 1580 100 / 100 Output Total 600 / 600 1150 / 1150 600 / 600 Balance 400 / 400 430 / 430 -500 / -500 Weight 78 kg 69.4 kg Intake: IV 200 / 200 1100 / 1100 100 / 100 NS Inj 1,000 ML @ 70 mls/hr IV. 1000 / 1000 CONT .[id number] COUNT INCLUDES THE [facility] Rx#:[id number] Vancomycin Inj 1,500 MG In NS 0 / 0 Inj 500 ML @ 250 mls/hr IV.SIG ONCE ONE Rx#:[id number] Ancef Inj 2,000 MG In NS Inj 80 200 / 200 100 / 100 100 / 100 ML @ 200 mls/hr IV.SIG Q8H COUNT INCLUDES THE [facility] Rx#:[id number] Oral 800 / 800 480 / 480 Output: Urine 600 / 600 1150 / 1150 600 / 600 Other: # Voids 4 Date of Last Bowel Movement 05/05/18 05/06/18 05/07/18 Laboratory Results - last 24 hr 05/06/18 05/06/18 05/06/18 12:04 17:35 17:38 POC Glucose 304 H 452 H* 574 H* 05/06/18 05/07/18 05/07/18 23:28 01:20 03:28 POC Glucose 355 H 345 H 262 H 05/07/18 07:26 POC Glucose 273 H Microbiology 05/04/18 17:30 Gram Stain - Final Wound - Leg Wound Culture - Preliminary Staphylococcus aureus Impressions WBC Scan Nuclear Medicine 05/04/18 00:00 There is motion artifact identified. The patient is status post right below knee amputation. Recent MRI demonstrated abnormal increased T2 and decreased T1 signal within the right fibular metaphysis, with surrounding adjacent skin thickening and inflammatory changes. The CT images demonstrate diffuse subcutaneous edema, soft tissue swelling seen circumferentially, and skin thickening characteristic of cellulitis. There is focal intense radiotracer accumulation localizing to the soft tissues directly adjacent to the right proximal fibula and probably at the level of the proximal fibula though limited by motion artifact. This is seen best on the fused axial and coronal images. CONCLUSION: 1. There is intense radiotracer accumulation in the right proximal fibula and surrounding soft tissues characteristic of osteomyelitis and cellulitis.
--- NOTE | 2018-05-07 12:19 | MB ---
cc: Velasquez Lizama MD DATE: 05/06/2018 CONSULTING PHYSICIAN: Dr. Lizama of Vascular Surgery REASON FOR CONSULTATION: Right BKA stump pain and osteomyelitis of the fibula. HISTORY OF PRESENT ILLNESS: This 62-year-old male is known to me from previous admissions. He has a longstanding history of diabetes mellitus, hypertension and is a vasculopath. He underwent right [id number] amputation in November 2016 and has been doing well with prosthesis and walking. At this time, he was admitted with slurring of the speech and difficulty swallowing, associated tingling in his face and the left arm. He was admitted and worked up in the process of admission and was found to have a wound on his right BKA stump lateral aspect, which is superficial. This led to other workup and he is now diagnosed with osteomyelitis of the right fibula. Apparently, the patient has had a wound here for a while, did not go to the doctor. He is noncompliant with care. Continues to smoke about a pack a day of cigarettes. Although the patient states he smokes about 3 or 4 cigarettes a day, his told me he smokes a whole pack. Right now he is in process of workup; question arises of pus about any surgical remedies. PAST MEDICAL HISTORY: As above noted; is that of hypertension, diabetes mellitus, gangrene of the right foot, congestive heart failure and right BKA. PAST SURGICAL HISTORY: Above noted. MEDICATIONS: Given from the record. SOCIAL HISTORY: The patient does not drink; however, smokes continuously. PHYSICAL EXAMINATION: GENERAL: Reveals a 52-year-old male. HEENT: Normocephalic. No trauma to head. Pupils equal, reactive. Extraocular muscles intact. Nasal reconstruction from previous basal cell cancer. CHEST: Bilateral breath sounds, decreased though to both lungs cardoza. The patient has moderate to severe chronic obstructive pulmonary disease. HEART: Regular rate and rhythm. ABDOMEN: Soft. Active bowel sounds. EXTREMITIES: The patient has dopplerable pedal pulses bilateral and on the left side, he has a weak dopplerable popliteal and posterior tibial. I do not appreciate dorsalis pedis. Foot has decreased capillary refill, but no signs of acute vascular deficit. On the right the patient has a BKA stump. The knee is somewhat swollen and the patient seems to have bursitis of the patellar bursa with some fluctuance in it. On the lateral aspect of the stump there is an excoriated area, but there is no fluctuance noted. Fibula is of course, palpable as a firm structure under the tissues and there is some callus formation here from wearing of the prosthesis. At this point does not see any open wound that requires surgical attention or any fluctuance that would require drainage. On the other hand, the studies reveal most likely fibular osteomyelitis. The patient can be placed on antibiotics, but I believe the only way to cure this will be a right above-knee amputation. I have explained this to the patient in detail and I am willing to wait, but eventually this will be the way to go. I thank you very much for the referral. I will continue to follow the patient. MD MADISON Garcia/zahra , 10:23 AM , 10:41 AM
[2018-05-07] MEDS: Temazepam 15 MG Capsule PO PRN (21:43)
[2018-05-08] MEDS: ceFAZolin Inj 2,000 MG in Sodium Chlor 0.9% Inj 80 ML IV.SIG SCH ×2 (01:39→08:33)
[2018-05-08] MEDS: Insulin NovoLOG Aspart Correctional Sugar Inj SQ SCH ×5 (03:09→21:24)
[2018-05-08] MEDS: Enoxaparin Inj 40 MG/0.4 ML Syringe SQ SCH (08:34)
[2018-05-08] MEDS: Insulin Detemir Inj 1,000 UNIT/10 ML Vial SQ SCH ×2 (08:35→21:20)
[2018-05-08] MEDS: Methadone 10 MG Tablet PO SCH (08:36)
[2018-05-08] MEDS: Gabapentin 300 MG Capsule PO SCH ×3 (08:36→17:13)
--- NOTE | 2018-05-08 10:21 | P.PNIM ---
Subjective Interval history: in no acute distress. complaining of some pain to the right BKA stump. no fever. Physical Exam Vital signs: Vital Signs 05/07/18 12:00 05/07/18 16:00 05/07/18 20:30 Temperature 98.8 F 98.8 F 98 F Pulse Rate 64 64 57 L Respiratory Rate 18 18 18 Blood Pressure 164/88 H 178/92 H 160/80 H Pulse Oximetry 96 96 96 05/08/18 00:15 05/08/18 04:30 05/08/18 07:00 Temperature 97.8 F 97.7 F Pulse Rate 84 67 Respiratory Rate 19 19 12 Blood Pressure 158/75 H 137/77 Pulse Oximetry 97 97 05/08/18 08:00 Temperature 97.9 F Pulse Rate 60 Respiratory Rate 16 Blood Pressure 184/94 H Pulse Oximetry 92 L Intake & Output 05/07/18 05/08/18 05/08/18 18:59 06:59 18:59 Intake Total 2296 / 2296 1650 / 1650 100 / 100 Output Total 3300 / 3300 2750 / 2750 Balance -1004 / -1004 -1100 / -1100 100 / 100 Weight 69.8 kg Intake: IV 1200 / 1200 100 / 100 100 / 100 NS Inj 1,000 ML @ 70 mls/hr IV. 1000 / 1000 CONT .[id number] [facility] Rx#:[id number] Ancef Inj 2,000 MG In NS Inj 80 200 / 200 100 / 100 100 / 100 ML @ 200 mls/hr IV.SIG Q8H [facility] Rx#:[id number] Oral 1096 / 1096 1550 / 1550 Output: Urine 3300 / 3300 2750 / 2750 Other: # Voids 2 Date of Last Bowel Movement 05/07/18 05/07/18 # Bowel Movements 0 0 - Constitutional no acute distress - Routine Respiratory Exam Present: CTA bilaterally - Routine Cardiovascular Exam Present: RRR - Routine Abdominal Exam Present: soft - Routine Extremities Exam Comments: right BKA stump covered with clean dressing. - Routine Neurological Exam Present: alert, oriented X3 Results - Labs CBC & Chem 7: 05/06/18 07:11 05/06/18 07:11 Laboratory Results - last 24 hr 05/07/18 05/07/18 05/07/18 11:29 15:57 21:46 POC Glucose 278 H 367 H 372 H 05/08/18 05/08/18 02:58 07:03 POC Glucose 319 H 331 H Microbiology 05/04/18 17:30 Wound - Leg Gram Stain - Final 05/04/18 17:30 Wound - Leg Wound Culture - Final Staphylococcus aureus Assessment and Plan - Assessment (1) Hx of right BKA Code(s): Z89.511 - Acquired absence of right leg below knee Status: Acute (2) Acute right MCA stroke Code(s): I63.511 - Cerebral infarction due to unspecified occlusion or stenosis of right middle cerebral artery Status: Acute (3) Osteomyelitis Code(s): M86.9 - Osteomyelitis, unspecified Status: Acute - Plan CVA with mild left hemiapresis: Head CT significant for volume loss in the right parietal lobe with suggestion of cortical laminar necrosis, concern for subacute on chronic stroke in the right MCA MRA/CTA cannot be performed secondary to patient's contrast allergy Neurology consulted, appreciate recommendations: Currently stable from their standpoint at this time Continue neuro checks Continue physical therapy - ASA Right knee Stump cellulitis with suprapatellar swelling r/o effusion -MRI of the right knee concerning for osteomyelitis -Continue on IV Ancef -Infectious disease consulted, recommendations appreciated - vascular surgery consulted; eventually need AKA. Diabetes mellitus, insulin requiring Sliding-scale insulin increase levemir to 24 units subq bid. changed the diet to 1800 judy ADA Monitor blood glucose Hypertension start on lisinopril- continue to monitor and adjust the regimen as needed. Discharge Planning: likely needs SNF.
[2018-05-08] MEDS: Lisinopril 5 MG Tablet PO SCH (12:12)
--- NOTE | 2018-05-08 14:48 | P.DCO ---
Post Hospital Infusion Therapy Location of Infusion Therapy: Ambulatory Infusion Therapy Order Patient Weight: 69.8 kg - Diagnosis (1) Osteomyelitis Code(s): M86.9 - Osteomyelitis, unspecified - Administer Medication Ceftriaxone Dose: 2 grams IV Directions: q 24 hours Stop Treatment: 06/18/18 - Additional Information Venous Access: PICC Line Additional Instructions: [x] Peripheral flush and dressing changes per protocol [x] Implanted port and central spot welder line: * Implanted port: 10 ml Normal Saline followed by 5 ml Heparin 100 units/ml Heparin flush after each use and monthly to maintain. [] May leave port accessed during therapy. [] May leave peripheral site accessed for duration of therapy. [x] If patient has SOB or respiratory distress, check oxygen saturation. If less than 90% or clinical signs of respiratory distress, administer oxygen at 2 L/min. via nasal cannula and notify physician. [x] Anaphylaxis/Reaction orders: * Stop infusion. * Keep IV line open with saline flush. * Notify physician. * Monitor vital signs every 15 minutes until symptoms resolve. * Check Oxygen saturation; Oxygen at 2 L/min. via nasal cannula if less than 90% or clinical signs of respiratory distress. * Administer diphenhydramine (Benadryl) 25 mg IV STAT, (unless patient has received as pre-med). May repeat once, if necessary. * Solu-Cortef 250 mg IVP over 30-60 seconds, use 100 mg vials for each dissolution. * Epinephrine (1mg/1 ml) 0.3 mg subcutaneously or IVP now with any signs of respiratory distress. * Check with physician for new additional pre-med orders if patient is re- challenged or re-treated. [x] May remove PICC line when treatment complete. [x] If the patient is admitted to the hospital, the ED, or transferred via [facility] , complete transfer form including medication reconciliation order sheet. Weekly Labs: CBC w/diff, Creatinine, LFTs (Hepatic Function Test) (Labs every Friday) Allergies diatrizoate meglumine Allergy (Severe, Verified 05/01/18 08:29) Rash gadobenic acid Allergy (Severe, Verified 05/01/18 08:29) Rash gadodiamide Allergy (Severe, Verified 05/01/18 08:29) Rash gadoteridol Allergy (Severe, Verified 05/01/18 08:29) Rash iodixanol Allergy (Severe, Verified 05/01/18 08:29) Rash iohexol Allergy (Severe, Verified 05/01/18 08:29) Rash adhesive Allergy (Intermediate, Verified 05/01/18 00:07) Rash iv plyeogram dye Allergy (Severe, Uncoded 05/01/18 00:07) Anaphylaxis (1) Osteomyelitis Qualifiers: Osteomyelitis type: other acute Osteomyelitis location: fibula Laterality: right Qualified Code(s): M86.161 - Other acute osteomyelitis, right tibia and fibula
--- NOTE | 2018-05-08 14:55 | P.PNID ---
Subjective Remarks: Patient is a 62-year-old male, presented to the hospital complaining of redness and swelling on the lateral aspect of his right BKA stump. Patient had BKA November 2016. Since that time he has had some infection of the stump for which he was treated successfully. He has had cellulitis at one point, and also has had prepatellar bursitis. About 2 days prior to admission he noticed redness and some swelling on his right BKA stump. He has a bony prominence on the right and a somewhat rubs on his prostheses. Because of the swelling he has not been wearing his prostheses. He denies any fever chills or sweats. He has had a chronic cough but that has not gotten worse. He had an episode of vomiting 1 day prior to admission. No abdominal pain. Patient states he has had intermittent diarrhea which usually resolves on its own and he has not had any workup for that. Patient also on the day of admission noted that his speech was somewhat slurred. He presented to the hospital for further evaluation and treatment. Since admission he has not been febrile. He was diagnosed to have cellulitis on the lateral aspect of his stump. MRI of the knee was done and there was some evidence of cellulitis, and there was some findings suggestive of possible early osteo-on the proximal aspect of his right fibula. Patient states that he has chronic prepatellar bursitis. Intermittently he would have some small amount of bloody drainage from his right knee. His WBC is normal. Sed rate is 56. CRP is 2.5 he is currently on IV clindamycin. Patient also has been evaluated by neurology, and finding showed some evidence of CVA. Infectious disease consultation has been requested to evaluate the patient. Notes reviewed Afebrile Feels better WBC scan C/W cellulitis and osteo prox fibula Knee not leaking today Appreciate Dr Juanita walls Patient would like to try IV Abx and try to avoid surgery Antibiotics: Ancef Lines: PIV no evid of infection Past Medical History: Diabetes GERD (gastroesophageal reflux disease) HTN (hypertension) History of skin cancer Right BKA infection Skin cancer History of appendectomy History of nasal surgery Hx of BKA Allergies/Adverse Reactions: Allergies diatrizoate meglumine Allergy (Severe, Verified 05/01/18 08:29) Rash gadobenic acid Allergy (Severe, Verified 05/01/18 08:29) Rash gadodiamide Allergy (Severe, Verified 05/01/18 08:29) Rash gadoteridol Allergy (Severe, Verified 05/01/18 08:29) Rash iodixanol Allergy (Severe, Verified 05/01/18 08:29) Rash iohexol Allergy (Severe, Verified 05/01/18 08:29) Rash adhesive Allergy (Intermediate, Verified 05/01/18 00:07) Rash iv plyeogram dye Allergy (Severe, Uncoded 05/01/18 00:07) Anaphylaxis Objective Vital Signs 05/07/18 16:00 05/07/18 20:30 05/08/18 00:15 Temperature 98.8 F 98 F 97.8 F Pulse Rate 64 57 L 84 Respiratory Rate 18 18 19 Blood Pressure 178/92 H 160/80 H 158/75 H Pulse Oximetry 96 96 97 05/08/18 04:30 05/08/18 07:00 05/08/18 08:00 Temperature 97.7 F 97.9 F Pulse Rate 67 60 Respiratory Rate 19 12 16 Blood Pressure 137/77 184/94 H Pulse Oximetry 97 92 L 05/08/18 12:00 Temperature 98.1 F Pulse Rate 62 Respiratory Rate 16 Blood Pressure 162/95 H Pulse Oximetry 96 Intake & Output 05/07/18 05/08/18 05/08/18 18:59 06:59 18:59 Intake Total 2296 / 2296 1650 / 1650 100 / 100 Output Total 3300 / 3300 2750 / 2750 Balance -1004 / -1004 -1100 / -1100 100 / 100 Weight 69.8 kg 69.8 kg Intake: IV 1200 / 1200 100 / 100 100 / 100 NS Inj 1,000 ML @ 70 mls/hr IV. 1000 / 1000 CONT .[id number] [facility] Rx#:[id number] Ancef Inj 2,000 MG In NS Inj 80 200 / 200 100 / 100 100 / 100 ML @ 200 mls/hr IV.SIG Q8H [facility] Rx#:[id number] Oral 1096 / 1096 1550 / 1550 Output: Urine 3300 / 3300 2750 / 2750 Other: # Voids 2 Date of Last Bowel Movement 05/07/18 05/07/18 # Bowel Movements 0 0 05/04/18 17:30 Wound - Leg Gram Stain - Final 05/04/18 17:30 Wound - Leg Wound Culture - Final Staphylococcus aureus Lab - Chemistry Results 05/06/18 05/06/18 05/06/18 17:35 17:38 23:28 POC Glucose 452 H* 574 H* 355 H 05/07/18 05/07/18 05/07/18 01:20 03:28 07:26 POC Glucose 345 H 262 H 273 H 05/07/18 05/07/18 05/07/18 11:29 15:57 21:46 POC Glucose 278 H 367 H 372 H 05/08/18 05/08/18 05/08/18 02:58 07:03 11:04 POC Glucose 319 H 331 H 330 H Imaging: ITS Impressions Tibia/Fibula X-Ray 05/01/18 00:00 CONCLUSION: 1. Persistent haziness of the excisional margin of the proximal fibular diaphysis could represent a chronic osteomyelitis. Associated regional callus formation. 2. Interval partial resorption of the free osseous fragment distal to the fibula. 3. Tibia remains intact. Head CT 05/01/18 00:19 CONCLUSION: 1. Some asymmetric volume loss in the mid right parietal lobe with suggestion of cortical laminar necrosis at the frontoparietal junction and temporal lobe also on the right. Findings could represent a subacute on chronic stroke in the right MCA territory which could explain current clinical symptoms. 2. No acute intracranial hemorrhage or midline shift. . Head MRI 05/01/18 03:58 CONCLUSION: Areas of evolving right hemispheric stroke Neck MRA 05/01/18 16:46 CONCLUSION: 1. Negative MRA of the carotids and vertebrals. _ Percent stenosis is calculated using the diameter of the stenotic region over the diameter of the normal distal internal carotid artery _ Carotid Doppler Study 05/01/18 16:47 CONCLUSION: 1. Right Internal Carotid Artery: Findings indicate <50% stenosis. 2. Left Internal Carotid Artery: Findings indicate <50% stenosis. Head MRA 05/01/18 16:47 CONCLUSION: 1. No flow seen in the entire right middle cerebral artery. 2. Patent right posterior cerebral artery which arises from the anterior circulation. Knee MRI 05/02/18 00:00 CONCLUSION: 1. Cellulitic changes greatest along the lateral knee and lateral stump. 2. Edema within the proximal fibula suggesting osteomyelitis. 3. No osteomyelitis within the tibial stump. 4. Reactive changes within the proximal tibia WBC Scan Nuclear Medicine 05/04/18 00:00 There is motion artifact identified. The patient is status post right below knee amputation. Recent MRI demonstrated abnormal increased T2 and decreased T1 signal within the right fibular metaphysis, with surrounding adjacent skin thickening and inflammatory changes. The CT images demonstrate diffuse subcutaneous edema, soft tissue swelling seen circumferentially, and skin thickening characteristic of cellulitis. There is focal intense radiotracer accumulation localizing to the soft tissues directly adjacent to the right proximal fibula and probably at the level of the proximal fibula though limited by motion artifact. This is seen best on the fused axial and coronal images. CONCLUSION: 1. There is intense radiotracer accumulation in the right proximal fibula and surrounding soft tissues characteristic of osteomyelitis and cellulitis. Physical Exam: GENERAL: awake and alert, not in respiratory distress. SKIN: Cool and dry. No generalized rash. HEAD: Normocephalic. No temporal wasting, or tenderness. EYES: [place] conjunctiva. No petechia or hemorrhage. No scleral icterus. No injection or drainage. EARS, NOSE AND THROAT: Nose with some deformity due to skin cancer surgery. Mucous membranes pink and moist. No oral lesions noted. NECK: Trachea midline. Supple and not tender, no meningeal signs CARDIOVASCULAR: Regular rate and rhythm. No murmurs, rubs or gallops heard RESPIRATORY: Clear to auscultation. Breath sounds equal bilaterally. No rales , wheezing or rhonchi ABDOMEN: Soft, non-tender, nondistended. Bowel sounds present and normoactive. No guarding. No rebound. No organomegaly. EXTREMITIES: No clubbing, cyanosis. LLE ok. RLE: has less fluid on prepatellar area, but no redness or tenderness. Has good ROM on his R knee joint. His RBKA stump is well healed. Redness on lateral stump much improved, now mostly on area that is over bony prominence. NEUROLOGICAL: Awake and alert. Some mild dysarthria. Cranial nerves grossly intact. Has some weakness on his L side. PSYCHIATRIC: Normal affect, calm and cooperative. LINE: No evidence of infection Assessment and Plan (1) Osteomyelitis Status: Acute Code(s): M86.9 - Osteomyelitis, unspecified - Plan Impression Cellulitis lateral aspect RBKA stump ?Contusion on bony prominence of his R fibula - no open wound CVA prob chronic bursitis R knee Recommendation PICC Spoke with CM - will need to do Abs in infusion clinic Will; switch to IV Rocephin and give 6 weeks IV Abx D/W that if this does not work, then he will need further amputation Labs weekly while on IV Abx D/C this weekend once arrangements made D/W Dr Duarte ([facility]) (1) Osteomyelitis Qualifiers: Osteomyelitis type: other acute Osteomyelitis location: fibula Laterality: right Qualified Code(s): M86.161 - Other acute osteomyelitis, right tibia and fibula
[2018-05-08] MEDS ORDERED: Heparin Central Flush 100 UNIT/ML 5 ML Vial IV.FLUSH PRN (17:05)
[2018-05-08] MEDS: Temazepam 15 MG Capsule PO PRN (21:27)
[2018-05-09] MEDS: Insulin NovoLOG Aspart Correctional Sugar Inj SQ SCH ×2 (02:31→09:25)
[2018-05-09] MEDS ORDERED: Heparin Central Flush 100 UNIT/ML 5 ML Vial IV.FLUSH SCH (09:00)
[2018-05-09] MEDS: Enoxaparin Inj 40 MG/0.4 ML Syringe SQ SCH (09:26)
[2018-05-09] MEDS: Insulin Detemir Inj 1,000 UNIT/10 ML Vial SQ SCH (09:26)
[2018-05-09] MEDS: Gabapentin 300 MG Capsule PO SCH (09:27)
[2018-05-09] MEDS: Lisinopril 5 MG Tablet PO SCH (09:27)
[2018-05-09 09:30] VITALS: BP 169/84; PULSE 63; RESP 18; TEMP 98.1; O2SAT 94
[2018-05-09] MEDS: Methadone 10 MG Tablet PO SCH (09:40)
--- NOTE | 2018-05-09 09:59 | P.PNIM ---
Subjective Interval history: in no acute distress. looks comfortable. no fever. Physical Exam Vital signs: Vital Signs 05/08/18 12:00 05/08/18 16:00 05/08/18 20:30 Temperature 98.1 F 98.3 F 98 F Pulse Rate 62 62 66 Respiratory Rate 16 16 20 Blood Pressure 162/95 H 165/74 H 140/75 Pulse Oximetry 96 93 L 95 05/09/18 00:00 05/09/18 05:15 05/09/18 08:00 Temperature 98.2 F 98 F 98.1 F Pulse Rate 68 60 63 Respiratory Rate 18 16 18 Blood Pressure 142/72 H 132/62 169/84 H Pulse Oximetry 966 H 98 94 L Intake & Output 05/08/18 05/09/18 05/09/18 18:59 06:59 18:59 Intake Total 440 / 440 2375 / 2375 Output Total 2850 / 2850 Balance 440 / 440 -475 / -475 Weight 69.8 kg 70 kg Intake: IV 200 / 200 Ancef Inj 2,000 MG In NS Inj 80 100 / 100 ML @ 200 mls/hr IV.SIG Q8H [facility] Rx#:[id number] Rocephin Inj 2,000 MG In NS Inj 100 / 100 100 ML @ 200 mls/hr IV.SIG Q24H [facility] Rx#:[id number] Oral 240 / 240 2375 / 2375 Output: Urine 2850 / 2850 Other: # Voids 2 Date of Last Bowel Movement 05/07/18 # Bowel Movements 0 - Constitutional no acute distress - Routine Respiratory Exam Present: CTA bilaterally - Routine Cardiovascular Exam Present: RRR - Routine Abdominal Exam Present: soft - Routine Extremities Exam Comments: s/p right BKA - Routine Neurological Exam Present: alert, oriented X3 Results - Labs CBC & Chem 7: 05/06/18 07:11 05/06/18 07:11 Laboratory Results - last 24 hr 05/08/18 05/08/18 05/08/18 11:04 15:57 19:30 POC Glucose 330 H 194 H 312 H 05/09/18 05/09/18 01:43 08:16 POC Glucose 372 H 377 H Assessment and Plan - Assessment (1) Hx of right BKA Code(s): Z89.511 - Acquired absence of right leg below knee Status: Acute (2) Acute right MCA stroke Code(s): I63.511 - Cerebral infarction due to unspecified occlusion or stenosis of right middle cerebral artery Status: Acute (3) Osteomyelitis Code(s): M86.9 - Osteomyelitis, unspecified Status: Acute - Plan CVA with mild left hemiapresis: Head CT significant for volume loss in the right parietal lobe with suggestion of cortical laminar necrosis, concern for subacute on chronic stroke in the right MCA MRA/CTA cannot be performed secondary to patient's contrast allergy Neurology consulted, appreciate recommendations: Currently stable from their standpoint at this time Continue neuro checks Continue physical therapy - ASA Right knee Stump cellulitis with suprapatellar swelling r/o effusion -MRI of the right knee concerning for osteomyelitis -continue on IV Rocephin till 06/18/18. -Infectious disease consulted, recommendations appreciated - vascular surgery consulted; might eventually need AKA. -cleared by ID for discharge. Diabetes mellitus, insulin requiring Sliding-scale insulin increase levemir to 24 units subq bid. changed the diet to 1800 judy ADA Monitor blood glucose Hypertension start on lisinopril- continue to monitor and adjust the regimen as needed. Discharge Planning: dc home today with f/u by pcp, neurology and vascular surgery. see med list. d/w the patient and case management. previously d/w . time spent 35 min. (3) Osteomyelitis Qualifiers: Osteomyelitis type: other acute Osteomyelitis location: fibula Laterality: right Qualified Code(s): M86.161 - Other acute osteomyelitis, right tibia and fibula
--- NOTE | 2018-05-09 10:02 | P.DS ---
Date of admission: 05/01/18 02:49 Primary care physician: Karuna Mccord MD Brief History from admission: 62-year-old male with past medical history significant for diabetes mellitus and hypertension presents to the emergency department for the evaluation of right lower extremity redness, swelling and warmth. He is status post right lower extremity BKA. He reports that his stump has been swollen and red for the past 2 days. He denies any fever/chills. The patient is also concerned that he may have had a stroke. He reports that he woke up around 6 PM with difficulty speaking and slurred speech. He also states he had associated tingling in his face and left arm. He denies any chest pain or shortness of breath. No headaches or blurry vision. No nausea/vomiting/diarrhea. No abdominal pain. DS: Diagnosis - Discharge Diagnosis (1) Hx of right BKA Status: Acute (2) Acute right MCA stroke Status: Acute (3) Osteomyelitis Status: Acute DS: Summary Hospital Course: CVA with mild left hemiapresis: Head CT significant for volume loss in the right parietal lobe with suggestion of cortical laminar necrosis, concern for subacute on chronic stroke in the right MCA MRA/CTA cannot be performed secondary to patient's contrast allergy Neurology consulted, appreciate recommendations: Currently stable from their standpoint at this time Continue neuro checks Continue physical therapy - ASA Right knee Stump cellulitis with suprapatellar swelling r/o effusion -MRI of the right knee concerning for osteomyelitis -continue on IV Rocephin till 06/18/18. -Infectious disease consulted, recommendations appreciated - vascular surgery consulted; might eventually need AKA. -cleared by ID for discharge. Diabetes mellitus, insulin requiring Sliding-scale insulin increase levemir to 24 units subq bid. changed the diet to 1800 judy ADA Monitor blood glucose Hypertension start on lisinopril- continue to monitor and adjust the regimen as needed. - Time Spent with Patient Total time spent providing and/or coordinating discharge services: Greater than 30 minutes - Quality: VTE Deep Vein Thrombosis/Pulmonary Embolism Present on Admission: No Exam Vital signs: Vital Signs 05/08/18 12:00 05/08/18 16:00 05/08/18 20:30 Temperature 98.1 F 98.3 F 98 F Pulse Rate 62 62 66 Respiratory Rate 16 16 20 Blood Pressure 162/95 H 165/74 H 140/75 Pulse Oximetry 96 93 L 95 09/01/18 00:00 05/09/18 05:15 05/09/18 08:00 Temperature 98.2 F 98 F 98.1 F Pulse Rate 68 60 63 Respiratory Rate 18 16 18 Blood Pressure 142/72 H 132/62 169/84 H Pulse Oximetry 966 H 98 94 L Intake & Output 05/08/18 05/09/18 05/09/18 18:59 06:59 18:59 Intake Total 440 / 440 2375 / 2375 Output Total 2850 / 2850 Balance 440 / 440 -475 / -475 Weight 69.8 kg 70 kg Intake: IV 200 / 200 Ancef Inj 2,000 MG In NS Inj 80 100 / 100 ML @ 200 mls/hr IV.SIG Q8H [facility]AMILE[facility] Rx#:[id number] Rocephin Inj 2,000 MG In NS Inj 100 / 100 100 ML @ 200 mls/hr IV.SIG Q24H YAMILETH Rx#:[id number] Oral 240 / 240 2375 / 2375 Output: Urine 2850 / 2850 Other: # Voids 2 Date of Last Bowel Movement 05/07/18 # Bowel Movements 0 - Constitutional no acute distress - Routine Respiratory Exam Present: CTA bilaterally - Routine Cardiovascular Exam Present: RRR - Routine Abdominal Exam Present: soft - Routine Extremities Exam Comments: s/p right BKA - Routine Neurological Exam Present: alert, oriented X3 Results Procedures completed during hospitalization: none Labs on day of discharge: Labs from last 24 hours 05/09/18 05/09/18 05/08/18 08:16 01:43 19:30 POC Glucose 377 H 372 H 312 H 05/08/18 05/08/18 15:57 11:04 POC Glucose 194 H 330 H - Impressions ITS Impressions Tibia/Fibula X-Ray 05/01/18 00:00 CONCLUSION: 1. Persistent haziness of the excisional margin of the proximal fibular diaphysis could represent a chronic osteomyelitis. Associated regional callus formation. 2. Interval partial resorption of the free osseous fragment distal to the fibula. 3. Tibia remains intact. Head CT 05/01/18 00:19 CONCLUSION: 1. Some asymmetric volume loss in the mid right parietal lobe with suggestion of cortical laminar necrosis at the frontoparietal junction and temporal lobe also on the right. Findings could represent a subacute on chronic stroke in the right MCA territory which could explain current clinical symptoms. 2. No acute intracranial hemorrhage or midline shift. . Head MRI 05/01/18 03:58 CONCLUSION: Areas of evolving right hemispheric stroke Neck MRA 05/01/18 16:46 CONCLUSION: 1. Negative MRA of the carotids and vertebrals. _ Percent stenosis is calculated using the diameter of the stenotic region over the diameter of the normal distal internal carotid artery _ Carotid Doppler Study 05/01/18 16:47 CONCLUSION: 1. Right Internal Carotid Artery: Findings indicate <50% stenosis. 2. Left Internal Carotid Artery: Findings indicate <50% stenosis. Head MRA 05/01/18 16:47 CONCLUSION: 1. No flow seen in the entire right middle cerebral artery. 2. Patent right posterior cerebral artery which arises from the anterior circulation. Knee MRI 05/02/18 00:00 CONCLUSION: 1. Cellulitic changes greatest along the lateral knee and lateral stump. 2. Edema within the proximal fibula suggesting osteomyelitis. 3. No osteomyelitis within the tibial stump. 4. Reactive changes within the proximal tibia WBC Scan Nuclear Medicine 05/04/18 00:00 There is motion artifact identified. The patient is status post right below knee amputation. Recent MRI demonstrated abnormal increased T2 and decreased T1 signal within the right fibular metaphysis, with surrounding adjacent skin thickening and inflammatory changes. The CT images demonstrate diffuse subcutaneous edema, soft tissue swelling seen circumferentially, and skin thickening characteristic of cellulitis. There is focal intense radiotracer accumulation localizing to the soft tissues directly adjacent to the right proximal fibula and probably at the level of the proximal fibula though limited by motion artifact. This is seen best on the fused axial and coronal images. CONCLUSION: 1. There is intense radiotracer accumulation in the right proximal fibula and surrounding soft tissues characteristic of osteomyelitis and cellulitis. Discharge Plan - Physicians Team Primary Care Provider: Karuna Mccord Attending Provider: Riley Duarte Other Providers: apstrata,[facility] ; Paddy Valderrama MD ; Willard Boyle MD ; Vida Massey MD ; Velasquez Lizama MD
== END 2018-05-09 12:27 | disposition home or self-care (01) ==
LOC: NEPE 23:44 → NEDA 05-01 02:49 → NEPGCP 05-01 05:05 → N05 05-02 17:41
PROVIDERS: ADMIT Internal Medicine; ATTEND Internal Medicine